=== PATIENT | female | born 1935 | race Caucasian/White ===

== ENCOUNTER → 2017-10-03 | Day surgery (SDC) | payer OTHER, MEDICARE ==
[~2017-10-03] MED LIST: ADVIN25/60 INH; ALBINS/ INH; ALBU1AER9 INH; ALLO100T PO; ATEN-173 PO; CITA20TA9 PO; CYAN10005 PO; ENOX40IN SQ; FLUT50SP22; LEVO200T PO; LORA-741 PO; MERO1INJ2 IV; NTRGSL/4 SL; OXYC1TAB3 PO; SIMV20TA2 PO; TYLER650 PO
== END | disposition home or self-care (01) ==
LOC: C.ACU 14:21
PROVIDERS: ATTEND Physician Assistant Medical
DX: K57.92 Diverticulitis of intestine, part unspecified, without perforation or abscess without bleeding (principal); Z53.8 Procedure and treatment not carried out for other reasons

== ENCOUNTER 2021-07-13 08:33 | Inpatient (IN) ==
[2021-07-13] MEDS ORDERED: HYDROmorphone INJ 0.5 MG/0.5 ML SYR IV STA (08:49)
--- NOTE | 2021-07-13 08:55 | Emergency Department Note ---
Impression & Plan Fracture dislocation of ankle, Dislocation of left ankle joint, Ankle fracture ED Provider Note NAME: TREVOR ANDRADE AGE: 85 SEX: F : 1935 ARRIVES VIA: Ambulance INFORMANT: Patient ED PROVIDER(S): Jack Hudson DO CHIEF COMPLAINT: Left left ankle pain HPI: Patient is an 85-year-old female who presents the ER for left ankle pain. She was walking with her walker around 630 this morning. Her legs came out from under her and she fell back onto her buttocks and did hit her head slightly. She has no head or neck pain. No chest pain, belly pain, or back pain. Pain is all focal in the left ankle. Is an 8 out of 10. Is constant. Is worse with movement. She is brought in by EMS. She fell yesterday due to weakness and hurt her right ankle. ROS: See above HPI for pertinent positives & negatives. A total of 10 systems reviewed and were otherwise negative. PAST MEDICAL HISTORY:See Below PAST SURGICAL HISTORY:See Below FAMILY HISTORY:See Below SOCIAL HISTORY:See Below HOME MEDICATIONS:See Below ALLERGIES:See Below VITALS:See Below PHYSICAL EXAMINATION: GENERAL: alert, well appearing, well nourished, mild distress, disheveled HEAD: normal cephalic, atraumatic EYE EXAM: normal conjunctiva, PERRL and EOM's grossly intact OROPHARYNX: no exudate, no erythema, lips, buccal mucosa, and tongue normal and mucous membranes are moist NECK: supple, no nuchal rigidity, no adenopathy, non-tender CHEST: stable to compression anteriorly and posteriorly LUNGS: clear to auscultation. Normal chest wall mechanics HEART: no murmurs, S1 normal and S2 normal ABDOMEN: abdomen soft, non-tender, normo-active bowel sounds, no masses, no rebound or guarding. PELVIS: stable to compression anteriorly and posteriorly BACK: Back is symmetrical on inspection and there is no deformity, no midline tenderness, no CVA tenderness. UPPER EXTREMITIES: full active and passive range of motion of all joints without tenderness to palpation LOWER EXTREMITIES: No tenderness throughout the entire right lower extremity including femur, knee, tib-fib with the exception of the right ankle where the patient has both medial and lateral tenderness. Erythema overlying the foot and tracking up to the mid nieves on the dorsal surface. No tenderness through left femur knee or tib-fib. Tenderness over the medial and lateral malleolus. Good cap refill. Able to wiggle toes. She has decreased sensation secondary to neuropathy. Just anterior to the left medial malleolus there is some superficial bruising where the bone was initially protruding. NEURO EXAM: Normal sensorium, cranial nerves II-XII grossly intact, normal speech, no gross weakness of arms, no gross weakness of legs. GCS: 15. MEDICAL DECISION MAKING: Patient is an 85-year-old female who presents the ER for bilateral ankle pain. She fell yesterday and hurt her right ankle and fell today and hurt her left ankle. She was splinted by EMS and brought in. IV was established blood work was obtained. She was given IV narcotics. Labs showed no significant leukoc ytosis. Mild anemia 10. BMP along with LFTs bilirubin lipase is unremarkable. Troponin was negative. UA was clean. Covid was negative. X-rays were obtained. Paged orthopedics and spoke with Dr. Dawn around 11:15 AM. He reviewed the images and called me back after discussion with Dr. Em. They feel this will need more specialized care. Discussed the splint with him as I did attempt to reduce the left fracture dislocation with minimal improvement. Dr. Dawn noted that it is extremely unstable and that is probably the best position that I will be able to obtain. Discussed with Dr. Tyrel Garvin from podiatry. He evaluated the images. He was agreeable to take the patient to the OR and he will do that later today as an add-on. Patient was splinted after I attempted to reduce and relocate the dislocation/fracture of the left ankle. Patient was admitted to the hospitalist for OR later today. Triage Nursing notes reviewed. Limited review of prior medical records performed Vital Signs: reviewed and remarkable for no significant abnormalities Differential diagnosis: Fracture, subluxation, dislocation, contusion, ligamentous injury, neurovascular, compartment syndrome, rhabdomyolysis, as well as other pathologies. ER treatment provided: See below Diagnostics interpreted by me: ECG: Sinus tachycardia rate of 107 Left axis No PVCs QTC 456 Cardiac Monitoring: An order was placed for continuous cardiac monitoring. The monitor shows a rate of 105 with sinus rhythm. Laboratory studies: As stated above and show below. Imaging studies: X-rays bilateral ankles show left fracture dislocation and right tibial fracture Consultation(s): As discussed above with Dr. Dawn and Dr. Tyrel Garvin Procedures: REDUCTION of Fracture and dislocation of the left ankle: Verbal consent was obtained. Patient was given 100 of IV fentanyl. Foot which was rotated laterally with some mild tenting just inferior to the medial malleolus. Gentle traction was placed by myself and foot was rotated medially. This was held in place while we splinted the foot. Patient tolerated procedure well. There was improvement of the angulation and pressure on the skin. Patient still had decreased sensation which consistent with her neuropathy. 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 Diverticulitis Failure of outpatient treatment Hypothyroidism Morbid obesity Rapidly progressive weakness UTI (urinary tract infection) Surgical History (Updated 07/13/21 @ 12:47 by KYLE Beck) H/O heart artery stent History of arthroplasty of left knee Status post lens implant Social History Smoking Status: Never smoker Preferred Language: Albanian Feels Safe at Home: Yes Assistive Devices: Denture - Upper and Denture - Lower Allergies Allergies Allergy/AdvReac Type Severity Reaction Status Date / Time oxytetracycline Allergy Intermediate Unknown Verified 07/13/21 10:57 polymyxin B Allergy Intermediate Unknown Verified 07/13/21 10:57 tetracycline Allergy Intermediate Unknown Verified 07/13/21 10:57 morphine AdvReac Unknown Unknown Verified 07/13/21 10:57 Home Meds Home Medications Medication Instructions Recorded Confirmed acetaminophen 500 mg tablet 1,000 mg PO BID 02/15/21 07/13/21 (Tylenol Extra Strength) allopurinol 100 mg tablet 100 mg PO QAM 02/15/21 07/13/21 (Zyloprim) aspirin 81 mg tablet,delayed 81 mg PO QAM 02/15/21 07/13/21 release (Aspirin Low Dose) atenolol 25 mg tablet (Tenormin) 12.5 mg PO QAM 02/15/21 07/13/21 atorvastatin 20 mg tablet (Lipitor) 20 mg PO QAM 02/15/21 07/13/21 cholecalciferol (vitamin D3) 25 25 mcg PO HS 02/15/21 07/13/21 mcg (1,000 unit) capsule (Vitamin D3) cyanocobalamin (vitamin B-12) 3,000 mcg PO HS 02/15/21 07/13/21 1,000 mcg tablet (Vitamin B-12) fluticasone 250 mcg-salmeterol 50 1 inh INHALATION QAM 02/15/21 07/13/21 mcg/dose blistr powdr for inhalation (Advair Diskus) fluticasone propionate 50 1 spray INTRANASAL BID 02/15/21 07/13/21 mcg/actuation nasal spray,suspension (Flonase Allergy Relief) furosemide 20 mg tablet (Lasix) 20 mg PO DAILY PRN 02/15/21 07/13/21 levothyroxine 200 mcg tablet 200 mcg PO QAM 02/15/21 07/13/21 (Synthroid) losartan 50 mg tablet (Cozaar) 50 mg PO BID 02/15/21 07/13/21 vitamin E 1,000 unit capsule 1,000 unit PO HS 02/15/21 07/13/21 ferrous sulfate 325 mg (65 mg 325 mg PO HS 07/13/21 07/13/21 iron) tablet (iron) hydrocodone 5 mg-acetaminophen 325 1 tab PO Q12 07/13/21 07/13/21 mg tablet trolamine salicylate 10 % topical 1 applic TOPICAL TID PRN 07/13/21 07/13/21 cream (Aspercreme) Results & Data (ED) Vital Signs Vital Signs - 24 hr 07/13/21 08:33 07/13/21 10:30 07/13/21 10:34 Temperature 37.1 C Temperature Source Oral Pulse Rate 96 H 99 H 99 H Pulse Rate from SpO2 Sensor Pulse Rhythm Regular Regular Respiratory Rate 18 14 15 Respiratory Effort / Characteristics Non-Labored Respiratory Depth Normal Respiratory Pattern Regular Blood Pressure 178/108 H 150/105 H Blood Pressure Mean 131 120 Pulse Oximetry 96 94 Oxygen Delivery Method Room Air Room Air Sepsis Recent Fever Within 48 Hours No Sepsis New/Unexplained Change in Mental Status No Sepsis Action Taken by Nursing No Action Required 07/13/21 11:00 07/13/21 11:30 07/13/21 12:00 Temperature Temperature Source Pulse Rate 99 H 97 H 100 H Pulse Rate from SpO2 Sensor 97 H 98 H Pulse Rhythm Respiratory Rate 14 24 21 Respiratory Effort / Characteristics Respiratory Depth Respiratory Pattern Blood Pressure 204/107 H 169/91 H 187/110 H Blood Pressure Mean 139 117 135 Pulse Oximetry 94 92 Oxygen Delivery Method Sepsis Recent Fever Within 48 Hours Sepsis New/Unexplained Change in Mental Status Sepsis Action Taken by Nursing Laboratory Data Result diagrams: 07/13/21 09:20 07/13/21 09:20 Lab Results 07/13/21 07/13/21 07/13/21 Range/Units 08:55 09:20 09:20 WBC (4.8-10.8) K/uL RBC (4.2-5.4) M/uL Hgb (12.0-16.0) g/dL Hct (37-47) % MCV (80-100) fL MCH (25-34) pg MCHC (32-36) g/dL RDW Std Deviation (36.4-46.3) fL RDW Coeff of Amaya (11.5-14.5) % Plt Count (130-400) K/uL MPV (7.4-10.4) fL Immature Gran % (Auto) % Neut % (Auto) % Lymph % (Auto) % Rincon % (Auto) % Eos % (Auto) % Baso % (Auto) % Neut # (Auto) (1.4-6.5) K/uL Lymph # (Auto) (1.2-3.4) K/uL Rincon # (Auto) (0.11-0.59) K/uL Eos # (Auto) (0-0.5) K/uL Baso # (Auto) (0-0.2) K/uL Immature Gran # (Auto) (0.00-0.02) K/uL PT 11.6 (9.0-12.0) Seconds INR 1.2 H (0.9-1.1) Sodium 134 L (136-145) mmol/L Potassium 4.7 (3.5-5.1) mmol/L Chloride 101 (98-107) mmol/L Carbon Dioxide 27 (21-32) mmol/L Anion Gap 6.0 (3-11) BUN 22 H (7-18) mg/dl Creatinine 1.15 (0.6-1.2) mg/dl Est Cr Clr Drug Dosing 42.5 ml/min Est GFR ( Amer) 51.0 ml/min Est GFR (Non-Af Amer) 44.0 ml/min BUN/Creatinine Ratio 18.8 (10-20) Glucose 148 H (70-99) mg/dl Calcium 9.1 (8.5-10.1) mg/dl Total Bilirubin 0.7 (0.2-1) mg/dl AST 27 (15-37) U/L ALT 17 (12-78) U/L Alkaline Phosphatase 79 (45-117) U/L Troponin I < 0.015 (0-0.045) ng/ml Total Protein 7.8 (6.4-8.2) gm/dl Albumin 3.6 (3.4-5.0) gm/dl Globulin 4.2 H (2.5-4.0) gm/dl Albumin/Globulin Ratio 0.9 (0.9-2) Lipase 157 (73-393) U/L Urine Color Yellow Urine Appearance Clear (Clear) Urine pH 5.0 (4.5-7.5) Ur Specific Franklin 1.019 (1.000-1.030) Urine Protein 3+ H (Negative) Urine Glucose (UA) Negative (Negative) Urine Ketones Negative (Negative) Urine Blood Trace H (Negative) Urine Nitrite Negative (Negative) Urine Bilirubin Negative (Negative) Urine Urobilinogen Negative (Negative) Ur Leukocyte Esterase Negative (Negative) Urine WBC (Auto) 1-5 (0-5) /hpf Urine RBC (Auto) 0-4 (0-4) /hpf U Hyaline Cast (Auto) 1-5 (0-5) /lpf U Epithel Cells (Auto) 20-30 H (0-5) /lpf Urine Bacteria (Auto) Negative (Negative) COVID-19 Eval Order SARS-CoV-2 (PCR) (Negative) 07/13/21 07/13/21 07/13/21 Range/Units 09:20 11:00 11:00 WBC 6.52 (4.8-10.8) K/uL RBC 3.38 L (4.2-5.4) M/uL Hgb 10.6 L (12.0-16.0) g/dL Hct 33.6 L (37-47) % MCV 99.4 (80-100) fL MCH 31.4 (25-34) pg MCHC 31.5 L (32-36) g/dL RDW Std Deviation 57.5 H (36.4-46.3) fL RDW Coeff of Amaya 16.0 H (11.5-14.5) % Plt Count 155 (130-400) K/uL MPV 12.3 H (7.4-10.4) fL Immature Gran % (Auto) 0.5 % Neut % (Auto) 77.4 % Lymph % (Auto) 10.4 % Rincon % (Auto) 11.5 % Eos % (Auto) 0.0 % Baso % (Auto) 0.2 % Neut # (Auto) 5.05 (1.4-6.5) K/uL Lymph # (Auto) 0.68 L (1.2-3.4) K/uL Rincon # (Auto) 0.75 H (0.11-0.59) K/uL Eos # (Auto) 0.00 (0-0.5) K/uL Baso # (Auto) 0.01 (0-0.2) K/uL Immature Gran # (Auto) 0.03 H (0.00-0.02) K/uL PT (9.0-12.0) Seconds INR (0.9-1.1) Sodium (136-145) mmol/L Potassium (3.5-5.1) mmol/L Chloride (98-107) mmol/L Carbon Dioxide (21-32) mmol/L Anion Gap (3-11) BUN (7-18) mg/dl Creatinine (0.6-1.2) mg/dl Est Cr Clr Drug Dosing ml/min Est GFR ( Amer) ml/min Est GFR (Non-Af Amer) ml/min BUN/Creatinine Ratio (10-20) Glucose (70-99) mg/dl Calcium (8.5-10.1) mg/dl Total Bilirubin (0.2-1) mg/dl AST (15-37) U/L ALT (12-78) U/L Alkaline Phosphatase (45-117) U/L Troponin I (0-0.045) ng/ml Total Protein (6.4-8.2) gm/dl Albumin (3.4-5.0) gm/dl Globulin (2.5-4.0) gm/dl Albumin/Globulin Ratio (0.9-2) Lipase (73-393) U/L Urine Color Urine Appearance (Clear) Urine pH (4.5-7.5) Ur Specific Franklin (1.000-1.030) Urine Protein (Negative) Urine Glucose (UA) (Negative) Urine Ketones (Negative) Urine Blood (Negative) Urine Nitrite (Negative) Urine Bilirubin (Negative) Urine Urobilinogen (Negative) Ur Leukocyte Esterase (Negative) Urine WBC (Auto) (0-5) /hpf Urine RBC (Auto) (0-4) /hpf U Hyaline Cast (Auto) (0-5) /lpf U Epithel Cells (Auto) (0-5) /lpf Urine Bacteria (Auto) (Negative) COVID-19 Eval Order Covid19 at [facility] SARS-CoV-2 (PCR) NEGATIVE (Negative) Administered Medications Hydromorphone HCl (Hydromorphone Inj 0.5 Mg/0.5 Ml Syr) 0.25 mg IV Q20M PRN PRN Reason: Moderate Pain (Rating 3,4,5,6) Stop: 07/27/21 10:37 Last Admin: 07/13/21 10:57 Dose: 0.25 mg Documented by: [id number] Hydromorphone HCl (Hydromorphone Inj 0.5 Mg/0.5 Ml Syr) 0.5 mg IV Q20M PRN PRN Reason: Severe Pain (Rating 7,8,9,10) Stop: 07/27/21 10:37 Last Admin: 07/13/21 13:25 Dose: 0.5 mg Documented by: [id number] Discontinued Medications Fentanyl Citrate (Fentanyl Citrate 100 Mcg/2 Ml Vial) Confirm Administered Dose 100 mcg .ROUTE .STK-MED ONE Stop: 07/13/21 10:19 Last Admin: 07/13/21 10:30 Dose: 100 mcg Documented by: [id number] Fentanyl Citrate (Fentanyl Citrate 100 Mcg/2 Ml Vial) 100 mcg IV NOW STA Stop: 07/13/21 10:39 Last Admin: 07/13/21 10:40 Dose: Not Given Documented by: [id number] Hydromorphone HCl (Hydromorphone Inj 0.5 Mg/0.5 Ml Syr) 0.25 mg IV NOW STA Stop: 07/13/21 08:50 Last Admin: 07/13/21 09:43 Dose: 0.25 mg Documented by: [id number] Imaging Data Radiologist's Impression: Ankle X-Ray 07/13/21 08:49 XR ankle LT 2V CLINICAL HISTORY: l ankle pain TECHNIQUE: 2 views of the left ankle were obtained. Comparison: None available at the time of this dictation. FINDINGS: There is a dislocation of the tibial calcaneal articulation, with one shaft width anterior displacement. There is a mildly comminuted oblique fracture of the fibula. The talar dome is smooth. Soft tissue swelling is seen. There is no ankle effusion. IMPRESSION: Fracture dislocation of the ankle. The tibia is dislocated approximately one shaft width anteriorly. ACT 112: Negative or not required by law. Electronically signed by: Jose David Berger M.D. 07/13/2021 9:50 AM Ankle X-Ray 07/13/21 08:49 XR ankle RT 2V CLINICAL HISTORY: Right ankle pain following fall. COMPARISON: None FINDINGS: Note is made of an acute oblique mildly displaced fracture through the posterior distal right tibia which extends to the tibiotalar articulation. No acute fracture of the distal right fibula is identified. Ankle soft tissue swelling is present. There is moderate vascular calcification. Midfoot osteoarthritis is noted. No ankle mortise widening is identified. Moderate tibiotalar joint osteoarthritis is present. IMPRESSION: Acute oblique mildly displaced fracture the posterior distal right tibial which extends to the tibiotalar articulation. ACT 112: Negative or not required by law. Electronically signed by: Jose Yeboah M.D. 07/13/2021 9:[address] 07/13/21 08:49 CT OF THE HEAD WITHOUT CONTRAST CLINICAL HISTORY: Fall. COMPARISON STUDY: Head CT July 10, 2016. CT DOSE: 537.48 mGy.cm TECHNIQUE: Helical axial images of the head were obtained without IV contrast. Automated exposure control was utilized for the study. A dose lowering technique was utilized adhering to the principles of ALARA. FINDINGS: No acute intracranial hemorrhage, midline shift or mass effect is present. White matter hypodensities favor small vessel disease. The ventricular system is unremarkable. The basal cisterns are patent. No extra-axial collections are present. There are no findings to suggest acute dural sinus thrombosis or acute territorial infarct. No significant calvarial abnormalities are present. Visualized portions of the sinuses and mastoid air cells are clear. IMPRESSION: 1. No acute intracranial findings. 2. No calvarial fracture.3 ACT 112: Negative or not required by law. Electronically signed by: Jose Yeboah M.D. 07/13/2021 9:59 AM Ankle X-Ray 07/13/21 10:38 XR ankle LT min 3V routine CLINICAL HISTORY: fx reduction TECHNIQUE: 3 views of the left ankle were obtained. Comparison: Comparison is made to left ankle 2 views 07/13/2021 FINDINGS: Interval placement of a cast which obscures fine bony detail. Again noted is anterior dislocation of the left tibia, which remains approximately one shaft width displaced from the talar dome. There is a comminuted fracture of the distal left fibula, the distal fragment is approximately one half shaft width laterally displaced. The cortex of the medial malleolus is not well seen, likely representing a medial malleolus fracture. The talar dome is smooth. Soft tissue swelling is seen. IMPRESSION: Redemonstration of left ankle fracture dislocation. The tibia remains anteriorly dislocated relative to the talus. ACT 112: Negative or not required by law. Electronically signed by: Jose David Berger M.D. 07/13/2021 11:[address] 07/13/21 11:57 CT ankle LT wo con CLINICAL HISTORY: Left ankle fracture. COMPARISON STUDY: Left ankle radiographs obtained at 11:06 AM today. TECHNIQUE: Axial images of the left ankle were obtained without IV contrast. Sagittal and coronal reconstructions were viewed. Automated exposure control was utilized for the study. A dose lowering technique was utilized adhering to the principles of ALARA. FINDINGS: Note is again made of a left trimalleolar fracture/dislocation deformity. Overlying cast is present. No soft tissue gas is present. Extensive soft tissue swelling is present. There is an acute comminuted displaced fracture of the left fibula. This fracture extends from the level of the distal shaft to the fibular head. This fracture is displaced 2.1 cm. An acute comminuted displaced distal left tibial fracture is noted with intra-articular extension. There are multiple intra-articular bone fragments. The tibia is displaced anteriorly with respect to the talus and impacted. Tibial fracture is displaced at least 2 cm. There is an impaction fracture of the anterolateral aspect of the talar dome with an associated 1.5 cm bone fragment. No acute left calcaneal fracture is present. A displaced medial malleolus fracture is noted. Alignment of the left midfoot is anatomic. No acute fractures are identified within visualized portions of the left metatarsals. Moderate mid foot osteophytosis present. IMPRESSION: 1. Left ankle trimalleolar fracture/dislocation deformity, as described above. Comminuted displaced and impacted distal left tibial fracture. Tibia displaced anteriorly and medially with respect to the talus. Multiple intra-articular bone fragments. 2. Impaction fracture of the anterolateral aspect of the talar dome. ACT 112: Negative or not required by law. Electronically signed by: Jose Yeboah M.D. 07/13/2021 2:46 PM Discharge Plan Visit Data Chief Complaint: Fall Stated Complaint: FALL, L ANKLE FX ED Provider: Jack Hudson Discharge Problem: Fracture dislocation of ankle, Dislocation of left ankle joint, Ankle fracture Patient Disposition: Admitted As Inpatient Discharge Instructions Interventions: ED Discharge Assessment Last Done: 07/13/21 14:25
[2021-07-13 09:24] LABS: Appearance Urine Clear (Clear); Bacteria Urine Automated Negative (Negative); Bilirubin Urine Negative (Negative); Blood Urine Trace (Negative); Color Urine Yellow; Epithelial Cell Urine Auto 20-30 /lpf (0-5); Glucose Urine UA Negative (Negative); Ketones Urine Negative (Negative); Leukocyte Esterase Urine Negative (Negative); Nitrite Urine Negative (Negative); Protein Urine 3+ (Negative); RBC Urine Automated 0-4 /hpf (0-4); Specific Gravity Urine 1.019 (1.000-1.030); Urobilinogen Urine Negative (Negative)
[2021-07-13 09:34] LABS: Basophils # (auto) 0.01 K/uL (0-0.2); Basophils % (auto) 0.2 %; Hematocrit (blood only) 33.6 % (37-47); Hemoglobin 10.6 g/dL (12.0-16.0); Immature Granulocytes # (auto) 0.03 K/uL (0.00-0.02); Immature Granulocytes % (auto) 0.5 %; Lymphocytes # (auto) 0.68 K/uL (1.2-3.4); Lymphocytes % (auto) 10.4 %; Mean Corpuscular Hemoglobin 31.4 pg (25-34); Mean Corpuscular Hgb Conc 31.5 g/dL (32-36); Mean Corpuscular Volume 99.4 fL (80-100); Mean Platelet Volume 12.3 fL (7.4-10.4); Monocytes # (auto) 0.75 K/uL (0.11-0.59); Monocytes % (auto) 11.5 %; Neutrophils # (auto) 5.05 K/uL (1.4-6.5); Neutrophils % (auto) 77.4 %; Platelet Count 155 K/uL (130-400); RDW Standard Deviation 57.5 fL (36.4-46.3); Red Blood Count 3.38 M/uL (4.2-5.4); White Blood Count 6.52 K/uL (4.8-10.8)
[2021-07-13 09:49] LABS: INR 1.2 (0.9-1.1); Prothrombin Time 11.6 Seconds (9.0-12.0)
--- NOTE | 2021-07-13 09:49 | XRay Report ---
XR ankle RT 2V CLINICAL HISTORY: Right ankle pain following fall. COMPARISON: None FINDINGS: Note is made of an acute oblique mildly displaced fracture through the posterior distal ri ght tibia which extends to the tibiotalar articulation. No acute fracture of the distal right fibula is identified. Ankle soft tissue swelling is present. There is moderate vascular calcification. Midfo ot osteoarthritis is noted. No ankle mortise widening is identified. Moderate tibiotalar joint osteoa rthritis is present. IMPRESSION: Acute oblique mildly displaced fracture the posterior distal right tibial which extends t o the tibiotalar articulation. ACT 112: Negative or not required by law. Electronically signed by: Jose Yeboah M.D. 07/13/2021 9:47 AM
--- NOTE | 2021-07-13 09:51 | XRay Report ---
XR ankle LT 2V CLINICAL HISTORY: l ankle pain TECHNIQUE: 2 views of the left ankle were obtained. Comparison: None available at the time of this dictation. FINDINGS: There is a dislocation of the tibial calcaneal articulation, with one shaft width anterior displaceme nt. There is a mildly comminuted oblique fracture of the fibula. The talar dome is smooth. Soft tissu e swelling is seen. There is no ankle effusion. IMPRESSION: Fracture dislocation of the ankle. The tibia is dislocated approximately one shaft width anteriorly. ACT 112: Negative or not required by law. Electronically signed by: Jose David Berger M.D. 07/13/2021 9:50 AM
[2021-07-13 09:54] LABS: Alanine Aminotransferase 17 U/L (12-78); Albumin Level 3.6 gm/dl (3.4-5.0); Aspartate Aminotransferase 27 U/L (15-37); BUN Creatinine Ratio 18.8 (10-20); Blood Urea Nitrogen 22 mg/dl (7-18); Calcium 9.1 mg/dl (8.5-10.1); Carbon Dioxide 27 mmol/L (21-32); Chloride 101 mmol/L (98-107); Creatinine Clr Calc Pharmacy 42.5 ml/min; Glucose 148 mg/dl (70-99); Lipase 157 U/L (73-393); Potassium 4.7 mmol/L (3.5-5.1); Sodium 134 mmol/L (136-145)
[2021-07-13 09:59] LABS: Albumin Globulin Ratio 0.9 (0.9-2); Alkaline Phosphatase 79 U/L (45-117); Bilirubin,Total 0.7 mg/dl (0.2-1); Globulin 4.2 gm/dl (2.5-4.0); Total Protein 7.8 gm/dl (6.4-8.2); Troponin I < 0.015 ng/ml (0-0.045)
--- NOTE | 2021-07-13 10:00 | CT Scan Report ---
CT OF THE HEAD WITHOUT CONTRAST CLINICAL HISTORY: Fall. COMPARISON STUDY: Head CT July 10, 2016. CT DOSE: 537.48 mGy.cm TECHNIQUE: Helical axial images of the head were obtained without IV contrast. Automated exposure con trol was utilized for the study. A dose lowering technique was utilized adhering to the principles o f ALARA. FINDINGS: No acute intracranial hemorrhage, midline shift or mass effect is present. White matter hyp odensities favor small vessel disease. The ventricular system is unremarkable. The basal cisterns are patent. No extra-axial collections are present. There are no findings to suggest acute dural sinus t hrombosis or acute territorial infarct. No significant calvarial abnormalities are present. Visualize d portions of the sinuses and mastoid air cells are clear. IMPRESSION: 1. No acute intracranial findings. 2. No calvarial fracture.3 ACT 112: Negative or not required by law. Electronically signed by: Jose Yeboah M.D. 07/13/2021 9:59 AM
[2021-07-13] MEDS ORDERED: fentaNYL citrate 100 MCG/2 ML VIAL ONE ×2 (10:18→20:18)
[2021-07-13] MEDS ORDERED: HYDROmorphone INJ 0.5 MG/0.5 ML SYR IV PRN ×2 (10:38)
[2021-07-13] MEDS ORDERED: fentaNYL citrate 100 MCG/2 ML VIAL IV STA (10:38)
--- NOTE | 2021-07-13 11:38 | XRay Report ---
XR ankle LT min 3V routine CLINICAL HISTORY: fx reduction TECHNIQUE: 3 views of the left ankle were obtained. Comparison: Comparison is made to left ankle 2 views 07/13/2021 FINDINGS: Interval placement of a cast which obscures fine bony detail. Again noted is anterior dislocation of the left tibia, which remains approximately one shaft width displaced from the talar dome. There is a comminuted fracture of the distal left fibula, the distal fragment is approximately one half shaft w idth laterally displaced. The cortex of the medial malleolus is not well seen, likely representing a medial malleolus fracture. The talar dome is smooth. Soft tissue swelling is seen. IMPRESSION: Redemonstration of left ankle fracture dislocation. The tibia remains anteriorly dislocated relative to the talus. ACT 112: Negative or not required by law. Electronically signed by: Jose David Berger M.D. 07/13/2021 11:36 AM
--- NOTE | 2021-07-13 13:02 | History & Physical Report ---
Date of Service July 13, 2021 Assessment & Plan (1) Bilateral ankle fractures: Plan: Bilateral ankle fractures- currently splinted - see results above - Defer to podiatry/orthopaedics - SCD for VTE prophylaxis - chemoprophy when hemostasis ensured - PT/OT consult - rehab placement likely needed afterwards- PT/OT consult placed - Pain control - IV Tylenol while NPO, Hydromorphone 05mg IV q4 PRN - add longer acting oral agents once back from OR- or consider [employer] postoperative (2) Dislocation of left ankle joint: Plan: As above- defer to podiatry (3) CAD (coronary artery disease): Plan: With 1 stent to circumflex 2003 - Asa- likey able to re-start in morning - Continue Atenolol - Hold ARB- follow renal function postoperative (4) Morbid obesity: Plan: Will need weight reduction to decrease CV morbidity and assist with rehabilitation - HCO3 is 27 - follow; 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 Patient brought to the [facility] today for fall. The patient fell yesterday and hurt her right ankle, she refused transfer to the [facility] yesterday but did call EMS to get her up off the floor. She fell backward while trying to get to her chair. Today she was also trying to get around the house and fell again. In the EMD she was complaining of bilateral ankle pain. She was noted to have bilateral ankle fractures. The left ankle- Fracture dislocation of the ankle. The tibia is dislocated approximately one shaft width anteriorly and her right ankle - Acute oblique mildly displaced fracture the posterior distal right tibial which extends to the tibiotalar articulation. Podiatry was consulted and plans to evaluate the patient and plan for operating room this afternoon/evening. The patient will be made NPO, pain control, CT scan of the ankles already ordered, will place Pacheco catheter. She will be admitted for the above, PT/OT evaluation, patient will likely need rehab placement and assisted living care she is open to after hospitalization. Case management consult placed. The patient is able to get around her double wide to clean, grocery shopping, and ADLS without dysnpea. She denies any chest pain or cardiac symptoms with these. She had a stent placed in 2003. She reports asthma without the use of CPAP/BIPAP at night. Is on advair daily. She is morbidly obese with glucose intolerance not on glucose lowering medications as outpatient. 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 CKD III. Not on any blood thinners other than ASA daily, this has been held for perioperative and postoperative period. BP are elevated in the EMD likely secondary to pain as well as poor fitting BP cuff. Patent perioperative risk/probability for perioperative SC/Cardiac arrest is 0.22%, Her Revised Cardiac risk/probability for SC/pulmonary edema/cardiac arrest is: Low risk 0.9% Patient has had her COVID vaccine and her COVID test on admission is: NEGATIVE Allergies Allergy/AdvReac Type Severity Reaction Status Date / Time oxytetracycline Allergy Intermediate Unknown Verified 07/13/21 10:57 polymyxin B Allergy Intermediate Unknown Verified 07/13/21 10:57 tetracycline Allergy Intermediate Unknown Verified 07/13/21 10:57 morphine AdvReac Unknown Unknown Verified 07/13/21 10:57 Home Medications Medication Instructions Recorded Confirmed Type acetaminophen 500 mg tablet 1,000 mg PO BID 02/15/21 07/13/21 History (Tylenol Extra Strength) allopurinol 100 mg tablet 100 mg PO QAM 02/15/21 07/13/21 History (Zyloprim) aspirin 81 mg tablet,delayed 81 mg PO QAM 02/15/21 07/13/21 History release (Aspirin Low Dose) atenolol 25 mg tablet (Tenormin) 12.5 mg PO QAM 02/15/21 07/13/21 History atorvastatin 20 mg tablet (Lipitor) 20 mg PO QAM 02/15/21 07/13/21 History cholecalciferol (vitamin D3) 25 25 mcg PO HS 02/15/21 07/13/21 History mcg (1,000 unit) capsule (Vitamin D3) cyanocobalamin (vitamin B-12) 3,000 mcg PO HS 02/15/21 07/13/21 History 1,000 mcg tablet (Vitamin B-12) fluticasone 250 mcg-salmeterol 50 1 inh INHALATION QAM 02/15/21 07/13/21 History mcg/dose blistr powdr for inhalation (Advair Diskus) fluticasone propionate 50 1 spray INTRANASAL BID 02/15/21 07/13/21 History mcg/actuation nasal spray,suspension (Flonase Allergy Relief) furosemide 20 mg tablet (Lasix) 20 mg PO DAILY PRN 02/15/21 07/13/21 History levothyroxine 200 mcg tablet 200 mcg PO QAM 02/15/21 07/13/21 History (Synthroid) losartan 50 mg tablet (Cozaar) 50 mg PO BID 02/15/21 07/13/21 History vitamin E 1,000 unit capsule 1,000 unit PO HS 02/15/21 07/13/21 History ferrous sulfate 325 mg (65 mg 325 mg PO HS 07/13/21 07/13/21 History iron) tablet (iron) hydrocodone 5 mg-acetaminophen 325 1 tab PO Q12 07/13/21 07/13/21 History mg tablet trolamine salicylate 10 % topical 1 applic TOPICAL TID PRN 07/13/21 07/13/21 History cream (Aspercreme) Past Med/Surg History Medical History (Updated 07/13/21 @ 15:14 by Jack Hudson DO) Anemia Arthropathy of right knee Asthma 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 Diverticulitis Failure of outpatient treatment Hypothyroidism Morbid obesity Rapidly progressive weakness UTI (urinary tract infection) Surgical History (Updated 07/13/21 @ 12:47 by KYLE Beck) H/O heart artery stent History of arthroplasty of left knee Status post lens implant Social History Smoking Status: Never smoker Preferred Language: Japanese Feels Safe at Home: Yes Assistive Devices: Denture - Upper and Denture - Lower Review of Systems Review of Systems: REVIEW OF SYSTEMS: Constitutional: No fever, sweats or chills Eyes: No diplopia, no worsening or blurred vision ENT: (+) bilateral hearing aids, upper and lower dentures, no trouble swallowing Respiratory: No cough, sputum, dyspnea at rest or on exertion Cardiovascular: No chest pain, tightness or palpitations Abdomen: (+) ostomy No pain, nausea, vomiting, diarrhea or constipation Musculoskeletal: (+) chronic knee and hip joint pain, Acute ankle pain, NO calf pain, swelling Neurologic: No weakness, numbness/tingling, or balance problems Psychiatric: No anxiety or depression Skin: No rash or itch Physical Exam Physical Exam: PHYSICAL EXAM: General: awake, alert, anxious Head: Normocephalic, atraumatic ENT: PERRL, EOMI, no pharyngeal exudate, mucous membranes moist Neuro: AAO x 3, speech clear and appropriate, strength intact bilaterally 5/5, sensation intact and equal all extremities and dermatomes, no pronator drift Chest: equal rise and fall of the chest, no accessory muscle use, no heaves or thirlls, Clear to auscultation, on room air, Cardiac: Regular rate and rhythm, telemetry reviewed- NSR, skin warm dry, cap refill <3 seconds, peripheral pulses +2- pedal pulses unalbe to assess secondary to splinting wraps, no JVD, no murmur, GI: soft, tender to around stoma- this is no change per patient(parastomal hernia) not inflamed, no rebound, guarding or tenderness : Pacheco to gravity Extremities: left shoulder chronic pain and decreased ROM with pain, right and left ankles fractured- NWB for now- plan for operative care following eval by podiatry Psych: Normal mood and affect Skin: no rash or erythema Results & Data Results & Data ([facility]) Vital Signs (Past 12 Hours) Vital Signs Temp Pulse Resp BP Pulse Ox 07/13/21 11:00 99 H 14 204/107 H 94 07/13/21 10:34 99 H 15 150/105 H 07/13/21 10:30 99 H 14 94 07/13/21 08:33 37.1 C 96 H 18 178/108 H 96 Laboratory Results Abnormal lab results 07/13/21 07/13/21 07/13/21 Range/Units 08:55 09:20 09:20 RBC (4.2-5.4) M/uL Hgb (12.0-16.0) g/dL Hct (37-47) % MCHC (32-36) g/dL RDW Std Deviation (36.4-46.3) fL RDW Coeff of Amaya (11.5-14.5) % MPV (7.4-10.4) fL Lymph # (Auto) (1.2-3.4) K/uL Knott # (Auto) (0.11-0.59) K/uL Immature Gran # (Auto) (0.00-0.02) K/uL INR 1.2 H (0.9-1.1) Sodium 134 L (136-145) mmol/L BUN 22 H (7-18) mg/dl Glucose 148 H (70-99) mg/dl Globulin 4.2 H (2.5-4.0) gm/dl Urine Protein 3+ H (Negative) Urine Blood Trace H (Negative) U Epithel Cells (Auto) 20-30 H (0-5) /lpf 07/13/21 Range/Units 09:20 RBC 3.38 L (4.2-5.4) M/uL Hgb 10.6 L (12.0-16.0) g/dL Hct 33.6 L (37-47) % MCHC 31.5 L (32-36) g/dL RDW Std Deviation 57.5 H (36.4-46.3) fL RDW Coeff of Amaya 16.0 H (11.5-14.5) % MPV 12.3 H (7.4-10.4) fL Lymph # (Auto) 0.68 L (1.2-3.4) K/uL Knott # (Auto) 0.75 H (0.11-0.59) K/uL Immature Gran # (Auto) 0.03 H (0.00-0.02) K/uL INR (0.9-1.1) Sodium (136-145) mmol/L BUN (7-18) mg/dl Glucose (70-99) mg/dl Globulin (2.5-4.0) gm/dl Urine Protein (Negative) Urine Blood (Negative) U Epithel Cells (Auto) (0-5) /lpf Diagnostic Findings Ankle X-Ray 07/13/21 08:49 XR ankle LT 2V CLINICAL HISTORY: l ankle pain TECHNIQUE: 2 views of the left ankle were obtained. Comparison: None available at the time of this dictation. FINDINGS: There is a dislocation of the tibial calcaneal articulation, with one shaft width anterior displacement. There is a mildly comminuted oblique fracture of the fibula. The talar dome is smooth. Soft tissue swelling is seen. There is no ankle effusion. IMPRESSION: Fracture dislocation of the ankle. The tibia is dislocated approximately one shaft width anteriorly. ACT 112: Negative or not required by law. Electronically signed by: Jose David Berger M.D. 07/13/2021 9:50 AM Ankle X-Ray 07/13/21 08:49 XR ankle RT 2V CLINICAL HISTORY: Right ankle pain following fall. COMPARISON: None FINDINGS: Note is made of an acute oblique mildly displaced fracture through the posterior distal right tibia which extends to the tibiotalar articulation. No acute fracture of the distal right fibula is identified. Ankle soft tissue swelling is present. There is moderate vascular calcification. Midfoot osteoarthritis is noted. No ankle mortise widening is identified. Moderate tibiotalar joint osteoarthritis is present. IMPRESSION: Acute oblique mildly displaced fracture the posterior distal right tibial which extends to the tibiotalar articulation. ACT 112: Negative or not required by law. Electronically signed by: Jose Yeboah M.D. 07/13/2021 9:[address] 07/13/21 08:49 CT OF THE HEAD WITHOUT CONTRAST CLINICAL HISTORY: Fall. COMPARISON STUDY: Head CT July 10, 2016. CT DOSE: 537.48 mGy.cm TECHNIQUE: Helical axial images of the head were obtained without IV contrast. Automated exposure control was utilized for the study. A dose lowering technique was utilized adhering to the principles of ALARA. FINDINGS: No acute intracranial hemorrhage, midline shift or mass effect is present. White matter hypodensities favor small vessel disease. The ventricular system is unremarkable. The basal cisterns are patent. No extra-axial collections are present. There are no findings to suggest acute dural sinus thrombosis or acute territorial infarct. No significant calvarial abnormalities are present. Visualized portions of the sinuses and mastoid air cells are clear. IMPRESSION: 1. No acute intracranial findings. 2. No calvarial fracture.3 ACT 112: Negative or not required by law. Electronically signed by: Jose Yeboah M.D. 07/13/2021 9:59 AM Ankle X-Ray 07/13/21 10:38 XR ankle LT min 3V routine CLINICAL HISTORY: fx reduction TECHNIQUE: 3 views of the left ankle were obtained. Comparison: Comparison is made to left ankle 2 views 07/13/2021 FINDINGS: Interval placement of a cast which obscures fine bony detail. Again noted is anterior dislocation of the left tibia, which remains approximately one shaft width displaced from the talar dome. There is a comminuted fracture of the distal left fibula, the distal fragment is approximately one half shaft width laterally displaced. The cortex of the medial malleolus is not well seen, likely representing a medial malleolus fracture. The talar dome is smooth. Soft tissue swelling is seen. IMPRESSION: Redemonstration of left ankle fracture dislocation. The tibia remains anteriorly dislocated relative to the talus. ACT 112: Negative or not required by law. Electronically signed by: Jose David Berger M.D. 07/13/2021 11:36 AM Medications Administered Hydromorphone HCl (Hydromorphone Inj 0.5 Mg/0.5 Ml Syr) 0.25 mg IV Q20M PRN PRN Reason: Moderate Pain (Rating 3,4,5,6) Stop: 07/27/21 10:37 Last Admin: 07/13/21 10:57 Dose: 0.25 mg Documented by: [id number] Discontinued Medications Fentanyl Citrate (Fentanyl Citrate 100 Mcg/2 Ml Vial) Confirm Administered Dose 100 mcg .ROUTE .STK-MED ONE Stop: 07/13/21 10:19 Last Admin: 07/13/21 10:30 Dose: 100 mcg Documented by: [id number] Fentanyl Citrate (Fentanyl Citrate 100 Mcg/2 Ml Vial) 100 mcg IV NOW STA Stop: 07/13/21 10:39 Last Admin: 07/13/21 10:40 Dose: Not Given Documented by: [id number] Hydromorphone HCl (Hydromorphone Inj 0.5 Mg/0.5 Ml Syr) 0.25 mg IV NOW STA Stop: 07/13/21 08:50 Last Admin: 07/13/21 09:43 Dose: 0.25 mg Documented by: [id number] Home Medications acetaminophen 500 mg tablet (Tylenol Extra Strength) 1,000 mg PO BID 02/15/21 [History Confirmed 07/13/21] allopurinol 100 mg tablet (Zyloprim) 100 mg PO QAM 02/15/21 [History Confirmed 07/13/21] aspirin 81 mg tablet,delayed release (Aspirin Low Dose) 81 mg PO QAM 02/15/21 [History Confirmed 07/13/21] atenolol 25 mg tablet (Tenormin) 12.5 mg PO [facility] 02/15/21 [History Confirmed 07/13/21] atorvastatin 20 mg tablet (Lipitor) 20 mg PO M 02/15/21 [History Confirmed 07/13/21] cholecalciferol (vitamin D3) 25 mcg (1,000 unit) capsule (Vitamin D3) 25 mcg PO HS 02/15/21 [History Confirmed 07/13/21] cyanocobalamin (vitamin B-12) 1,000 mcg tablet (Vitamin B-12) 3,000 mcg PO 02/15/21 [History Confirmed 07/13/21] fluticasone 250 mcg-salmeterol 50 mcg/dose blistr powdr for inhalation (Advair Diskus) 1 inh INHALATION QA 02/15/21 [History Confirmed 07/13/21] fluticasone propionate 50 mcg/actuation nasal spray,suspension (Flonase Allergy Relief) 1 spray INTRANASAL BID 02/15/21 [History Confirmed 07/13/21] furosemide 20 mg tablet (Lasix) 20 mg PO DAILY PRN 02/15/21 [History Confirmed 07/13/21] levothyroxine 200 mcg tablet (Synthroid) 200 mcg PO [facility] 02/15/21 [History Confirmed 07/13/21] losartan 50 mg tablet (Cozaar) 50 mg PO BID 02/15/21 [History Confirmed 07/13/21] vitamin E 1,000 unit capsule 1,000 unit PO HS 02/15/21 [History Confirmed 07/13/21] ferrous sulfate 325 mg (65 mg iron) tablet (iron) 325 mg PO HS 07/13/21 [History Confirmed 07/13/21] hydrocodone 5 mg-acetaminophen 325 mg tablet 1 tab PO Q12 07/13/21 [History Confirmed 07/13/21] trolamine salicylate 10 % topical cream (Aspercreme) 1 applic TOPICAL TID PRN 07/13/21 [History Confirmed 07/13/21] Active Medications Hydromorphone HCl (Hydromorphone Inj 0.5 Mg/0.5 Ml Syr) 0.25 mg IV Q20M PRN PRN Reason: Moderate Pain (Rating 3,4,5,6) Stop: 07/27/21 10:37 Last Admin: 07/13/21 10:57 Dose: 0.25 mg Documented by: Hydromorphone HCl (Hydromorphone Inj 0.5 Mg/0.5 Ml Syr) 0.5 mg IV Q20M PRN PRN Reason: Severe Pain (Rating 7,8,9,10) Stop: 07/27/21 10:37 ECG Additional Comments: Poor data quality, interpretation may be adversely affected Sinus tachycardia Septal infarct , age undetermined Abnormal ECG When compared with ECG of 10-JUL-2016 13:31, Vent. rate has increased BY 50 BPM Code Status & VTE Plan Code Status CODE: FULL VTE: SCDs, chemoprophylaxis following operative procedure once hemostatis is achieved VTE Prophylaxis Plan VTE Prophylaxis will be ordered: Yes Supervising Physician Co-Signing Physician Notes 85 yo female is seen and examined at bedside. During face to face encounter with patient, obtained a history and physical examination. Discussed case with LATRICE Alva and answered all of the patient's questions. I reviewed above note and agree with it. Patient suffered 2 mechanical falls whcih resulted in bilateral ankle fractures. troponin is negative. Restarted her BP meds as she states she did not take them this AM. Ekg reviewed and pt does not require any additional evaluation or optimization prior to surgery. PG Care Time/CCT Total # of Minutes Spent Total Time Spent with Patient: Total time spent is greater than 50% in coordination of care (as documented) at patient's floor/unit and/or counseling patient: Coding Level of Care Code 39099 Initial Inpt Care Lvl 3 Diagnoses Bilateral ankle fractures S82.891A; S82.892A Dislocation of left ankle joint S93.05XA CAD (coronary artery disease) I25.10 Morbid obesity E66.01 H/O heart artery stent Z95.5 Hypothyroidism E03.9 Colovesical fistula N32.1
[2021-07-13] MEDS ORDERED: ACETAMINOPHEN 1000 MG/100 ML IV IV STA (14:00)
--- NOTE | 2021-07-13 14:47 | CT Scan Report ---
CT ankle LT wo con CLINICAL HISTORY: Left ankle fracture. COMPARISON STUDY: Left ankle radiographs obtained at 11:06 AM today. TECHNIQUE: Axial images of the left ankle were obtained without IV contrast. Sagittal and coronal rec onstructions were viewed. Automated exposure control was utilized for the study. A dose lowering juan ramon hnique was utilized adhering to the principles of ALARA. FINDINGS: Note is again made of a left trimalleolar fracture/dislocation deformity. Overlying cast is present. No soft tissue gas is present. Extensive soft tissue swelling is present. There is an acute comminuted displaced fracture of the left fibula. This fracture extends from the level of the distal shaft to the fibular head. This fracture is displaced 2.1 cm. An acute comminuted displaced distal l eft tibial fracture is noted with intra-articular extension. There are multiple intra-articular bone fragments. The tibia is displaced anteriorly with respect to the talus and impacted. Tibial fracture is displaced at least 2 cm. There is an impaction fracture of the anterolateral aspect of the talar d ome with an associated 1.5 cm bone fragment. No acute left calcaneal fracture is present. A displaced medial malleolus fracture is noted. Alignment of the left midfoot is anatomic. No acute fractures ar e identified within visualized portions of the left metatarsals. Moderate mid foot osteophytosis pres ent. IMPRESSION: 1. Left ankle trimalleolar fracture/dislocation deformity, as described above. Comminuted displaced and impacted distal left tibial fracture. Tibia displaced anteriorly and medially with respect to the talus. Multiple intra-articular bone fragments. 2. Impaction fracture of the anterolateral aspect of the talar dome. ACT 112: Negative or not required by law. Electronically signed by: Jose Yeboah M.D. 07/13/2021 2:46 PM
[2021-07-13] MEDS ORDERED: FUROSEMIDE 20 MG TAB PO PRN (15:09)
[2021-07-13] MEDS ORDERED: ACETAMINOPHEN 1000 MG/100 ML IV IV PRN (15:17)
[2021-07-13] MEDS ORDERED: LOSARTAN POTASSIUM 50 MG TAB PO ONE (15:30)
--- NOTE | 2021-07-13 15:30 | Electrocardiogram Report ---
Test Reason : Blood Pressure : / mmHG Vent. Rate : 107 BPM Atrial Rate : 107 BPM P-R Int : 194 ms QRS Dur : 074 ms QT Int : 342 ms P-R-T Axes : 052 -02 021 degrees QTc Int : 456 ms Poor data quality, interpretation may be adversely affected Sinus tachycardia Septal infarct , age undetermined Abnormal ECG When compared with ECG of 10-JUL-2016 13:31, Vent. rate has increased BY 50 BPM Septal infarct is now Present Confirmed by Elvin Wolff ([id number]) on 07/13/2021 3:30:28 PM Referred By: REFERRED SELF Confirmed By:Elvin Wolff
[2021-07-13] MEDS ORDERED: ATENOLOL 25 MG TABLET PO ONE (15:45)
[2021-07-13] MEDS: ACETAMINOPHEN 500 MG TAB PO SCH (16:17)
[2021-07-13] MEDS: HYDROmorphone INJ 0.5 MG/0.5 ML SYR IV PRN ×2 (16:23→21:42)
--- NOTE | 2021-07-13 19:35 | Anesthesiology Consultation ---
Date of Service July 13, 2021 Assessment & Plan (1) Encounter for pre-operative examination: Chart Review Chart Review: Acceptable Risk for Surgery and Patient NOT seen in Pre Admission Testing Consults Requested none Additional Notes Per hospitalist team "Patient suffered 2 mechanical falls whcih resulted in bilateral ankle fractures. troponin is negative. Restarted her BP meds as she states she did not take them this AM. Ekg reviewed and pt does not require any additional evaluation or optimization prior to surgery." Surgical team only available during evening/night time hours. Case is urgent but not emergent. Administration aware and given the ok to proceed with planned procedure tonight. History Surgery Operation Date: 07/13/21 11:30 Proposed Procedures p Open Reduction Internal Fixation Left and Right Ankle - Tyrel Garvin, CATARINOM, MS Height/Weight Height: 5 ft 1 in Weight: 101.8 kg Allergies Allergy/AdvReac Type Severity Reaction Status Date / Time oxytetracycline Allergy Intermediate Unknown Verified 07/13/21 10:57 polymyxin B Allergy Intermediate Unknown Verified 07/13/21 10:57 tetracycline Allergy Intermediate Unknown Verified 07/13/21 10:57 morphine AdvReac Unknown Unknown Verified 07/13/21 10:57 Medications Home Medications Medication Instructions Recorded Confirmed Last Taken acetaminophen 500 mg tablet 1,000 mg PO BID 02/15/21 07/13/21 07/12/21 (Tylenol Extra Strength) allopurinol 100 mg tablet 100 mg PO QAM 02/15/21 07/13/21 07/12/21 (Zyloprim) aspirin 81 mg tablet,delayed 81 mg PO QAM 02/15/21 07/13/21 07/12/21 release (Aspirin Low Dose) atenolol 25 mg tablet (Tenormin) 12.5 mg PO QAM 02/15/21 07/13/21 07/12/21 atorvastatin 20 mg tablet (Lipitor) 20 mg PO QAM 02/15/21 07/13/21 07/12/21 cholecalciferol (vitamin D3) 25 25 mcg PO HS 02/15/21 07/13/21 07/12/21 mcg (1,000 unit) capsule (Vitamin D3) cyanocobalamin (vitamin B-12) 3,000 mcg PO HS 02/15/21 07/13/21 07/12/21 1,000 mcg tablet (Vitamin B-12) fluticasone 250 mcg-salmeterol 50 1 inh INHALATION QAM 02/15/21 07/13/21 07/12/21 mcg/dose blistr powdr for inhalation (Advair Diskus) fluticasone propionate 50 1 spray INTRANASAL BID 02/15/21 07/13/21 07/12/21 mcg/actuation nasal spray,suspension (Flonase Allergy Relief) furosemide 20 mg tablet (Lasix) 20 mg PO DAILY PRN 02/15/21 07/13/21 Unknown levothyroxine 200 mcg tablet 200 mcg PO QAM 02/15/21 07/13/21 07/12/21 (Synthroid) losartan 50 mg tablet (Cozaar) 50 mg PO BID 02/15/21 07/13/21 07/12/21 vitamin E 1,000 unit capsule 1,000 unit PO HS 02/15/21 07/13/21 07/12/21 ferrous sulfate 325 mg (65 mg 325 mg PO HS 07/13/21 07/13/21 07/12/21 iron) tablet (iron) hydrocodone 5 mg-acetaminophen 325 1 tab PO Q12 07/13/21 07/13/21 07/11/21 mg tablet 1/2 tablet trolamine salicylate 10 % topical 1 applic TOPICAL TID PRN 07/13/21 07/13/21 07/13/21 cream (Aspercreme) Active Medications Generic Name Dose Route Start Last Admin Trade Name Freq PRN Reason Stop Dose Admin Acetaminophen 500 mg 07/13/21 16:00 07/13/21 16:17 Acetaminophen 500 Mg Tab PO 08/12/21 15:59 500 mg BID@0300,1500 REINALDO Administration Hydromorphone HCl 0.5 mg 07/13/21 15:09 07/13/21 16:23 Hydromorphone Inj 0.5 Mg/0.5 Ml Syr IV 07/27/21 15:08 0.5 mg Q4H PRN Administration Severe Pain Past Medical History Medical History Anemia Arthropathy of right knee Asthma 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 Diverticulitis Failure of outpatient treatment Hypothyroidism Morbid obesity Rapidly progressive weakness UTI (urinary tract infection) Past Surgical History Surgical History H/O heart artery stent History of arthroplasty of left knee Status post lens implant Social History Smoking Status: Former smoker Hx Alcohol Use: No Hx Substance Use: No Physical Exam Vital Signs Last Vital Signs Temp 36.7 C 07/13/21 17:19 Pulse 96 H 07/13/21 17:19 Resp 18 07/13/21 17:19 BP 135/81 07/13/21 17:19 Pulse Ox 100 07/13/21 17:19 Testing Laboratory Results 07/13/21 09:20 07/13/21 09:20 PT 11.6 Seconds (9.0-12.0) 07/13/21 09:20 INR 1.2 (0.9-1.1) H 07/13/21 09:20 Urine Color Yellow 07/13/21 08:55 Urine Appearance Clear (Clear) 07/13/21 08:55 Urine pH 5.0 (4.5-7.5) 07/13/21 08:55 Ur Specific Elsie 1.019 (1.000-1.030) 07/13/21 08:55 Urine Protein 3+ (Negative) H 07/13/21 08:55 Urine Glucose (UA) Negative (Negative) 07/13/21 08:55 Urine Ketones Negative (Negative) 07/13/21 08:55 Urine Nitrite Negative (Negative) 07/13/21 08:55 Ur Leukocyte Esterase Negative (Negative) 07/13/21 08:55 Urine WBC (Auto) 1-5 /hpf (0-5) 07/13/21 08:55 Urine RBC (Auto) 0-4 /hpf (0-4) 07/13/21 08:55 U Hyaline Cast (Auto) 1-5 /lpf (0-5) 07/13/21 08:55 U Epithel Cells (Auto) 20-30 /lpf (0-5) H 07/13/21 08:55 Urine Bacteria (Auto) Negative (Negative) 07/13/21 08:55 Electrocardiogram Date: 07/13/21 Findings: + ST @ (107) Septal infarct, age undetermined, when compared with ECG of 10-Jul-2016, ventricular rate has increased by 50 bpm and septal infarct is now present.
--- NOTE | 2021-07-13 20:07 | Surgery Consultation ---
Date of Consultation July 13, 2021 Assessment & Plan (1) Fracture dislocation of ankle: Patient seen, evaluated and treated. I reviewed bilateral ankle fractures and left ankle dislocation. I reviewed ORIF bilateral ankle in detail as well as post operative recovery. All questions answered. All potential risks, benefits, complications, alternatives, rehab, potential for incomplete relief of symptoms, need for further surgery, DVT, PE, , persistent pain, swelling, scarring, weakness, neurovascular, wound complications and potential for amputations were discussed with patient. Unwanted outcomes such as, but not limited to were reviewed including under correction, overcorrection, return of deformity, infection. All questions were answered. Patient has decided to proceed with procedure as indicated. (2) Ankle fracture: (3) Dislocation of left ankle joint: (4) Bilateral ankle fractures: (5) Morbid obesity: (6) Encounter for pre-operative examination: History of Present Illness Attending Physician: Clif Sheldon History of Present Illness Patient is a 85 y.o Female who is seen on floor for bilateral ankle fractures. 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 Patient was brought to the [place] ED today for fall. She notes she fell yesterday and hurt her right ankle. She fell backward while trying to get to her chair. Patient refused transfer to the [place] ED yesterday but did call EMS to get her up off the floor. Patient states today she was trying to get around in her house and fell. Patient then presented to [place] ED where she complained of bilateral ankle pain and was noted to have bilateral ankle fractures. The left ankle- Fracture dislocation of the ankle. The tibia is dislocated approximately one shaft width anteriorly and her right ankle - Acute oblique mildly displaced fracture the posterior distal right tibial which extends to the tibiotalar articulation. There was attempted reduction in [place] ED. Left ankle remains malreduced. The right ankle fracture shows displaced posterior malleolus. The patient is able to get around her double wide to clean, grocery shopping, and ADLS without dysnpea. She denies any chest pain or cardiac symptoms with these. She had a stent placed in 2003. She reports asthma without the use of CPAP/BIPAP at night. Is on advair daily. She is morbidly obese with glucose intolerance not on glucose lowering medications as outpatient. 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 CKD III. Not on any blood thinners other than ASA daily, this has been held for perioperative and postoperative period. Allergies Allergy/AdvReac Type Severity Reaction Status Date / Time oxytetracycline Allergy Intermediate Unknown Verified 07/13/21 10:57 polymyxin B Allergy Intermediate Unknown Verified 07/13/21 10:57 tetracycline Allergy Intermediate Unknown Verified 07/13/21 10:57 morphine AdvReac Unknown Unknown Verified 07/13/21 10:57 Home Medications Medication Instructions Recorded Confirmed Type acetaminophen 500 mg tablet 1,000 mg PO BID 02/15/21 07/13/21 History (Tylenol Extra Strength) allopurinol 100 mg tablet 100 mg PO QAM 02/15/21 07/13/21 History (Zyloprim) aspirin 81 mg tablet,delayed 81 mg PO QAM 02/15/21 07/13/21 History release (Aspirin Low Dose) atenolol 25 mg tablet (Tenormin) 12.5 mg PO QAM 02/15/21 07/13/21 History atorvastatin 20 mg tablet (Lipitor) 20 mg PO QAM 02/15/21 07/13/21 History cholecalciferol (vitamin D3) 25 25 mcg PO HS 02/15/21 07/13/21 History mcg (1,000 unit) capsule (Vitamin D3) cyanocobalamin (vitamin B-12) 3,000 mcg PO HS 02/15/21 07/13/21 History 1,000 mcg tablet (Vitamin B-12) fluticasone 250 mcg-salmeterol 50 1 inh INHALATION QAM 02/15/21 07/13/21 History mcg/dose blistr powdr for inhalation (Advair Diskus) fluticasone propionate 50 1 spray INTRANASAL BID 02/15/21 07/13/21 History mcg/actuation nasal spray,suspension (Flonase Allergy Relief) furosemide 20 mg tablet (Lasix) 20 mg PO DAILY PRN 02/15/21 07/13/21 History levothyroxine 200 mcg tablet 200 mcg PO QAM 02/15/21 07/13/21 History (Synthroid) losartan 50 mg tablet (Cozaar) 50 mg PO BID 02/15/21 07/13/21 History vitamin E 1,000 unit capsule 1,000 unit PO HS 02/15/21 07/13/21 History ferrous sulfate 325 mg (65 mg 325 mg PO HS 07/13/21 07/13/21 History iron) tablet (iron) hydrocodone 5 mg-acetaminophen 325 1 tab PO Q12 07/13/21 07/13/21 History mg tablet trolamine salicylate 10 % topical 1 applic TOPICAL TID PRN 07/13/21 07/13/21 History cream (Aspercreme) Patient History Medical History Anemia Arthropathy of right knee Asthma 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 Diverticulitis Failure of outpatient treatment Hypothyroidism Morbid obesity Rapidly progressive weakness UTI (urinary tract infection) Surgical History H/O heart artery stent History of arthroplasty of left knee Status post lens implant Social History Smoking Status: Former smoker Hx Alcohol Use: No Hx Substance Use: No Preferred Language: Setswana Communication Ability Comment: Very [employer] Required: No Beliefs That Will Affect Care: None Current Living Situation: Alone Current Living Situation Comment: Neighbor stops over to assist, comes by at least daily Feels Safe at Home: Yes Safety Concerns: Feels Safe At This Time Assistive Devices: Denture - Upper, Denture - Lower, Glasses, Hearing Aid - Left and Walker Review of Systems Constitutional: no fever, no chills and no sweats Eyes: as per Subjective / HPI; no diplopia and no eye pain Ear, Nose, Mouth, Throat: (+) Bilateral hearing aids, upper and lower dentures Respiratory: no cough, no change in sputum and no dyspnea on exertion Cardiovascular: no chest pain Musculoskeletal: as per Subjective / HPI Integumentary: no rash and no skin ulcer Neurologic: no generalized weakness and no confusion Psychiatric: no problem reported Physical Exam Gastrointestinal (Abdomen): (+) Pacheco to gravity Musculoskeletal: Ankle: + deformity Skin: no rashes, warm and dry Neurologic: Epicritic sensation intact Psychiatric: A+Ox3, euthymic affect Results & Data (MN) Vital Signs (Past 12 Hours) Vital Signs Temp Pulse Pulse Resp BP BP Pulse Ox 07/13/21 17:19 36.7 C 96 H 18 135/81 100 07/13/21 15:03 37.0 C 104 H 18 187/125 H 96 07/13/21 14:25 102 H 26 H 194/137 H 99 07/13/21 14:00 102 H 26 H 194/137 H 99 07/13/21 13:30 104 H 14 99 07/13/21 13:00 102 H 20 92 07/13/21 12:30 102 H 14 198/158 H 07/13/21 12:00 100 H 21 187/110 H 92 07/13/21 11:30 97 H 24 169/91 H 07/13/21 11:00 99 H 14 204/107 H 94 07/13/21 10:34 99 H 15 150/105 H 07/13/21 10:30 99 H 14 94 07/13/21 08:33 37.1 C 96 H 18 178/108 H 96 Diagnostic Findings FINDINGS: Note is again made of a left trimalleolar fracture/dislocation deformity. Overlying cast is present. No soft tissue gas is present. Extensive soft tissue swelling is present. There is an acute comminuted displaced fracture of the left fibula. This fracture extends from the level of the distal shaft to the fibular head. This fracture is displaced 2.1 cm. An acute comminuted displaced distal left tibial fracture is noted with intra-articular extension. There are multiple intra-articular bone fragments. The tibia is displaced anteriorly with respect to the talus and impacted. Tibial fracture is displaced at least 2 cm. There is an impaction fracture of the anterolateral aspect of the talar dome with an associated 1.5 cm bone fragment. No acute left calcaneal fracture is present. A displaced medial malleolus fracture is noted. Alignment of the left midfoot is anatomic. No acute fractures are identified within visualized portions of the left metatarsals. Moderate mid foot osteophytosis present. IMPRESSION: 1. Left ankle trimalleolar fracture/dislocation deformity, as described above. Comminuted displaced and impacted distal left tibial fracture. Tibia displaced anteriorly and medially with respect to the talus. Multiple intra-articular bone fragments. 2. Impaction fracture of the anterolateral aspect of the talar dome. (1) Dislocation of left ankle joint Encounter type: initial encounter Qualified Code(s): S93.05XA - Dislocation of left ankle joint, initial encounter (2) Fracture dislocation of ankle Encounter type: initial encounter Fracture type: closed Laterality: left Qualified Code(s): S82.892A - Other fracture of left lower leg, initial encounter for closed fracture (3) Ankle fracture Encounter type: initial encounter Fracture type: closed Laterality: right Qualified Code(s): S82.891A - Other fracture of right lower leg, initial encounter for closed fracture
[2021-07-13] MEDS ORDERED: MIDAZOLAM HCL 1 MG/ML 2ML VIAL ONE (20:17)
[2021-07-13] MEDS ORDERED: ONDANSETRON INJ 2 MG/ML 2 ML VIAL ONE (20:17)
[2021-07-13] MEDS ORDERED: ROCURONIUM BROMIDE 10 MG/ML 5 ML VIAL IV ONE (20:17)
[2021-07-13] MEDS ORDERED: PROPOFOL IV EMULSION 10 MG/ML 20 ML VIAL IV ONE (20:17)
[2021-07-13] MEDS ORDERED: LIDOCAINE 2% 2 ML VIAL/AMP(20MG/ML) INFIL ONE (20:17)
[2021-07-13] MEDS ORDERED: ROPIVACAINE 0.5% 5 MG/ML 30 ML VIAL ONE (20:22)
[2021-07-13] MEDS: CYANOCOBALAMIN 500 MCG TABLET (VITAMIN B-12) PO SCH (21:38)
[2021-07-13] MEDS: FERROUS SULFATE 325 MG TAB PO SCH (21:38)
[2021-07-13] MEDS: CHOLECALCIFEROL 1,000 UNITS 25 MCG TAB PO SCH (21:38)
[2021-07-13] MEDS: FLUTICASONE PROPIONATE NA SPR 16 GM BTL SCH (21:44)
[2021-07-14] MEDS ORDERED: BUPIVACAINE LIPOSOME 1.3% 266 MG/20 ML VIAL ONE (01:04)
[2021-07-14] MEDS ORDERED: BUPIVACAINE 0.5 % 5 MG/1 ML MPF 30ML VIAL ONE (01:04)
[2021-07-14] MEDS ORDERED: ePHEDrine sulfate 50 MG/ML SYR ONE (01:14)
[2021-07-14] MEDS ORDERED: PHENYLEPHRINE HCL 10 MG/ML VIAL ONE ×2 (01:14)
[2021-07-14] MEDS ORDERED: ceFAZolin 2000MG 2,000 MG/15 ML SYR IV ONE (02:27)
[2021-07-14] MEDS ORDERED: ePHEDrine sulfate 50 MG/ML AMP IV PRN (03:13)
[2021-07-14] MEDS ORDERED: ATROPINE SULFATE 0.1 MG/ML 10ML SYR IV PRN (03:13)
[2021-07-14] MEDS ORDERED: ONDANSETRON INJ 2 MG/ML 2 ML VIAL IV PRN (03:13)
[2021-07-14] MEDS ORDERED: fentaNYL citrate 100 MCG/2 ML VIAL IV PRN (03:13)
--- NOTE | 2021-07-14 03:27 | Post Operative Brief Note ---
Immediate Post Op Note v1 Date of Surgery July 14, 2021 Pre & Post Diagnosis Operation Date: 07/13/21 11:30 Pre-Op Diagnosis: Bilateral Ankle Fractures and Left Ankle Dislocation Post-Op Diagnosis: Bilateral Ankle Fractures and Left Ankle Dislocation I identified the patient and participated in the time-out.: Yes Procedure Operation Date: 07/13/21 11:30 Actual Procedures p Open Reduction Internal Fixation Left and Right Ankle - Tyrel Garvin DPM, MS Surgeon Tyrel Garvin DPM, MS Traveling Inventory Associate None Estimated Blood Loss 100 Findings Consistent with Post-Op Diagnosis Bilateral ankle fractures
[2021-07-14] MEDS ORDERED: NEOSTIGMINE METHYLSULFATE 1 MG/ML 10ML VIAL ONE (03:31)
[2021-07-14] MEDS ORDERED: GLYCOPYRROLATE 0.2 MG/ML VIAL ONE (03:31)
--- NOTE | 2021-07-14 03:33 | Operative Report ---
Post Operative Report Pre & Post Diagnosis Operation Date: 07/13/21 11:30 Pre-Op Diagnosis: Bilateral Ankle Fractures and Left Ankle Dislocation Post-Op Diagnosis: Bilateral Ankle Fractures and Left Ankle Dislocation I identified the patient and participated in the time-out.: Yes Procedure Operation Date: 07/13/21 11:30 Actual Procedures p Open Reduction Internal Fixation Left and Right Ankle - Tyrel Garvin DPM, MS Surgeon Tyrel Garvin DPM, MS Mint Machine Operator None Estimated Blood Loss 100 Findings Consistent with Post-Op Diagnosis Bilateral ankle fractures Specimens none Drains none Anesthesia Type General Complications none Description of Procedure History of Present illness: Patient is a 85 year old female who sustained a right ankle fracture on 07/12/21 and left ankle fracture on 07/13/2021. Patient presents for open reduction and internal fixation. Significant time was spent in [id number] discussion reviewing symptoms, diagnosis, and treatment. I have reviewed open reduction internal fixation of left and right ankle fracture in detail. I have discussed procedure with use of left TCC nail as well as postoperative recovery. All questions answered. All potential risks, benefits, complications, alternatives, rehab, potential for incomplete relief of symptoms, need for further surgery, DVT, PE, , persistent pain, swelling, scarring, weakness, neurovascular, wound complications and potential for amputations were discussed with patient. Unwanted outcomes such as, but not limited to were reviewed including under correction, overcorrection, return of deformity, infection. All questions were answered. Patient has decided to proceed with procedure as indicated. Preoperative diagnosis: left trimalleolar ankle fracture, Right posterior malleolar fracture Postoperative diagnosis: Same Name of operation: ORIF left with tibiotalocalcaneal fixation, and right ORIF posterior malleolar ankle fracture Surgeon: Dr. Garvin Mint Machine Operator: None Anesthesia: Local with general anesthesia care Estimated blood loss: Minimal Procedure in detail: Under mild sedation the patient was brought in the operating room placed on the operating table in supine position. A Pneumatic thigh tourniquet was then placed about the patient's right and left thigh. Following sedation, local anesthesia was obtained about the left and right ankle utilizing 20 cc of a 1:1 mixture of 1% lidocaine plain and 0.5% Marcaine plain. The bilateral lower extremities were then prepped, scrubbed, and draped, in the usual aseptic manner. An Esmarch bandage utilized examining the patient's left ankle and the pneumatic thigh tourniquet was inflated. At this time intraoperative C arm was utilized for fracture evaluation. Reduction was obtained. The tibiotalar joint was then temporary fixated with Brenda pin. The foot was then placed at 90 degrees to the tibia shaft. The medial wall of the talus aligns with the medial tibias diaphysis. Proper hindfoot position was obtained. . With use of the C-arm a guide wire was then placed across the tibio talar calcaneal joints. The position was viewed with C- arm in Lateral, AP, and Axial views. Sequential reaming was undertaken. The nail was assembled and placed across the TTC under flouro. The talar screw was placed lateral to medial. The two tibial screws were placed medial to lateral. Finally, the calcaneal screw was placed in the nail. Again position was confirmed and final images were taken. Copious amounts of sterile normal saline was utilized to flush the wounds. The deep structures were co apted utilizing 3-0 PDS and the skin was reapproximated coapted utilizing horizontal suture technique with 4-0 nylon. Upon completion of the procedure a post operative block consisting of 20mL of a 1:1 mixture of 0.5% Marcaine plain and Exparel was used to deliver post operative ankle block as well as infiltrated around the surgical sites. The incision was dressed with Betadine soaked adaptic followed by sterile compressive dressing consisting of 4 x 4's and July. The pneumatic ankle tourniquet was deflated and a prompt hyperemic response was noted to all digits of the left foot. Attention was then directed to the right ankle fracture. An Esmarch bandage utilized examining the patient's right ankle and the pneumatic thigh tourniquet was inflated. Next, utilizing a sharp, sterile, 15 blade, a linear longitudinal incision was placed over the posterior aspect of the right ankle adjacent to the achilles tendon. Utilizing both sharp and blunt dissection the incision was deepened through subcutaneous tissue with care being taken to identify and retract all neurovascular structures. Bleeders were cauterized as necessary. At this time the dissection was carried down to the posterior malleo lar fracture. The posterior malleolar fracture was reduced. Following standard AO principles, two K wires were driven perpendicular to the fracture from posterior to anterior to serve as temporary fixation. Two 4.0mm 40mm cannulated lag screws were placed across the fracture site with excellent compression noted. Copious amounts of sterile normal saline was utilized to flush the wounds. The deep structures were coapted utilizing 3-0 PDS and the skin was reapproximated coapted utilizing horizontal suture technique with 4-0 nylon. Upon completion of the procedure a post operative block consisting of 20mL of a 1:1 mixture of 0.5% Marcaine plain and Exparel was used to deliver post operative ankle block as well as infiltrated around the surgical sites. The incision was dressed with Betadine soaked Adaptic followed by sterile compressive dressing consisting of 4 x 4's and July. The pneumatic thigh tourniquet was deflated and a prompt hyperemic response was noted to all digits of the right foot. A posterior splint, George wrap, were then applied to the right and left lower extremity. The Patient tolerated procedure and anesthesia well. The Patient was transferred to recovery room with vital signs stable and vascular status intact all toes of the right and left foot. Following a period of Postoperative monitoring the patient will be re-admitted to the floor on the following written and postoperative oral instructions. Keep dressing clean dry and intact, avoid ambulation, ice and elevate left and right legs and contact Dr. Garvin for all postoperative care if any problems arise. I attest to the content of the Intraoperative Record and any orders documented therein. Any exceptions are noted below.
--- NOTE | 2021-07-14 04:01 | Anesthesiology Progress Note ---
Date of Service July 14, 2021 Anesthesia Post Procedure Vital Signs Vital Signs: Temp Pulse Pulse Pulse Resp BP BP 07/14/21 03:55 90 18 100/60 07/14/21 03:45 92 H 18 119/65 07/14/21 03:39 36.4 C L 94 H 18 110/70 07/13/21 23:19 37.3 C 88 18 118/80 07/13/21 22:29 36.9 C 93 H 18 167/66 H 07/13/21 17:19 36.7 C 96 H 18 135/81 07/13/21 15:03 37.0 C 104 H 18 187/125 H 07/13/21 14:25 102 H 26 H 194/137 H 07/13/21 14:00 102 H 26 H 194/137 H 07/13/21 13:30 104 H 14 07/13/21 13:00 102 H 20 07/13/21 12:30 102 H 14 198/158 H 07/13/21 12:00 100 H 21 187/110 H 07/13/21 11:30 97 H 24 169/91 H 07/13/21 11:00 99 H 14 204/107 H 07/13/21 10:34 99 H 15 150/105 H 07/13/21 10:30 99 H 14 07/13/21 08:33 37.1 C 96 H 18 178/108 H Pulse Ox 07/14/21 03:55 97 07/14/21 03:45 98 07/14/21 03:39 98 07/13/21 23:19 98 07/13/21 22:29 99 07/13/21 17:19 100 07/13/21 15:03 96 07/13/21 14:25 99 07/13/21 14:00 99 07/13/21 13:30 99 07/13/21 13:00 92 07/13/21 12:30 07/13/21 12:00 92 07/13/21 11:30 07/13/21 11:00 94 07/13/21 10:34 07/13/21 10:30 94 07/13/21 08:33 96 Pain Intensity Bilateral Ankle: Pain Intensity: 2 Transfer of Care Handoff Completed per policy Notes Mental Status: alert / awake / arousable and participated in evaluation Patient Amnestic to Procedure: Yes Nausea / Vomiting: adequately controlled Pain: adequately controlled Airway Patency, RR, SpO2: stable & adequate BP & HR: stable & adequate Hydration State: stable & adequate Anesthetic Complications: no major complications apparent and Pt Satisfied with anesthetic care Notes: block is functioning well
[2021-07-14] MEDS: ACETAMINOPHEN 500 MG TAB PO SCH ×2 (04:20→15:10)
[2021-07-14] MEDS: LEVOTHYROXINE SODIUM 200 MCG TABLET PO SCH (06:32)
[2021-07-14 07:10] LABS: Basophils # (auto) 0.02 K/uL (0-0.2); Basophils % (auto) 0.2 %; Eosinophils # (auto) 0.01 K/uL (0-0.5); Eosinophils % (auto) 0.1 %; Immature Granulocytes # (auto) 0.18 K/uL (0.00-0.02); Immature Granulocytes % (auto) 1.7 %; Lymphocytes # (auto) 0.78 K/uL (1.2-3.4); Lymphocytes % (auto) 7.5 %; Mean Corpuscular Hemoglobin 31.5 pg (25-34); Mean Corpuscular Hgb Conc 31.4 g/dL (32-36); Mean Corpuscular Volume 100.3 fL (80-100); Mean Platelet Volume 11.8 fL (7.4-10.4); Monocytes # (auto) 1.16 K/uL (0.11-0.59); Monocytes % (auto) 11.2 %; Neutrophils # (auto) 8.23 K/uL (1.4-6.5); Neutrophils % (auto) 79.3 %; Platelet Count 115 K/uL (130-400); RDW Coefficient of Variation 16.4 % (11.5-14.5); RDW Standard Deviation 59.7 fL (36.4-46.3); Red Blood Count 3.49 M/uL (4.2-5.4); White Blood Count 10.38 K/uL (4.8-10.8)
[2021-07-14 07:29] LABS: BUN Creatinine Ratio 15.5 (10-20); Creatinine Clr Calc Pharmacy 29.7 ml/min; Est GFR (Non-African American) 30.2 ml/min; Magnesium 1.5 mg/dl (1.8-2.4); Potassium 4.5 mmol/L (3.5-5.1)
--- NOTE | 2021-07-14 08:29 | Fluoroscopy Report ---
FL ankle LT 2V CLINICAL HISTORY: Ankle fracture. Intraoperative fixation COMPARISON STUDY: None. FLUOROSCOPY TIME: 3 minutes and 55 seconds. FINDINGS: 4 fluoroscopic spot images of the left ankle demonstrate an intramedullary andrzej through the tibiotalar and subtalar joints with an interlocking calcaneal screw. Mildly displaced distal fibular fracture and medial malleolus fracture demonstrates near-anatomic alignment. IMPRESSION: Status post internal fixation of the left ankle fracture. The hardware appears intact. ACT 112: Negative or not required by law. Electronically signed by: Paco Romo M.D. 07/14/2021 8:28 AM
--- NOTE | 2021-07-14 08:30 | Fluoroscopy Report ---
FL ankle RT 2V CLINICAL HISTORY: Right ankle fracture. Intraoperative fixation. COMPARISON STUDY: None. FLUOROSCOPY TIME: 30 seconds. FINDINGS: 2 fluoroscopic spot image of the right ankle demonstrate internal fixation of the posterior malleolus fracture with 2 cannulated screws. The hardware appears intact. Alignment is near-anatomic . IMPRESSION: Fluoroscopy provided for internal fixation of a right posterior malleolus fracture. ACT 112: Negative or not required by law. Electronically signed by: Paco Romo M.D. 07/14/2021 8:29 AM
[2021-07-14] MEDS: ATENOLOL 25 MG TABLET PO SCH (09:00)
[2021-07-14] MEDS: FLUTICASONE PROPIONATE NA SPR 16 GM BTL SCH ×2 (09:00→21:42)
[2021-07-14] MEDS: ATORVASTATIN 20 MG TAB PO SCH (09:00)
[2021-07-14] MEDS: FLUTICASONE/VILANTEROL 200/25MCG 14 PUFFS/INHALER INH SCH (09:00)
[2021-07-14] MEDS: allopurinoL 100 MG TAB PO SCH (09:00)
[2021-07-14] MEDS: HYDROmorphone INJ 0.5 MG/0.5 ML SYR IV PRN (10:21)
--- NOTE | 2021-07-14 18:27 | Orthopedic Progress Note ---
Date of Service July 14, 2021 Assessment & Plan (1) Ankle fracture: Plan: Patient seen, evaluated, and treated. I discussed ability to weight bear per Patient tolerance with PT assistance. Isauro bunch compression to remain intact. (2) Dislocation of left ankle joint: (3) Bilateral ankle fractures: (4) Morbid obesity: Admission and Anticipated Discharge Date Admission Date: July 13, 2021 Subjective Patient is status post Day 0 Right and Left Ankle ORIF. She is resting comfortably. She notes she was seen by PT and was able to participate in some activity. She has no compliants. Review of Systems Constitutional: no fever, no chills and no sweats Eyes: no blind spots and no eye pain Ear, Nose, Mouth, Throat: + hearing loss Respiratory: no cough and no wheezing Cardiovascular: no chest pain Gastrointestinal: no abdominal pain Musculoskeletal: + joint pain and + body aches Integumentary: no rash and no lesions Neurologic: Epicritic sensation intact Psychiatric: no behavioral changes and no depression Physical Exam Constitutional: WD/WN, vitals as above Eyes: PERRL, conjunctivae normal, anicteric sclerae ENMT: external ear and nose normal, oropharynx normal Respiratory: normal respiratory effort, lungs clear to auscultation Cardiovascular: Rate/Rhythm: regular rate Skin: no rashes, warm and dry Neurologic: Epicritic sensation intact Psychiatric: A+Ox3, euthymic affect Results & Data ([facility]) Vital Signs (Past 12 Hours) Vital Signs Temp Pulse Pulse Pulse Resp BP Pulse Ox 07/14/21 16:00 37.7 C H 97 H 20 165/85 H 100 07/14/21 07:57 36.7 C 95 H 20 142/67 H 99 07/14/21 06:20 36.7 C 75 18 129/83 100 (1) Ankle fracture Encounter type: initial encounter Fracture type: closed Laterality: right Qualified Code(s): S82.891A - Other fracture of right lower leg, initial encounter for closed fracture (2) Dislocation of left ankle joint Encounter type: initial encounter Qualified Code(s): S93.05XA - Dislocation of left ankle joint, initial encounter
--- NOTE | 2021-07-14 18:28 | Hospitalist Progress Note ---
Date of Service July 14, 2021 Assessment & Plan (1) Bilateral ankle fractures: Plan: Bilateral ankle fractures- operative repair splinted - - SCD for VTE prophylaxis - - PT/OT consult - rehab placement likely needed afterwards- PT/OT consult placed - Pain control - IV Tylenol while NPO, Hydromorphone 05mg IV q4 PRN concern fall maybe from uti, will check ua (2) Dislocation of left ankle joint: Plan: As above- OR repair 07/13 DR chun (3) CAD (coronary artery disease): Plan: With 1 stent to circumflex 2004 - Asa- likey able to re-start in morning - Continue Atenolol - Hold ARB- follow renal function postoperative (4) Morbid obesity: Plan: Will need weight reduction to decrease CV morbidity and assist with rehabilitation - HCO3 is 27 - follow; likely indicative of obesity hypoventilation syndrome- not on any CPAP/BiPAP at home - - (5) H/O heart artery stent: Plan: As above (6) Hypothyroidism: Plan: Continue synthroid 200mcg PO daily (7) Colovesical fistula: Plan: Routine ostomy care and change - follow Admission and Anticipated Discharge Date Admission Date: July 13, 2021 Subjective this pt is pleasantly confused, she has surgical correction of bilateral fractures, has low grade temperature Review of Systems Review of Systems: moderate distress and fatigue no headache, no visual changes no speech or swallowing issues no chest pain, pressure or palpitations no shortness of breath, cough or wheezes no abdominal pain, nausea or vomiting, diarrhea or constipation no dysuria, hematuria or frequency bilateral ankle pain no back pain, CVA tenderness or radicular pain no bruising, bleeding or rashes no focal signs of weakness or numbness or altered sensation no complaints of anxiety or depression.. Physical Exam Physical Exam: The patient appeared well nourished and normally developed. she appears to have mild memory impairment Vital signs as documented. Head exam is normocephalic atraumatic Neck is without JVD, thyromegaly, or carotid bruits. Lungs are clear to auscultation, no focal loss of breath sounds Cardiac exam, Rhythm is regular.. No murmurs, rubs or gallops. Abdominal exam reveals normal bowel sounds, soft non tender, no masses Extremities are with bilateral splints and dressing in place Neurologic exam is alert and oriented 2, no focal loss of strength or sensation Skin is without bruises or rashes Psychologically is with concern for memory loss Results & Data Results & Data ([facility]) Vital Signs (Past 12 Hours) Vital Signs Temp Pulse Pulse Resp BP Pulse Ox 07/14/21 16:00 99.9 F H 97 H 20 165/85 H 100 07/14/21 07:57 98.1 F 95 H 20 142/67 H 99 PG Care Time/CCT Total # of Minutes Spent Total Time Spent with Patient: Total time spent is greater than 50% in coordination of care (as documented) at patient's floor/unit and/or counseling patient: Coding Level of Care Code 34994 Subseq Hosp Care Lvl 2 Diagnoses Bilateral ankle fractures S82.891A; S82.892A Dislocation of left ankle joint S93.05XA Encounter type: initial encounter CAD (coronary artery disease) I25.10 Morbid obesity E66.01 H/O heart artery stent Z95.5 Hypothyroidism E03.9 Colovesical fistula N32.1 (1) Dislocation of left ankle joint Encounter type: initial encounter Qualified Code(s): S93.05XA - Dislocation of left ankle joint, initial encounter
[2021-07-14] MEDS ORDERED: hydrALAZINE HCL 20 MG/ML VIAL IV PRN (18:37)
[2021-07-14] MEDS: MAGNESIUM SULFATE / D5W 1 GM/100 ML BAG IV SCH ×2 (19:53→21:50)
[2021-07-14] MEDS: oxyCODONE HCL IR 5 MG TAB (IMMEDIATE RELEASE) PO PRN (21:42)
[2021-07-14] MEDS: CHOLECALCIFEROL 1,000 UNITS 25 MCG TAB PO SCH (21:42)
[2021-07-14] MEDS: FERROUS SULFATE 325 MG TAB PO SCH (21:43)
[2021-07-14] MEDS: CYANOCOBALAMIN 500 MCG TABLET (VITAMIN B-12) PO SCH (21:43)
[2021-07-14] MEDS: HEPARIN SOD 5,000 UNIT/0.5 ML VIAL SQ SCH (21:44)
[2021-07-15] MEDS: ACETAMINOPHEN 500 MG TAB PO SCH ×2 (03:01→15:53)
[2021-07-15] MEDS: LEVOTHYROXINE SODIUM 200 MCG TABLET PO SCH (05:59)
[2021-07-15] MEDS ORDERED: COUGH DROP (SUGAR FREE) LOZ 24 LOZ/1 BOX BUCCAL ONE (06:07)
[2021-07-15] MEDS: HYDROmorphone INJ 0.5 MG/0.5 ML SYR IV PRN (06:08)
[2021-07-15] MEDS: ATENOLOL 25 MG TABLET PO SCH (08:42)
[2021-07-15] MEDS: ATORVASTATIN 20 MG TAB PO SCH (08:42)
[2021-07-15] MEDS: allopurinoL 100 MG TAB PO SCH (08:42)
[2021-07-15] MEDS: FLUTICASONE PROPIONATE NA SPR 16 GM BTL SCH ×2 (08:43→21:24)
[2021-07-15] MEDS: FLUTICASONE/VILANTEROL 200/25MCG 14 PUFFS/INHALER INH SCH (08:43)
[2021-07-15] MEDS: HEPARIN SOD 5,000 UNIT/0.5 ML VIAL SQ SCH ×2 (08:43→21:25)
--- NOTE | 2021-07-15 09:48 | Hospitalist Progress Note ---
Date of Service July 15, 2021 Assessment & Plan (1) Bilateral ankle fractures: Plan: Bilateral ankle fractures- operative repair splinted - - SCD for VTE prophylaxis - - PT/OT consult - rehab placement likely needed afterwards- PT/OT consult placed - Pain control -Hydromorphone 05mg IV q4 PRN concern fall maybe from uti, will check ua, currently pending (2) Dislocation of left ankle joint: Plan: As above- OR repair 07/13 DR chun (3) TIM (acute kidney injury): Plan: pt has tim that is not resolving,maybe atn from illness and or, will give low volume ivf and recheck (4) CAD (coronary artery disease): Plan: With 1 stent to circumflex 2004 - Asa- likey able to re-start in morning - Continue Atenolol - Hold ARB- follow renal function postoperative (5) Morbid obesity: Plan: Will need weight reduction to decrease CV morbidity and assist with rehabilitation - HCO3 is 27 - follow; likely indicative of obesity hypoventilation syndrome- not on any CPAP/BiPAP at home - - (6) H/O heart artery stent: Plan: As above (7) Hypothyroidism: Plan: Continue synthroid 200mcg PO daily (8) Colovesical fistula: Plan: Routine ostomy care and change - follow Admission and Anticipated Discharge Date Admission Date: July 13, 2021 Subjective this pt is pleasant no real complaints, she has surgical correction of bilateral fractures, both ankles are fixed will need rehab Review of Systems Review of Systems: moderate distress and fatigue no headache, no visual changes no speech or swallowing issues no chest pain, pressure or palpitations no shortness of breath, cough or wheezes no abdominal pain, nausea or vomiting, diarrhea or constipation no dysuria, hematuria or frequency bilateral ankle pain no back pain, CVA tenderness or radicular pain no bruising, bleeding or rashes no focal signs of weakness or numbness or altered sensation no complaints of anxiety or depression.. Physical Exam Physical Exam: The patient appeared well nourished and normally developed. she appears to have mild memory impairment Vital signs as documented. Head exam is normocephalic atraumatic Neck is without JVD, thyromegaly, or carotid bruits. Lungs are clear to auscultation, no focal loss of breath sounds Cardiac exam, Rhythm is regular.. No murmurs, rubs or gallops. Abdominal exam reveals normal bowel sounds, soft non tender, no masses Extremities are with bilateral splints and dressing in place Neurologic exam is alert and oriented 2,has baseline neuropathy Skin is without bruises or rashes Psychologically is with concern for memory loss Results & Data Results & Data ([facility]) Vital Signs (Past 12 Hours) Vital Signs Temp Pulse Resp BP Pulse Ox 07/15/21 06:00 98.8 F 88 14 136/84 98 07/14/21 22:55 98.4 F 87 16 152/79 H 100 PG Care Time/CCT Total # of Minutes Spent Total Time Spent with Patient: Total time spent is greater than 50% in coordination of care (as documented) at patient's floor/unit and/or counseling patient: Coding Level of Care Code 13192 Subseq Hosp Care Lvl 2 Diagnoses Bilateral ankle fractures S82.891A; S82.892A Dislocation of left ankle joint S93.05XA Encounter type: initial encounter CAD (coronary artery disease) I25.10 Morbid obesity E66.01 H/O heart artery stent Z95.5 Hypothyroidism E03.9 Colovesical fistula N32.1 TIM (acute kidney injury) N17.9 (1) Dislocation of left ankle joint Encounter type: initial encounter Qualified Code(s): S93.05XA - Dislocation of left ankle joint, initial encounter
[2021-07-15 09:50] LABS: Hematocrit (blood only) 27.1 % (37-47); Hemoglobin 8.5 g/dL (12.0-16.0); Mean Corpuscular Hemoglobin 31.6 pg (25-34); Mean Corpuscular Hgb Conc 31.4 g/dL (32-36); Mean Corpuscular Volume 100.7 fL (80-100); Mean Platelet Volume 12.8 fL (7.4-10.4); Nucleated RBC # (auto) 0.02 K/uL (0-0); Nucleated RBC % (auto) 0.1 %; Platelet Count 125 K/uL (130-400); RDW Coefficient of Variation 16.6 % (11.5-14.5); RDW Standard Deviation 60.3 fL (36.4-46.3); Red Blood Count 2.69 M/uL (4.2-5.4); White Blood Count 12.74 K/uL (4.8-10.8)
[2021-07-15 09:51] LABS: Basophils # (auto) 0.02 K/uL (0-0.2); Basophils % (auto) 0.2 %; Eosinophils # (auto) 0.03 K/uL (0-0.5); Eosinophils % (auto) 0.2 %; Immature Granulocytes # (auto) 0.08 K/uL (0.00-0.02); Immature Granulocytes % (auto) 0.6 %; Lymphocytes # (auto) 1.13 K/uL (1.2-3.4); Lymphocytes % (auto) 8.9 %; Monocytes # (auto) 2.86 K/uL (0.11-0.59); Monocytes % (auto) 22.4 %; Neutrophils # (auto) 8.62 K/uL (1.4-6.5); Neutrophils % (auto) 67.7 %; Platelet Estimate Normal (Normal)
[2021-07-15 09:58] LABS: BUN Creatinine Ratio 16.1 (10-20); Calcium 8.7 mg/dl (8.5-10.1); Creatinine Clr Calc Pharmacy 23.5 ml/min; Est GFR (African American) 26.3 ml/min; Est GFR (Non-African American) 22.7 ml/min; Magnesium 2.1 mg/dl (1.8-2.4); Potassium 4.8 mmol/L (3.5-5.1)
[2021-07-15] MEDS: oxyCODONE HCL IR 5 MG TAB (IMMEDIATE RELEASE) PO PRN (09:59)
[2021-07-15] MEDS ORDERED: SODIUM CHLORIDE 0.9% 1000ML 1,000 ML IV SCH (18:45)
[2021-07-15] MEDS: CHOLECALCIFEROL 1,000 UNITS 25 MCG TAB PO SCH (21:24)
[2021-07-15] MEDS: CYANOCOBALAMIN 500 MCG TABLET (VITAMIN B-12) PO SCH (21:25)
[2021-07-15] MEDS: FERROUS SULFATE 325 MG TAB PO SCH (21:26)
[2021-07-16] MEDS: ACETAMINOPHEN 500 MG TAB PO SCH (02:53)
[2021-07-16] MEDS: ONDANSETRON INJ 2 MG/ML 2 ML VIAL IV PRN (05:32)
--- NOTE | 2021-07-16 05:54 | Communication Note ---
Date of Service: July 16, 2021 Night team made aware of new onset vomiting. Nursing also reported minimal ostomy output. I am suspicious of a possible post-operative ileus. I did place order for KUB. I made patient NPO and held all am oral medications. Kierra ordered prn.
[2021-07-16 06:12] LABS: Basophils # (auto) 0.01 K/uL (0-0.2); Basophils % (auto) 0.1 %; Eosinophils # (auto) 0.02 K/uL (0-0.5); Eosinophils % (auto) 0.2 %; Hematocrit (blood only) 28.9 % (37-47); Immature Granulocytes # (auto) 0.12 K/uL (0.00-0.02); Lymphocytes # (auto) 0.48 K/uL (1.2-3.4); Mean Corpuscular Hemoglobin 30.4 pg (25-34); Mean Corpuscular Hgb Conc 31.1 g/dL (32-36); Mean Corpuscular Volume 97.6 fL (80-100); Mean Platelet Volume 11.7 fL (7.4-10.4); Monocytes % (auto) 12.3 %; Neutrophils # (auto) 10.02 K/uL (1.4-6.5); Neutrophils % (auto) 82.4 %; Platelet Count 143 K/uL (130-400); RDW Coefficient of Variation 16.4 % (11.5-14.5); RDW Standard Deviation 58.4 fL (36.4-46.3); Red Blood Count 2.96 M/uL (4.2-5.4); White Blood Count 12.15 K/uL (4.8-10.8)
[2021-07-16 06:33] LABS: BUN Creatinine Ratio 20.9 (10-20); Calcium 9.4 mg/dl (8.5-10.1); Creatinine Clr Calc Pharmacy 25.7 ml/min; Est GFR (African American) 29.3 ml/min; Est GFR (Non-African American) 25.2 ml/min; Magnesium 2.3 mg/dl (1.8-2.4); Potassium 4.6 mmol/L (3.5-5.1)
--- NOTE | 2021-07-16 09:51 | XRay Report ---
XR KUB/Abdomen 1 view CLINICAL HISTORY: concern for post operative ileus TECHNIQUE: 1 view of the abdomen was obtained. Comparison: None available at the time of this dictation. FINDINGS: Lung bases are unremarkable. The osseous structures are grossly unremarkable. There are scattered dis tended loops of small bowel measuring up to 55 mm in diameter. A moderate amount of stool is noted wi thin the large bowel. IMPRESSION: Scattered distended loops of small bowel compatible with postsurgical ileus. ACT 112: Negative or not required by law. Electronically signed by: Jose David Berger M.D. 07/16/2021 9:50 AM
[2021-07-16] MEDS: FLUTICASONE/VILANTEROL 200/25MCG 14 PUFFS/INHALER INH SCH (10:38)
[2021-07-16] MEDS: FLUTICASONE PROPIONATE NA SPR 16 GM BTL SCH ×2 (10:38→20:35)
[2021-07-16] MEDS: ATENOLOL 25 MG TABLET PO SCH (10:39)
[2021-07-16] MEDS: HEPARIN SOD 5,000 UNIT/0.5 ML VIAL SQ SCH ×2 (10:39→20:35)
--- NOTE | 2021-07-16 18:23 | Hospitalist Progress Note ---
Date of Service July 16, 2021 Assessment & Plan (1) Bilateral ankle fractures: Plan: Bilateral ankle fractures- operative repair splinted, reported ankles pinned and will have decreased mobility, will need to be careful with neuropathy to watch for wear areas as we rehab - - SCD for VTE prophylaxis - - PT/OT consult - rehab placement likely needed - Pain control tylenol and oxycodone (2) Dislocation of left ankle joint: Plan: As above- OR repair 07/13 DR chun (3) TIM (acute kidney injury): Plan: pt has tim that is slow to resolve,maybe atn from illness and or, will give low volume ivf and follow (4) Nausea and vomiting: Plan: pt taking little po compounding tim, kub suggests ileus, little output in ostomy if not self resolving may consider surgical curbside to have enema in ostomy to assure not obstipated near outlet (5) CAD (coronary artery disease): Plan: With 1 stent to circumflex 2004 - Asa- likey able to re-start in morning - Continue Atenolol - Hold ARB- due to TIM follow renal function postoperative for hypertension will add scheduled hydralazine (6) Morbid obesity: Plan: Will need weight reduction to decrease CV morbidity and assist with rehabilitation - HCO3 is 27 - follow; likely indicative of obesity hypoventilation syndrome- not on any CPAP/BiPAP at home - - (7) H/O heart artery stent: Plan: As above (8) Hypothyroidism: Plan: Continue synthroid 200mcg PO daily (9) Colovesical fistula: Plan: Routine ostomy care and change - follow Admission and Anticipated Discharge Date Admission Date: July 13, 2021 Subjective this pt is pleasant, vomiting overnight and low output of ostomy, kub suggests ileus she has surgical correction of bilateral fractures, both ankles are fixed will need rehab has some post op issues with TIM and Hypertension Review of Systems Review of Systems: mild distress and fatigue no headache, no visual changes no speech or swallowing issues no chest pain, pressure or palpitations no shortness of breath, cough or wheezes no abdominal pain, nausea or vomiting, diarrhea or constipation no dysuria, hematuria or frequency bilateral ankle pain, controlled with splinting and medication no back pain, CVA tenderness or radicular pain no bruising, bleeding or rashes no focal signs of weakness or numbness does have neuropathy to feet no complaints of anxiety or depression.. Physical Exam Physical Exam: The patient appeared well nourished and normally developed. she appears to have mild memory impairment Vital signs as documented. Head exam is normocephalic atraumatic Neck is without JVD, thyromegaly, or carotid bruits. Lungs are clear to auscultation, no focal loss of breath sounds Cardiac exam, Rhythm is regular.. No murmurs, rubs or gallops. Abdominal exam reveals normal bowel sounds, soft non tender, no masses Extremities are with bilateral splints and dressing in place Neurologic exam is alert and oriented 2,has baseline neuropathy Psychologically is with concern for memory loss Results & Data Results & Data ([facility]) Vital Signs (Past 12 Hours) Vital Signs Temp Pulse Resp BP Pulse Ox 07/16/21 16:11 98.1 F 86 20 181/94 H 97 PG Care Time/CCT Total # of Minutes Spent Total Time Spent with Patient: Total time spent is greater than 50% in coordination of care (as documented) at patient's floor/unit and/or counseling patient: Coding Level of Care Code 46460 Subseq Hosp Care Lvl 3 Diagnoses Bilateral ankle fractures S82.891A; S82.892A Dislocation of left ankle joint S93.05XA Encounter type: initial encounter TIM (acute kidney injury) N17.9 CAD (coronary artery disease) I25.10 Morbid obesity E66.01 H/O heart artery stent Z95.5 Hypothyroidism E03.9 Colovesical fistula N32.1 Nausea and vomiting R11.2 (1) Dislocation of left ankle joint Encounter type: initial encounter Qualified Code(s): S93.05XA - Dislocation of left ankle joint, initial encounter
[2021-07-16] MEDS ORDERED: LACTATED RINGER'S 1,000 ML IV SCH (18:30)
[2021-07-16] MEDS: hydrALAZINE HCL 25 MG TAB PO SCH (20:33)
--- NOTE | 2021-07-16 22:20 | Orthopedic Progress Note ---
Date of Service July 16, 2021 Assessment & Plan (1) Ankle fracture: Plan: Patient seen, evaluated, and treated. I discussed ability to weight bear per Patient tolerance with PT assistance. Isauro alivia compression to remain intact. Will consider removal of compression dressing post op day 3. (2) Dislocation of left ankle joint: (3) Bilateral ankle fractures: (4) Morbid obesity: Admission and Anticipated Discharge Date Admission Date: July 13, 2021 Subjective Patient is status post 2 days bilateral ankle ORIF. She is resting comfortably. She does not immediately recognize me as she did one day earlier. Patient is in no discomfort and nursing states she did not require any medication for pain today. PT was able to see Patient but she was hesitant to exit her bed. She is weight bearing as tolerated. Results & Data ([facility]) Vital Signs (Past 12 Hours) Vital Signs Temp Pulse Resp BP Pulse Ox 07/16/21 20:27 100 H 16 133/67 96 07/16/21 16:11 36.7 C 86 20 181/94 H 97 (1) Ankle fracture Encounter type: initial encounter Fracture type: closed Laterality: right Qualified Code(s): S82.891A - Other fracture of right lower leg, initial encounter for closed fracture (2) Dislocation of left ankle joint Encounter type: initial encounter Qualified Code(s): S93.05XA - Dislocation of left ankle joint, initial encounter
[2021-07-17] MEDS: ONDANSETRON INJ 2 MG/ML 2 ML VIAL IV PRN (02:32)
[2021-07-17] MEDS ORDERED: PROMETHAZINE HCL 6.25 MG in SODIUM CHLORIDE 0.9% 50 ML IV PRN (04:15)
[2021-07-17] MEDS: ATENOLOL 25 MG TABLET PO SCH (09:48)
[2021-07-17] MEDS: FLUTICASONE PROPIONATE NA SPR 16 GM BTL SCH ×2 (09:49→21:08)
[2021-07-17] MEDS: hydrALAZINE HCL 25 MG TAB PO SCH ×3 (09:49→21:08)
[2021-07-17] MEDS: FLUTICASONE/VILANTEROL 200/25MCG 14 PUFFS/INHALER INH SCH (09:49)
[2021-07-17] MEDS: HEPARIN SOD 5,000 UNIT/0.5 ML VIAL SQ SCH ×2 (09:49→21:08)
--- NOTE | 2021-07-17 13:56 | Hospitalist Progress Note ---
Date of Service July 17, 2021 Assessment & Plan (1) Bilateral ankle fractures: Plan: - S/P ORIF on 07/13 -- Pinning and will have decreased mobility; mindful of neuropathy to watch for wear areas - Continue pain control - DVT prophylaxis - Heparin - PT/OT - planning on [place] - beds possible Saturday/ (2) Dislocation of left ankle joint: Plan: - As above - OR repair 07/[address] Garvin (3) TIM (acute kidney injury): Plan: - TIM - maybe ATN from illness/OR - Cr 1.82 and trending down - will check labs in AM (4) Nausea and vomiting: Plan: - IMPROVING - Likely related some to TIM and ileus - Good bowel sounds and reporting some increase output - if not improving consider sugical input for enema in ostomy (5) CAD (coronary artery disease): Plan: - S/P Stent x 1 in circumflex (2003) - Can likely resume ASA in AM - Continue atenolol 12.5 mg daily and hold Losartan given renal function - Continue Hydralazine as replacement (6) Morbid obesity: Plan: - Will need weight reduction to decrease CV morbidity and assist with rehabilitation - HCO3 is 27 - follow; likely indicative of obesity hypoventilation syndrome- not on any CPAP/BiPAP at home (7) Hypothyroidism: Plan: - Continue Synthroid 200 mcg daily (8) Colovesical fistula: Plan: - Routine ostomy care and change Plan: - Plan for SNF for rehab - [facility] may have bed Saturday/ Admission and Anticipated Discharge Date Admission Date: July 13, 2021 Subjective Reports her ankle pain is better today but still having intermittent nausea. She reports some increase in her ostomy output. Review of Systems Review of Systems: REVIEW OF SYSTEMS General/Constitutional: Denies fever/chills Cardiovascular: Denies chest pain, palpitations, edema Respiratory: Denies cough, sputum, SOB, wheezing, orthopnea GI: + nausea ; Denies vomiting, abdominal pain : Denies dysuria Musculoskeletal: + bilateral ankle pain - pain regimen adequate Neurologic: Denies dizziness/lightheadedness Physical Exam Physical Exam: PHYSICAL EXAM General Appearance: WDWN in NAD who is A&O x 3 but sleepy HEENT: Head is normocephalic/atraumatic; Hearing grossly intact; Mucous membranes moist Neck: Supple; Trachea midline; Neg JVD Heart: RRR with no M/G/R Lungs: CTA in all lung lundberg bilaterally; Respirations unlabored; Neg accessory muscle use Abdomen: Soft, non-tender, non-distended; Positive BS x 4 quadrants + ostomy Extremities: Bilateral ankles with dressings/wraps in place Neurological: Speech clear; Gross motor/sensory function intact; Neg focal neurologic deficits Psychiatric: Appropriate mood/affect Skin: Normal Color; Warm/Dry Results & Data Results & Data ([facility]) Vital Signs (Past 12 Hours) Vital Signs Temp Pulse Resp BP BP Pulse Ox 07/17/21 10:49 168/98 H 07/17/21 07:47 36.9 C 94 H 18 168/102 H 94 PG Care Time/CCT Total # of Minutes Spent Total Time Spent with Patient: Total time spent is greater than 50% in coordination of care (as documented) at patient's floor/unit and/or counseling patient: Coding Level of Care Code 86285 Subseq Hosp Care Lvl 2 Diagnoses Bilateral ankle fractures S82.891A; S82.892A Dislocation of left ankle joint S93.05XA Encounter type: initial encounter TIM (acute kidney injury) N17.9 Nausea and vomiting R11.2 CAD (coronary artery disease) I25.10 Morbid obesity E66.01 Hypothyroidism E03.9 Colovesical fistula N32.1 (1) Dislocation of left ankle joint Encounter type: initial encounter Qualified Code(s): S93.05XA - Dislocation of left ankle joint, initial encounter
[2021-07-18 06:35] LABS: Hematocrit (blood only) 26.2 % (37-47); Hemoglobin 8.1 g/dL (12.0-16.0); Mean Corpuscular Hemoglobin 30.5 pg (25-34); Mean Corpuscular Hgb Conc 30.9 g/dL (32-36); Mean Corpuscular Volume 98.5 fL (80-100); Mean Platelet Volume 11.2 fL (7.4-10.4); Platelet Count 210 K/uL (130-400); RDW Coefficient of Variation 16.4 % (11.5-14.5); RDW Standard Deviation 59.1 fL (36.4-46.3); Red Blood Count 2.66 M/uL (4.2-5.4); White Blood Count 9.84 K/uL (4.8-10.8)
[2021-07-18 07:14] LABS: BUN Creatinine Ratio 34.6 (10-20); Calcium 9.6 mg/dl (8.5-10.1); Creatinine Clr Calc Pharmacy 26.1 ml/min; Est GFR (African American) 29.8 ml/min; Est GFR (Non-African American) 25.8 ml/min
[2021-07-18] MEDS: FLUTICASONE PROPIONATE NA SPR 16 GM BTL SCH ×2 (07:31→20:03)
[2021-07-18] MEDS: hydrALAZINE HCL 25 MG TAB PO SCH ×3 (07:33→20:02)
[2021-07-18] MEDS: FLUTICASONE/VILANTEROL 200/25MCG 14 PUFFS/INHALER INH SCH (07:33)
[2021-07-18] MEDS: LIDOCAINE 5% 1 PATCH TD SCH (07:34)
[2021-07-18] MEDS: HEPARIN SOD 5,000 UNIT/0.5 ML VIAL SQ SCH ×2 (07:34→20:03)
[2021-07-18] MEDS: ATENOLOL 25 MG TABLET PO SCH (07:35)
--- NOTE | 2021-07-18 14:50 | Hospitalist Progress Note ---
Date of Service July 18, 2021 Assessment & Plan (1) Bilateral ankle fractures: Plan: - S/P ORIF on 07/13 -- Pinning and will have decreased mobility; mindful of neuropathy to watch for wear areas - Continue pain control - DVT prophylaxis - Heparin - PT/OT - planning on [place] - beds possible (2) Dislocation of left ankle joint: Plan: - As above - OR repair 07/[address] Garvin (3) TIM (acute kidney injury): Plan: - TIM - maybe ATN from illness/OR - Cr 1.79 and trending down - will recheck AM labs -- Hold Losartan (4) Nausea and vomiting: Plan: - IMPROVING - Likely related some to TIM and ileus - Good bowel sounds and increased output (5) CAD (coronary artery disease): Plan: - S/P Stent x 1 in circumflex (2003) - Can likely resume ASA in AM - Continue atenolol 12.5 mg daily and hold Losartan given renal function - Continue Hydralazine as replacement while inpatient (6) Morbid obesity: Plan: - Will need weight reduction to decrease CV morbidity and assist with rehabilitation - HCO3 is 27 - follow; likely indicative of obesity hypoventilation syndrome- not on any CPAP/BiPAP at home (7) Hypothyroidism: Plan: - Continue Synthroid 200 mcg daily (8) Colovesical fistula: Plan: - Routine ostomy care and change Plan: - Plan for SNF for rehab - [facility] may have bed - Will discuss with Dr. Garvin for any further recommendations/outpatient follow-up Admission and Anticipated Discharge Date Admission Date: July 13, 2021 Subjective Reports mild nausea this morning but nothing through the day. Denies vomiting. Did participate with therapy but just complains she feels very tired. Pain is tolerable. She is having more output from her ostomy and will advance diet. Cr is slowly returning to her baseline. Review of Systems Review of Systems: REVIEW OF SYSTEMS General/Constitutional: Denies fever/chills Cardiovascular: Denies chest pain, palpitations, edema Respiratory: Denies cough, wheezing, orthopnea GI: + nausea (one episode this morning - spontaneously resolved without meds) ; Denies vomiting, abdominal pain : Denies dysuria Musculoskeletal: + bilateral ankle pain - pain regimen adequate Neurologic: Denies dizziness/lightheadedness Physical Exam Physical Exam: PHYSICAL EXAM General Appearance: WDWN in NAD who is A&O x 3 HEENT: Head is normocephalic/atraumatic; Hearing grossly intact; Mucous membranes moist with some white patches on tongue Neck: Supple; Trachea midline; Neg JVD Heart: RRR with no M/G/R Lungs: CTA in all lung lundberg bilaterally; Respirations unlabored; Neg accessory muscle use Abdomen: Soft, non-tender, non-distended; Positive BS x 4 quadrants + ostomy Extremities: Bilateral ankles with dressings/wraps in place Neurological: Speech clear; Gross motor/sensory function intact; Neg focal neurologic deficits Psychiatric: Appropriate mood/affect Skin: Normal Color; Warm/Dry Results & Data Results & Data ([facility]) Vital Signs (Past 12 Hours) Vital Signs Temp Pulse Resp BP Pulse Ox 07/18/21 07:47 36.8 C 65 18 143/78 H 99 PG Care Time/CCT Total # of Minutes Spent Total Time Spent with Patient: Total time spent is greater than 50% in coordination of care (as documented) at patient's floor/unit and/or counseling patient: Coding Level of Care Code 59375 Subseq Hosp Care Lvl 3 Diagnoses Bilateral ankle fractures S82.891A; S82.892A Dislocation of left ankle joint S93.05XA Encounter type: initial encounter TIM (acute kidney injury) N17.9 Nausea and vomiting R11.2 CAD (coronary artery disease) I25.10 Morbid obesity E66.01 Hypothyroidism E03.9 Colovesical fistula N32.1 (1) Dislocation of left ankle joint Encounter type: initial encounter Qualified Code(s): S93.05XA - Dislocation of left ankle joint, initial encounter
[2021-07-18] MEDS: NYSTATIN SUSP 500,000 U/5 ML UDC PO SCH ×2 (16:31→20:03)
[2021-07-18] MEDS: ACETAMINOPHEN 500 MG TAB PO SCH (20:02)
[2021-07-18] MEDS ORDERED: ACETAMINOPHEN 500 MG TAB PO SCH (21:00)
--- NOTE | 2021-07-18 21:27 | Orthopedic Progress Note ---
Date of Service July 18, 2021 Assessment & Plan (1) Ankle fracture: Plan: Patient seen, evaluated, and treated. Status post Day 5 datys ORIF (DOS 07/13) Right posterior malleolar fracture fixated with 2 screws, Left trimalleolar fracture fixated with TTC retrograde IM nail Isauro Ramon compression removed at today's visit. Patient is weight bearing as tolerated with PT assistance She will follow up in office 08/04 I will continue to follow Patient while in house. (2) Dislocation of left ankle joint: (3) Bilateral ankle fractures: (4) Morbid obesity: Admission and Anticipated Discharge Date Admission Date: July 13, 2021 Subjective Patient seen resting comfortably at bedside. She relates no complaints and states was able to be seen by PT today. Review of Systems Constitutional: no fever, no chills and no sweats Eyes: no blind spots and no eye pain Ear, Nose, Mouth, Throat: + hearing loss Respiratory: no cough and no wheezing Cardiovascular: no chest pain Gastrointestinal: no abdominal pain Musculoskeletal: + joint pain and + body aches Integumentary: no rash and no lesions Neurologic: Epicritic sensation intact Psychiatric: no behavioral changes and no depression Physical Exam Constitutional: WD/WN, vitals as above Eyes: PERRL, conjunctivae normal, anicteric sclerae ENMT: external ear and nose normal, oropharynx normal Respiratory: normal respiratory effort, lungs clear to auscultation Cardiovascular: Rate/Rhythm: regular rate Musculoskeletal: Ankle: + deformity Skin: no rashes, warm and dry Psychiatric: A+Ox3, euthymic affect Results & Data ([facility]) Vital Signs (Past 12 Hours) Vital Signs Temp Pulse Resp BP BP Pulse Ox 07/18/21 20:36 36.5 C 62 18 116/71 97 07/18/21 20:00 77 14 161/97 H 99 07/18/21 17:50 85 L 07/18/21 15:10 36.7 C 76 18 140/77 100 (1) Dislocation of left ankle joint Encounter type: initial encounter Qualified Code(s): S93.05XA - Dislocation of left ankle joint, initial encounter (2) Ankle fracture Encounter type: initial encounter Fracture type: closed Laterality: right Qualified Code(s): S82.891A - Other fracture of right lower leg, initial encounter for closed fracture
[2021-07-19] MEDS: HYDROmorphone INJ 0.5 MG/0.5 ML SYR IV PRN ×3 (03:19→21:37)
[2021-07-19 06:51] LABS: Hematocrit (blood only) 26.2 % (37-47); Hemoglobin 8.1 g/dL (12.0-16.0); Mean Corpuscular Hemoglobin 30.7 pg (25-34); Mean Corpuscular Hgb Conc 30.9 g/dL (32-36); Mean Corpuscular Volume 99.2 fL (80-100); Mean Platelet Volume 11.7 fL (7.4-10.4); Platelet Count 234 K/uL (130-400); RDW Coefficient of Variation 16.6 % (11.5-14.5); RDW Standard Deviation 59.8 fL (36.4-46.3); Red Blood Count 2.64 M/uL (4.2-5.4); White Blood Count 6.91 K/uL (4.8-10.8)
[2021-07-19] MEDS: FLUTICASONE PROPIONATE NA SPR 16 GM BTL SCH ×2 (07:24→21:41)
[2021-07-19] MEDS: NYSTATIN SUSP 500,000 U/5 ML UDC PO SCH ×4 (07:25→21:43)
[2021-07-19] MEDS: hydrALAZINE HCL 25 MG TAB PO SCH ×3 (07:25→21:41)
[2021-07-19] MEDS: ATENOLOL 25 MG TABLET PO SCH (07:25)
[2021-07-19] MEDS: ACETAMINOPHEN 500 MG TAB PO SCH ×2 (07:25→21:40)
[2021-07-19] MEDS: LIDOCAINE 5% 1 PATCH TD SCH (07:25)
[2021-07-19] MEDS: HEPARIN SOD 5,000 UNIT/0.5 ML VIAL SQ SCH ×2 (07:26→21:43)
[2021-07-19] MEDS: FLUTICASONE/VILANTEROL 200/25MCG 14 PUFFS/INHALER INH SCH (07:26)
[2021-07-19 07:28] LABS: BUN Creatinine Ratio 39.4 (10-20); Calcium 9.6 mg/dl (8.5-10.1); Creatinine Clr Calc Pharmacy 26.5 ml/min; Est GFR (African American) 30.5 ml/min; Est GFR (Non-African American) 26.3 ml/min
--- NOTE | 2021-07-19 12:13 | Hospitalist Progress Note ---
Date of Service July 19, 2021 Assessment & Plan (1) Bilateral ankle fractures: Plan: - S/P ORIF on 07/13 -- Pinning and will have decreased mobility; mindful of neuropathy to watch for wear areas - Continue pain control - DVT prophylaxis - Heparin - PT/OT - planning on [facility] - bed may not be available until Saturday (2) Dislocation of left ankle joint: Plan: - As above - OR repair 07/[address] Garvin - WBAT with assistance and plans to F/U as outpatient on 08/04 (3) TIM (acute kidney injury): Plan: - TIM - maybe ATN from ileus/OR -- * post-op ileus, not a complication of care - Cr 1.76 and trending down slowly - will continue to avoid nephrotoxins and will monitor as appropriate urine output is maintained -- Hold Losartan (4) Nausea and vomiting: Plan: - IMPROVING - Likely related some to TIM and ileus - Good bowel sounds and increased output from ostomy since ileus discovery (5) CAD (coronary artery disease): Plan: - S/P Stent x 1 in circumflex (2003) - Continue ASA daily - Continue atenolol 12.5 mg daily and hold Losartan given renal function - Continue Hydralazine as replacement while inpatient (6) Morbid obesity: Plan: - Will need weight reduction to decrease CV morbidity and assist with rehabilitation - HCO3 is 27 - follow; likely indicative of obesity hypoventilation syndrome- not on any CPAP/BiPAP at home (7) Hypothyroidism: Plan: - Continue Synthroid 200 mcg daily (8) Colovesical fistula: Plan: - Routine ostomy care and change Plan: - Plan for SNF for rehab - [facility] may now not have a bed until Saturday - Will update son later today Admission and Anticipated Discharge Date Admission Date: July 13, 2021 Subjective Reports feeling generally weak today and unable to move her legs. However, nursing reports she was up standing multiple times this morning and she is doing her exercises in her bed. She reports mild nausea this morning but no vomiting and is tolerating an advanced diet. Her dressings were removed from her legs yesterday. Incisions look well approximated and no signs of infection Review of Systems Review of Systems: REVIEW OF SYSTEMS General/Constitutional: Denies fever/chills Cardiovascular: Denies chest pain, palpitations, edema Respiratory: Denies cough, wheezing, orthopnea GI: + nausea (mild in AM - spontaneously resolved without meds) ; Denies vomiting, abdominal pain : Denies dysuria Musculoskeletal: + bilateral ankle pain Neurologic: Denies dizziness/lightheadedness Physical Exam Physical Exam: PHYSICAL EXAM General Appearance: WDWN in NAD who is A&O x 3 HEENT: Head is normocephalic/atraumatic; Hearing grossly intact; Mucous membranes moist with some white patches on tongue Neck: Supple; Trachea midline; Neg JVD Heart: RRR with no M/G/R Lungs: CTA in all lung lundberg bilaterally; Respirations unlabored; Neg accessory muscle use Abdomen: Soft, non-tender, non-distended; Positive BS x 4 quadrants + ostomy Extremities: Bilateral ankles with dressings removed; mild bruising of ankles/feet. Multiple incisions that are well approximated with suture in place, no erythema or drainage Neurological: Speech clear; Gross motor/sensory function intact; Neg focal neurologic deficits Psychiatric: Appropriate mood/affect Skin: Normal Color; Warm/Dry - other than discussed above Results & Data Results & Data ([facility]) Vital Signs (Past 12 Hours) Vital Signs Temp Pulse Resp BP Pulse Ox 07/19/21 07:29 36.9 C 63 18 138/83 99 PG Care Time/CCT Total # of Minutes Spent Total Time Spent with Patient: Total time spent is greater than 50% in coordination of care (as documented) at patient's floor/unit and/or counseling patient: Coding Level of Care Code 01404 Subseq Hosp Care Lvl 3 Diagnoses Bilateral ankle fractures S82.891A; S82.892A Dislocation of left ankle joint S93.05XA Encounter type: initial encounter TIM (acute kidney injury) N17.9 Nausea and vomiting R11.2 CAD (coronary artery disease) I25.10 Morbid obesity E66.01 Hypothyroidism E03.9 Colovesical fistula N32.1 (1) Dislocation of left ankle joint Encounter type: initial encounter Qualified Code(s): S93.05XA - Dislocation of left ankle joint, initial encounter
[2021-07-19] MEDS: oxyCODONE HCL IR 5 MG TAB (IMMEDIATE RELEASE) PO PRN ×2 (12:17→19:38)
[2021-07-19] MEDS: ONDANSETRON INJ 2 MG/ML 2 ML VIAL IV PRN (12:23)
[2021-07-20] MEDS: LEVOTHYROXINE SODIUM 200 MCG TABLET PO SCH (05:31)
[2021-07-20] MEDS: oxyCODONE HCL IR 5 MG TAB (IMMEDIATE RELEASE) PO PRN (05:39)
[2021-07-20] MEDS: ASPIRIN 81 MG ECTAB PO SCH (07:22)
[2021-07-20] MEDS: LIDOCAINE 5% 1 PATCH TD SCH (07:22)
[2021-07-20] MEDS: hydrALAZINE HCL 25 MG TAB PO SCH ×3 (07:23→21:14)
[2021-07-20] MEDS: NYSTATIN SUSP 500,000 U/5 ML UDC PO SCH ×4 (07:23→21:14)
[2021-07-20] MEDS: ACETAMINOPHEN 500 MG TAB PO SCH ×3 (07:23→21:14)
[2021-07-20] MEDS: HEPARIN SOD 5,000 UNIT/0.5 ML VIAL SQ SCH ×2 (07:23→21:14)
[2021-07-20] MEDS: FLUTICASONE PROPIONATE NA SPR 16 GM BTL SCH ×2 (07:24→21:14)
[2021-07-20] MEDS: FLUTICASONE/VILANTEROL 200/25MCG 14 PUFFS/INHALER INH SCH (07:24)
[2021-07-20] MEDS: ATENOLOL 25 MG TABLET PO SCH (07:25)
--- NOTE | 2021-07-20 10:45 | Hospitalist Progress Note ---
Date of Service July 20, 2021 Assessment & Plan (1) Bilateral ankle fractures: Plan: - S/P ORIF on 07/13 -- Pinning and will have decreased mobility; mindful of neuropathy to watch for wear areas - Continue pain control - Will allow Oxy Q4H and REINALDO Tylenol 1000 mg TID - DVT prophylaxis - Heparin - PT/OT - planning on [facility] - bed may not be available until Saturday/next week (2) Dislocation of left ankle joint: Plan: - As above - OR repair 07/[address] Garvin - WBAT with assistance and plans to F/U as outpatient on 08/04 (3) TIM (acute kidney injury): Plan: - TIM - maybe ATN from ileus/OR -- * post-op ileus, not a complication of care - Cr 1.76 and trending down slowly - will continue to avoid nephrotoxins and will monitor as appropriate urine output is maintained -- Hold Losartan (4) Nausea and vomiting: Plan: - RESOLVED - Likely related some to TIM and ileus - Good bowel sounds and continues with output from ostomy (5) CAD (coronary artery disease): Plan: - S/P Stent x 1 in circumflex (2003) - Continue ASA daily - Continue atenolol 12.5 mg daily and hold Losartan given renal function - Continue Hydralazine as replacement while inpatient (6) Morbid obesity: Plan: - Will need weight reduction to decrease CV morbidity and assist with rehabilitation - HCO3 is 27 - follow; likely indicative of obesity hypoventilation syndrome- not on any CPAP/BiPAP at home (7) Hypothyroidism: Plan: - Continue Synthroid 200 mcg daily (8) Colovesical fistula: Plan: - Routine ostomy care and change Plan: - Plan for SNF for rehab - [facility] may now not have a bed until Saturday - Will update son later today Admission and Anticipated Discharge Date Admission Date: July 13, 2021 Subjective Reports having some pain in the bilateral feet today and continues to feel generally weak. However is participating in therapy. She was eating a late breakfast when I arrived and tolerating it without nausea or vomiting. Review of Systems Review of Systems: REVIEW OF SYSTEMS General/Constitutional: Denies fever/chills Cardiovascular: Denies chest pain, palpitations, edema Respiratory: Denies cough, wheezing, orthopnea GI: Denies nausea, vomiting, abdominal pain : Denies dysuria Musculoskeletal: + bilateral ankle pain Neurologic: Denies dizziness/lightheadedness Physical Exam Physical Exam: PHYSICAL EXAM General Appearance: WDWN in NAD who is A&O x 3 HEENT: Head is normocephalic/atraumatic; Hard of hearing Neck: Supple; Trachea midline; Neg JVD Heart: RRR with no M/G/R Lungs: CTA in all lung lundberg bilaterally; Respirations unlabored; Neg accessory muscle use Abdomen: Soft, non-tender, non-distended; Positive BS x 4 quadrants + ostomy Extremities: Bilateral ankles with dressings removed; mild bruising of ankles/feet. Multiple incisions that are well approximated with suture in place, no erythema or drainage Neurological: Speech clear; Gross motor/sensory function intact; Neg focal neurologic deficits Psychiatric: Appropriate mood/affect Skin: Normal Color; Warm/Dry - other than discussed above Results & Data Results & Data ([facility]) Vital Signs (Past 12 Hours) Vital Signs Temp Pulse Resp BP Pulse Ox 07/20/21 07:20 36.8 C 59 L 16 130/70 99 PG Care Time/CCT Total # of Minutes Spent Total Time Spent with Patient: Total time spent is greater than 50% in coordination of care (as documented) at patient's floor/unit and/or counseling patient: Coding Level of Care Code 24228 Subseq Hosp Care Lvl 3 Diagnoses Bilateral ankle fractures S82.891A; S82.892A Dislocation of left ankle joint S93.05XA Encounter type: initial encounter TIM (acute kidney injury) N17.9 Nausea and vomiting R11.2 CAD (coronary artery disease) I25.10 Morbid obesity E66.01 Hypothyroidism E03.9 Colovesical fistula N32.1 (1) Dislocation of left ankle joint Encounter type: initial encounter Qualified Code(s): S93.05XA - Dislocation of left ankle joint, initial encounter
[2021-07-20] MEDS: HYDROmorphone INJ 0.5 MG/0.5 ML SYR IV PRN ×2 (10:46→19:25)
[2021-07-21] MEDS: HYDROmorphone INJ 0.5 MG/0.5 ML SYR IV PRN ×2 (02:00→13:55)
[2021-07-21] MEDS: LEVOTHYROXINE SODIUM 200 MCG TABLET PO SCH (04:47)
[2021-07-21 06:08] LABS: Mean Corpuscular Hemoglobin 30.4 pg (25-34); Mean Corpuscular Hgb Conc 30.8 g/dL (32-36); Mean Corpuscular Volume 98.9 fL (80-100); Mean Platelet Volume 11.8 fL (7.4-10.4); Platelet Count 236 K/uL (130-400); RDW Coefficient of Variation 16.5 % (11.5-14.5); RDW Standard Deviation 59.6 fL (36.4-46.3); Red Blood Count 2.63 M/uL (4.2-5.4); White Blood Count 8.11 K/uL (4.8-10.8)
[2021-07-21 06:37] LABS: BUN Creatinine Ratio 44.7 (10-20); Calcium 8.8 mg/dl (8.5-10.1); Creatinine Clr Calc Pharmacy 26.5 ml/min; Est GFR (African American) 30.5 ml/min; Est GFR (Non-African American) 26.3 ml/min
[2021-07-21] MEDS ORDERED: FUROSEMIDE 20 MG TAB PO ONE (09:30)
--- NOTE | 2021-07-21 10:11 | Hospitalist Progress Note ---
Date of Service July 21, 2021 Assessment & Plan (1) Bilateral ankle fractures: Plan: - S/P ORIF on 07/13 -- Pinning and will have decreased mobility; mindful of neuropathy to watch for wear areas - Continue pain control - Will allow Oxy Q4H and REINALDO Tylenol 1000 mg TID - DVT prophylaxis - Heparin - PT/OT - planning on [facility] - bed may not be available until Saturday or sometime next week (2) Dislocation of left ankle joint: Plan: - As above - OR repair 07/[address] Garvin - WBAT with assistance and plans to F/U as outpatient on 08/04 (3) TIM (acute kidney injury): Plan: - TIM - maybe ATN from ileus/OR vs may be a new baseline as we don't have a lot of labs for comparison -- * post-op ileus, not a complication of care - Cr 1.76 and holding steady but continues with good urine output - will continue to avoid nephrotoxins and will monitor -- Give Lasix x 1 as may have some slight volume overload and check AM labs -- Hold Losartan (4) Nausea and vomiting: Plan: - RESOLVED - Likely related to ileus - Good bowel sounds and continues with output from ostomy (5) CAD (coronary artery disease): Plan: - S/P Stent x 1 in circumflex (2003) - Continue ASA daily - Continue atenolol 12.5 mg daily and hold Losartan given renal function - Continue Hydralazine as replacement while inpatient (6) Morbid obesity: Plan: - Will need weight reduction to decrease CV morbidity and assist with rehabilitation - HCO3 is 27 - follow; likely indicative of obesity hypoventilation syndrome- not on any CPAP/BiPAP at home (7) Hypothyroidism: Plan: - Continue Synthroid 200 mcg daily (8) Colovesical fistula: Plan: - Routine ostomy care and change Plan: - Plan for SNF for rehab - [facility] may not have a bed until Saturday or next week - Will update son later today - Andrez (# [phone]) Admission and Anticipated Discharge Date Admission Date: July 13, 2021 Subjective Pt reports her nose feels dry and clogged. She has been using q-tips dipped in water to help keep moisture, may be drying out from supplemental O2 as well. States the clogged nose is making it hard for her to breath. She still has some pain in her ankles but feels it may be a bit better today. Tolerating a diet without nausea/vomiting just doesnt like that the food is cold. Review of Systems Review of Systems: REVIEW OF SYSTEMS General/Constitutional: Denies fever/chills ENT: + dry/stuffy nose Cardiovascular: Denies chest pain, palpitations, edema Respiratory: +SOB (relates mostly to her nose feeling stuffy and sitting "crunched up" in bed); Denies cough, wheezing, orthopnea GI: Denies nausea, vomiting, abdominal pain : Denies dysuria Musculoskeletal: + bilateral ankle pain (improving compared to yesterday) Neurologic: Denies dizziness/lightheadedness Physical Exam Physical Exam: PHYSICAL EXAM General Appearance: WDWN in NAD who is A&O x 3 HEENT: Head is normocephalic/atraumatic; Hard of hearing; nares are dry L worse than R Neck: Supple; Trachea midline; Neg JVD Heart: RRR with no M/G/R Lungs: Predominantly CTA but some fine crackles at the bases; Respirations unlabored; Neg accessory muscle use Abdomen: Soft, non-tender, non-distended; Positive BS x 4 quadrants + ostomy Extremities: Bilateral ankles with dressings removed; mild bruising of ankles/feet. Multiple incisions that are well approximated with suture in place, no erythema or drainage Neurological: Speech clear; Gross motor/sensory function intact; Neg focal neurologic deficits Psychiatric: Appropriate mood/affect Skin: Normal Color; Warm/Dry - other than discussed above Results & Data Results & Data ([facility]) Vital Signs (Past 12 Hours) Vital Signs Temp Pulse Resp BP Pulse Ox 07/21/21 07:07 36.7 C 81 18 139/81 91 07/20/21 22:12 36.7 C 58 L 16 116/54 L 100 PG Care Time/CCT Total # of Minutes Spent Total Time Spent with Patient: Total time spent is greater than 50% in coordination of care (as documented) at patient's floor/unit and/or counseling patient: Coding Level of Care Code 47045 Subseq Hosp Care Lvl 3 Diagnoses Bilateral ankle fractures S82.891A; S82.892A Dislocation of left ankle joint S93.05XA Encounter type: initial encounter TIM (acute kidney injury) N17.9 Nausea and vomiting R11.2 CAD (coronary artery disease) I25.10 Morbid obesity E66.01 Hypothyroidism E03.9 Colovesical fistula N32.1 (1) Dislocation of left ankle joint Encounter type: initial encounter Qualified Code(s): S93.05XA - Dislocation of left ankle joint, initial encounter
[2021-07-21] MEDS: ACETAMINOPHEN 500 MG TAB PO SCH ×3 (10:38→20:24)
[2021-07-21] MEDS: ASPIRIN 81 MG ECTAB PO SCH (10:40)
[2021-07-21] MEDS: FLUTICASONE/VILANTEROL 200/25MCG 14 PUFFS/INHALER INH SCH (10:41)
[2021-07-21] MEDS: FLUTICASONE PROPIONATE NA SPR 16 GM BTL SCH ×2 (10:42→20:25)
[2021-07-21] MEDS: hydrALAZINE HCL 25 MG TAB PO SCH ×3 (10:49→20:24)
[2021-07-21] MEDS: HEPARIN SOD 5,000 UNIT/0.5 ML VIAL SQ SCH ×2 (10:50→20:25)
[2021-07-21] MEDS: LIDOCAINE 5% 1 PATCH TD SCH (10:50)
[2021-07-21] MEDS: NYSTATIN SUSP 500,000 U/5 ML UDC PO SCH ×4 (10:51→20:25)
[2021-07-21] MEDS: ATENOLOL 25 MG TABLET PO SCH (11:51)
[2021-07-21] MEDS: oxyCODONE HCL IR 5 MG TAB (IMMEDIATE RELEASE) PO PRN (23:08)
[2021-07-22] MEDS ORDERED: SODIUM CHLORIDE 0.65% NA SOLN 45 ML (OCEAN) ONE (04:31)
[2021-07-22] MEDS: HYDROmorphone INJ 0.5 MG/0.5 ML SYR IV PRN ×3 (05:06→23:43)
[2021-07-22] MEDS: LEVOTHYROXINE SODIUM 200 MCG TABLET PO SCH (05:06)
[2021-07-22] MEDS: ACETAMINOPHEN 500 MG TAB PO SCH ×3 (09:00→21:18)
[2021-07-22] MEDS: HEPARIN SOD 5,000 UNIT/0.5 ML VIAL SQ SCH ×2 (09:01→21:19)
[2021-07-22] MEDS: hydrALAZINE HCL 25 MG TAB PO SCH ×4 (09:01→21:20)
[2021-07-22] MEDS: FLUTICASONE PROPIONATE NA SPR 16 GM BTL SCH ×2 (09:02→21:19)
[2021-07-22] MEDS: LIDOCAINE 5% 1 PATCH TD SCH (09:02)
[2021-07-22] MEDS: ASPIRIN 81 MG ECTAB PO SCH (09:02)
[2021-07-22] MEDS: FLUTICASONE/VILANTEROL 200/25MCG 14 PUFFS/INHALER INH SCH (09:02)
[2021-07-22] MEDS: NYSTATIN SUSP 500,000 U/5 ML UDC PO SCH ×4 (09:03→21:20)
[2021-07-22] MEDS: ATENOLOL 25 MG TABLET PO SCH (09:04)
[2021-07-22 09:11] LABS: Hematocrit (blood only) 27.4 % (37-47); Hemoglobin 8.2 g/dL (12.0-16.0); Mean Corpuscular Hemoglobin 29.8 pg (25-34); Mean Corpuscular Hgb Conc 29.9 g/dL (32-36); Mean Corpuscular Volume 99.6 fL (80-100); Mean Platelet Volume 11.9 fL (7.4-10.4); Platelet Count 241 K/uL (130-400); RDW Coefficient of Variation 16.7 % (11.5-14.5); RDW Standard Deviation 60.9 fL (36.4-46.3); Red Blood Count 2.75 M/uL (4.2-5.4); White Blood Count 9.41 K/uL (4.8-10.8)
[2021-07-22 09:39] LABS: BUN Creatinine Ratio 43.2 (10-20); Calcium 8.9 mg/dl (8.5-10.1); Creatinine Clr Calc Pharmacy 25.8 ml/min; Est GFR (African American) 29.4 ml/min; Est GFR (Non-African American) 25.4 ml/min; Potassium 3.9 mmol/L (3.5-5.1)
[2021-07-22] MEDS ORDERED: SODIUM CHLORIDE 0.9% 1000ML 1,000 ML IV SCH (10:45)
[2021-07-22] MEDS: oxyCODONE HCL IR 5 MG TAB (IMMEDIATE RELEASE) PO PRN (13:38)
--- NOTE | 2021-07-22 16:24 | Hospitalist Progress Note ---
Date of Service July 22, 2021 Assessment & Plan (1) Bilateral ankle fractures: Plan: - S/P ORIF on 07/13 -- Pinning and will have decreased mobility; mindful of neuropathy to watch for wear areas - Continue pain control - Will allow Oxy Q4H and REINALDO Tylenol 1000 mg TID - DVT prophylaxis - Heparin - PT/OT - planning on [facility] - bed may not be available until Saturday or sometime next week (2) Dislocation of left ankle joint: Plan: - As above - OR repair 07/[address] Garvin - WBAT with assistance and plans to F/U as outpatient on 08/04 (3) TIM (acute kidney injury): Plan: - TIM - maybe ATN from ileus/OR vs may be a new baseline as we don't have a lot of labs for comparison -- * post-op ileus, not a complication of care -- Most labs in system was from 2016 with some Cr at 1.5 - maybe some chronic elevations? Will give 1 L NSS as she did have less urine output overnight and reassess labs in AM. Electrolytes are acceptable and no indication for further intervention. Will need routine monitoring at rehab. Suspect maybe she does have some chronic renal insufficiency - Cr 1.8 will continue to avoid nephrotoxins and will monitor -- Hold Losartan (4) Nausea and vomiting: Plan: - RESOLVED - Likely related to ileus - Good bowel sounds and continues with output from ostomy (5) CAD (coronary artery disease): Plan: - S/P Stent x 1 in circumflex (2003) - Continue ASA daily - Continue atenolol 12.5 mg daily and hold Losartan given renal function - Continue Hydralazine as replacement while inpatient (6) Morbid obesity: Plan: - Will need weight reduction to decrease CV morbidity and assist with rehabilitation - HCO3 is 27 - follow; likely indicative of obesity hypoventilation syndrome- not on any CPAP/BiPAP at home (7) Hypothyroidism: Plan: - Continue Synthroid 200 mcg daily (8) Colovesical fistula: Plan: - Routine ostomy care and change Plan: - Plan for SNF for rehab - [facility] may not have a bed until Saturday or next week - Updated son Elvira Maguire (# [phone]) Admission and Anticipated Discharge Date Admission Date: July 13, 2021 Subjective Reports doing better today compared to yesterday. Can breath a lot better through her nose as it was very dry and stuffed yesterday. Reports her ankle pain is slightly better just hurts with bearing weight. She feels her weakness my be getting a bit better and says she is trying to push herself as much as she can. Review of Systems Review of Systems: REVIEW OF SYSTEMS General/Constitutional: Denies fever/chills ENT: + dry/stuffy nose (much improved today) Cardiovascular: Denies chest pain, palpitations, edema Respiratory: Denies cough, SOB, wheezing, orthopnea GI: Denies nausea, vomiting, abdominal pain : Denies dysuria Musculoskeletal: + bilateral ankle pain (improving compared to yesterday) Neurologic: Denies dizziness/lightheadedness Physical Exam Physical Exam: PHYSICAL EXAM General Appearance: WDWN in NAD who is A&O x 3 HEENT: Head is normocephalic/atraumatic; Hard of hearing Neck: Supple; Trachea midline; Neg JVD Heart: RRR with no M/G/R Lungs: Predominantly CTA but some fine crackles at the bases; Respirations unlabored; Neg accessory muscle use Abdomen: Soft, non-tender, non-distended; Positive BS x 4 quadrants + ostomy Extremities: Bilateral ankles with dressings removed; mild bruising of ankles/feet. Multiple incisions that are well approximated with suture in place, no erythema or drainage Neurological: Speech clear; Gross motor/sensory function intact; Neg focal neurologic deficits Psychiatric: Appropriate mood/affect Skin: Normal Color; Warm/Dry - other than discussed above Results & Data Results & Data ([facility]) Vital Signs (Past 12 Hours) Vital Signs Temp Pulse Pulse Resp BP BP Pulse Ox 07/22/21 14:59 36.7 C 63 16 141/76 H 99 07/22/21 13:14 62 125/67 07/22/21 07:37 36.6 C 75 18 112/65 99 PG Care Time/CCT Total # of Minutes Spent Total Time Spent with Patient: Total time spent is greater than 50% in coordination of care (as documented) at patient's floor/unit and/or counseling patient: Coding Level of Care Code 09862 Subseq Hosp Care Lvl 2 Diagnoses Bilateral ankle fractures S82.891A; S82.892A Dislocation of left ankle joint S93.05XA Encounter type: initial encounter TIM (acute kidney injury) N17.9 Nausea and vomiting R11.2 CAD (coronary artery disease) I25.10 Morbid obesity E66.01 Hypothyroidism E03.9 Colovesical fistula N32.1 (1) Dislocation of left ankle joint Encounter type: initial encounter Qualified Code(s): S93.05XA - Dislocation of left ankle joint, initial encounter
[2021-07-23] MEDS: oxyCODONE HCL IR 5 MG TAB (IMMEDIATE RELEASE) PO PRN ×2 (01:32→09:31)
[2021-07-23] MEDS: LEVOTHYROXINE SODIUM 200 MCG TABLET PO SCH (05:51)
[2021-07-23] MEDS: ACETAMINOPHEN 500 MG TAB PO SCH ×3 (09:43→20:25)
[2021-07-23] MEDS: ASPIRIN 81 MG ECTAB PO SCH (09:43)
[2021-07-23] MEDS: FLUTICASONE PROPIONATE NA SPR 16 GM BTL SCH (09:44)
[2021-07-23] MEDS: HEPARIN SOD 5,000 UNIT/0.5 ML VIAL SQ SCH ×2 (09:45→20:24)
[2021-07-23] MEDS: NYSTATIN SUSP 500,000 U/5 ML UDC PO SCH ×4 (09:46→20:24)
[2021-07-23 09:48] LABS: Hematocrit (blood only) 26.3 % (37-47); Mean Corpuscular Hemoglobin 30.8 pg (25-34); Mean Corpuscular Hgb Conc 30.4 g/dL (32-36); Mean Corpuscular Volume 101.2 fL (80-100); Nucleated RBC # (auto) 0.02 K/uL (0-0); Nucleated RBC % (auto) 0.3 %; Platelet Count 257 K/uL (130-400); RDW Coefficient of Variation 16.9 % (11.5-14.5); White Blood Count 7.87 K/uL (4.8-10.8)
[2021-07-23 10:13] LABS: BUN Creatinine Ratio 40.8 (10-20); Calcium 8.7 mg/dl (8.5-10.1); Creatinine Clr Calc Pharmacy 25.4 ml/min; Est GFR (African American) 28.9 ml/min; Est GFR (Non-African American) 24.9 ml/min; Potassium 3.9 mmol/L (3.5-5.1)
[2021-07-23] MEDS: FLUTICASONE/VILANTEROL 200/25MCG 14 PUFFS/INHALER INH SCH (11:05)
[2021-07-23] MEDS: ATENOLOL 25 MG TABLET PO SCH (11:06)
[2021-07-23] MEDS: hydrALAZINE HCL 25 MG TAB PO SCH ×3 (11:06→20:29)
[2021-07-23] MEDS: LIDOCAINE 5% 1 PATCH TD SCH (11:06)
[2021-07-23] MEDS ORDERED: hydrOXYzine HCl 10 MG TAB PO ONE (14:00)
--- NOTE | 2021-07-23 14:11 | Hospitalist Progress Note ---
Date of Service July 23, 2021 Assessment & Plan (1) Bilateral ankle fractures: Plan: - S/P ORIF on 07/13 -- Pinning and will have decreased mobility; mindful of neuropathy to watch for wear areas - Continue pain control - Will allow Oxy Q4H and REINALDO Tylenol 1000 mg TID - DVT prophylaxis - Heparin - PT/OT - planning on [facility] - bed may not be available until Saturday or sometime next week (2) Dislocation of left ankle joint: Plan: - As above - OR repair 07/[address] Garvin -- Some sutures were removed on 07/22 - WBAT with assistance and plans to F/U as outpatient on 08/04 (3) TIM (acute kidney injury): Plan: - TIM - maybe ATN from ileus/OR vs may be a new baseline as we don't have a lot of labs for comparison -- * post-op ileus, not a complication of care -- Most labs in system was from 2016 with some Cr at 1.5 - maybe some chronic elevations? Will give 1 L NSS as she did have less urine output overnight but remaining relatively unchanged. Electrolytes are acceptable and no indication for further intervention. Her body habitus makes assessing volume status difficult. She is on PRN Lasix at home. I&Os not fully accurate as she gets a lot of leaking with the purewick. Will need routine monitoring at rehab. Suspect maybe she does have some chronic renal insufficiency. Hgb staying around 8 which comparison to previous labs she has been in 8-9 range. Vitals are stable so can monitor. - Cr 1.8 will continue to avoid nephrotoxins and will monitor -- Hold Losartan (4) Nausea and vomiting: Plan: - RESOLVED - Likely related to ileus - Good bowel sounds and continues with output from ostomy (5) CAD (coronary artery disease): Plan: - S/P Stent x 1 in circumflex (2003) - Continue ASA daily - Continue atenolol 12.5 mg daily and hold Losartan given renal function - Continue Hydralazine as replacement while inpatient (6) Morbid obesity: Plan: - Will need weight reduction to decrease CV morbidity and assist with rehabilitation - HCO3 is 27 - follow; likely indicative of obesity hypoventilation syndrome- not on any CPAP/BiPAP at home (7) Hypothyroidism: Plan: - Continue Synthroid 200 mcg daily (8) Colovesical fistula: Plan: - Routine ostomy care and change Plan: - Plan for SNF for rehab - [facility] a bed until Saturday or next week - Updated son Elvira Maguire (# [phone]) Admission and Anticipated Discharge Date Admission Date: July 13, 2021 Subjective Reports her ankle pain seems to be improving slowly but worsens when trying to stand/walk. Reports Dr. Garvin was by yesterday to remove some of the suture on the L ankle. Discussed her drinking fluids and she very particular about her drinks being cold or she doesn't like them and states her arms to too weak to lift the drink. Review of Systems Review of Systems: REVIEW OF SYSTEMS General/Constitutional: Denies fever/chills ENT: + dry/stuffy nose (much improved today) Cardiovascular: Denies chest pain, palpitations, edema Respiratory: Denies cough, SOB, wheezing, orthopnea GI: Denies nausea, vomiting, abdominal pain : Denies dysuria Musculoskeletal: + bilateral ankle pain (improving compared to yesterday); reports her buttocks hurts from sitting so much Neurologic: Denies dizziness/lightheadedness Physical Exam Physical Exam: PHYSICAL EXAM General Appearance: WDWN in NAD who is A&O x 3 with periods of confusion (baseline) HEENT: Head is normocephalic/atraumatic; Hard of hearing Neck: Supple; Trachea midline; Neg JVD Heart: RRR with no M/G/R Lungs: Predominantly CTA but some fine crackles at the bases; Respirations unlabored; Neg accessory muscle use Abdomen: Soft, non-tender, non-distended; Positive BS x 4 quadrants + ostomy with liquid stool present Extremities: Bilateral ankles with dressings removed; mild bruising of ankles/feet. Multiple incisions that are well approximated with suture in place to lateral L ankle but removed on other incisions, no erythema or drainage Neurological: Speech clear; Gross motor/sensory function intact; Neg focal neurologic deficits Psychiatric: Appropriate mood/affect Skin: Normal Color; Warm/Dry - other than discussed above Results & Data Results & Data ([facility]) Vital Signs (Past 12 Hours) Vital Signs Temp Pulse Pulse Resp BP Pulse Ox 07/23/21 11:05 59 L 105/70 07/23/21 07:16 36.7 C 70 16 105/66 94 PG Care Time/CCT Total # of Minutes Spent Total Time Spent with Patient: Total time spent is greater than 50% in coordination of care (as documented) at patient's floor/unit and/or counseling patient: Coding Level of Care Code 07262 Subseq Hosp Care Lvl 2 Diagnoses Bilateral ankle fractures S82.891A; S82.892A Dislocation of left ankle joint S93.05XA Encounter type: initial encounter TIM (acute kidney injury) N17.9 Nausea and vomiting R11.2 CAD (coronary artery disease) I25.10 Morbid obesity E66.01 Hypothyroidism E03.9 Colovesical fistula N32.1 (1) Dislocation of left ankle joint Encounter type: initial encounter Qualified Code(s): S93.05XA - Dislocation of left ankle joint, initial encounter
[2021-07-23] MEDS: HYDROmorphone INJ 0.5 MG/0.5 ML SYR IV PRN (20:24)
[2021-07-23] MEDS ORDERED: hydrOXYzine HCl 25 MG TAB PO STA (23:32)
[2021-07-24] MEDS: oxyCODONE HCL IR 5 MG TAB (IMMEDIATE RELEASE) PO PRN ×3 (02:35→20:10)
[2021-07-24] MEDS: HYDROmorphone INJ 0.5 MG/0.5 ML SYR IV PRN ×3 (05:24→23:18)
[2021-07-24] MEDS: LEVOTHYROXINE SODIUM 200 MCG TABLET PO SCH (06:32)
[2021-07-24 07:31] LABS: Hematocrit (blood only) 25.7 % (37-47); Hemoglobin 7.8 g/dL (12.0-16.0); Mean Corpuscular Hemoglobin 30.5 pg (25-34); Mean Corpuscular Hgb Conc 30.4 g/dL (32-36); Mean Corpuscular Volume 100.4 fL (80-100); Mean Platelet Volume 12.2 fL (7.4-10.4); Platelet Count 258 K/uL (130-400); RDW Coefficient of Variation 17.1 % (11.5-14.5); RDW Standard Deviation 62.2 fL (36.4-46.3); Red Blood Count 2.56 M/uL (4.2-5.4); White Blood Count 7.62 K/uL (4.8-10.8)
[2021-07-24 08:02] LABS: BUN Creatinine Ratio 39.5 (10-20); Calcium 8.7 mg/dl (8.5-10.1); Creatinine Clr Calc Pharmacy 25.4 ml/min; Est GFR (African American) 28.9 ml/min; Est GFR (Non-African American) 24.9 ml/min; Potassium 3.9 mmol/L (3.5-5.1)
[2021-07-24] MEDS: hydrALAZINE HCL 25 MG TAB PO SCH ×3 (08:31→20:10)
[2021-07-24] MEDS: ACETAMINOPHEN 500 MG TAB PO SCH ×3 (08:34→20:10)
[2021-07-24] MEDS: ATENOLOL 25 MG TABLET PO SCH (08:35)
[2021-07-24] MEDS: ASPIRIN 81 MG ECTAB PO SCH (08:38)
[2021-07-24] MEDS: HEPARIN SOD 5,000 UNIT/0.5 ML VIAL SQ SCH ×2 (08:39→20:10)
[2021-07-24] MEDS: NYSTATIN SUSP 500,000 U/5 ML UDC PO SCH ×4 (08:39→20:10)
[2021-07-24] MEDS: FLUTICASONE/VILANTEROL 200/25MCG 14 PUFFS/INHALER INH SCH (08:41)
[2021-07-24] MEDS: LIDOCAINE 5% 1 PATCH TD SCH (08:43)
--- NOTE | 2021-07-24 09:52 | Hospitalist Progress Note ---
Date of Service July 24, 2021 Assessment & Plan (1) Bilateral ankle fractures: Plan: S/P ORIF on 07/[address] Garvin -- Pinning and will have decreased mobility; mindful of neuropathy to watch for wear areas Pain control --> Will allow Oxy Q4H and REINALDO Tylenol 1000 mg TID. --> Decreased IV dilaudid to 0.25mg and discussed abstaining from this when possible and utilize PO for longer lasting control DVT Prophylaxis with Heparin SQ PT/OT - planning on [facility] - bed may not be available until later this week Volume Overload Of note, patient admitted with fatigue, weakness, and poor appetite. Also endorsed shortness of breath with exertion. 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 BNP 26863 Suspect volume overload from undertreated thyroid as well as dietary indiscretion (likes salt and will place on low Na diet) ECHO with LV systolic function normal, mild-mod dilated RV with elevated RVSP at 40-50mmHg. No significant valvular heart disease (2) Hypothyroidism: Plan: Checked TSH given poor energy, constipation, low sodium --> elevated to 20.6 --> increased Synthroid to 225mcg daily (states she takes appropriately) and rec repeat TFT as outpatient for further adjustments Suspect also contributing to confusion as stated previously this was her baseline ??if also contributing to anemia (3) Anemia: Plan: Hgb 7.8 today (was 10-11 before surgery) -- acute blood loss from surgery as well as dilutional as had gotten IVF for low UO/dehydration as above No active bleeding appreciated/melena/hematochezia/hematemesis She is on B 12, ferrous sulfate supplementations [employer]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 macrocytic --> B12 >2000, Folate wnl 14.4 --> Iron studies with iron 65, trans % sat 26, TIBC 202L, transferrin 175L Will check fecal occult blood Given dose of lasix as above CBC in AM (4) Dislocation of left ankle joint: Plan: As above - OR repair 07/[address] Garvin -- Some sutures were removed on 07/22 WBAT with assistance and plans to F/U as outpatient on 08/04 (5) TIM (acute kidney injury): Plan: TIM - maybe ATN from ileus/OR vs may be a new baseline as we don't have a lot of labs for comparison -- * post-op ileus, not a complication of care -- Most labs in system was from 2016 with some Cr at 1.5 - maybe some chronic elevations? Will give 1 L NSS as she did have less urine output overnight but remaining relatively unchanged. Electrolytes are acceptable and no indication for further intervention. Her body habitus makes assessing volume status difficult. She is on PRN Lasix at home. I&Os not fully accurate as she gets a lot of leaking with the purewick. Will need routine monitoring at rehab. Suspect maybe she does have some chronic renal insufficiency. Hgb staying around 8 which comparison to previous labs she has been in 8-9 range. Vitals are stable so can monitor. 07/24 Suspect elevated BUN/Cr from volume overload -- Cr still elevated to 1.84 Lasix 20mg IV this morning (monitor given R sided elevated pressures on ECHO) Continue to hold losartan for now but if Cr improved, suspect could resume this medication in AM? (6) Nausea and vomiting: Plan: -RESOLVED -Likely related to ileus -Good bowel sounds and continues with output from ostomy Nausea/poor intake also could be from some volume overload. Lasix as above. Continue to monitor (7) CAD (coronary artery disease): Plan: - S/P Stent x 1 in circumflex (2003) - Continue ASA daily - Continue atenolol 12.5 mg daily and hold Losartan given renal function as above - Continue Hydralazine as replacement while inpatient EKG w CP --> Of note trop <0.015 on admission, repeat was 0.021 no repeat ordered. ECHO without evidence of wma noted No CP reported (8) Morbid obesity: Plan: Will need weight reduction to decrease CV morbidity and assist with rehabilitation HCO3 is 27 - follow; likely indicative of obesity hypoventilation syndrome- not on any CPAP/BiPAP at home Will check overnight pulse ox -- likely to need outpt sleep study pending results (9) Colovesical fistula: Plan: Routine ostomy care and change Plan: - [facility] this [facility] - son Elvira Maguire (# [phone]) Admission and Anticipated Discharge Date Admission Date: July 13, 2021 Supervising Physician Co-Signing Physician Notes PAOLA Supervision Note: I did not personally see or examine the patient today, but I verified all lay points of PAOLA Hernandez's assessment and plan with the following exceptions/additions: None Subjective Patient evaluated this afternoon. Sleeping in bed upon arrival but stated she has been having "9/10" pain for the past hour and has been waiting for something from nursing. Discussed low sodium and elevated TSH. She states she takes her thyroid medica tion in the morning at 6am like she is supposed to. Discussed will have to increase the dose and repeat labs/adjustment outpatient if continues to be elevated if compliance not an issue. She notes she does have shortness of breath -- takes Lasix at home when she has lower extremity edema. Discussed sometimes edema from under treated thyroid as well as heart failure. She does not have increased LE edema currently but endorsed abdominal fullness and decreased appetite. No chest pain. Occasional dry cough, non-productive sputum. Given dose of lasix this morning IV and states she has had to be changed 3 times so far. Discussed should ideally be taking daily for next couple of days given congestion. No fever, chills, chest pain reported. Has been refusing PT. Not wanting to get out of bed dispite discussion to prevent bed sores as bottom becoming erythematous and took a while to get comfortable this morning. Review of Systems Review of Systems: All systems reviewed & are unremarkable except as noted in HPI & below Physical Exam Physical Exam: General Appearance: WD/WN in NAD who is A&O x 3 with periods of confusion (baseline), falls back asleep quickly HEENT: Head is normocephalic/atraumatic; Hard of hearing Neck: Supple; Trachea midline; Neg JVD Heart: RRR, S1/S2, +S3 gallop, JVD difficult to assess due to body habitus, no LE edema appreciated, no calf tenderness Lungs: Predominantly CTA but some fine crackles at the bases; Respirations unlabored; Neg accessory muscle use, on room air Abdomen: Soft, non-tender, non-distended; Positive BS x 4 quadrants + ostomy with liquid stool present Extremities: Bilateral ankles with dressings removed; mild bruising of ankles/feet. Multiple incisions that are well approximated with suture in place to lateral L ankle but removed on other incisions, no erythema or drainage Neurological: Speech clear; Gross motor/sensory function intact; Neg focal neurologic deficits Psychiatric: Appropriate mood/affect Skin: Normal Color; Warm/Dry - other than discussed above Results & Data Results & Data ([facility]) Vital Signs (Past 12 Hours) Vital Signs Temp Pulse Resp BP BP Pulse Ox 07/24/21 08:25 36.6 C 83 18 159/80 H 90 07/23/21 22:22 37.1 C 76 16 158/81 H 92 Laboratory Results 07/24/21 07/24/21 07/24/21 Range/Units 08:21 06:47 06:47 WBC 7.62 (4.8-10.8) K/uL RBC 2.56 L (4.2-5.4) M/uL Hgb 7.8 L (12.0-16.0) g/dL Hct 25.7 L (37-47) % MCV 100.4 H (80-100) fL MCH 30.5 (25-34) pg MCHC 30.4 L (32-36) g/dL RDW Std Deviation 62.2 H (36.4-46.3) fL RDW Coeff of Amaya 17.1 H (11.5-14.5) % Plt Count 258 (130-400) K/uL MPV 12.2 H (7.4-10.4) fL Sodium 131 L (136-145) mmol/L Potassium 3.9 (3.5-5.1) mmol/L Chloride 97 L (98-107) mmol/L Carbon Dioxide 26 (21-32) mmol/L Anion Gap 8.0 (3-11) BUN 73 H (7-18) mg/dl Creatinine 1.84 H (0.6-1.2) mg/dl Est Cr Clr Drug Dosing 25.4 ml/min Est GFR ( Amer) 28.9 ml/min Est GFR (Non-Af Amer) 24.9 ml/min BUN/Creatinine Ratio 39.5 H (10-20) Glucose 120 H (70-99) mg/dl POC Glucose 126 H (70-99) mg/dl Calcium 8.7 (8.5-10.1) mg/dl 07/23/21 07/23/21 07/23/21 Range/Units 20:41 17:31 12:19 WBC (4.8-10.8) K/uL RBC (4.2-5.4) M/uL Hgb (12.0-16.0) g/dL Hct (37-47) % MCV (80-100) fL MCH (25-34) pg MCHC (32-36) g/dL RDW Std Deviation (36.4-46.3) fL RDW Coeff of Amaya (11.5-14.5) % Plt Count (130-400) K/uL MPV (7.4-10.4) fL Sodium (136-145) mmol/L Potassium (3.5-5.1) mmol/L Chloride (98-107) mmol/L Carbon Dioxide (21-32) mmol/L Anion Gap (3-11) BUN (7-18) mg/dl Creatinine (0.6-1.2) mg/dl Est Cr Clr Drug Dosing ml/min Est GFR ( Amer) ml/min Est GFR (Non-Af Amer) ml/min BUN/Creatinine Ratio (10-20) Glucose (70-99) mg/dl POC Glucose 122 H 135 H 126 H (70-99) mg/dl Calcium (8.5-10.1) mg/dl 07/23/21 Range/Units 09:22 WBC (4.8-10.8) K/uL RBC (4.2-5.4) M/uL Hgb (12.0-16.0) g/dL Hct (37-47) % MCV (80-100) fL MCH (25-34) pg MCHC (32-36) g/dL RDW Std Deviation (36.4-46.3) fL RDW Coeff of Amaya (11.5-14.5) % Plt Count (130-400) K/uL MPV (7.4-10.4) fL Sodium 133 L (136-145) mmol/L Potassium 3.9 (3.5-5.1) mmol/L Chloride 101 (98-107) mmol/L Carbon Dioxide 23 (21-32) mmol/L Anion Gap 9.0 (3-11) BUN 75 H (7-18) mg/dl Creatinine 1.84 H (0.6-1.2) mg/dl Est Cr Clr Drug Dosing 25.4 ml/min Est GFR ( Amer) 28.9 ml/min Est GFR (Non-Af Amer) 24.9 ml/min BUN/Creatinine Ratio 40.8 H (10-20) Glucose 119 H (70-99) mg/dl POC Glucose (70-99) mg/dl Calcium 8.7 (8.5-10.1) mg/dl PG Care Time/CCT Total # of Minutes Spent Total Time Spent with Patient: Total time spent is greater than 50% in coordination of care (as documented) at patient's floor/unit and/or counseling patient: Coding Level of Care Code 40436 Subseq Hosp Care Lvl 3 Diagnoses Bilateral ankle fractures S82.891A; S82.892A Dislocation of left ankle joint S93.05XA Encounter type: initial encounter TIM (acute kidney injury) N17.9 Nausea and vomiting R11.2 CAD (coronary artery disease) I25.10 Morbid obesity E66.01 Hypothyroidism E03.9 Colovesical fistula N32.1 Anemia D64.9 (1) Dislocation of left ankle joint Encounter type: initial encounter Qualified Code(s): S93.05XA - Dislocation of left ankle joint, initial encounter
[2021-07-24 11:17] LABS: Ferritin 523.5 ng/ml (8-388); Thyroid Stimulating Hormone 20.6 uIu/ml (0.300-4.500)
[2021-07-24 11:49] LABS: Vitamin B12 > 2000 pg/ml (193-986)
[2021-07-24] MEDS ORDERED: FUROSEMIDE INJ 20 MG/2 ML VIAL IV ONE (12:30)
--- NOTE | 2021-07-24 17:10 | XCELERA ---
[id number]
--- NOTE | 2021-07-24 17:49 | XRay Report ---
XR chest 1V portable CLINICAL HISTORY: sob, eval volume overload. COMPARISON STUDY: 07/10/2016 TECHNIQUE: 1 view of the chest FINDINGS: Single frontal view of the chest demonstrates the cardiomediastinal silhouette to be within normal li mits. The lungs are clear of alveolar opacities. There is no evidence for pleural effusion. There is no evidence for vascular congestion. There is no acute osseous pathology. The patient is again status post right shoulder replacement and marked degenerative change left shoulder. IMPRESSION: No acute chest disease or significant interval change. ACT 112: Negative or not required by law. Electronically signed by: Cristi Connell 07/24/2021 3:05 PM
[2021-07-24] MEDS: hydrOXYzine HCl 25 MG TAB PO SCH (20:10)
[2021-07-25] MEDS: HYDROmorphone INJ 0.5 MG/0.5 ML SYR IV PRN (03:35)
[2021-07-25] MEDS ORDERED: LEVOTHYROXINE SODIUM 75 MCG TABLET PO SCH (06:30)
[2021-07-25 07:33] LABS: Hematocrit (blood only) 27.5 % (37-47); Hemoglobin 8.5 g/dL (12.0-16.0); Mean Corpuscular Hemoglobin 30.6 pg (25-34); Mean Corpuscular Hgb Conc 30.9 g/dL (32-36); Mean Corpuscular Volume 98.9 fL (80-100); Mean Platelet Volume 12.3 fL (7.4-10.4); Nucleated RBC # (auto) 0.06 K/uL (0-0); Nucleated RBC % (auto) 0.3 %; Platelet Count 322 K/uL (130-400); RDW Coefficient of Variation 17.1 % (11.5-14.5); RDW Standard Deviation 61.3 fL (36.4-46.3); Red Blood Count 2.78 M/uL (4.2-5.4); White Blood Count 17.25 K/uL (4.8-10.8)
[2021-07-25 07:41] LABS: Prothrombin Time 10.6 Seconds (9.0-12.0)
--- NOTE | 2021-07-25 09:18 | Hospitalist Progress Note ---
Date of Service July 25, 2021 Assessment & Plan Admission and Anticipated Discharge Date Admission Date: July 13, 2021 Results & Data Results & Data ([facility]) Vital Signs (Past 12 Hours) Vital Signs Temp Pulse Pulse Resp BP BP Pulse Ox 07/25/21 07:16 37 C 84 16 119/55 L 97 07/25/21 05:35 78 07/25/21 03:03 80 07/25/21 01:03 70 07/24/21 23:00 36.7 C 92 H 16 167/67 H 94 07/24/21 21:44 78 Pulse Ox 07/25/21 07:16 07/25/21 05:35 88 L 07/25/21 03:03 89 L 07/25/21 01:03 90 07/24/21 23:00 07/24/21 21:44 96 Laboratory Results 07/25/21 07/25/21 07/25/21 Range/Units 08:08 06:50 06:50 WBC (4.8-10.8) K/uL RBC (4.2-5.4) M/uL Hgb (12.0-16.0) g/dL Hct (37-47) % MCV (80-100) fL MCH (25-34) pg MCHC (32-36) g/dL RDW Std Deviation (36.4-46.3) fL RDW Coeff of Amaya (11.5-14.5) % Plt Count (130-400) K/uL MPV (7.4-10.4) fL Absolute Nucleated RBC (0-0) K/uL Nucleated RBC % (auto) % PT 10.6 (9.0-12.0) Seconds INR 1.0 (0.9-1.1) Sodium Pending Potassium Pending Chloride Pending Carbon Dioxide Pending Anion Gap Pending BUN Pending Creatinine Pending Est Cr Clr Drug Dosing Pending Est GFR ( Amer) Pending Est GFR (Non-Af Amer) Pending BUN/Creatinine Ratio Pending Glucose Pending POC Glucose 150 H (70-99) mg/dl Calcium Pending Iron (35-150) mcg/dl TIBC (250-450) mcg/dl Transferrin (200-360) mg/dl Transferrin % Sat (15-50) % Ferritin (8-388) ng/ml NT-Pro-B Natriuret Pep (0-1800) pg/ml Vitamin B12 (193-986) pg/ml Folate (>5.38) ng/ml TSH (0.300-4.500) uIu/ml 07/25/21 07/24/21 07/24/21 Range/Units 06:50 20:45 17:21 WBC 17.25 H (4.8-10.8) K/uL RBC 2.78 L (4.2-5.4) M/uL Hgb 8.5 L (12.0-16.0) g/dL Hct 27.5 L (37-47) % MCV 98.9 (80-100) fL MCH 30.6 (25-34) pg MCHC 30.9 L (32-36) g/dL RDW Std Deviation 61.3 H (36.4-46.3) fL RDW Coeff of Amaya 17.1 H (11.5-14.5) % Plt Count 322 (130-400) K/uL MPV 12.3 H (7.4-10.4) fL Absolute Nucleated RBC 0.06 H (0-0) K/uL Nucleated RBC % (auto) 0.3 % PT (9.0-12.0) Seconds INR (0.9-1.1) Sodium Potassium Chloride Carbon Dioxide Anion Gap BUN Creatinine Est Cr Clr Drug Dosing Est GFR ( Amer) Est GFR (Non-Af Amer) BUN/Creatinine Ratio Glucose POC Glucose 142 H 125 H (70-99) mg/dl Calcium Iron (35-150) mcg/dl TIBC (250-450) mcg/dl Transferrin (200-360) mg/dl Transferrin % Sat (15-50) % Ferritin (8-388) ng/ml NT-Pro-B Natriuret Pep (0-1800) pg/ml Vitamin B12 (193-986) pg/ml Folate (>5.38) ng/ml TSH (0.300-4.500) uIu/ml 07/24/21 07/24/21 07/24/21 Range/Units 12:22 10:20 10:20 WBC (4.8-10.8) K/uL RBC (4.2-5.4) M/uL Hgb (12.0-16.0) g/dL Hct (37-47) % MCV (80-100) fL MCH (25-34) pg MCHC (32-36) g/dL RDW Std Deviation (36.4-46.3) fL RDW Coeff of Amaya (11.5-14.5) % Plt Count (130-400) K/uL MPV (7.4-10.4) fL Absolute Nucleated RBC (0-0) K/uL Nucleated RBC % (auto) % PT (9.0-12.0) Seconds INR (0.9-1.1) Sodium Potassium Chloride Carbon Dioxide Anion Gap BUN Creatinine Est Cr Clr Drug Dosing Est GFR ( Amer) Est GFR (Non-Af Amer) BUN/Creatinine Ratio Glucose POC Glucose 126 H (70-99) mg/dl Calcium Iron 65 (35-150) mcg/dl TIBC 202 L (250-450) mcg/dl Transferrin 175 L (200-360) mg/dl Transferrin % Sat 26 (15-50) % Ferritin 523.5 H (8-388) ng/ml NT-Pro-B Natriuret Pep 65930 H (0-1800) pg/ml Vitamin B12 > 2000 H (193-986) pg/ml Folate 14.40 (>5.38) ng/ml TSH 20.600 H (0.300-4.500) uIu/ml PG Care Time/CCT Total # of Minutes Spent Total Time Spent with Patient: Total time spent is greater than 50% in coordination of care (as documented) at patient's floor/unit and/or counseling patient: Coding
[2021-07-25] MEDS: ASPIRIN 81 MG ECTAB PO SCH (10:21)
[2021-07-25] MEDS: NYSTATIN SUSP 500,000 U/5 ML UDC PO SCH ×2 (10:21→13:38)
[2021-07-25] MEDS: hydrOXYzine HCl 25 MG TAB PO SCH (10:21)
[2021-07-25] MEDS: HEPARIN SOD 5,000 UNIT/0.5 ML VIAL SQ SCH (10:22)
[2021-07-25] MEDS: FLUTICASONE/VILANTEROL 200/25MCG 14 PUFFS/INHALER INH SCH (10:22)
[2021-07-25] MEDS: ATENOLOL 25 MG TABLET PO SCH (10:22)
[2021-07-25] MEDS: ACETAMINOPHEN 500 MG TAB PO SCH (10:23)
[2021-07-25] MEDS: LIDOCAINE 5% 1 PATCH TD SCH (10:23)
[2021-07-25] MEDS: hydrALAZINE HCL 25 MG TAB PO SCH ×2 (10:23→13:38)
[2021-07-25 10:50] LABS: BUN Creatinine Ratio 39.4 (10-20); Calcium 9.6 mg/dl (8.5-10.1); Creatinine Clr Calc Pharmacy 25.4 ml/min; Est GFR (African American) 28.9 ml/min; Est GFR (Non-African American) 24.9 ml/min
[2021-07-25] MEDS ORDERED: hydrOXYzine HCl 10 MG TAB PO STA (12:14)
[2021-07-25] MEDS: ONDANSETRON INJ 2 MG/ML 2 ML VIAL IV PRN (12:16)
--- NOTE | 2021-07-25 12:20 | Discharge Summary ---
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 Patient brought to the [facility] today for fall. The patient fell yesterday and hurt her right ankle, she refused transfer to the EMD yesterday but did call EMS to get her up off the floor. She fell backward while trying to get to her chair. Today she was also trying to get around the house and fell again. In the EMD she was complaining of bilateral ankle pain. She was noted to have bilateral ankle fractures. The left ankle- Fracture dislocation of the ankle. The tibia is dislocated approximately one shaft width anteriorly and her right ankle - Acute oblique mildly displaced fracture the posterior distal right tibial which extends to the tibiotalar articulation. Podiatry was consulted and plans to evaluate the patient and plan for operating room this afternoon/evening. The patient will be made NPO, pain control, CT scan of the ankles already ordered, will place Pacheco catheter. She will be admitted for the above, PT/OT evaluation, patient will likely need rehab placement and assisted living care she is open to after hospitalization. Case management consult placed. The patient is able to get around her double wide to clean, grocery shopping, and ADLS without dysnpea. She denies any chest pain or cardiac symptoms with these. She had a stent placed in 2003. She reports asthma without the use of CPAP/BIPAP at night. Is on advair daily. She is morbidly obese with glucose intolerance not on glucose lowering medications as outpatient. 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 CKD III. Not on any blood thinners other than ASA daily, this has been held for perioperative and postoperative period. BP are elevated in the EMD likely secondary to pain as well as poor fitting BP cuff. Patent perioperative risk/probability for perioperative UT/Cardiac arrest is 0.22%, Her Revised Cardiac risk/probability for UT/pulmonary edema/cardiac arrest is: Low risk 0.9% Patient has had her COVID vaccine and her COVID test on admission is: NEGATIVE Admission Exam Per Admitting Provider PHYSICAL EXAM: General: awake, alert, anxious Head: Normocephalic, atraumatic ENT: PERRL, EOMI, no pharyngeal exudate, mucous membranes moist Neuro: AAO x 3, speech clear and appropriate, strength intact bilaterally 5/5, sensation intact and equal all extremities and dermatomes, no pronator drift Chest: equal rise and fall of the chest, no accessory muscle use, no heaves or thirlls, Clear to auscultation, on room air, Cardiac: Regular rate and rhythm, telemetry reviewed- NSR, skin warm dry, cap refill <3 seconds, peripheral pulses +2- pedal pulses unalbe to assess secondary to splinting wraps, no JVD, no murmur, GI: soft, tender to around stoma- this is no change per patient(parastomal hernia) not inflamed, no rebound, guarding or tenderness : Pacheco to gravity Extremities: left shoulder chronic pain and decreased ROM with pain, right and left ankles fractured- NWB for now- plan for operative care following eval by podiatry Psych: Normal mood and affect Skin: no rash or erythema Principal Diagnosis Bilateral Ankle Fracture Discharge Exam General: WD/WN in NAD who is A&O x 3, demanding to be discharged today HEENT: Head is normocephalic/atraumatic; Hard of hearing Neck: Supple; Trachea midline; Neg JVD Heart: RRR, S1/S2, +S3 gallop, JVD difficult to assess due to body habitus, no LE edema appreciated, no calf tenderness Lungs: Predominantly CTA but some fine crackles at the bases; Respirations unlabored; Neg accessory muscle use, on room air Abdomen: Soft, non-tender, non-distended; Positive BS x 4 quadrants + ostomy with liquid stool present Extremities: Bilateral ankles with dressings removed; mild bruising of ankles/feet. Multiple incisions that are well approximated with suture in place to lateral L ankle but removed on other incisions b/l ankles, no erythema or drainage, chronic venous stasis changes Neurological: Speech clear; Gross motor/sensory function intact; Neg focal neurologic deficits Skin: Normal Color; Warm/Dry - other than discussed above Discharge Data Allergies Allergy/AdvReac Type Severity Reaction Status Date / Time oxytetracycline Allergy Intermediate Unknown Verified 07/28/21 17:58 polymyxin B Allergy Intermediate Unknown Verified 07/28/21 17:58 tetracycline Allergy Intermediate Unknown Verified 07/28/21 17:58 morphine AdvReac Unknown Unknown Verified 07/28/21 17:58 Consultations 07/13/21 10:59 ED Decision to Admit Stat 07/13/21 11:54 Consult Podiatry Routine 07/13/21 15:09 Consult Anesthesiology Routine Procedures Performed Operation Date: 07/13/21 11:30 Actual Procedures p Open Reduction Internal Fixation Left and Right Ankle - Tyrel Garvin DPM, MS Ordered Studies 07/13/21 08:49 CT head/brain wo con Stat 07/13/21 11:57 CT ankle LT wo con Stat 07/13/21 18:50 FL ankle LT 2V Stat FL ankle RT 2V Stat 07/13/21 20:14 US - OR guided needle placemen Routine Hospital Course (1) Bilateral ankle fractures: S/P ORIF on 07/[address] Garvin -- Pinning and will have decreased mobility; mindful of neuropathy to watch for wear areas. Fit with b/l CAM boots On Heparin SQ for DVT prophylaxis during admission, continued eliquis 2.5mg PO BID per recs by podiatry for 14 days DVT prophylaxis Pain control -- weaned oral dilaudid and utilized oxycodone as needed and scheduled tylenol PT/OT --> [facility] at discharge Pain control --> Will allow Oxy Q4H and REINALDO Tylenol 1000 mg TID. --> Decreased IV dilaudid to 0.25mg and discussed abstaining from this when possible and utilize PO for longer lasting control DVT Prophylaxis with Heparin SQ PT/OT - planning on [facility] - bed may not be available until later this week Follow up podiatry, PCP Of note, patient admitted with fatigue, weakness, and poor appetite and endorsed shortness of breath w exertion. Trop elevated but EKG appeared ok and patient denied CP upon further questioning. Hgb was 7.8 but was on 1L IVF for low UO and given lasix morning day before d/c with stable kidney funciton. 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 patient had been on fluids during admission for low UO and ileus during stay. Also suspect some contribution from undertreated thryoid and TSH 20.6 and synthroid increased to 225mcg daily and rec repeat TFT outpatient 4-6 weeks. She demanded she could not stay one more minute -- educated to continue to monitor volume status, adhere to low salt diet and continued montiring of kidney function No JVD able to be appreciated prior to d/c or respiratory distress. Had been stable on room air (2) Hypothyroidism: Checked TSH given poor energy, constipation, low sodium --> elevated to 20.6 --> increased Synthroid to 225mcg daily (states she takes appropriately) and rec repeat TFT as outpatient for further adjustments Suspect also contributing to confusion as stated previously this was her baseline ??if also contributing to anemia (3) Anemia: Hgb 7.8 today (was 10-11 before surgery) -- acute blood loss from surgery as well as dilutional as had gotten IVF for low UO/dehydration as above No active bleeding appreciated/melena/hematochezia/hematemesis She is on B 12, ferrous sulfate supplementations 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 ferritin elevated Will check fecal occult blood --> did not provide sample prior to d/c Stable on continued days without acute worsening and to continue usual supplementations. repeat blood counts in next 1-2 days to ensure improving (4) Dislocation of left ankle joint: As above - OR repair 07/[address] Garvin -- Some sutures were removed on 07/22 WBAT with assistance and plans to F/U as outpatient on 08/04 (5) TIM (acute kidney injury): TIM - maybe ATN from ileus/OR vs may be a new baseline as we don't have a lot of labs for comparison -- * post-op ileus, not a complication of care -- Most labs in system was from 2016 with some Cr at 1.5 - maybe some chronic elevations? Given IVF without improvement. Lasix and then Cr still unchanged. Will need continued monitoring Vitals remained stable and hgb remained about the same , possible some dilution. no bleeding reported (6) Nausea and vomiting: -RESOLVED -Likely related to ileus -Good bowel sounds/output and continues with output from ostomy prior to d/c without further n/v reported (7) CAD (coronary artery disease): - S/P Stent x 1 in circumflex (2003) - Continue ASA daily - Continue atenolol 12.5 mg daily and hold Losartan given renal function as above - Continue Hydralazine as replacement while inpatient EKG w CP --> Of note trop <0.015 on admission, repeat was 0.021 no repeat ordered. ECHO without evidence of wma noted Reported CP but then felt to be related to anxiety from neighbor. No futher CP and patient demanding to go to rehab. Discussed with supervising and felt ok for d/c Patient then denied any chest pain (8) Morbid obesity: Will need weight reduction to decrease CV morbidity and assist with rehabilitation HCO3 is 27 - follow; likely indicative of obesity hypoventilation syndrome- not on any CPAP/BiPAP at home Will check overnight pulse ox -- likely to need outpt sleep study pending results Overnight pulse ox with drop to 56 --> rec supplemental O2 at night and outpt sleep study (9) Colovesical fistula: Routine ostomy care and change - Plan for SNF for rehab - [facility] not have a bed until later this week - cosme Maguire (# [phone]) Total Time Total Time Spent Total Time Spent (In Minutes): 65 Discharge Plan Discharge Items Patient Disposition: Transfer Halfway Fac Reason For Visit: BILATERAL ANKLE FRACTURE Discharge Diagnosis: Bilateral Ankle Fracture Goals: You have been hospitalized for an urgent problem which required surgery. During your stay at [facility], we have made an effort to correct the problem that brought you to the hospital while keeping you as comfortable as possible. Surgery and medications were used to bring your condition under control and your discharge instructions will include directions for any medications you should take after leaving the hospital. Please make sure to follow the advice of your surgeon regarding follow up with the surgeon and with your primary care provider. Activity: As commented below Activity Comment: weight bearing as tolerated with PT assistance Non-emergency contact: Primary Care Provider and Surgeon Call non-emergency contact if: you have any medication questions, your symptoms worsen, your pain is not controlled and you have a fever Follow-up/Referrals: Richi Ferraro [Primary Care Provider] - Diet: Carb Consistent or DM2 and Heart Healthy Ambulatory Orders: Basic Metabolic Panel (Routine) Timeframe: 2 Days Location: Determined by Patient Ordered By: Shannan Hernandez Complete Blood Count no Diff (Timed) Timeframe: 2 Days Location: Determined by Patient Ordered By: Shannan Castillo Attending Provider Instructions: You have been hospitalized and found to have bilateral ankle fractures and consultation was undertaken with podiatry Dr Garvin. You underwent surgery (ORIF) for correction of both ankles, and are able to be weightbearing as tolerated with physical therapy assistance. You will need to have follow up with Dr. Garvin on 08/04. Per Dr. Garvin, he would like you to be on Eliquis 2.5mg by mouth TWICE DAILY for a total of 14 days of treatment since surgery. You have another 2 days of treatment. Please monitor for any signs of bleeding in stools/urine/gums and alert medical provider if this occurs. For pain control : * acetaminophen 1000mg by mouth three times daily. * oxycodone 5-10mg every four hours as needed for pain Please continue bowel regimen to ensure no issues with constipation while on pain medications. You were found to have low sodium levels and your thyroid function was checked which indicated that you have UNDER TREATED thyroid and your levothyroxine was increased to 225mcg by mouth daily. You should take this in the morning before other medications on an empty stomach to be effective. You should have repeat thyroid function tests as an outpatient in the next 4-6 weeks to see if further adjustments are needed. Your hemoglobin was found to be low but has been stable on repeat. This could have been from surgery and is recommended to have repeat labs in the next 3 days to ensure stability. Your white count was elevated but you did not have any fevers or evidence of pneumonia on imaging. This could be reactive from stress/surgery/as well as your anemia. If you develop any fevers, urinary symptoms, would recommend repeat testing of your urine. You should also have repeat BMP to ensure kidney function stable. Your creatinine was elevated and remained elevated during admission however you have been making good urine output. You will have your LOSARTAN HELD AT DISCHARGE -- PLEASE HAVE REPEAT BMP PRIOR TO RESTARTING THIS TO ENSURE KIDNEY FUNCTION STABLE AND NOT WORSENING. You have been evaluated by physical and occupational therapy and recommendations are for rehab at discharge, and this has been arrange through [facility]. You had daytime sleepiness and snoring (as well as elevated right sided pressures on the ultrasound of your heart...which did NOT show any valvular heart disease) and you had a study overnight to check your oxygen. You did have periods where you dropped, and likely have underlying sleep apnea. 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 You should continue follow up with Dr. Garvin as above as well as your primary care provider in the next week to monitor your progress. Please return to the emergency department with any fever, chills, chest pain, shortness of breath, uncontrolled pain, or for any other symptoms that are concerning for you. It has been a pleasure being a part of the medical team taking care of you while you have been in the hospital. Take care! Pending Studies at Discharge: No Stand-Alone Forms: My [facility] Skilled Items Patient informed of condition?: Yes DNR: No Discharge Level of Care: Skilled Communicable Disease: No Discharge Prognosis: Stable Lines: None Urinary Catheter: No Medications and DC Order Prescriptions: New (DME) Oxygen Home Liters Per Minute See Rx Instructions .ROUTE Qty: 1 RF: 0 Eliquis 2.5 mg tablet 2.5 mg PO BID Qty: 4 RF: 0 hydroxyzine HCl 10 mg tablet 10 mg PO HS PRN (Reason: anxiety) Qty: 10 RF: 0 Continued vitamin E 1,000 unit Capsule 1,000 unit PO HS RF: 0 fluticasone propion-salmeterol [Advair Diskus] 250-50 mcg/dose blister with device 1 inh INHALATION BID RF: 0 atenolol [Tenormin] 25 mg tablet 12.5 mg PO QAM RF: 0 cyanocobalamin (vitamin B-12) [Vitamin B-12] 1,000 mcg Tablet 3,000 mcg PO HS RF: 0 allopurinol [Zyloprim] 100 mg Tablet 100 mg PO QAM RF: 0 aspirin [Aspirin Low Dose] 81 mg Tablet,Delayed Release (Dr/Ec) 81 mg PO QAM RF: 0 furosemide [Lasix] 20 mg Tablet 20 mg PO DAILY PRN (Reason: Fluid Retention) RF: 0 fluticasone propionate [Flonase Allergy Relief] 50 mcg/actuation spray,suspension 1 spray INTRANASAL BID RF: 0 cholecalciferol (vitamin D3) [Vitamin D3] 25 mcg (1,000 unit) Capsule 25 mcg PO HS RF: 0 atorvastatin [Lipitor] 20 mg Tablet 20 mg PO QAM RF: 0 hydrocodone-acetaminophen 5-325 mg tablet 1 tab PO Q12 PRN (Reason: Pain) RF: 0 ferrous sulfate [iron] 325 mg (65 mg iron) Tablet 325 mg PO HS RF: 0 trolamine salicylate [Aspercreme] 10 % Cream 1 applic TOPICAL TID PRN (Reason: shoulder pain) RF: 0 Changed acetaminophen [Tylenol Extra Strength] 500 mg Tablet 1,000 mg PO TID Qty: 0 RF: 0 Discontinued losartan [Cozaar] 50 mg Tablet 50 mg PO BID RF: 0 levothyroxine [Synthroid] 200 mcg tablet 200 mcg PO QAM RF: 0 No Action losartan 50 mg tablet 50 mg PO BID RF: 0 levothyroxine 200 mcg tablet 200 mcg PO DAILYBB RF: 0 Discharge Orders: Discharge Order (Routine); Ordered 07/25/21 Ordered By: Shannan Hernandez Admission Data Admit Date/Time: 07/13/21 12:02 Attending Provider: Diane Blackman Admit Provider: Clif Sheldon Primary Care Provider: Richi Ferraro Other Providers: Clif Sheldon ; Tyrel Garvin ; Monisha Huang ; Margaret Del Rosario ; Megan Alas ; Melany Carlos ; Carmelina Torres ; Dung Foster ; Bentley Peña ; Robbin Spann ; Paco Galloway ; Rhona Galloway ; Yang Talamantes ; Geno Hart ; Pro Cade ; Donal Bradford ; Polo Crane ; Tomasz Ritchie ; Loren Keenan ; Chidi Parrish ; Valerie Fernando ; Shannan Parrish ; Nick Denise ; Elise Yan ; [place] ; Keli Freitas ; Jessica Schuler ; Elise Szymanski ; Joana Genao ; Livan Asencio ; Beryl Arce ; Crys Delgado ; Dorcas Farrar ; Kimberlee Reyes ; Riccardo Reyes V ; Wild Quinteros ; Margaret Min ; Kong Diaz ; Negin Aaron ; Emily Celis ; Riccardo Rubio ; Pancho Keenan ; Jose David Childs ; Jaimie Tena ; Ria Cintron ; Riccardo Fabian ; Dorcas Trammell ; Richi Shea ; Tyrel Ritchie ; Madelyn Martinez ; Mickey Reilly ; Andreia Leonard ; Danyel Agarwal ; Humble Villalpando ; Mickey Zacarias ; Dung Contreras ; Hetal Corey ; [facility] Other Interventions: Discharge Summary Assessment (RN) Last Done: 07/25/21 17:19 Supervising Physician Co-Signing Physician Notes PA Supervision Note: I personally saw and examined the patient. I verified all lay points and agree with PAOLA Hernandez with the following exceptions and/or additions: S-patient seen on the day of discharge. She was complaining of some chronic shoulder pain on the left which hurts with movement. Also pain in the bilateral ankles which was expected status post surgery. She was eating lunch when I saw her not having any nausea or vomiting. No abdo amisha pains. She denied any cough or shortness of breath. She is anxious for discharge. She has been very stressed out. O- Vitals reviewed Gen: AAOx3, NAD HEENT: Anicteric sclerae, EOMI CV: RRR no mgr nl S1S2 Pulm: CTAB no wcr Abd: [+BS soft NT ND no masses or hernias, ostomy in place Ext: Trace edema of the ankles, incision with sutures on the left lateral ankle, left shoulder with crepitus and pain with passive and active motion Skin: [no rashes, warm/dry, chronic venous stasis changes of the legs Neuro: Full strength throughout 85-year-old female with multiple medical issues, here with fall and bilateral ankle fractures now status post repair. Also dealing with acute kidney injury, anemia, and ileus. Overall improved. Her WBC count did become quite elevated on the day of discharge, but there was no evidence of infection anywhere on subsequent work- up. Possibly due to emotional stress versus reactive leukocytosis to anemia. Recommend following up CBC in 3 days or sooner if becomes febrile Stable for discharge to rehab Coding Level of Care Code D/C DAY MANAGEMENT >30 MINS Diagnoses Bilateral ankle fractures S82.891A; S82.892A Hypothyroidism E03.9 Anemia D64.9 Dislocation of left ankle joint S93.05XA Encounter type: initial encounter TIM (acute kidney injury) N17.9 Nausea and vomiting R11.2 CAD (coronary artery disease) I25.10 Morbid obesity E66.01 Colovesical fistula N32.1
--- NOTE | 2021-07-25 13:14 | XRay Report ---
XR chest 1V portable CLINICAL HISTORY: sob. COMPARISON STUDY: 07/24/2021 TECHNIQUE: 1 view of the chest FINDINGS: Single frontal view of the chest demonstrates the cardiomediastinal silhouette to be within normal li mits. There is a decreased inspiratory effort with elevation of the hemidiaphragms and crowding of th e bronchovascular markings at the lung bases and centrally. The lungs are clear of alveolar opacities . There is no evidence for pleural effusion. There is no evidence for vascular congestion. There is n o acute osseous pathology. IMPRESSION: There is a decreased inspiratory effort with otherwise no acute chest disease. ACT 112: Negative or not required by law. Electronically signed by: Cristi Connell M.D. 07/25/2021 1:13 PM
--- NOTE | 2021-07-26 10:52 | Electrocardiogram Report ---
Test Reason : Blood Pressure : / mmHG Vent. Rate : 099 BPM Atrial Rate : 099 BPM P-R Int : 180 ms QRS Dur : 084 ms QT Int : 376 ms P-R-T Axes : 012 000 095 degrees QTc Int : 482 ms Normal sinus rhythm Nonspecific T wave abnormality Prolonged QT Abnormal ECG When compared with ECG of 13-JUL-2021 13:59, Non-specific change in ST segment in Lateral leads Nonspecific T wave abnormality, worse in Anterolateral leads Confirmed by Blas Prakash ([id number]) on 07/26/2021 10:52:33 AM Referred By: REFERRED SELF Confirmed By:Martinez Prakash
== END 2021-07-25 17:22 | DRG 492 ==
LOC: ED 08:33 → SUATTDRO 12:02 → 3E 12:02 → 3N 07-22 21:59

== ENCOUNTER 2021-07-28 16:19 | Inpatient (IN) ==
[2021-07-28] MEDS ORDERED: ONDANSETRON INJ 2 MG/ML 2 ML VIAL IV STA ×2 (16:31→18:58)
--- NOTE | 2021-07-28 16:35 | Emergency Department Note ---
History of Present Illness General Chief complaint: Vomiting Stated complaint: VOMITING, ABNORMAL LABS Time Seen by Provider: 07/28/21 16:22 History of Present Illness 85-year-old female presents to the ED with a chief complaint of nausea and vomiting. She has had the symptoms today. She was reportedly confused but the patient states that the OxyContin makes her feel that way and causes her vomiting. She denies any pain or any specific complaints at this time. She was in the hospital on 07/25. Her hemoglobin at that time was 8.5 and a white blood cell count of 17.25. Her BUN is 73 and the creatinine was 1.84. She is Covid negative. Home Medications Medication Instructions Recorded Confirmed Type allopurinol 100 mg tablet 100 mg PO QAM 02/15/21 07/28/21 History (Zyloprim) aspirin 81 mg tablet,delayed 81 mg PO QAM 02/15/21 07/28/21 History release (Aspirin Low Dose) atenolol 25 mg tablet (Tenormin) 12.5 mg PO QAM 02/15/21 07/28/21 History atorvastatin 20 mg tablet (Lipitor) 20 mg PO QAM 02/15/21 07/28/21 History cholecalciferol (vitamin D3) 25 25 mcg PO HS 02/15/21 07/28/21 History mcg (1,000 unit) capsule (Vitamin D3) cyanocobalamin (vitamin B-12) 3,000 mcg PO HS 02/15/21 07/28/21 History 1,000 mcg tablet (Vitamin B-12) fluticasone 250 mcg-salmeterol 50 1 inh INHALATION BID 02/15/21 07/28/21 History mcg/dose blistr powdr for inhalation (Advair Diskus) fluticasone propionate 50 1 spray INTRANASAL BID 02/15/21 07/28/21 History mcg/actuation nasal spray,suspension (Flonase Allergy Relief) furosemide 20 mg tablet (Lasix) 20 mg PO DAILY PRN 02/15/21 07/28/21 History vitamin E 1,000 unit capsule 1,000 unit PO HS 02/15/21 07/28/21 History ferrous sulfate 325 mg (65 mg 325 mg PO HS 07/13/21 07/28/21 History iron) tablet (iron) hydrocodone 5 mg-acetaminophen 325 1 tab PO Q12 PRN 07/13/21 07/28/21 History mg tablet trolamine salicylate 10 % topical 1 applic TOPICAL TID PRN 07/13/21 07/28/21 History cream (Aspercreme) Oxygen Home #1 ea 07/25/21 07/28/21 Rx acetaminophen 500 mg tablet 1,000 mg PO TID #0 tab 07/25/21 07/28/21 Rx (Tylenol Extra Strength) apixaban 2.5 mg tablet (Eliquis) 2.5 mg PO BID #4 tab 07/25/21 07/28/21 Rx hydroxyzine HCl 10 mg tablet 10 mg PO HS PRN #10 tab 07/25/21 07/28/21 Rx levothyroxine 200 mcg tablet 200 mcg PO DAILYBB 07/28/21 07/28/21 History losartan 50 mg tablet 50 mg PO BID 07/28/21 07/28/21 History Allergies Allergy/AdvReac Type Severity Reaction Status Date / Time oxytetracycline Allergy Intermediate Unknown Verified 07/28/21 17:58 polymyxin B Allergy Intermediate Unknown Verified 07/28/21 17:58 tetracycline Allergy Intermediate Unknown Verified 07/28/21 17:58 morphine AdvReac Unknown Unknown Verified 07/28/21 17:58 Past Med/Surg History Medical History Anemia Arthropathy of right knee Asthma 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 Diverticulitis Failure of outpatient treatment Hypothyroidism Morbid obesity Rapidly progressive weakness UTI (urinary tract infection) Surgical History H/O heart artery stent History of arthroplasty of left knee Status post lens implant Social History Smoking Status: Never smoker Hx Alcohol Use: No Hx Substance Use: No Preferred Language: Jordanian Communication Ability: Effective [employer] Helper Required: No Beliefs That Will Affect Care: None marital status: / Current Living Situation: Alone Current Living Situation Comment: Neighbor stops over to assist, comes by at least daily Feels Safe at Home: Yes Assistive Devices: None Review of Systems A total of 10 systems reviewed and were otherwise negative Physical Exam Vital Signs Vital Signs - 24 hr 07/28/21 16:38 07/28/21 19:11 Temperature 36.6 C Temperature Source Oral Pulse Rate 65 Pulse Rate [Finger] 62 65 Respiratory Rate 26 H 21 Blood Pressure 137/58 L Blood Pressure [Left Arm] 137/58 L 124/63 Blood Pressure Mean 84 Blood Pressure Mean [Left Arm] 84 83 Blood Pressure Position Lying Pulse Oximetry 99 93 Oxygen Delivery Method Room Air Room Air Oxygen Flow Rate 2 Sepsis Recent Fever Within 48 Hours No Sepsis New/Unexplained Change in Mental Status N/A Sepsis Action Taken by Nursing No Action Required CONSTITUTIONAL/VITAL SIGNS: Reviewed / noted above. GENERAL: Non-toxic in appearance. INTEGUMENTARY: Warm, dry, and [place]. HEAD: Normocephalic. EYES: without scleral icterus or trauma. ENT/OROPHARYNX: clear and moist. LYMPHADENOPATHY/NECK: Is supple without lymphadenopathy or meningismus. RESPIRATORY: Clear to auscultation bilaterally. No increased work of breathing. CARDIOVASCULAR: Regular rate and rhythm. GI/ABDOMEN: Soft and nontender. Colostomy. Normal output. EXTREMITIES: Warm and well perfused. Bilateral immobilization boots. BACK: No CVA tenderness. NEUROLOGICAL: Intact without focal deficits. PSYCHIATRIC: normal affect. MUSCULOSKELETAL: Normally developed with good muscle tone. TRIAGE NURSING DOCUMENTATION REVIEWED. Course Administered Medications Discontinued Medications Sodium Chloride (Nss 1000ml) 1,000 mls @ 999 mls/hr IV .Q1H1M [facility] Stop: 07/28/21 17:45 Last Admin: 07/28/21 19:08 Dose: 999 mls/hr Documented by: [id number] Ondansetron HCl (Ondansetron Inj 2 Mg/Ml 2 Ml Vial) 4 mg IV NOW STA Stop: 07/28/21 18:59 Last Admin: 07/28/21 19:08 Dose: 4 mg Documented by: [id number] Medical Decision Making Differential Diagnosis Gastroenteritis, food borne illness, infections, appendicitis, diverticulitis, inflammatory bowel disease, obstruction, GI bleed, biliary pathology, volvulus, as well as other pathologies. Medical Records Attestation: I reviewed the patient's medical records. Home Medications Current Medication List: was personally reviewed by me Laboratory Data Attestation: I reviewed the patient's lab results. Result diagrams: 07/28/21 18:32 07/28/21 18:32 Lab Results 07/28/21 07/28/21 07/28/21 Range/Units 17:04 18:32 18:32 WBC 16.72 H (4.8-10.8) K/uL RBC 2.91 L (4.2-5.4) M/uL Hgb 8.8 L (12.0-16.0) g/dL Hct 28.3 L (37-47) % MCV 97.3 (80-100) fL MCH 30.2 (25-34) pg MCHC 31.1 L (32-36) g/dL RDW Std Deviation 62.9 H (36.4-46.3) fL RDW Coeff of Amaya 18.0 H (11.5-14.5) % Plt Count 423 H (130-400) K/uL MPV 11.8 H (7.4-10.4) fL Immature Gran % (Auto) 5.1 % Neut % (Auto) 77.3 % Lymph % (Auto) 6.7 % [place] % (Auto) 10.8 % Eos % (Auto) 0.0 % Baso % (Auto) 0.1 % Neut # (Auto) 12.92 H (1.4-6.5) K/uL Lymph # (Auto) 1.12 L (1.2-3.4) K/uL [place] # (Auto) 1.81 H (0.11-0.59) K/uL Eos # (Auto) 0.00 (0-0.5) K/uL Baso # (Auto) 0.02 (0-0.2) K/uL Immature Gran # (Auto) 0.85 H (0.00-0.02) K/uL Absolute Nucleated RBC 0.15 H (0-0) K/uL Nucleated RBC % (auto) 0.9 % Polychromasia 1+ Hypochromasia Present Anisocytosis Present Sodium 131 L (136-145) mmol/L Potassium 4.0 (3.5-5.1) mmol/L Chloride 96 L (98-107) mmol/L Carbon Dioxide 29 (21-32) mmol/L Anion Gap 6.0 (3-11) BUN 85 H (7-18) mg/dl Creatinine 2.49 H (0.6-1.2) mg/dl Est Cr Clr Drug Dosing 20.3 ml/min Est GFR ( Amer) 20.0 ml/min Est GFR (Non-Af Amer) 17.3 ml/min BUN/Creatinine Ratio 34.0 H (10-20) Glucose 104 H (70-99) mg/dl Calcium 9.3 (8.5-10.1) mg/dl Total Bilirubin 0.5 (0.2-1) mg/dl AST 26 (15-37) U/L ALT 25 (12-78) U/L Alkaline Phosphatase 146 H (45-117) U/L Total Protein 8.2 (6.4-8.2) gm/dl Albumin 2.9 L (3.4-5.0) gm/dl Globulin 5.3 H (2.5-4.0) gm/dl Albumin/Globulin Ratio 0.5 L (0.9-2) Lipase 317 (73-393) U/L Urine Color Yellow Urine Appearance Clear (Clear) Urine pH 5.0 (4.5-7.5) Ur Specific [place] 1.016 (1.000-1.030) Urine Protein 1+ H (Negative) Urine Glucose (UA) Negative (Negative) Urine Ketones Negative (Negative) Urine Blood Negative (Negative) Urine Nitrite Negative (Negative) Urine Bilirubin Negative (Negative) Urine Urobilinogen Negative (Negative) Ur Leukocyte Esterase Negative (Negative) Urine WBC (Auto) 1-5 (0-5) /hpf Urine RBC (Auto) 0-4 (0-4) /hpf U Hyaline Cast (Auto) 5-10 H (0-5) /lpf U Epithel Cells (Auto) 5-10 H (0-5) /lpf Urine Bacteria (Auto) Negative (Negative) Imaging Data Radiologist's Impression: Chest X-Ray 07/28/21 16:31 XR chest 1V portable CLINICAL HISTORY: weakness COMPARISON STUDY: Chest radiograph July 25, 2021. FINDINGS: Right shoulder arthroplasty is partially imaged. There is no pneumothorax or pleural effusion. There is no evidence for pulmonary edema. Cardiomegaly is unchanged. There are mild bibasilar opacities. IMPRESSION: 1. Bibasilar opacities which could reflect atelectasis or consolidation. 2. Cardiomegaly without evidence for pulmonary edema. ACT 112: Negative or not required by law. Electronically signed by: Jose Yeboah M.D. 07/28/2021 5:11 PM ECG Data Additional Comments: Twelve-lead EKG: Per my interpretation shows a normal sinus rhythm at a rate of 59. No ST elevation. No PVCs. Normal QTC. MDM Narrative Patient presents from a local alf with a chief complaint of nausea vomiting. The patient was reportedly confused as well. EMS did not find the patient confused. I did not find the patient confused. The patient states that her nausea and vomiting is from the oxycodone that she has been given for her an kles. She is hard of hearing but otherwise denies any specific complaints. Her vital signs are stable. The patient's chest x-ray shows mild left silicosis versus consolidation in the bases. This could be pneumonia as the patient white blood cell count was elevated. Urine did not show infection. EKG shows normal sinus rhythm. White blood cell count was 16.7. Hemoglobin is 8.8. BUN is 85 and creatinine is 2.49. The BUN and creatinine are up from 3 days ago. The patient was empirically treated with IV Rocephin and Zithromax. She was also given some IV fluids and IV Zofran. She will be seen by the hospitalist for further inpatient evaluation and care. Impression & Plan Pneumonia, TIM (acute kidney injury), Acute dehydration, Vomiting Discharge Plan Visit Data Chief Complaint: Vomiting Stated Complaint: VOMITING, ABNORMAL LABS ED Provider: Jimmy Hernández Discharge Problem: Pneumonia, TIM (acute kidney injury), Acute dehydration, Vomiting Patient Disposition: Being Evaluated by Hospitalist Forms Stand Alone Forms: My [facility] Prescriptions Prescriptions: No Action vitamin E 1,000 unit Capsule 1,000 unit PO HS RF: 0 fluticasone propion-salmeterol [Advair Diskus] 250-50 mcg/dose blister with device 1 inh INHALATION BID RF: 0 atenolol [Tenormin] 25 mg tablet 12.5 mg PO QAM RF: 0 cyanocobalamin (vitamin B-12) [Vitamin B-12] 1,000 mcg Tablet 3,000 mcg PO HS RF: 0 allopurinol [Zyloprim] 100 mg Tablet 100 mg PO QAM RF: 0 aspirin [Aspirin Low Dose] 81 mg Tablet,Delayed Release (Dr/Ec) 81 mg PO QAM RF: 0 furosemide [Lasix] 20 mg Tablet 20 mg PO DAILY PRN (Reason: Fluid Retention) RF: 0 fluticasone propionate [Flonase Allergy Relief] 50 mcg/actuation spray,suspension 1 spray INTRANASAL BID RF: 0 cholecalciferol (vitamin D3) [Vitamin D3] 25 mcg (1,000 unit) Capsule 25 mcg PO HS RF: 0 atorvastatin [Lipitor] 20 mg Tablet 20 mg PO QAM RF: 0 losartan 50 mg tablet 50 mg PO BID RF: 0 levothyroxine 200 mcg tablet 200 mcg PO DAILYBB RF: 0 hydrocodone-acetaminophen 5-325 mg tablet 1 tab PO Q12 PRN (Reason: Pain) RF: 0 ferrous sulfate [iron] 325 mg (65 mg iron) Tablet 325 mg PO HS RF: 0 trolamine salicylate [Aspercreme] 10 % Cream 1 applic TOPICAL TID PRN (Reason: shoulder pain) RF: 0 acetaminophen [Tylenol Extra Strength] 500 mg Tablet 1,000 mg PO TID Qty: 0 RF: 0 (DME) Oxygen Home Liters Per Minute See Rx Instructions .ROUTE Qty: 1 RF: 0 Eliquis 2.5 mg tablet 2.5 mg PO BID Qty: 4 RF: 0 hydroxyzine HCl 10 mg tablet 10 mg PO HS PRN (Reason: anxiety) Qty: 10 RF: 0 Referrals Referrals: Richi Ferraro [Primary Care Provider] -
[2021-07-28] MEDS ORDERED: SODIUM CHLORIDE 0.9% 1000ML 1,000 ML IV SCH (16:45)
--- NOTE | 2021-07-28 17:12 | XRay Report ---
XR chest 1V portable CLINICAL HISTORY: weakness COMPARISON STUDY: Chest radiograph July 25, 2021. FINDINGS: Right shoulder arthroplasty is partially imaged. There is no pneumothorax or pleural effusi on. There is no evidence for pulmonary edema. Cardiomegaly is unchanged. There are mild bibasilar opa cities. IMPRESSION: 1. Bibasilar opacities which could reflect atelectasis or consolidation. 2. Cardiomegaly without evidence for pulmonary edema. ACT 112: Negative or not required by law. Electronically signed by: Jose Yeboah M.D. 07/28/2021 5:11 PM
[2021-07-28 17:37] LABS: Appearance Urine Clear (Clear); Bacteria Urine Automated Negative (Negative); Bilirubin Urine Negative (Negative); Blood Urine Negative (Negative); Color Urine Yellow; Glucose Urine UA Negative (Negative); Ketones Urine Negative (Negative); Leukocyte Esterase Urine Negative (Negative); Nitrite Urine Negative (Negative); Protein Urine 1+ (Negative); RBC Urine Automated 0-4 /hpf (0-4); Specific Gravity Urine 1.016 (1.000-1.030); Urobilinogen Urine Negative (Negative)
[2021-07-28 19:03] LABS: Albumin Level 2.9 gm/dl (3.4-5.0); Calcium 9.3 mg/dl (8.5-10.1); Creatinine Clr Calc Pharmacy 20.3 ml/min; Est GFR (Non-African American) 17.3 ml/min
[2021-07-28 19:05] LABS: Albumin Globulin Ratio 0.5 (0.9-2); Bilirubin,Total 0.5 mg/dl (0.2-1); Globulin 5.3 gm/dl (2.5-4.0); Total Protein 8.2 gm/dl (6.4-8.2)
[2021-07-28 19:06] LABS: Hematocrit (blood only) 28.3 % (37-47); Hemoglobin 8.8 g/dL (12.0-16.0); Mean Corpuscular Hemoglobin 30.2 pg (25-34); Mean Corpuscular Hgb Conc 31.1 g/dL (32-36); Mean Corpuscular Volume 97.3 fL (80-100); Mean Platelet Volume 11.8 fL (7.4-10.4); Nucleated RBC # (auto) 0.15 K/uL (0-0); Nucleated RBC % (auto) 0.9 %; Platelet Count 423 K/uL (130-400); RDW Standard Deviation 62.9 fL (36.4-46.3); Red Blood Count 2.91 M/uL (4.2-5.4); White Blood Count 16.72 K/uL (4.8-10.8)
[2021-07-28 19:40] LABS: Anisocytosis Present; Basophils # (auto) 0.02 K/uL (0-0.2); Basophils % (auto) 0.1 %; Hypochromasia Present; Immature Granulocytes # (auto) 0.85 K/uL (0.00-0.02); Immature Granulocytes % (auto) 5.1 %; Lymphocytes # (auto) 1.12 K/uL (1.2-3.4); Lymphocytes % (auto) 6.7 %; Monocytes # (auto) 1.81 K/uL (0.11-0.59); Monocytes % (auto) 10.8 %; Neutrophils # (auto) 12.92 K/uL (1.4-6.5); Neutrophils % (auto) 77.3 %; Polychromasia 1+
[2021-07-28] MEDS ORDERED: AZITHROMYCIN 500 MG in DEXTROSE 5% 250 ML IV ONE (20:08)
[2021-07-28] MEDS ORDERED: cefTRIAXone SODIUM 1,000 MG/50 ML BAG IV STA (20:08)
--- NOTE | 2021-07-28 21:33 | History & Physical Report ---
Date of Service July 28, 2021 Assessment & Plan (1) Leukocytosis: Plan: WBC 16.7 with elevated NLR ~9:1, elevated CRP - no systemic evidence of sepsis - Will cover for HCAP as below - MRSA swab pending - Blood cultures pending - Urine culture pending - surgical site- intact- if no improvement of the above consider imaging of bilateral ankles - PCT 0.79 (2) Pneumonia: Plan: Bilateral opacities, elevated WBC, productive green sputum, no fever - Azithromycin 500mg IV in the EMD, continue 250mg IV daily- can change to PO if vomiting stops - Zosyn for HCAP- renally dosed - MRSA swab pending - Albuterol nebs q6 scheduled for 24 hours - Flutter valve QID (3) TIM (acute kidney injury): Plan: Acute on chronic CKD III - BUN increase to 85- steady increase since hospitalization - ARRT TECHNOLOGIST 2.49- Baseline 1.8 - LR overnight - Renally dose medications - HOLD ARB and LASIX (4) Vomiting: Plan: Patient feels its from her Ladd - Hold narcotics - KUB pending on admission - mild ileus previously - No abdominal pain or discomfort - ALKpo4 elevated- normal LFT and Bili - repeat CMP in morning - IVF overnight (5) Anemia: Plan: Follow HGB/HCT - Type and screen - Possibly transfuse (6) Fracture dislocation of ankle: Plan: ORIF completed - continue rehab, PT/OT (7) CAD (coronary artery disease): Plan: With 1 stent to circumflex 2003 - Asa- likey able to re-start in morning - Continue Atenolol (8) Hypothyroidism: Plan: Continue Synthroid 200mcg - TSH in morning History of Present Illness Primary Care Provider: Richi Ferraro 85 YOF with past medical history of: HTN, CAD (stent to circumflex 2003), HLD, Iron deficiency anemia, Asthma, Gout, CKD, chronic joint pain, bilateral knee replacements, 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 Patient is POD #14 from right ORIF of the left and right ankles following a fall at home on . Patient was discharged from the hospital on to [facility] for rehab. The patient returns today for complaints of cough, shortness of breath, weakness, and n/v. Patient states that she continues to feel weak and tired and delirious when taking her Ladd and she thinks this may be the cause of her vomiting. She has been having dyspnea for the past 2 days and coughing up what she reports as carson/green sputum. She denies any increase in pain at her surgical sites, or at her abdomen. She feels her ostomy output has been remaining consistent with no increase or change in color. There is liquid dark green output in the bag currently. In the EMD the patient had a CXR done, routine labs to include UA performed. Her labs returned a WBC elevation of 16.7 with elevated NLR, and stable anemia with HGB of 8.8 which is where she was at discharge. On admission for past admission her WBCs were normal and her HGB was 10.6. She also has an elevated BUN and ARRT TECHNOLOGIST at this time. Her CXR is interpreted as bibasilar opacities that may reflect atelectasis or consolidation. She was started on Azithromycin and Rocephin in the EMD, will transition to HCAP treatment with pseudomonal coverage with Zosyn, MRSA swab pending. Patient was turned and ulcerations of buttocks are covered with Optifoam and no evidence of surrounding erythema or infection,She does not demonstrate any febrility or hemodynamic instability. Will send urine for culture as UA negative, Blood cultures sent- however this was after EMD antibiotics. Will send inflammatory markers, type and screen for PRBCs, IVF overnight for TIM. Patient has received her COVID vaccines and her COVID test is: NEGATIVE Allergies Allergy/AdvReac Type Severity Reaction Status Date / Time oxytetracycline Allergy Intermediate Unknown Verified 07/28/21 17:58 polymyxin B Allergy Intermediate Unknown Verified 07/28/21 17:58 tetracycline Allergy Intermediate Unknown Verified 07/28/21 17:58 morphine AdvReac Unknown Unknown Verified 07/28/21 17:58 Home Medications Medication Instructions Recorded Confirmed Type allopurinol 100 mg tablet 100 mg PO QAM 02/15/21 07/28/21 History (Zyloprim) aspirin 81 mg tablet,delayed 81 mg PO QAM 02/15/21 07/28/21 History release (Aspirin Low Dose) atenolol 25 mg tablet (Tenormin) 12.5 mg PO QAM 02/15/21 07/28/21 History atorvastatin 20 mg tablet (Lipitor) 20 mg PO QAM 02/15/21 07/28/21 History cholecalciferol (vitamin D3) 25 25 mcg PO HS 02/15/21 07/28/21 History mcg (1,000 unit) capsule (Vitamin D3) cyanocobalamin (vitamin B-12) 3,000 mcg PO HS 02/15/21 07/28/21 History 1,000 mcg tablet (Vitamin B-12) fluticasone 250 mcg-salmeterol 50 1 inh INHALATION BID 02/15/21 07/28/21 History mcg/dose blistr powdr for inhalation (Advair Diskus) fluticasone propionate 50 1 spray INTRANASAL BID 02/15/21 07/28/21 History mcg/actuation nasal spray,suspension (Flonase Allergy Relief) furosemide 20 mg tablet (Lasix) 20 mg PO DAILY PRN 02/15/21 07/28/21 History vitamin E 1,000 unit capsule 1,000 unit PO HS 02/15/21 07/28/21 History ferrous sulfate 325 mg (65 mg 325 mg PO HS 07/13/21 07/28/21 History iron) tablet (iron) hydrocodone 5 mg-acetaminophen 325 1 tab PO Q12 PRN 07/13/21 07/28/21 History mg tablet trolamine salicylate 10 % topical 1 applic TOPICAL TID PRN 07/13/21 07/28/21 History cream (Aspercreme) Oxygen Home #1 ea 07/25/21 07/28/21 Rx acetaminophen 500 mg tablet 1,000 mg PO TID #0 tab 07/25/21 07/28/21 Rx (Tylenol Extra Strength) apixaban 2.5 mg tablet (Eliquis) 2.5 mg PO BID #4 tab 07/25/21 07/28/21 Rx hydroxyzine HCl 10 mg tablet 10 mg PO HS PRN #10 tab 07/25/21 07/28/21 Rx levothyroxine 200 mcg tablet 200 mcg PO DAILYBB 07/28/21 07/28/21 History losartan 50 mg tablet 50 mg PO BID 07/28/21 07/28/21 History Past Med/Surg History Medical History Anemia Arthropathy of right knee Asthma 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 Diverticulitis Failure of outpatient treatment Hypothyroidism Morbid obesity Rapidly progressive weakness UTI (urinary tract infection) Surgical History H/O heart artery stent History of arthroplasty of left knee Status post lens implant Social History Smoking Status: Never smoker Hx Alcohol Use: No Hx Substance Use: No Preferred Language: Maltese Communication Ability: Effective Electronics Technician Required: No Beliefs That Will Affect Care: None marital status: / Current Living Situation: Alone Current Living Situation Comment: Neighbor stops over to assist, comes by at least daily Feels Safe at Home: Yes Assistive Devices: None Review of Systems Review of Systems: REVIEW OF SYSTEMS: Constitutional: No fever, sweats or chills Eyes: No diplopia, no worsening or blurred vision ENT: (+) difficulty hearing, no trouble swallowing Respiratory:(+) cough, sputum, dyspnea at rest or on exertion Cardiovascular: No chest pain, tightness or palpitations Abdomen: No pain, nausea, vomiting, diarrhea or constipation Musculoskeletal: (+) generalized myalgias, No calf pain, swelling Neurologic: (+) feeling weak, numbness/tingling, or balance problems Psychiatric: (+) anxiety or depression Skin: No rash or itch Physical Exam Physical Exam: PHYSICAL EXAM: General: awake, alert, no apparent distress Head: Normocephalic, atraumatic ENT: PERRL, EOMI, no pharyngeal exudate, mucous membranes dry Neuro: AAO x 3, speech clear and appropriate, strength intact bilaterally 5/5, sensation intact and equal all extremities and dermatomes, no pronator drift Chest: equal rise and fall of the chest, no accessory muscle use, no heaves or thrills, decreased throughout with scattered rhonchi, on room 2LNC, Cardiac: Regular rate and rhythm, telemetry reviewed-NSR, skin warm dry, cap refill <3 seconds, peripheral pulses +2 no JVD, no murmur, no edema GI: NABS x 4 quadrants, soft, nontender to palpation, no rebound, guarding or tenderness- ostomy output : Spontaneously voiding, no pain, no CVA tenderness, Extremities: Normal inspection, no peripheral edema or erythema, calfs nontender to palpation Psych: Anxious Skin: surgical sites intact, venous discoloration to lower extremities, abdominal bruising from subq injections from previous admission, buttocks covered with Optifoam x2 areas on right buttocks. Groin folds with cream in them and no irritation. Results & Data Results & Data ([facility]) Vital Signs (Past 12 Hours) Vital Signs Temp Pulse Pulse Resp BP BP Pulse Ox 07/28/21 19:11 65 21 124/63 93 07/28/21 16:38 36.6 C 65 62 26 H 137/58 L 137/58 L 99 Laboratory Results Abnormal lab results 07/28/21 07/28/21 07/28/21 Range/Units 17:04 18:32 18:32 WBC 16.72 H (4.8-10.8) K/uL RBC 2.91 L (4.2-5.4) M/uL Hgb 8.8 L (12.0-16.0) g/dL Hct 28.3 L (37-47) % MCHC 31.1 L (32-36) g/dL RDW Std Deviation 62.9 H (36.4-46.3) fL RDW Coeff of Amaya 18.0 H (11.5-14.5) % Plt Count 423 H (130-400) K/uL MPV 11.8 H (7.4-10.4) fL Neut # (Auto) 12.92 H (1.4-6.5) K/uL Lymph # (Auto) 1.12 L (1.2-3.4) K/uL [place] # (Auto) 1.81 H (0.11-0.59) K/uL Immature Gran # (Auto) 0.85 H (0.00-0.02) K/uL Absolute Nucleated RBC 0.15 H (0-0) K/uL Sodium 131 L (136-145) mmol/L Chloride 96 L (98-107) mmol/L BUN 85 H (7-18) mg/dl Creatinine 2.49 H (0.6-1.2) mg/dl BUN/Creatinine Ratio 34.0 H (10-20) Glucose 104 H (70-99) mg/dl Alkaline Phosphatase 146 H (45-117) U/L C-Reactive Protein (0-0.29) mg/dl Albumin 2.9 L (3.4-5.0) gm/dl Globulin 5.3 H (2.5-4.0) gm/dl Albumin/Globulin Ratio 0.5 L (0.9-2) Urine Protein 1+ H (Negative) U Hyaline Cast (Auto) 5-10 H (0-5) /lpf U Epithel Cells (Auto) 5-10 H (0-5) /lpf 07/28/21 Range/Units 18:32 WBC (4.8-10.8) K/uL RBC (4.2-5.4) M/uL Hgb (12.0-16.0) g/dL Hct (37-47) % MCHC (32-36) g/dL RDW Std Deviation (36.4-46.3) fL RDW Coeff of Amaya (11.5-14.5) % Plt Count (130-400) K/uL MPV (7.4-10.4) fL Neut # (Auto) (1.4-6.5) K/uL Lymph # (Auto) (1.2-3.4) K/uL [place] # (Auto) (0.11-0.59) K/uL Immature Gran # (Auto) (0.00-0.02) K/uL Absolute Nucleated RBC (0-0) K/uL Sodium (136-145) mmol/L Chloride (98-107) mmol/L BUN (7-18) mg/dl Creatinine (0.6-1.2) mg/dl BUN/Creatinine Ratio (10-20) Glucose (70-99) mg/dl Alkaline Phosphatase (45-117) U/L C-Reactive Protein 16.80 H (0-0.29) mg/dl Albumin (3.4-5.0) gm/dl Globulin (2.5-4.0) gm/dl Albumin/Globulin Ratio (0.9-2) Urine Protein (Negative) U Hyaline Cast (Auto) (0-5) /lpf U Epithel Cells (Auto) (0-5) /lpf Diagnostic Findings Chest X-Ray 07/28/21 16:31 XR chest 1V portable CLINICAL HISTORY: weakness COMPARISON STUDY: Chest radiograph July 25, 2021. FINDINGS: Right shoulder arthroplasty is partially imaged. There is no pneumothorax or pleural effusion. There is no evidence for pulmonary edema. Cardiomegaly is unchanged. There are mild bibasilar opacities. IMPRESSION: 1. Bibasilar opacities which could reflect atelectasis or consolidation. 2. Cardiomegaly without evidence for pulmonary edema. ACT 112: Negative or not required by law. Electronically signed by: Jose Yeboah M.D. 07/28/2021 5:11 PM Medications Administered Home Medications allopurinol 100 mg tablet (Zyloprim) 100 mg PO QAM 02/15/21 [History Confirmed 07/28/21] aspirin 81 mg tablet,delayed release (Aspirin Low Dose) 81 mg PO QAM 02/15/21 [History Confirmed 07/28/21] atenolol 25 mg tablet (Tenormin) 12.5 mg PO QAM 02/15/21 [History Confirmed 07/28/21] atorvastatin 20 mg tablet (Lipitor) 20 mg PO QAM 02/15/21 [History Confirmed 07/28/21] cholecalciferol (vitamin D3) 25 mcg (1,000 unit) capsule (Vitamin D3) 25 mcg PO HS 02/15/21 [History Confirmed 07/28/21] cyanocobalamin (vitamin B-12) 1,000 mcg tablet (Vitamin B-12) 3,000 mcg PO HS 02/15/21 [History Confirmed 07/28/21] fluticasone 250 mcg-salmeterol 50 mcg/dose blistr powdr for inhalation (Advair Diskus) 1 inh INHALATION BID 02/15/21 [History Confirmed 07/28/21] fluticasone propionate 50 mcg/actuation nasal spray,suspension (Flonase Allergy Relief) 1 spray INTRANASAL BID 02/15/21 [History Confirmed 07/28/21] furosemide 20 mg tablet (Lasix) 20 mg PO DAILY PRN 02/15/21 [History Confirmed 07/28/21] vitamin E 1,000 unit capsule 1,000 unit PO HS 02/15/21 [History Confirmed 07/28/21] ferrous sulfate 325 mg (65 mg iron) tablet (iron) 325 mg PO HS 07/13/21 [History Confirmed 07/28/21] hydrocodone 5 mg-acetaminophen 325 mg tablet 1 tab PO Q12 PRN 07/13/21 [History Confirmed 07/28/21] trolamine salicylate 10 % topical cream (Aspercreme) 1 applic TOPICAL TID PRN 07/13/21 [History Confirmed 07/28/21] Oxygen Home #1 ea 07/25/21 [Rx Confirmed 07/28/21] acetaminophen 500 mg tablet (Tylenol Extra Strength) 1,000 mg PO TID #0 tab 07/25/21 [Rx Confirmed 07/28/21] apixaban 2.5 mg tablet (Eliquis) 2.5 mg PO BID #4 tab 07/25/21 [Rx Confirmed 07/28/21] hydroxyzine HCl 10 mg tablet 10 mg PO HS PRN #10 tab 07/25/21 [Rx Confirmed 07/28/21] levothyroxine 200 mcg tablet 200 mcg PO DAILYBB 07/28/21 [History Confirmed 07/28/21] losartan 50 mg tablet 50 mg PO BID 07/28/21 [History Confirmed 07/28/21] Active Medications Acetaminophen (Acetaminophen 325 Mg Tab) 650 mg PO Q8 PRN PRN Reason: pain/fever Stop: 08/27/21 21:58 Azithromycin 500 mg/ Dextrose 255 mls @ 125 mls/hr IV ONE ONE Stop: 07/28/21 22:10 Last Admin: 07/28/21 21:28 Dose: 125 mls/hr Documented by: Azithromycin 500 mg/ Dextrose 255 mls @ 125 mls/hr IV ONE ONE Stop: 07/28/21 22:10 Last Admin: 07/28/21 21:28 Dose: 125 mls/hr Documented by: [id number] Discontinued Medications Sodium Chloride (Nss 1000ml) 1,000 mls @ 999 mls/hr IV .Q1H1M REINALDO Stop: 07/28/21 17:45 Last Infusion: 07/28/21 20:50 Dose: 0 mls/hr Documented by: [id number] Admin: 07/28/21 19:08 Dose: 999 mls/hr Documented by: [id number] Ceftriaxone Sodium (Rocephin) 1,000 mg in 50 mls @ 100 mls/hr IV NOW STA Stop: 07/28/21 20:37 Last Infusion: 07/28/21 21:11 Dose: 0 mls/hr Documented by: [id number] Admin: 07/28/21 20:39 Dose: 100 mls/hr Documented by: [id number] Ondansetron HCl (Ondansetron Inj 2 Mg/Ml 2 Ml Vial) 4 mg IV NOW STA Stop: 07/28/21 18:59 Last Admin: 07/28/21 19:08 Dose: 4 mg Documented by: [id number] ECG Additional Comments: Normal sinus rhythm with sinus arrhythmia Normal ECG When compared with ECG of 25-JUL-2021 14:27, No significant change was found Code Status & VTE Plan Code Status CODE: FULL VTE: SCDs, Apixaban VTE Prophylaxis Plan VTE Prophylaxis will be ordered: Yes Supervising Physician Co-Signing Physician Notes Patient seen and examined, chart reviewed, case discussed with KYLE Alva and I agree with his assessment and plan as documented above. In brief, patient is an 85yo female with h/o CAD, HTN, HLP, CKD. She is s/p bilateral ankle ORIF POD #14. She returns today with complaint of cough productive for purulent sputum as well as SOB, weakness and n/v. Pain is well controlled Patient thinks that her nausea may be secondary to her Ladd On physical exam she is afebrile. HD stable. Saturating 88% on room air which improved with placement of nasal cannula Skin - small areas of breakdown on back side as well as under panus HEENT - NC/AT, PERRL, MMM, Neck supple Heart - +S1/S2, regular, no m/r/g Lungs - coarse breath sounds in bilateral bases, no wheezing, no respiratory distress Abd - +BS, soft, NT/ND, ostomy in place with dark liquid output Ext - Warm, well perfused, well healing surgical site, bruising in dependent region of feet, no fluctuance or collection, no drainage Labs and images reviewed. Significant for WBC=16.72 with neutrophil predominance, diminished lymphocytes. Normochromic/normocytic anemia with Hgb=8.8, Hct=28.3. BUN=85, Cr=2.49, IF=191 Assessment/Plan - ?PNA - recently hospitalized - patient returns with cough productive for purulent sputum as well as SOB, weakness, n/v. Bilateral opacities noted on CXR -Follow cultures -Zosyn -MRSA nasal swab - coverage if needed -Albuterol -Flutter -Remainder of plan as above PG Care Time/CCT Total # of Minutes Spent Total Time Spent with Patient: Total time spent is greater than 50% in coordination of care (as documented) at patient's floor/unit and/or counseling patient: Coding Level of Care Code 27942 Initial In Care Lvl 3 Diagnoses Leukocytosis D72.829 Pneumonia J18.9 Laterality: bilateral Lung location: lower lobe of lung Pneumonia type: due to unspecified organism TIM (acute kidney injury) N17.9 Vomiting R11.10 Fracture dislocation of ankle S82.892A Encounter type: initial encounter Fracture type: closed Laterality: left CAD (coronary artery disease) I25.10 Hypothyroidism E03.9 Anemia D64.9 (1) Fracture dislocation of ankle Encounter type: initial encounter Fracture type: closed Laterality: left Qualified Code(s): S82.892A - Other fracture of left lower leg, initial encounter for closed fracture (2) Pneumonia Laterality: bilateral Lung location: lower lobe of lung Pneumonia type: due to unspecified organism Qualified Code(s): J18.9 - Pneumonia, unspecified organism
[2021-07-28] MEDS ORDERED: hydrOXYzine HCl 10 MG TAB PO PRN (22:31)
[2021-07-28] MEDS ORDERED: SODIUM CHLORIDE 0.65% NA SOLN 45 ML (OCEAN) PRN (22:31)
[2021-07-28] MEDS ORDERED: PIPERACILL/TAZOBAC CONSULT ACTIVE PRN (22:31)
[2021-07-28] MEDS ORDERED: FERROUS SULFATE 325 MG TAB PO SCH (23:00)
[2021-07-28] MEDS ORDERED: CYANOCOBALAMIN 500 MCG TABLET (VITAMIN B-12) PO SCH (23:00)
[2021-07-28] MEDS ORDERED: LACTATED RINGER'S 1,000 ML IV ONE (23:00)
[2021-07-28] MEDS: ALBUTEROL 0.5% NEB SOLN 2.5 MG/0.5 ML VIAL NEB SCH (23:03)
[2021-07-28] MEDS: CYANOCOBALAMIN 500 MCG TABLET (VITAMIN B-12) PO SCH (23:48)
[2021-07-28] MEDS: APIXABAN 2.5 MG TAB PO SCH (23:48)
[2021-07-28] MEDS: FLUTICASONE PROPIONATE NA SPR 16 GM BTL SCH (23:49)
[2021-07-29] MEDS ORDERED: PIPERACILLIN/TAZOBACTAM 3.375 GM in DEXTROSE 5% 100 ML IV ONE (00:15)
[2021-07-29] MEDS: PIPERACILLIN/TAZOBACTAM 3.375 GM in DEXTROSE 5% 100 ML IV SCH ×3 (05:57→21:21)
[2021-07-29] MEDS: ALBUTEROL 0.5% NEB SOLN 2.5 MG/0.5 ML VIAL NEB SCH (06:02)
[2021-07-29] MEDS ORDERED: LEVOTHYROXINE SODIUM 200 MCG TABLET PO SCH (06:30)
[2021-07-29 07:07] LABS: Hematocrit (blood only) 23.4 % (37-47); Hemoglobin 7.5 g/dL (12.0-16.0); Mean Corpuscular Hemoglobin 31.3 pg (25-34); Mean Corpuscular Hgb Conc 32.1 g/dL (32-36); Mean Corpuscular Volume 97.5 fL (80-100); Mean Platelet Volume 11.5 fL (7.4-10.4); Nucleated RBC % (auto) 0.6 %; Platelet Count 382 K/uL (130-400); RDW Coefficient of Variation 18.2 % (11.5-14.5); RDW Standard Deviation 63.9 fL (36.4-46.3); White Blood Count 17.54 K/uL (4.8-10.8)
[2021-07-29 07:44] LABS: Albumin Level 2.4 gm/dl (3.4-5.0); BUN Creatinine Ratio 37.9 (10-20); Calcium 9.4 mg/dl (8.5-10.1); Creatinine Clr Calc Pharmacy 23.6 ml/min; Est GFR (Non-African American) 21.6 ml/min; Magnesium 1.7 mg/dl (1.8-2.4); Potassium 3.6 mmol/L (3.5-5.1)
[2021-07-29 07:55] LABS: Albumin Globulin Ratio 0.5 (0.9-2); Bilirubin,Total 0.4 mg/dl (0.2-1); Globulin 4.7 gm/dl (2.5-4.0); Thyroid Stimulating Hormone 6.17 uIu/ml (0.300-4.500); Total Protein 7.1 gm/dl (6.4-8.2)
[2021-07-29 08:10] LABS: T4 Free Thyroxine 1.35 ng/dl (0.8-1.6)
--- NOTE | 2021-07-29 08:35 | XRay Report ---
KUB HISTORY: Acute nausea with vomiting upright, vomiting COMPARISON: Chest radiograph of same day FINDINGS: The lower abdomen is excluded from the [id number]. Cardiomegaly. No pneumatosis or pneum operitoneum identified. Gaseous distention of the stomach. Cholecystectomy. Nonobstructive bowel gas pattern. No urolith identified. No acute fracture. Reverse right shoulder total joint arthroplasty wi th degenerative changes of the spine and left shoulder. IMPRESSION: Nonobstructive bowel gas pattern without pneumoperitoneum identified. ACT 112: Negative or not required by law. The above report was generated using voice recognition software. It may contain grammatical, syntax o r spelling errors. Electronically signed by: Chapin Grewal M.D. 07/29/2021 8:33 AM
--- NOTE | 2021-07-29 08:38 | Hospitalist Progress Note ---
Date of Service July 29, 2021 Assessment & Plan (1) Leukocytosis: Plan: WBC 16.7 with elevated NLR ~9:1, elevated CRP. PCT 0.79 WBC remains elevated 17.5k Remains on Azithromycin/Zosyn for CAP. MRSA nasal negative Blood cultures pending (abx given prior to) Urine cx pending however does not appear infected Surgical sites look good but will further investigate with CT of b/l ankles as well as CTA/P given black output from ostomy, +fecal occult blood, and reported n/v prior to admission No further IVF for now -- Cr improving Holding eliquis GI on consult Hgb 7.5 --> giving venofer as well as 1u PRBC and will continue to monitor PPI IV BID Made NPO x meds/sips while awaiting further imaging (2) Pneumonia: Plan: Bilateral opacities, elevated WBC, productive green sputum, no fever - Azithromycin 500mg IV in the EMD, continue 250mg IV daily- can change to PO if vomiting stops - Zosyn for HCAP- renally dosed - MRSA swab NEGATIVE - Albuterol nebs q6 scheduled for 24 hours - Flutter valve QID - (3) TIM (acute kidney injury): Plan: Acute on chronic CKD III - BUN increase to 85- steady increase since hospitalization - 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- Baseline 1.8 - LR overnight with repeat Cr improving 2 Continue to hold ARB/Lasix for now, avoid nephrotoxic drugs BMP in AM (4) Vomiting: Plan: Patient feels its from her [place] however could be from GI bleed given +fecal occult/as above No further vomiting +Abd pain but no need for medications per patient at this time KUB without obstruction Output from ostomy black CTAP as above Repeat trop <0.015 (5) Anemia: Plan: Follow HGB/HCT - Type and screen - Possibly transfuse hgb 7.5 this morning and giving 1u prbc, venofer as above (6) Fracture dislocation of ankle: Plan: ORIF completed - continue rehab, PT/OT contacted Dr Garvin and he will see patient while hospitalized CT ankles pending as above given leukocytosis (7) CAD (coronary artery disease): Plan: With 1 stent to circumflex 2003 Holding ASA as above (8) Hypothyroidism: Plan: Continue Synthroid 200mcg -TSH elevated to 6.17 however normal T4 and could be reactive from pneumonia as above ?consider repeating in 4 weeks and adjustment if needed, however with hoarseness and could be from that vs 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 Eliquis d/c'd as completed 14 days post-op at [facility] by podiatry GI on consult NPO for now Dr Garvin alerted of inpatient stay, imaging of ankles pending Continue to monitor Admission and Anticipated Discharge Date Admission Date: July 28, 2021 Supervising Physician Co-Signing Physician Notes PA Supervision Note: I did not personally see or examine the patient today, but I verified all lay points of PAOLA Hernandez's assessment and plan with the following exceptions/additions: None Subjective patient evaluated this morning states she still has cough, yellow/green sputum. asked RN to send next for sputum cx/gs. No further vomiting. Reported saab/brown vomiting and with black stool in ostomy. Discussed possible GI bleeding. She states she wants them to stop bringing her so much food. Discussed possible ulcer given dark stools and what appears to have possibly been coffee-ground emesis. Kidney function improving. She states the staff are doing everything they can but she is hopeful to be feeling better soon. Review of Systems Review of Systems: All systems reviewed & are unremarkable except as noted in HPI & below Physical Exam Physical Exam: General: awake, alert, no apparent distress resting in bed, easily arousable, hoarse voice ENT: slightly dry mm, LUCILLE, EOMI trachea midline without deviation Resp: scattered crackles, no wheezing, no accessory muscle use or work of breathing. on room air CV; RRR, systolic murmur, calves nontender, no edema ; +BS throughout, ostomy with BLACK drainage, tender to palpation diffusely however no guarding or rigidity MSK; bruising and chronic venous stasis, healing incisions to b/l ankles. no increased erythema or warmth, pulses palpable. NVI Psych: AO, anxious affect Skin: surgical incisions intake, venous stasis b/l LE, erythema to b/l buttocks without purulent drainage or signs of infection Results & Data Results & Data ([facility] [place]) Vital Signs (Past 12 Hours) Vital Signs Temp Pulse Resp BP BP Pulse Ox 07/29/21 07:42 36.5 C 67 20 157/75 H 94 07/29/21 06:02 78 18 92 07/28/21 23:09 76 18 92 07/28/21 22:31 36.6 C 78 14 101/56 L 92 07/28/21 21:00 65 20 118/63 96 Laboratory Results 07/29/21 07/29/21 07/28/21 Range/Units 06:58 06:58 23:30 WBC 17.54 H (4.8-10.8) K/uL RBC 2.40 L (4.2-5.4) M/uL Hgb 7.5 L (12.0-16.0) g/dL Hct 23.4 L (37-47) % MCV 97.5 (80-100) fL MCH 31.3 (25-34) pg MCHC 32.1 (32-36) g/dL RDW Std Deviation 63.9 H (36.4-46.3) fL RDW Coeff of Amaya 18.2 H (11.5-14.5) % Plt Count 382 (130-400) K/uL MPV 11.5 H (7.4-10.4) fL Immature Gran % (Auto) % Neut % (Auto) % Lymph % (Auto) % [place] % (Auto) % Eos % (Auto) % Baso % (Auto) % Neut # (Auto) (1.4-6.5) K/uL Lymph # (Auto) (1.2-3.4) K/uL [place] # (Auto) (0.11-0.59) K/uL Eos # (Auto) (0-0.5) K/uL Baso # (Auto) (0-0.2) K/uL Immature Gran # (Auto) (0.00-0.02) K/uL Absolute Nucleated RBC 0.10 H (0-0) K/uL Nucleated RBC % (auto) 0.6 % Polychromasia Hypochromasia Anisocytosis Sodium 133 L (136-145) mmol/L Potassium 3.6 (3.5-5.1) mmol/L Chloride 99 (98-107) mmol/L Carbon Dioxide 22 (21-32) mmol/L Anion Gap 12.0 H (3-11) BUN 79 H (7-18) mg/dl Creatinine 2.07 H D (0.6-1.2) mg/dl Est Cr Clr Drug Dosing 23.6 ml/min Est GFR ( Amer) 25.0 ml/min Est GFR (Non-Af Amer) 21.6 ml/min BUN/Creatinine Ratio 37.9 H (10-20) Glucose 106 H (70-99) mg/dl Calcium 9.4 (8.5-10.1) mg/dl Magnesium 1.7 L (1.8-2.4) mg/dl Total Bilirubin 0.4 (0.2-1) mg/dl AST 23 (15-37) U/L ALT 19 (12-78) U/L Alkaline Phosphatase 142 H (45-117) U/L C-Reactive Protein (0-0.29) mg/dl Total Protein 7.1 (6.4-8.2) gm/dl Albumin 2.4 L (3.4-5.0) gm/dl Globulin 4.7 H (2.5-4.0) gm/dl Albumin/Globulin Ratio 0.5 L (0.9-2) Lipase (73-393) U/L Procalcitonin (0-0.5) ng/ml TSH 6.170 H (0.300-4.500) uIu/ml Free T4 1.35 (0.8-1.6) ng/dl Urine Color Urine Appearance (Clear) Urine pH (4.5-7.5) Ur Specific Rossiter (1.000-1.030) Urine Protein (Negative) Urine Glucose (UA) (Negative) Urine Ketones (Negative) Urine Blood (Negative) Urine Nitrite (Negative) Urine Bilirubin (Negative) Urine Urobilinogen (Negative) Ur Leukocyte Esterase (Negative) Urine WBC (Auto) (0-5) /hpf Urine RBC (Auto) (0-4) /hpf U Hyaline Cast (Auto) (0-5) /lpf U Epithel Cells (Auto) (0-5) /lpf Urine Bacteria (Auto) (Negative) Nasal Screen MRSA (PCR) Negative (Negative) COVID-19 Eval Order SARS-CoV-2 (PCR) (Negative) Blood Type Antibody Screen Antibody Identification Antibody ID Comment Crossmatch 07/28/21 07/28/21 07/28/21 Range/Units 21:01 21:01 20:59 WBC (4.8-10.8) K/uL RBC (4.2-5.4) M/uL Hgb (12.0-16.0) g/dL Hct (37-47) % MCV (80-100) fL MCH (25-34) pg MCHC (32-36) g/dL RDW Std Deviation (36.4-46.3) fL RDW Coeff of Amaya (11.5-14.5) % Plt Count (130-400) K/uL MPV (7.4-10.4) fL Immature Gran % (Auto) % Neut % (Auto) % Lymph % (Auto) % [place] % (Auto) % Eos % (Auto) % Baso % (Auto) % Neut # (Auto) (1.4-6.5) K/uL Lymph # (Auto) (1.2-3.4) K/uL [place] # (Auto) (0.11-0.59) K/uL Eos # (Auto) (0-0.5) K/uL Baso # (Auto) (0-0.2) K/uL Immature Gran # (Auto) (0.00-0.02) K/uL Absolute Nucleated RBC (0-0) K/uL Nucleated RBC % (auto) % Polychromasia Hypochromasia Anisocytosis Sodium (136-145) mmol/L Potassium (3.5-5.1) mmol/L Chloride (98-107) mmol/L Carbon Dioxide (21-32) mmol/L Anion Gap (3-11) BUN (7-18) mg/dl Creatinine (0.6-1.2) mg/dl Est Cr Clr Drug Dosing ml/min Est GFR ( Amer) ml/min Est GFR (Non-Af Amer) ml/min BUN/Creatinine Ratio (10-20) Glucose (70-99) mg/dl Calcium (8.5-10.1) mg/dl Magnesium (1.8-2.4) mg/dl Total Bilirubin (0.2-1) mg/dl AST (15-37) U/L ALT (12-78) U/L Alkaline Phosphatase (45-117) U/L C-Reactive Protein (0-0.29) mg/dl Total Protein (6.4-8.2) gm/dl Albumin (3.4-5.0) gm/dl Globulin (2.5-4.0) gm/dl Albumin/Globulin Ratio (0.9-2) Lipase (73-393) U/L Procalcitonin 0.79 H (0-0.5) ng/ml TSH (0.300-4.500) uIu/ml Free T4 (0.8-1.6) ng/dl Urine Color Urine Appearance (Clear) Urine pH (4.5-7.5) Ur Specific Rossiter (1.000-1.030) Urine Protein (Negative) Urine Glucose (UA) (Negative) Urine Ketones (Negative) Urine Blood (Negative) Urine Nitrite (Negative) Urine Bilirubin (Negative) Urine Urobilinogen (Negative) Ur Leukocyte Esterase (Negative) Urine WBC (Auto) (0-5) /hpf Urine RBC (Auto) (0-4) /hpf U Hyaline Cast (Auto) (0-5) /lpf U Epithel Cells (Auto) (0-5) /lpf Urine Bacteria (Auto) (Negative) Nasal Screen MRSA (PCR) (Negative) COVID-19 Eval Order SARS-CoV-2 (PCR) (Negative) Blood Type Cancelled O Positive Antibody Screen Cancelled POSITIVE A Antibody Identification Anti-K Antibody ID Comment Pending Crossmatch See Detail 07/28/21 07/28/21 07/28/21 Range/Units 20:43 20:43 18:32 WBC (4.8-10.8) K/uL RBC (4.2-5.4) M/uL Hgb (12.0-16.0) g/dL Hct (37-47) % MCV (80-100) fL MCH (25-34) pg MCHC (32-36) g/dL RDW Std Deviation (36.4-46.3) fL RDW Coeff of Amaya (11.5-14.5) % Plt Count (130-400) K/uL MPV (7.4-10.4) fL Immature Gran % (Auto) % Neut % (Auto) % Lymph % (Auto) % [place] % (Auto) % Eos % (Auto) % Baso % (Auto) % Neut # (Auto) (1.4-6.5) K/uL Lymph # (Auto) (1.2-3.4) K/uL [place] # (Auto) (0.11-0.59) K/uL Eos # (Auto) (0-0.5) K/uL Baso # (Auto) (0-0.2) K/uL Immature Gran # (Auto) (0.00-0.02) K/uL Absolute Nucleated RBC (0-0) K/uL Nucleated RBC % (auto) % Polychromasia Hypochromasia Anisocytosis Sodium (136-145) mmol/L Potassium (3.5-5.1) mmol/L Chloride (98-107) mmol/L Carbon Dioxide (21-32) mmol/L Anion Gap (3-11) BUN (7-18) mg/dl Creatinine (0.6-1.2) mg/dl Est Cr Clr Drug Dosing ml/min Est GFR ( Amer) ml/min Est GFR (Non-Af Amer) ml/min BUN/Creatinine Ratio (10-20) Glucose (70-99) mg/dl Calcium (8.5-10.1) mg/dl Magnesium (1.8-2.4) mg/dl Total Bilirubin (0.2-1) mg/dl AST (15-37) U/L ALT (12-78) U/L Alkaline Phosphatase (45-117) U/L C-Reactive Protein 16.80 H (0-0.29) mg/dl Total Protein (6.4-8.2) gm/dl Albumin (3.4-5.0) gm/dl Globulin (2.5-4.0) gm/dl Albumin/Globulin Ratio (0.9-2) Lipase (73-393) U/L Procalcitonin (0-0.5) ng/ml TSH (0.300-4.500) uIu/ml Free T4 (0.8-1.6) ng/dl Urine Color Urine Appearance (Clear) Urine pH (4.5-7.5) Ur Specific Rossiter (1.000-1.030) Urine Protein (Negative) Urine Glucose (UA) (Negative) Urine Ketones (Negative) Urine Blood (Negative) Urine Nitrite (Negative) Urine Bilirubin (Negative) Urine Urobilinogen (Negative) Ur Leukocyte Esterase (Negative) Urine WBC (Auto) (0-5) /hpf Urine RBC (Auto) (0-4) /hpf U Hyaline Cast (Auto) (0-5) /lpf U Epithel Cells (Auto) (0-5) /lpf Urine Bacteria (Auto) (Negative) Nasal Screen MRSA (PCR) (Negative) COVID-19 Eval Order Covid19 at [facility] SARS-CoV-2 (PCR) NEGATIVE (Negative) Blood Type Antibody Screen Antibody Identification Antibody ID Comment Crossmatch 07/28/21 07/28/21 07/28/21 Range/Units 18:32 18:32 17:04 WBC 16.72 H (4.8-10.8) K/uL RBC 2.91 L (4.2-5.4) M/uL Hgb 8.8 L (12.0-16.0) g/dL Hct 28.3 L (37-47) % MCV 97.3 (80-100) fL MCH 30.2 (25-34) pg MCHC 31.1 L (32-36) g/dL RDW Std Deviation 62.9 H (36.4-46.3) fL RDW Coeff of Amaya 18.0 H (11.5-14.5) % Plt Count 423 H (130-400) K/uL MPV 11.8 H (7.4-10.4) fL Immature Gran % (Auto) 5.1 % Neut % (Auto) 77.3 % Lymph % (Auto) 6.7 % [place] % (Auto) 10.8 % Eos % (Auto) 0.0 % Baso % (Auto) 0.1 % Neut # (Auto) 12.92 H (1.4-6.5) K/uL Lymph # (Auto) 1.12 L (1.2-3.4) K/uL [place] # (Auto) 1.81 H (0.11-0.59) K/uL Eos # (Auto) 0.00 (0-0.5) K/uL Baso # (Auto) 0.02 (0-0.2) K/uL Immature Gran # (Auto) 0.85 H (0.00-0.02) K/uL Absolute Nucleated RBC 0.15 H (0-0) K/uL Nucleated RBC % (auto) 0.9 % Polychromasia 1+ Hypochromasia Present Anisocytosis Present Sodium 131 L (136-145) mmol/L Potassium 4.0 (3.5-5.1) mmol/L Chloride 96 L (98-107) mmol/L Carbon Dioxide 29 (21-32) mmol/L Anion Gap 6.0 (3-11) BUN 85 H (7-18) mg/dl Creatinine 2.49 H (0.6-1.2) mg/dl Est Cr Clr Drug Dosing 20.3 ml/min Est GFR ( Amer) 20.0 ml/min Est GFR (Non-Af Amer) 17.3 ml/min BUN/Creatinine Ratio 34.0 H (10-20) Glucose 104 H (70-99) mg/dl Calcium 9.3 (8.5-10.1) mg/dl Magnesium (1.8-2.4) mg/dl Total Bilirubin 0.5 (0.2-1) mg/dl AST 26 (15-37) U/L ALT 25 (12-78) U/L Alkaline Phosphatase 146 H (45-117) U/L C-Reactive Protein (0-0.29) mg/dl Total Protein 8.2 (6.4-8.2) gm/dl Albumin 2.9 L (3.4-5.0) gm/dl Globulin 5.3 H (2.5-4.0) gm/dl Albumin/Globulin Ratio 0.5 L (0.9-2) Lipase 317 (73-393) U/L Procalcitonin (0-0.5) ng/ml TSH (0.300-4.500) uIu/ml Free T4 (0.8-1.6) ng/dl Urine Color Yellow Urine Appearance Clear (Clear) Urine pH 5.0 (4.5-7.5) Ur Specific Rossiter 1.016 (1.000-1.030) Urine Protein 1+ H (Negative) Urine Glucose (UA) Negative (Negative) Urine Ketones Negative (Negative) Urine Blood Negative (Negative) Urine Nitrite Negative (Negative) Urine Bilirubin Negative (Negative) Urine Urobilinogen Negative (Negative) Ur Leukocyte Esterase Negative (Negative) Urine WBC (Auto) 1-5 (0-5) /hpf Urine RBC (Auto) 0-4 (0-4) /hpf U Hyaline Cast (Auto) 5-10 H (0-5) /lpf U Epithel Cells (Auto) 5-10 H (0-5) /lpf Urine Bacteria (Auto) Negative (Negative) Nasal Screen MRSA (PCR) (Negative) COVID-19 Eval Order SARS-CoV-2 (PCR) (Negative) Blood Type Antibody Screen Antibody Identification Antibody ID Comment Crossmatch Diagnostic Findings Chest X-Ray 07/28/21 16:31 XR chest 1V portable CLINICAL HISTORY: weakness COMPARISON STUDY: Chest radiograph July 25, 2021. FINDINGS: Right shoulder arthroplasty is partially imaged. There is no pneumothorax or pleural effusion. There is no evidence for pulmonary edema. Cardiomegaly is unchanged. There are mild bibasilar opacities. IMPRESSION: 1. Bibasilar opacities which could reflect atelectasis or consolidation. 2. Cardiomegaly without evidence for pulmonary edema. ACT 112: Negative or not required by law. Electronically signed by: Jose Yeboah M.D. 07/28/2021 5:11 PM KUB X-Ray 07/28/21 20:27 KUB HISTORY: Acute nausea with vomiting upright, vomiting COMPARISON: Chest radiograph of same day FINDINGS: The lower abdomen is excluded from the [id number]. Cardiomegaly. No pneumatosis or pneumoperitoneum identified. Gaseous distention of the stomach. Cholecystectomy. Nonobstructive bowel gas pattern. No urolith identified. No acute fracture. 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 IMPRESSION: Nonobstructive bowel gas pattern without pneumoperitoneum identified. ACT 112: Negative or not required by law. The above report was generated using voice recognition software. It may contain grammatical, syntax or spelling errors. Electronically signed by: Chapin Grewal M.D. 07/29/2021 8:33 AM Shoulder X-Ray 07/29/21 09:38 XR shoulder LT min 2V routine HISTORY: 85 years-old Female shoulder pain, recent fall acute left shoulder pain status post fall COMPARISON: Chest radiograph 07/28/2021, shoulder radiographs 02/15/2021 TECHNIQUE: 3 views of the left shoulder FINDINGS: Severe osteoarthritis of the glenohumeral joint with generated humeral head flattening and chronic remodeling redemonstrated. No acute fracture or dislocation. Mild osteoarthritis of the AC joint. Surgical clips of the left neck. IMPRESSION: 1. No acute fracture or dislocation. 2. Severe glenohumeral osteoarthritis redemonstrated. ACT 112: Negative or not required by law. The above report was generated using voice recognition software. It may contain grammatical, syntax or spelling errors. Electronically signed by: Chapin Grewal M.D. 07/29/2021 10:01 AM PG Care Time/CCT Total # of Minutes Spent Total Time Spent with Patient: Total time spent is greater than 50% in coordination of care (as documented) at patient's floor/unit and/or counseling patient: Coding Level of Care Code 53682 Subseq Hosp Care Lvl 3 Diagnoses Leukocytosis D72.829 Pneumonia J18.9 Laterality: bilateral Lung location: lower lobe of lung Pneumonia type: due to unspecified organism TIM (acute kidney injury) N17.9 Vomiting R11.10 Anemia D64.9 Fracture dislocation of ankle S82.892A Encounter type: initial encounter Fracture type: closed Laterality: left CAD (coronary artery disease) I25.10 Hypothyroidism E03.9 (1) Fracture dislocation of ankle Encounter type: initial encounter Fracture type: closed Laterality: left Qualified Code(s): S82.892A - Other fracture of left lower leg, initial encounter for closed fracture (2) Pneumonia Laterality: bilateral Lung location: lower lobe of lung Pneumonia type: due to unspecified organism Qualified Code(s): J18.9 - Pneumonia, unspecified organism
[2021-07-29] MEDS ORDERED: SODIUM CHLORIDE 0.9% 250 ML IV PRN ×2 (08:40→09:26)
[2021-07-29 08:41] LABS: Basophils # (auto) 0.01 K/uL (0-0.2); Basophils % (auto) 0.1 %; Immature Granulocytes # (auto) 0.95 K/uL (0.00-0.02); Immature Granulocytes % (auto) 5.4 %; Lymphocytes # (auto) 1.34 K/uL (1.2-3.4); Lymphocytes % (auto) 7.6 %; Monocytes # (auto) 2.18 K/uL (0.11-0.59); Monocytes % (auto) 12.4 %; Neutrophils # (auto) 13.06 K/uL (1.4-6.5); Neutrophils % (auto) 74.5 %
[2021-07-29] MEDS ORDERED: MAGNESIUM SULFATE / D5W 1 GM/100 ML BAG IV ONE (09:00)
[2021-07-29] MEDS: FLUTICASONE/VILANTEROL 200/25MCG 14 PUFFS/INHALER INH SCH (09:15)
[2021-07-29] MEDS: FLUTICASONE PROPIONATE NA SPR 16 GM BTL SCH ×2 (09:15→21:21)
[2021-07-29] MEDS: APIXABAN 2.5 MG TAB PO SCH (09:15)
[2021-07-29] MEDS: ASPIRIN 81 MG ECTAB PO SCH (09:16)
[2021-07-29] MEDS: ATORVASTATIN 20 MG TAB PO SCH (09:16)
[2021-07-29] MEDS: ATENOLOL 25 MG TABLET PO SCH (09:16)
--- NOTE | 2021-07-29 10:03 | XRay Report ---
XR shoulder LT min 2V routine HISTORY: 85 years-old Female shoulder pain, recent fall acute left shoulder pain status post fall COMPARISON: Chest radiograph 07/28/2021, shoulder radiographs 02/15/2021 TECHNIQUE: 3 views of the left shoulder FINDINGS: Severe osteoarthritis of the glenohumeral joint with generated humeral head flattening and chronic re modeling redemonstrated. No acute fracture or dislocation. Mild osteoarthritis of the AC joint. Surgi chace clips of the left neck. IMPRESSION: 1. No acute fracture or dislocation. 2. Severe glenohumeral osteoarthritis redemonstrated. ACT 112: Negative or not required by law. The above report was generated using voice recognition software. It may contain grammatical, syntax o r spelling errors. Electronically signed by: Chapin Grewal M.D. 07/29/2021 10:01 AM
[2021-07-29] MEDS ORDERED: IRON SUCROSE 300 MG in SODIUM CHLORIDE 0.9% 250 ML IV ONE (11:00)
[2021-07-29] MEDS ORDERED: NURSING DECISION MEDICATION ONE (11:04)
[2021-07-29] MEDS ORDERED: COUGH DROP (SUGAR FREE) LOZ 24 LOZ/1 BOX BUCCAL ONE (11:14)
[2021-07-29] MEDS ORDERED: COUGH DROP (SUGAR FREE) LOZ 24 LOZ/1 BOX BUCCAL PRN (11:14)
[2021-07-29] MEDS: PANTOprazole 40 MG in SYRINGE 0 ML IV SCH ×2 (12:33→21:20)
[2021-07-29] MEDS: hydrOXYzine HCl 10 MG TAB PO PRN ×2 (12:33→22:15)
--- NOTE | 2021-07-29 12:45 | Gastrointestinal Consultation ---
Date of Consultation July 29, 2021 Assessment & Plan (1) Anemia: Multifactorial in view of CKD, recent surgery and use of anticoagulation. No significant drop from baseline. No overt ongoing GI bleeding. Currently being treated for HCAP with sepsis. No indication for urgent endoscopy at this time. Recommend: PO PPI BID. EGD/colonoscopy electively as OP. Recall GI if needed. (2) Positive occult stool blood test: History of Present Illness Attending Physician: Diane Blackman MD History of Present Illness 85 years old female patient presented with vomiting, cough, SOB, found to have HCAP, anemia and TIM/CKD. She had Orthopedic surgery for ankle fracture 2 weeks ago, given Narcotics for pain, thinks the pills inducted her vomiting. Denies any hematemesis. She has a colostomy for long time, at least 15 years, after having acute diverticulitis causing fistula. Denies any change in the color of her stoma which was dark from Iron supplements. No abdominal pain. Her H/H is not significantly changed from her baseline. She has hoarse voice since she had her ankle surgery. Allergies Allergy/AdvReac Type Severity Reaction Status Date / Time oxytetracycline Allergy Intermediate Unknown Verified 07/28/21 17:58 polymyxin B Allergy Intermediate Unknown Verified 07/28/21 17:58 tetracycline Allergy Intermediate Unknown Verified 07/28/21 17:58 morphine AdvReac Unknown Unknown Verified 07/28/21 17:58 Home Medications Medication Instructions Recorded Confirmed Type allopurinol 100 mg tablet 100 mg PO [facility] 02/15/21 07/28/21 History (Zyloprim) aspirin 81 mg tablet,delayed 81 mg PO [facility] 02/15/21 07/28/21 History release (Aspirin Low Dose) atenolol 25 mg tablet (Tenormin) 12.5 mg PO [facility] 02/15/21 07/28/21 History atorvastatin 20 mg tablet (Lipitor) 20 mg PO [facility] 02/15/21 07/28/21 History cholecalciferol (vitamin D3) 25 25 mcg PO 02/15/21 07/28/21 History mcg (1,000 unit) capsule (Vitamin D3) cyanocobalamin (vitamin B-12) 3,000 mcg PO 02/15/21 07/28/21 History 1,000 mcg tablet (Vitamin B-12) fluticasone 250 mcg-salmeterol 50 1 inh INHALATION BID 02/15/21 07/28/21 History mcg/dose blistr powdr for inhalation (Advair Diskus) fluticasone propionate 50 1 spray INTRANASAL BID 02/15/21 07/28/21 History mcg/actuation nasal spray,suspension (Flonase Allergy Relief) furosemide 20 mg tablet (Lasix) 20 mg PO DAILY PRN 02/15/21 07/28/21 History vitamin E 1,000 unit capsule 1,000 unit PO HS 02/15/21 07/28/21 History ferrous sulfate 325 mg (65 mg 325 mg PO HS 07/13/21 07/28/21 History iron) tablet (iron) hydrocodone 5 mg-acetaminophen 325 1 tab PO Q12 PRN 07/13/21 07/28/21 History mg tablet trolamine salicylate 10 % topical 1 applic TOPICAL TID PRN 07/13/21 07/28/21 History cream (Aspercreme) Oxygen Home #1 ea 07/25/21 07/28/21 Rx acetaminophen 500 mg tablet 1,000 mg PO TID #0 tab 07/25/21 07/28/21 Rx (Tylenol Extra Strength) apixaban 2.5 mg tablet (Eliquis) 2.5 mg PO BID #4 tab 07/25/21 07/28/21 Rx hydroxyzine HCl 10 mg tablet 10 mg PO HS PRN #10 tab 07/25/21 07/28/21 Rx levothyroxine 200 mcg tablet 200 mcg PO DAILYBB 07/28/21 07/28/21 History losartan 50 mg tablet 50 mg PO BID 07/28/21 07/28/21 History Patient History Medical History Anemia Arthropathy of right knee Asthma 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 Diverticulitis Failure of outpatient treatment Hypothyroidism Morbid obesity Rapidly progressive weakness UTI (urinary tract infection) Surgical History H/O heart artery stent History of arthroplasty of left knee Status post lens implant Social History Smoking Status: Never smoker Hx Alcohol Use: No Hx Substance Use: No Preferred Language: [place] Communication Ability: Effective Customer Resource Specialist Required: No Beliefs That Will Affect Care: None marital status: / Current Living Situation: Residential Current Living Situation Comment: Neighbor stops over to assist, comes by at least daily Other Information That Helps Us Care for You: No Feels Safe at Home: Yes Assistive Devices: None Review of Systems Review of Systems: All systems reviewed & are unremarkable except as noted in HPI & below Physical Exam Constitutional: + well hydrated, cooperative and comfortable Eyes: PERRL, conjunctivae normal, anicteric sclerae ENMT: external ear and nose normal, oropharynx normal Neck: normal visual inspection and trachea midline Respiratory: normal respiratory effort, lungs clear to auscultation Auscultation: no wheezes Cardiovascular: RRR, no murmur, no edema Gastrointestinal (Abdomen): normal bowel sounds, soft, nontender, no hepatosplenomegaly Intact colostomy, no melena or blood seen Musculoskeletal: no cyanosis or clubbing, extremities motor strength 5/5 Skin: no rashes, warm and dry Neurologic: awake; no focal motor deficits Motor/Sensory: no tremor Results & Data ([facility]) Vital Signs (Past 12 Hours) Vital Signs Temp Pulse Pulse Resp BP BP Pulse Ox 07/29/21 12:15 61 20 133/48 L 99 07/29/21 11:45 36.5 C 61 20 133/48 L 99 07/29/21 11:15 36.5 C 67 20 134/74 96 07/29/21 10:58 36.4 C L 62 18 105/51 L 92 07/29/21 10:42 36.5 C 77 20 143/85 H 07/29/21 07:42 36.5 C 67 20 157/75 H 94 07/29/21 06:02 78 18 92 Laboratory Results Laboratory Results - last 24 hr 07/28/21 07/28/21 07/28/21 17:04 18:32 18:32 WBC 16.72 H RBC 2.91 L Hgb 8.8 L Hct 28.3 L MCV 97.3 MCH 30.2 MCHC 31.1 L RDW Std Deviation 62.9 H RDW Coeff of Amaya 18.0 H Plt Count 423 H MPV 11.8 H Immature Gran % (Auto) 5.1 Neut % (Auto) 77.3 Lymph % (Auto) 6.7 [place] % (Auto) 10.8 Eos % (Auto) 0.0 Baso % (Auto) 0.1 Neut # (Auto) 12.92 H Lymph # (Auto) 1.12 L [place] # (Auto) 1.81 H Eos # (Auto) 0.00 Baso # (Auto) 0.02 Immature Gran # (Auto) 0.85 H Absolute Nucleated RBC 0.15 H Nucleated RBC % (auto) 0.9 Polychromasia 1+ Hypochromasia Present Anisocytosis Present Sodium 131 L Potassium 4.0 Chloride 96 L Carbon Dioxide 29 Anion Gap 6.0 BUN 85 H Creatinine 2.49 H Est Cr Clr Drug Dosing 20.3 Est GFR ( Amer) 20.0 Est GFR (Non-Af Amer) 17.3 BUN/Creatinine Ratio 34.0 H Glucose 104 H Calcium 9.3 Magnesium Total Bilirubin 0.5 AST 26 ALT 25 Alkaline Phosphatase 146 H Troponin I C-Reactive Protein Total Protein 8.2 Albumin 2.9 L Globulin 5.3 H Albumin/Globulin Ratio 0.5 L Lipase 317 Procalcitonin TSH Free T4 Urine Color Yellow Urine Appearance Clear Urine pH 5.0 Ur Specific [place] 1.016 Urine Protein 1+ H Urine Glucose (UA) Negative Urine Ketones Negative Urine Blood Negative Urine Nitrite Negative Urine Bilirubin Negative Urine Urobilinogen Negative Ur Leukocyte Esterase Negative Urine WBC (Auto) 1-5 Urine RBC (Auto) 0-4 U Hyaline Cast (Auto) 5-10 H U Epithel Cells (Auto) 5-10 H Urine Bacteria (Auto) Negative Nasal Screen MRSA (PCR) Stool Occult Bld Scrn Stl C. diff Tox B Gene COVID-19 Eval Order SARS-CoV-2 (PCR) Blood Type Antibody Screen Antibody Identification Antibody ID Comment Crossmatch 07/28/21 07/28/21 07/28/21 18:32 20:43 20:43 WBC RBC Hgb Hct MCV MCH MCHC RDW Std Deviation RDW Coeff of Amaya Plt Count MPV Immature Gran % (Auto) Neut % (Auto) Lymph % (Auto) [place] % (Auto) Eos % (Auto) Baso % (Auto) Neut # (Auto) Lymph # (Auto) [place] # (Auto) Eos # (Auto) Baso # (Auto) Immature Gran # (Auto) Absolute Nucleated RBC Nucleated RBC % (auto) Polychromasia Hypochromasia Anisocytosis Sodium Potassium Chloride Carbon Dioxide Anion Gap BUN Creatinine Est Cr Clr Drug Dosing Est GFR ( Amer) Est GFR (Non-Af Amer) BUN/Creatinine Ratio Glucose Calcium Magnesium Total Bilirubin AST ALT Alkaline Phosphatase Troponin I C-Reactive Protein 16.80 H Total Protein Albumin Globulin Albumin/Globulin Ratio Lipase Procalcitonin TSH Free T4 Urine Color Urine Appearance Urine pH Ur Specific [place] Urine Protein Urine Glucose (UA) Urine Ketones Urine Blood Urine Nitrite Urine Bilirubin Urine Urobilinogen Ur Leukocyte Esterase Urine WBC (Auto) Urine RBC (Auto) U Hyaline Cast (Auto) U Epithel Cells (Auto) Urine Bacteria (Auto) Nasal Screen MRSA (PCR) Stool Occult Bld Scrn Stl C. diff Tox B Gene COVID-19 Eval Order Covid19 at [facility] SARS-CoV-2 (PCR) NEGATIVE Blood Type Antibody Screen Antibody Identification Antibody ID Comment Crossmatch 07/28/21 07/28/21 07/28/21 20:59 21:01 21:01 WBC RBC Hgb Hct MCV MCH MCHC RDW Std Deviation RDW Coeff of Amaya Plt Count MPV Immature Gran % (Auto) Neut % (Auto) Lymph % (Auto) [place] % (Auto) Eos % (Auto) Baso % (Auto) Neut # (Auto) Lymph # (Auto) [place] # (Auto) Eos # (Auto) Baso # (Auto) Immature Gran # (Auto) Absolute Nucleated RBC Nucleated RBC % (auto) Polychromasia Hypochromasia Anisocytosis Sodium Potassium Chloride Carbon Dioxide Anion Gap BUN Creatinine Est Cr Clr Drug Dosing Est GFR ( Amer) Est GFR (Non-Af Amer) BUN/Creatinine Ratio Glucose Calcium Magnesium Total Bilirubin AST ALT Alkaline Phosphatase Troponin I C-Reactive Protein Total Protein Albumin Globulin Albumin/Globulin Ratio Lipase Procalcitonin 0.79 H TSH Free T4 Urine Color Urine Appearance Urine pH Ur Specific [place] Urine Protein Urine Glucose (UA) Urine Ketones Urine Blood Urine Nitrite Urine Bilirubin Urine Urobilinogen Ur Leukocyte Esterase Urine WBC (Auto) Urine RBC (Auto) U Hyaline Cast (Auto) U Epithel Cells (Auto) Urine Bacteria (Auto) Nasal Screen MRSA (PCR) Stool Occult Bld Scrn Stl C. diff Tox B Gene COVID-19 Eval Order SARS-CoV-2 (PCR) Blood Type O Positive Cancelled Antibody Screen POSITIVE A Cancelled Antibody Identification Anti-K Antibody ID Comment Pending Crossmatch See Detail 07/28/21 07/29/21 07/29/21 23:30 06:58 06:58 WBC 17.54 H RBC 2.40 L Hgb 7.5 L Hct 23.4 L MCV 97.5 MCH 31.3 MCHC 32.1 RDW Std Deviation 63.9 H RDW Coeff of Amaya 18.2 H Plt Count 382 MPV 11.5 H Immature Gran % (Auto) 5.4 Neut % (Auto) 74.5 Lymph % (Auto) 7.6 [place] % (Auto) 12.4 Eos % (Auto) 0.0 Baso % (Auto) 0.1 Neut # (Auto) 13.06 H Lymph # (Auto) 1.34 [place] # (Auto) 2.18 H Eos # (Auto) 0.00 Baso # (Auto) 0.01 Immature Gran # (Auto) 0.95 H Absolute Nucleated RBC 0.10 H Nucleated RBC % (auto) 0.6 Polychromasia Hypochromasia Anisocytosis Sodium 133 L Potassium 3.6 Chloride 99 Carbon Dioxide 22 Anion Gap 12.0 H BUN 79 H Creatinine 2.07 H D Est Cr Clr Drug Dosing 23.6 Est GFR ( Amer) 25.0 Est GFR (Non-Af Amer) 21.6 BUN/Creatinine Ratio 37.9 H Glucose 106 H Calcium 9.4 Magnesium 1.7 L Total Bilirubin 0.4 AST 23 ALT 19 Alkaline Phosphatase 142 H Troponin I C-Reactive Protein Total Protein 7.1 Albumin 2.4 L Globulin 4.7 H Albumin/Globulin Ratio 0.5 L Lipase Procalcitonin TSH 6.170 H Free T4 1.35 Urine Color Urine Appearance Urine pH Ur Specific [place] Urine Protein Urine Glucose (UA) Urine Ketones Urine Blood Urine Nitrite Urine Bilirubin Urine Urobilinogen Ur Leukocyte Esterase Urine WBC (Auto) Urine RBC (Auto) U Hyaline Cast (Auto) U Epithel Cells (Auto) Urine Bacteria (Auto) Nasal Screen MRSA (PCR) Negative Stool Occult Bld Scrn Stl C. diff Tox B Gene COVID-19 Eval Order SARS-CoV-2 (PCR) Blood Type Antibody Screen Antibody Identification Antibody ID Comment Crossmatch 07/29/21 07/29/21 07/29/21 09:37 Unknown Unknown WBC RBC Hgb Hct MCV MCH MCHC RDW Std Deviation RDW Coeff of Amaya Plt Count MPV Immature Gran % (Auto) Neut % (Auto) Lymph % (Auto) [place] % (Auto) Eos % (Auto) Baso % (Auto) Neut # (Auto) Lymph # (Auto) [place] # (Auto) Eos # (Auto) Baso # (Auto) Immature Gran # (Auto) Absolute Nucleated RBC Nucleated RBC % (auto) Polychromasia Hypochromasia Anisocytosis Sodium Potassium Chloride Carbon Dioxide Anion Gap BUN Creatinine Est Cr Clr Drug Dosing Est GFR ( Amer) Est GFR (Non-Af Amer) BUN/Creatinine Ratio Glucose Calcium Magnesium Total Bilirubin AST ALT Alkaline Phosphatase Troponin I < 0.015 C-Reactive Protein Total Protein Albumin Globulin Albumin/Globulin Ratio Lipase Procalcitonin TSH Free T4 Urine Color Urine Appearance Urine pH Ur Specific [place] Urine Protein Urine Glucose (UA) Urine Ketones Urine Blood Urine Nitrite Urine Bilirubin Urine Urobilinogen Ur Leukocyte Esterase Urine WBC (Auto) Urine RBC (Auto) U Hyaline Cast (Auto) U Epithel Cells (Auto) Urine Bacteria (Auto) Nasal Screen MRSA (PCR) Stool Occult Bld Scrn Positive A Stl C. diff Tox B Gene Negative Cdiff Gene COVID-19 Eval Order SARS-CoV-2 (PCR) Blood Type Antibody Screen Antibody Identification Antibody ID Comment Crossmatch
--- NOTE | 2021-07-29 16:47 | CT Scan Report ---
ABDOMEN AND PELVIS CT WITHOUT CONTRAST CT DOSE: 1739.79 mGy.cm HISTORY: Acute weakness with nausea and vomiting n/v, weakness, ?source infection TECHNIQUE: Multiaxial CT images of the abdomen and pelvis were performed without contrast. A dose lo wering technique was utilized adhering to the principles of ALARA. COMPARISON STUDY: CT abdomen and pelvis 06/15/2016 FINDINGS: Cardiac megaly with coronary artery calcifications. Dense airspace consolidation with air bronchogram s of the basal right lower lobe. Bibasilar mucous plugging with patchy groundglass and consolidative left basilar opacities. Limited study secondary to upper extremity positioning and lack of contrast. No pneumatosis or pneumoperitoneum. The unenhanced spleen, moderately atrophic pancreas and adrenal glands are unremarkable. Cholecystect tahmina. Hepatic steatosis. Mild cortical thinning of the kidneys. Contour nodularity of the right kidney with indeterminate intermediate attenuating lesion redemonstrated measuring up to 2.4 cm, previously 1.9 cm. Areas of mild marginal calcification. No renal or ureteral calculi or hydronephrosis. Streak artifact from right hip total joint arthroplasty limits evaluation of the pelvic structures. Nodular ity of the uterus suggests probable fibroid uterus. Fusiform dilation of the descending thoracic aort a measures up to 3.8 cm transversely. Atherosclerosis of aorta without aneurysm. No adenopathy. Distended air and fluid-filled stomach with numerous air and fluid-filled distended loops of small sarahi wel. Transitioning to decompressed loops of small bowel are noted with transitioning in the midline l ower pelvis on image 313 series 3. Colonic diverticulosis. Partial colectomy with transverse colostom y. Large parastomal hernia with diastases of 9 x 10 cm contains mesenteric fat and several loops of s mall bowel, increased in size from comparison. A portion of the stomach partially extends into this h ernia as well. Atrophy of the left thigh musculature. Degenerative changes of the spine, pelvis and l eft hip. IMPRESSION: 1. Right greater than left bibasilar opacities are suggestive of pneumonia. Associated bibasilar muco us plugging should be correlated clinically to exclude aspiration. 2. Distended air and fluid-filled stomach with numerous distended loops of small bowel with transitio francisco decompressed small bowel within the lower pelvis. Findings are concerning for a small bowel obst ruction. 3. No pneumatosis or pneumoperitoneum. 4. 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 5. Intermediate attenuating lesions of the right kidney, the largest of which measures 2.4 cm. These could be correlated with ultrasound to exclude solid renal lesions. 6. Hepatic steatosis. 7. Additional findings as above. ACT 112: Negative or not required by law. The above report was generated using voice recognition software. It may contain grammatical, syntax o r spelling errors. Electronically signed by: Chapin Grewal M.D. 07/29/2021 4:46 PM
--- NOTE | 2021-07-29 17:05 | CT Scan Report ---
CT ankle LT wo con, CT ankle RT wo con HISTORY: 85 years-old Female eval infection, recent surgery acute bilateral ankle pain with reported recent surgery COMPARISON: Fluoroscopic images of the ankles 07/14/2021, left ankle CT 07/13/2021. TECHNIQUE: Multiple axial CT images of the bilateral ankles were obtained without the use of IV contr ast. Additional 3-D images were generated from a separate workstation. A dose lowering technique was used consistent with the principals of CHONG. FINDINGS: LEFT: Acute trimalleolar fracture of the left ankle status post ORIF. Intramedullary andrzej extends from the c alcaneus into the talus and tibia with associated large cannulated screw of the calcaneus and additio nal screws within the tibia and talus which appear intact. Bone fragments are noted along the plantar aspect of the calcaneus near the screw tract. There is improved alignment status post ORIF. There re meir mild persistent displacement of the comminuted fracture fragments. Impaction fracture of the an terolateral talar dome redemonstrated. Numerous intra-articular fracture fragments measure up to appr oximately 7 mm. Moderate multifocal osteoarthritis with demineralized appearance of the bones. Modera te subcutaneous and deep tissue edema with lower extremity varices. Tendons and ligaments are not wel l evaluated by CT technique. No discrete postoperative fluid collections. RIGHT: Status post placement of 2 cannulated screws traversing the acute intra-articular oblique fracture in volving the posterior malleolus. Fracture lines extend into the lateral aspect of the distal tibia wi th intra-articular extension is placed laterally 3 mm. Acute comminuted fracture component also exten ds into the medial malleolus without significant displacement. There is moderate tibiotalar osteoarth ritis. No additional acute fracture or dislocation identified. Spurring of the calcaneus. The distal fibula appears intact. Arterial calcifications. Mild to moderate diffuse subcutaneous edema. No postoperative fluid collecti ons. Ligaments and tendons are not well evaluated by CT technique. Suggested peroneal tendinosis. IMPRESSION: 1. Fixated acute trimalleolar fracture of the left ankle with improved alignment status post ORIF. Th ere are numerous subcentimeter intra-articular fracture fragments. 2. Acute impaction fracture of the anterolateral left talar dome redemonstrated. 3. Satisfactory alignment of the acute fixated right distal tibial fracture with additional nondispla isamar fracture components involving the medial and lateral aspects of the distal tibia with mild commin ution. No definite intra-articular loose body of the right ankle. 4. No postoperative fluid collections. ACT 112: Negative or not required by law. The above report was generated using voice recognition software. It may contain grammatical, syntax o r spelling errors. Electronically signed by: Chapin Grewal M.D. 07/29/2021 5:03 PM
[2021-07-29] MEDS: ACETAMINOPHEN 325 MG TAB PO PRN (17:07)
[2021-07-29] MEDS: ONDANSETRON INJ 2 MG/ML 2 ML VIAL IV PRN (21:20)
[2021-07-29] MEDS: AZITHROMYCIN 250 MG in DEXTROSE 5% 250 ML IV SCH (21:21)
[2021-07-29] MEDS: CYANOCOBALAMIN 500 MCG TABLET (VITAMIN B-12) PO SCH (21:21)
[2021-07-29] MEDS ORDERED: BENZONATATE 100 MG CAPSULE PO ONE (21:51)
--- NOTE | 2021-07-29 21:58 | Surgery Consultation ---
Date of Consultation July 29, 2021 Assessment & Plan (1) Small bowel obstruction: I suspect patient small bowel obstruction is likely on the basis of adhesions that she has had prior surgery. We recommend proceeding as follows: Continue n.p.o. status as ordered by primary service Recommend implementing hydration measures with IV fluids. I discussed with the primary service and they're planning on ordering this Continue to follow serial laboratories and correct any electrolyte abno rmalities that are noted, particular hypokalemia Continue to follow serial KUB x-rays Patient does have continued nausea vomiting I recommended an NG tube placement for decompression. Despite my recommendation the patient is adamantly refused this modality. Provide antiemetics In addition to refusing NG tube placement the patient also adamantly noted that she does not want surgical intervention of any kind. We'll continue to follow along while patient is hospitalized Supervising Physician Co-Signing Physician Notes I personally saw and evaluated the patient with Nick Jamison PA-C and agree with the assessment and plan 85 yo female with ileus versus SBO -CT images and results reviewed -Keep NPO -IVF -Monitor her symptoms for now History of Present Illness Attending Physician: Diane Blackman MD History of Present Illness This is an 85-year-old female who was admitted to the hospital on 07/28/2021 secondary to cough and shortness of breath. Patient was noted to have si gnificant leukocytosis and was found on imaging to have pneumonia. Admission she has been started on antibiotics including azithromycin as well as Zosyn. She does complain of some intermittent shortness of breath particularly with activity. Since admission the patient is also exhibited nausea vomiting. Patient says that she has had previous abdominal surgeries including a partial colectomy and colostomy placement. In addition the patient has some minor abdominal pain that she feels is improved when she vomits. She notes that her colostomy has not been putting out as much output as usual. Patient's labs and imaging were reviewed. She had a CT scan of the abdomen and pelvis today without any contrast. This showed the patient had right and left bibasilar opacities concerning for pneumonia. She is also noted to have a distended air and fluid-filled stomach with distended loops of small bowel proximally and decompressed small bowel distally. This was concerning for small bowel obstruction. There is no evidence of pneumoperitoneum. Labs from today included a white blood cell count of 17.5. Her hemoglobin and hematocrit were noted to be 7.5 and 23.4. Platelet count was noted to be within normal range. Chemistry profile revealed sodium and potassium are 133 and 3.6 respectively. Her BUN and creatinine were 79 and 2.07. The white blood cell count on today's labs was elevated and was consistent with lab values over the past several days. Her low hemoglobin and hematocrit is near her baseline and did not constitute a precipitous drop. Review the patient's labs reveal that her creatinine usually runs around 1.7-1.8 at baseline. Patient was noted to also have a stool occult blood screen that was positive. A Covid test performed this admission on 07/28/2021 was noted to be negative. Patient has been seen by GI for her anemia and did not feel the patient had a significant drop in her hemoglobin and hematocrit. They did not feel any endoscopy was required at this time and an EGD and colonoscopy can be pursued electively as an outpatient when she is recovered from her current illness. At the time of my interview the patient was resting in bed. She did not appear to be in any distress. Allergies Allergy/AdvReac Type Severity Reaction Status Date / Time oxytetracycline Allergy Intermediate Unknown Verified 07/28/21 17:58 polymyxin B Allergy Intermediate Unknown Verified 07/28/21 17:58 tetracycline Allergy Intermediate Unknown Verified 07/28/21 17:58 morphine AdvReac Unknown Unknown Verified 07/28/21 17:58 Home Medications Medication Instructions Recorded Confirmed Type allopurinol 100 mg tablet 100 mg PO [facility] 02/15/21 07/28/21 History (Zyloprim) aspirin 81 mg tablet,delayed 81 mg PO [facility] 02/15/21 07/28/21 History release (Aspirin Low Dose) atenolol 25 mg tablet (Tenormin) 12.5 mg PO [facility] 02/15/21 07/28/21 History atorvastatin 20 mg tablet (Lipitor) 20 mg PO [facility] 02/15/21 07/28/21 History cholecalciferol (vitamin D3) 25 25 mcg PO 02/15/21 07/28/21 History mcg (1,000 unit) capsule (Vitamin D3) cyanocobalamin (vitamin B-12) 3,000 mcg PO 02/15/21 07/28/21 History 1,000 mcg tablet (Vitamin B-12) fluticasone 250 mcg-salmeterol 50 1 inh INHALATION BID 02/15/21 07/28/21 History mcg/dose blistr powdr for inhalation (Advair Diskus) fluticasone propionate 50 1 spray INTRANASAL BID 02/15/21 07/28/21 History mcg/actuation nasal spray,suspension (Flonase Allergy Relief) furosemide 20 mg tablet (Lasix) 20 mg PO DAILY PRN 02/15/21 07/28/21 History vitamin E 1,000 unit capsule 1,000 unit PO HS 02/15/21 07/28/21 History ferrous sulfate 325 mg (65 mg 325 mg PO HS 07/13/21 07/28/21 History iron) tablet (iron) hydrocodone 5 mg-acetaminophen 325 1 tab PO Q12 PRN 07/13/21 07/28/21 History mg tablet trolamine salicylate 10 % topical 1 applic TOPICAL TID PRN 07/13/21 07/28/21 History cream (Aspercreme) Oxygen Home #1 ea 07/25/21 07/28/21 Rx acetaminophen 500 mg tablet 1,000 mg PO TID #0 tab 07/25/21 07/28/21 Rx (Tylenol Extra Strength) apixaban 2.5 mg tablet (Eliquis) 2.5 mg PO BID #4 tab 07/25/21 07/28/21 Rx hydroxyzine HCl 10 mg tablet 10 mg PO HS PRN #10 tab 07/25/21 07/28/21 Rx levothyroxine 200 mcg tablet 200 mcg PO DAILYBB 07/28/21 07/28/21 History losartan 50 mg tablet 50 mg PO BID 07/28/21 07/28/21 History Patient History Medical History Anemia Arthropathy of right knee Asthma 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 Diverticulitis Failure of outpatient treatment Hypothyroidism Morbid obesity Rapidly progressive weakness UTI (urinary tract infection) Surgical History H/O heart artery stent History of arthroplasty of left knee Status post lens implant Social History Smoking Status: Never smoker Hx Alcohol Use: No Hx Substance Use: No Preferred Language: [place] Communication Ability: Effective Card Painter Required: No Beliefs That Will Affect Care: None marital status: / Current Living Situation: [facility] Current Living Situation Comment: Neighbor stops over to assist, comes by at least daily Other Information That Helps Us Care for You: No Feels Safe at Home: Yes Assistive Devices: Glasses and Hearing Aid - Bilateral Review of Systems Constitutional: + fatigue; no fever and no chills Eyes: + corrective lenses Ear, Nose, Mouth, Throat: + hearing loss; no ear pain Respiratory: + cough and + dyspnea Cardiovascular: no chest pain Gastrointestinal: + abdominal pain and + nausea Genitourinary: no dysuria Musculoskeletal: no back pain Integumentary: no rash Neurologic: no localized weakness Physical Exam Constitutional: well developed and well nourished; no acute distress Eyes: no corneal abnormality ENMT: Ears: + hearing impairment Mouth: no oropharynx abnormality Neck: trachea midline Respiratory: normal respiratory effort; no respiratory distress and no labored breathing Cardiovascular: Rate/Rhythm: regular rate and regular rhythm Gastrointestinal (Abdomen): Patient's abdomen is mildly distended. There is minimal pain with palpation in a generalized fashion. There is no rebound tenderness or guarding. Patient has a colostomy noted that appears viable. There is minimal output in the collection bag. Musculoskeletal: No calf tenderness Skin: no rashes Neurologic: moves all extremities Psychiatric: A+Ox3, euthymic affect Results & Data ([facility]) Vital Signs (Past 12 Hours) Vital Signs Temp Pulse Resp BP Pulse Ox 07/29/21 14:37 36.6 C 62 18 176/88 H 91 07/29/21 12:30 36.5 C 75 18 157/64 H 95 07/29/21 12:15 61 20 133/48 L 99 07/29/21 11:45 36.5 C 61 20 133/48 L 99 07/29/21 11:15 36.5 C 67 20 134/74 96 07/29/21 10:58 36.4 C L 62 18 105/51 L 92 07/29/21 10:42 36.5 C 77 20 143/85 H PG Care Time/CCT Total # of Minutes Spent Total Time Spent with Patient: Total time spent is greater than 50% in coordination of care (as documented) at patient's floor/unit and/or counseling patient: Coding Level of Care Code 12836 Inpt Consult Level 5 Diagnoses Small bowel obstruction K56.609
--- NOTE | 2021-07-29 23:11 | Electrocardiogram Report ---
Test Reason : Blood Pressure : / mmHG Vent. Rate : 069 BPM Atrial Rate : 069 BPM P-R Int : 194 ms QRS Dur : 090 ms QT Int : 434 ms P-R-T Axes : -04 011 050 degrees QTc Int : 465 ms Normal sinus rhythm with sinus arrhythmia Normal ECG When compared with ECG of 25-Jul-2021 14:27, Nonspecific T wave abnormality is no longer Present Confirmed by Obinna Sullivan ([id number]) on 07/29/2021 11:10:36 PM Referred By: Winnie Bergman Confirmed By:Obinna Sullivan
[2021-07-29] MEDS: SODIUM CHLORIDE 0.9% 1000ML 1,000 ML IV SCH (23:21)
[2021-07-30] MEDS: ONDANSETRON INJ 2 MG/ML 2 ML VIAL IV PRN ×2 (03:52→15:51)
[2021-07-30] MEDS: PIPERACILLIN/TAZOBACTAM 3.375 GM in DEXTROSE 5% 100 ML IV SCH ×3 (05:09→21:00)
[2021-07-30] MEDS: SODIUM CHLORIDE 0.9% 1000ML 1,000 ML IV SCH (05:09)
[2021-07-30] MEDS: LEVOTHYROXINE SODIUM 75 MCG TABLET PO SCH (05:10)
--- NOTE | 2021-07-30 05:47 | Surgery Progress Note ---
Date of Service July 30, 2021 Assessment & Plan (1) Small bowel obstruction: Plan: Small bowel obstruction is likely due to adhesions from previous surgery: Continue n.p.o. status until bowel function improved Continue hydration measures with IV fluids until able to take oral intake adequately Follow serial labs Check KUB this morning If any further nausea vomiting ensue I recommend placing an NG tube although the patient has refused this modality Continue antiemetics as needed Admission and Anticipated Discharge Date Admission Date: July 28, 2021 Supervising Physician Co-Signing Physician Notes I personally saw and evaluated the patient with Nick Jamison PA-C and agree with the assessment and plan 85 yo female with ileus versus SBO -Denies any abdominal pain at this point and some gas in colostomy bag -Keep NPO for today until more meaningful output from ostomy -IVF Subjective Patient resting in bed. She denies any worsening abdominal pain and has not had any further nausea vomiting since my most recent visit last evening. Physical Exam Gastrointestinal (Abdomen): Sounds are hypoactive. Abdomen is mildly distended. There is minimal pain with palpation. Results & Data ([facility]) Vital Signs (Past 12 Hours) Vital Signs Temp Pulse Resp BP Pulse Ox 07/29/21 22:46 36.3 C L 65 24 132/59 L 94 PG Care Time/CCT Total # of Minutes Spent Total Time Spent with Patient: Total time spent is greater than 50% in coordination of care (as documented) at patient's floor/unit and/or counseling patient: Coding Level of Care Code 24353 Subseq Hosp Care Lvl 1 Diagnoses Small bowel obstruction K56.609
[2021-07-30 07:06] LABS: Hematocrit (blood only) 27.5 % (37-47); Hemoglobin 8.5 g/dL (12.0-16.0); Mean Corpuscular Hgb Conc 30.9 g/dL (32-36); Mean Corpuscular Volume 97.2 fL (80-100); Mean Platelet Volume 11.4 fL (7.4-10.4); Nucleated RBC # (auto) 0.15 K/uL (0-0); Nucleated RBC % (auto) 1.1 %; Platelet Count 361 K/uL (130-400); RDW Standard Deviation 65.4 fL (36.4-46.3); Red Blood Count 2.83 M/uL (4.2-5.4); White Blood Count 13.64 K/uL (4.8-10.8)
[2021-07-30 07:29] LABS: ALC (manual) 1.77 K/uL (1.2-3.4); ANC (manual) 9.96 K/uL (1.4-6.5); Giant Platelets 1+; Lymphocytes # (manual) 1.77 K/uL (1.2-3.4); Metamyelocytes # (manual) 0.27 K/uL (0-0); Monocytes # (manual) 0.82 K/uL (0.11-0.59); Myelocytes # (manual) 0.82 K/uL (0-0); Neutrophils # (manual) 9.96 K/uL (1.4-6.5); Ovalocytes 1+; Polychromasia 1+; Potassium 3.7 mmol/L (3.5-5.1)
--- NOTE | 2021-07-30 07:32 | Hospitalist Progress Note ---
Date of Service July 30, 2021 Assessment & Plan (1) Small bowel obstruction: Plan: Admitted with n/v, TIM and Leukocytosis/Pneumonia and subsequent decrease in ostomy output (black in ostomy but on iron +occult blood and GI felt no need for inpatient intervention) GI on consult -- felt black stool from iron supplementation and outpatient scope CTAP 1. Right greater than left bibasilar opacities are suggestive of pneumonia. Associated bibasilar mucous plugging should be correlated clinically to exclude aspiration. 2. Distended air and fluid-filled stomach with numerous distended loops of small bowel with transitioning decompressed small bowel within the lower pelvis. Findings are concerning for a small bowel obstruction. 3. No pneumatosis or pneumoperitoneum. 4. 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 General surgery on consult given vomiting 07/29 and obstruction on imaging Patient continues to refuse NGT Continue NPO IVF initiated at 150cc/hr overnight but decreased to 75cc/hr to prevent overload (BNP elevated last admit and ARB held for elevated CR, resumed at d/c) Mag 1.9 and given 1gm IV to keep ~2. Add K to IVF Ostomy with lots of gas/small liquid ostomy outpt but continuing NPO for now, supportive care/electrolyte replacement KUB with continued obstruction WBC improving on azithro/zosyn for CAP as below. Afebrile. (2) Pneumonia: Plan: Bilateral opacities, elevated WBC, productive green sputum/saab/lundberg sputum, no fever ?If possible related to aspiration from increased lethargy from pain medications used/multiple surgeries/adhesions and obstruction resulting in n/v/aspiration and resulting aspiration pneumonia. Tx for CAP given recent hospitalization but could suspect 2nd to aspiration --> Azithro/Zosyn for HCAP -- on day 2 of therapy. MRSA Nasal negative Albuterol, flutter valve Also, 1u prbc and venofer administered 07/29 for hgb 7.5 with reported shortness of breath but hgb around baseline and did get 1L IVF for TIM on admit Sputum cx if able to produce Stable on ROOM AIR Continue to monitor (3) Anemia: Plan: hgb 7.5 and received 1u PRBC and Venofer on 07/29 Did get 1L on admit and now on IVF for SBO so suspect dilution on labs as hgb was stable at 8 for a week prior No further blood for now, hgb stable at 8.[address] imaging, ,however did have +fecal occult but is on iron supplementation and GI felt this was cause and no need for inpatient scope Placed on PPI BID IV while NPO as above ostomy output COMPLETELY BLACK GI does not feel inpatient EGD necessary (4) TIM (acute kidney injury): Plan: Acute on chronic CKD III Holding ARB/lasix for now avoid nephrotoxic drugs on IVF for SBO as above, Cr currently 1.92 from 2.49 on admit (baseline recently closer to 1.8) Of note, would rec renal US given incidental findings on CT to rule out solid masses BMP in AM (5) Vomiting: Plan: Patient feels its from her [place] however could be from GI bleed given +fecal occult/as above and NOW OBSTRUCTION Repeat trop <0.015 Now with obstruction as above +ABD pain but improved but no need for medications per patient at this time 1 episode of emesis overnight 11/ Antiemetics prn (6) Leukocytosis: Plan: Improving with zithro/cefepime 2nd to SBO/pneumonia as above Urine cx without evidence of infection Recent b/l ankle fx. Imaging without evidence of infection but Dr Garvin by today to remove remaining sutures (7) Fracture dislocation of ankle: Plan: POD 14 s/p b/l ORIF completed by Dr Garvin. Completed course of dvt proph per podiatry with eliquis to total of 14 days post-op which was for 2 more days, since d/c continue rehab, PT/OT contacted Dr Garvin and he will see patient while hospitalized -- plans for suture removal this afternoon CT ankles with better alignment but still noting fractures. No increased pain/erythema or warmth above prior eval (8) CAD (coronary artery disease): Plan: With 1 stent to circumflex 2003 Holding ASA as above (9) Hypothyroidism: Plan: Continue Synthroid 225mcg TSH elevated to 6.17 during this admission however was 20.6 last admission when checked and Synthroid was increased to 225mcg daily Rec repeat TFT in 4 weeks for eval on further adjustments if needed (10) Positive occult stool blood test: Plan: on iron outpatient outpatient scope per GI Plan: NPO, IVF, supportive care General surgery on consult continued inpatient stay If hgb stable on repeat hgb over next 24-48 hours, would start Lovenox 40SQ daily but will utilize SCDs for now Was at [facility] for rehab and hopefully they will be able to take back when medically stable. CM following Admission and Anticipated Discharge Date Admission Date: July 28, 2021 Supervising Physician Co-Signing Physician Notes PAOLA Supervision Note: I did not personally see or examine the patient today, but I verified all lay points of PAOLA Hernandez's assessment and plan with the following exceptions/additions: None Subjective episode of emesis last night, still reports brown/lundberg in color. some output from ostomy but still with poor oral output. Refusing NGT but discussed if persists and worsening pain would recommend. KUB with persistent obstruction. Minimal output this morning , black in color. Continues on IVF, supportive care, NPO. No pain reported or nausea at this time. She states she feels tired and hoping to feel better with all the testing. No fever, chills, chest pain. Coughing but not able to bring up any sputum. Review of Systems Review of Systems: All systems reviewed & are unremarkable except as noted in HPI & below Physical Exam Physical Exam: General: awake, alert, no apparent distress resting in bed, easily arousable, hoarse voice (slightly improved) ENT: slightly dry mm, LUCILLE, EOMI trachea midline without deviation Resp: scattered crackles, no wheezing, no accessory muscle use or work of breathing. on room air CV; RRR, systolic murmur, calves nontender, no edema ; hypoactive BS throughout, ostomy with lots of gas/minimal BLACK drainage, minimally tender, no guarding or rigidity MSK; bruising and chronic venous stasis, healing incisions to b/l ankles. no increased erythema or warmth, pulses palpable. NVI Psych: AO, anxious affect Skin: surgical incisions intact, venous stasis b/l LE, erythema to b/l buttocks without purulent drainage or signs of infection Results & Data Results & Data ([facility]) Vital Signs (Past 12 Hours) Vital Signs Temp Pulse Resp BP Pulse Ox 07/29/21 22:46 36.3 C L 65 24 132/59 L 94 Laboratory Results 07/30/21 07/30/21 07/28/21 Range/Units 06:46 06:46 21:01 WBC 13.64 H (4.8-10.8) K/uL RBC 2.83 L (4.2-5.4) M/uL Hgb 8.5 L (12.0-16.0) g/dL Hct 27.5 L (37-47) % MCV 97.2 (80-100) fL MCH 30.0 (25-34) pg MCHC 30.9 L (32-36) g/dL RDW Std Deviation 65.4 H (36.4-46.3) fL RDW Coeff of Amaya 19.0 H (11.5-14.5) % Plt Count 361 (130-400) K/uL MPV 11.4 H (7.4-10.4) fL Absolute Nucleated RBC 0.15 H (0-0) K/uL Nucleated RBC % (auto) 1.1 % Neutrophils % (Manual) 73.0 % Lymphocytes % (Manual) 13.0 % Monocytes % (Manual) 6.0 % Metamyelocytes % (Man) 2.0 % Myelocytes % (Man) 6.0 % Neutrophils # (Manual) 9.96 H (1.4-6.5) K/uL Total Absolute Neuts 9.96 H (1.4-6.5) K/uL Lymphocytes # (Manual) 1.77 (1.2-3.4) K/uL Total Abs Lymphocytes 1.77 (1.2-3.4) K/uL Monocytes # (Manual) 0.82 H (0.11-0.59) K/uL Metamyelocytes # (Man) 0.27 H (0-0) K/uL Myelocytes # (Manual) 0.82 H (0-0) K/uL Giant Platelets 1+ Polychromasia 1+ Ovalocytes 1+ Sodium 135 L (136-145) mmol/L Potassium 3.7 (3.5-5.1) mmol/L Chloride 104 (98-107) mmol/L Carbon Dioxide 21 (21-32) mmol/L Anion Gap 10.0 (3-11) BUN 65 H (7-18) mg/dl Creatinine 1.92 H (0.6-1.2) mg/dl Est Cr Clr Drug Dosing 25.5 ml/min Est GFR ( Amer) 27.4 ml/min Est GFR (Non-Af Amer) 23.7 ml/min BUN/Creatinine Ratio 34.0 H (10-20) Glucose 99 (70-99) mg/dl Calcium 8.6 (8.5-10.1) mg/dl Magnesium 1.9 (1.8-2.4) mg/dl Crossmatch See Detail Diagnostic Findings Abdomen/Pelvis CT 07/29/21 09:[address] WITHOUT CONTRAST CT DOSE: 1739.79 mGy.cm HISTORY: Acute weakness with nausea and vomiting n/v, weakness, ?source infection TECHNIQUE: Multiaxial CT images of the abdomen and pelvis were performed without contrast. A dose lowering technique was utilized adhering to the principles of ALARA. COMPARISON STUDY: CT abdomen and pelvis 06/15/2016 FINDINGS: Cardiac megaly with coronary artery calcifications. Dense airspace consolidation with air bronchograms of the basal right lower lobe. Bibasilar mucous plugging with patchy groundglass and consolidative left basilar opacities. Limited study secondary to upper extremity positioning and lack of contrast. No pneumatosis or pneumoperitoneum. The unenhanced spleen, moderately atrophic pancreas and adrenal glands are unremarkable. Cholecystectomy. Hepatic steatosis. Mild cortical thinning of the kidneys. Contour nodularity of the right kidney with indeterminate intermediate attenuating lesion redemonstrated measuring up to 2.4 cm, previously 1.9 cm. Areas of mild marginal calcification. No renal or ureteral calculi or hydronephrosis. Streak artifact from right hip total joint arthroplasty limits evaluation of the pelvic structures. Nodularity of the uterus suggests probable fibroid uterus. Fusiform dilation of the descending thoracic aorta measures up to 3.8 cm transversely. Atherosclerosis of aorta without aneurysm. No adenopathy. Distended air and fluid-filled stomach with numerous air and fluid-filled distended loops of small bowel. Transitioning to decompressed loops of small bowel are noted with transitioning in the midline lower pelvis on image 313 series 3. Colonic diverticulosis. Partial colectomy with transverse colostomy. Large parastomal hernia with diastases of 9 x 10 cm contains mesenteric fat and several loops of small bowel, increased in size from comparison. A portion of the stomach partially extends into this hernia as well. Atrophy of the left thigh musculature. Degenerative changes of the spine, pelvis and left hip. IMPRESSION: 1. Right greater than left bibasilar opacities are suggestive of pneumonia. Associated bibasilar mucous plugging should be correlated clinically to exclude aspiration. 2. Distended air and fluid-filled stomach with numerous distended loops of small bowel with transitioning decompressed small bowel within the lower pelvis. Findings are concerning for a small bowel obstruction. 3. No pneumatosis or pneumoperitoneum. 4. 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 5. Intermediate attenuating lesions of the right kidney, the largest of which measures 2.4 cm. These could be correlated with ultrasound to exclude solid miller l lesions. 6. Hepatic steatosis. 7. Additional findings as above. ACT 112: Negative or not required by law. The above report was generated using voice recognition software. It may contain grammatical, syntax or spelling errors. Electronically signed by: Chapin Grewal M.D. 07/29/2021 4:[address] 07/29/21 09:27 CT ankle LT wo con, CT ankle RT wo con HISTORY: 85 years-old Female eval infection, recent surgery acute bilateral ankle pain with reported recent surgery COMPARISON: Fluoroscopic images of the ankles 07/14/2021, left ankle CT 07/13/2021. TECHNIQUE: Multiple axial CT images of the bilateral ankles were obtained without the use of IV contrast. Additional 3-D images were generated from a separate workstation. A dose lowering technique was used consistent with the principals of CHONG. FINDINGS: LEFT: Acute trimalleolar fracture of the left ankle status post ORIF. Intramedullary andrzej extends from the calcaneus into the talus and tibia with associated large cannulated screw of the calcaneus and additional screws within the tibia and talus which appear intact. Bone fragments are noted along the plantar aspect of the calcaneus near the screw tract. There is improved alignment status post ORIF. There remains mild persistent displacement of the comminuted fracture fragments. Impaction fracture of the anterolateral talar dome redemonstrated. Numerous intra-articular fracture fragments measure up to approximately 7 mm. Moderate multifocal osteoarthritis with demineralized appearance of the bones. Moderate subcutaneous and deep tissue edema with lower extremity varices. Tendons and ligaments are not well evaluated by CT technique. No discrete postoperative fluid collections. RIGHT: Status post placement of 2 cannulated screws traversing the acute intra- articular oblique fracture involving the posterior malleolus. Fracture lines extend into the lateral aspect of the distal tibia with intra-articular extension is placed laterally 3 mm. Acute comminuted fracture component also extends into the medial malleolus without significant displacement. There is moderate tibiotalar osteoarthritis. No additional acute fracture or dislocation identified. Spurring of the calcaneus. The distal fibula appears intact. Arterial calcifications. Mild to moderate diffuse subcutaneous edema. No postoperative fluid collections. Ligaments and tendons are not well evaluated by CT technique. Suggested peroneal tendinosis. IMPRESSION: 1. Fixated acute trimalleolar fracture of the left ankle with improved alignment status post ORIF. There are numerous subcentimeter intra-articular fracture fragments. 2. Acute impaction fracture of the anterolateral left talar dome redemonstrated. 3. Satisfactory alignment of the acute fixated right distal tibial fracture with additional nondisplaced fracture components involving the medial and lateral aspects of the distal tibia with mild comminution. No definite intra-articular loose body of the right ankle. 4. No postoperative fluid collections. ACT 112: Negative or not required by law. The above report was generated using voice recognition software. It may contain grammatical, syntax or spelling errors. Electronically signed by: Chapin Grewal M.D. 07/29/2021 5:[address] 07/29/21 09:27 CT ankle LT wo con, CT ankle RT wo con HISTORY: 85 years-old Female eval infection, recent surgery acute bilateral ankle pain with reported recent surgery COMPARISON: Fluoroscopic images of the ankles 07/14/2021, left ankle CT 07/13/2021. TECHNIQUE: Multiple axial CT images of the bilateral ankles were obtained without the use of IV contrast. Additional 3-D images were generated from a separate workstation. A dose lowering technique was used consistent with the principals of ALARA. FINDINGS: LEFT: Acute trimalleolar fracture of the left ankle status post ORIF. Intramedullary andrzej extends from the calcaneus into the talus and tibia with associated large cannulated screw of the calcaneus and additional screws within the tibia and talus which appear intact. Bone fragments are noted along the plantar aspect of the calcaneus near the screw tract. There is improved alignment status post ORIF. There remains mild persistent displacement of the comminuted fracture fragments. Impaction fracture of the anterolateral talar dome redemonstrated. Numerous intra-articular fracture fragments measure up to approximately 7 mm. Moderate multifocal osteoarthritis with demineralized appearance of the bones. Moderate subcutaneous and deep tissue edema with lower extremity varices. Tendons and ligaments are not well evaluated by CT technique. No discrete postoperative fluid collections. RIGHT: Status post placement of 2 cannulated screws traversing the acute intra- articular oblique fracture involving the posterior malleolus. Fracture lines extend into the lateral aspect of the distal tibia with intra-articular extension is placed laterally 3 mm. Acute comminuted fracture component also extends into the medial malleolus without significant displacement. There is moderate tibiotalar osteoarthritis. No additional acute fracture or dislocation identified. Spurring of the calcaneus. The distal fibula appears intact. Arterial calcifications. Mild to moderate diffuse subcutaneous edema. No postoperative fluid collections. Ligaments and tendons are not well evaluated by CT technique. Suggested peroneal tendinosis. IMPRESSION: 1. Fixated acute trimalleolar fracture of the left ankle with improved alignment status post ORIF. There are numerous subcentimeter intra-articular fracture fragments. 2. Acute impaction fracture of the anterolateral left talar dome redemonstrated. 3. Satisfactory alignment of the acute fixated right distal tibial fracture with additional nondisplaced fracture components involving the medial and lateral aspects of the distal tibia with mild comminution. No definite intra-articular loose body of the right ankle. 4. No postoperative fluid collections. ACT 112: Negative or not required by law. The above report was generated using voice recognition software. It may contain grammatical, syntax or spelling errors. Electronically signed by: Chapin Grewal M.D. 07/29/2021 5:03 PM KUB X-Ray 07/30/21 07:00 KUB CLINICAL HISTORY: f/u obstruction COMPARISON STUDY: CT of the abdomen and pelvis July 29, 2021. FINDINGS: Incidental note is made of a right hip arthroplasty and cholecystectomy clips. The stomach is distended. Multiple loops of moderately dilated small bowel are similar to prior CT. Although sensitivity is diminished on this supine exam, there is no evidence for free air. IMPRESSION: 1. Findings suggestive of a persistent small bowel obstruction. 2. Distended stomach. ACT 112: Negative or not required by law. Electronically signed by: Jose Yeboah M.D. 07/30/2021 9:34 AM PG Care Time/CCT Total # of Minutes Spent Total Time Spent with Patient: Total time spent is greater than 50% in coordination of care (as documented) at patient's floor/unit and/or counseling patient: Coding Level of Care Code 04674 Subseq Hosp Care Lvl 3 Diagnoses Leukocytosis D72.829 Pneumonia J18.9 Laterality: bilateral Lung location: lower lobe of lung Pneumonia type: due to unspecified organism TIM (acute kidney injury) N17.9 Vomiting R11.10 Anemia D64.9 Fracture dislocation of ankle S82.892A Encounter type: initial encounter Fracture type: closed Laterality: left CAD (coronary artery disease) I25.10 Hypothyroidism E03.9 Small bowel obstruction K56.609 Positive occult stool blood test R19.5 (1) Fracture dislocation of ankle Encounter type: initial encounter Fracture type: closed Laterality: left Qualified Code(s): S82.892A - Other fracture of left lower leg, initial encounter for closed fracture (2) Pneumonia Laterality: bilateral Lung location: lower lobe of lung Pneumonia type: due to unspecified organism Qualified Code(s): J18.9 - Pneumonia, unspecified organism
[2021-07-30 07:43] LABS: Calcium 8.6 mg/dl (8.5-10.1); Creatinine Clr Calc Pharmacy 25.5 ml/min; Est GFR (African American) 27.4 ml/min; Est GFR (Non-African American) 23.7 ml/min; Magnesium 1.9 mg/dl (1.8-2.4)
[2021-07-30] MEDS ORDERED: SODIUM CHLORIDE 0.9% 1000ML 1,000 ML IV SCH (08:24)
[2021-07-30] MEDS: FLUTICASONE PROPIONATE NA SPR 16 GM BTL SCH ×2 (08:56→20:59)
[2021-07-30] MEDS: FLUTICASONE/VILANTEROL 200/25MCG 14 PUFFS/INHALER INH SCH (08:56)
[2021-07-30] MEDS: ATENOLOL 25 MG TABLET PO SCH (08:56)
[2021-07-30] MEDS: ATORVASTATIN 20 MG TAB PO SCH (08:56)
[2021-07-30] MEDS: PANTOprazole 40 MG in SYRINGE 0 ML IV SCH ×2 (08:57→20:59)
[2021-07-30] MEDS ORDERED: MAGNESIUM SULFATE / D5W 1 GM/100 ML BAG IV ONE (09:00)
--- NOTE | 2021-07-30 09:35 | XRay Report ---
KUB CLINICAL HISTORY: f/u obstruction COMPARISON STUDY: CT of the abdomen and pelvis July 29, 2021. FINDINGS: Incidental note is made of a right hip arthroplasty and cholecystectomy clips. The stomach is distended. Multiple loops of moderately dilated small bowel are similar to prior CT. Although sens itivity is diminished on this supine exam, there is no evidence for free air. IMPRESSION: 1. Findings suggestive of a persistent small bowel obstruction. 2. Distended stomach. ACT 112: Negative or not required by law. Electronically signed by: Jose Yeboah M.D. 07/30/2021 9:34 AM
[2021-07-30] MEDS: hydrOXYzine HCl 10 MG TAB PO PRN (10:07)
[2021-07-30] MEDS: ACETAMINOPHEN 325 MG TAB PO PRN ×2 (10:08→21:02)
--- NOTE | 2021-07-30 12:41 | Orthopedic Consultation ---
Date of Consultation July 30, 2021 Assessment & Plan (1) Fracture dislocation of ankle: Reviewed CT scan. Fixation remains intact and in good alignment. No signs of post operative infection. (2) Ankle fracture: (3) Bilateral ankle fractures: History of Present Illness Attending Physician: Diane Blackman MD History of Present Illness Patient is an 85 y.o. 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 Patient is status post bilateral ankle ORIF post operative day #14. Patient was discharged from the [facility] hospital on 07/25/21 to [place] for rehab. Patient was seen back in [place] ED for leukocytosis on 07/28/21. She is currently on Azithroymycin/Zosyn. Patient seen at bedside resting comfortably with complaint of chest congestion. Patient most recently diagnosed with Small bowel obstruction while in house. Allergies Allergy/AdvReac Type Severity Reaction Status Date / Time oxytetracycline Allergy Intermediate Unknown Verified 07/28/21 17:58 polymyxin B Allergy Intermediate Unknown Verified 07/28/21 17:58 tetracycline Allergy Intermediate Unknown Verified 07/28/21 17:58 morphine AdvReac Unknown Unknown Verified 07/28/21 17:58 Home Medications Medication Instructions Recorded Confirmed Type allopurinol 100 mg tablet 100 mg PO QAM 02/15/21 07/28/21 History (Zyloprim) aspirin 81 mg tablet,delayed 81 mg PO QA 02/15/21 07/28/21 History release (Aspirin Low Dose) atenolol 25 mg tablet (Tenormin) 12.5 mg PO QAM 02/15/21 07/28/21 History atorvastatin 20 mg tablet (Lipitor) 20 mg PO QAM 02/15/21 07/28/21 History cholecalciferol (vitamin D3) 25 25 mcg PO HS 02/15/21 07/28/21 History mcg (1,000 unit) capsule (Vitamin D3) cyanocobalamin (vitamin B-12) 3,000 mcg PO 02/15/21 07/28/21 History 1,000 mcg tablet (Vitamin B-12) fluticasone 250 mcg-salmeterol 50 1 inh INHALATION BID 02/15/21 07/28/21 History mcg/dose blistr powdr for inhalation (Advair Diskus) fluticasone propionate 50 1 spray INTRANASAL BID 02/15/21 07/28/21 History mcg/actuation nasal spray,suspension (Flonase Allergy Relief) furosemide 20 mg tablet (Lasix) 20 mg PO DAILY PRN 02/15/21 07/28/21 History vitamin E 1,000 unit capsule 1,000 unit PO HS 02/15/21 07/28/21 History ferrous sulfate 325 mg (65 mg 325 mg PO HS 07/13/21 07/28/21 History iron) tablet (iron) hydrocodone 5 mg-acetaminophen 325 1 tab PO Q12 PRN 07/13/21 07/28/21 History mg tablet trolamine salicylate 10 % topical 1 applic TOPICAL TID PRN 07/13/21 07/28/21 History cream (Aspercreme) Oxygen Home #1 ea 07/25/21 07/28/21 Rx acetaminophen 500 mg tablet 1,000 mg PO TID #0 tab 07/25/21 07/28/21 Rx (Tylenol Extra Strength) apixaban 2.5 mg tablet (Eliquis) 2.5 mg PO BID #4 tab 07/25/21 07/28/21 Rx hydroxyzine HCl 10 mg tablet 10 mg PO HS PRN #10 tab 07/25/21 07/28/21 Rx levothyroxine 200 mcg tablet 200 mcg PO DAILYBB 07/28/21 07/28/21 History losartan 50 mg tablet 50 mg PO BID 07/28/21 07/28/21 History Patient History Medical History Anemia Arthropathy of right knee Asthma 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 Diverticulitis Failure of outpatient treatment Hypothyroidism Morbid obesity Rapidly progressive weakness UTI (urinary tract infection) Surgical History H/O heart artery stent History of arthroplasty of left knee Status post lens implant Social History Smoking Status: Never smoker Hx Alcohol Use: No Hx Substance Use: No Preferred Language: [place] Communication Ability: Effective Breast Surgeon Required: No Beliefs That Will Affect Care: None marital status: / Current Living Situation: Senior Care Current Living Situation Comment: Neighbor stops over to assist, comes by at least daily Other Information That Helps Us Care for You: No Feels Safe at Home: Yes Assistive Devices: Glasses and Hearing Aid - Left Review of Systems Review of Systems: Systems reviewed per HPI Physical Exam ENMT: slightly dry mm, LUCILLE, EOMI trachea midline without deviation Respiratory: scattered crackles, no wheezing, no accessory muscle use or work of breathing. on room air Cardiovascular: RRR, systolic murmur, calves nontender, no edema Musculoskeletal: bruising and chronic venous stasis, healing incisions to b/l ankles. no increased erythema or warmth, pulses palpable. NVI Skin: surgical incisions intake, venous stasis b/l LE Psychiatric: AO, anxious affect Results & Data ([place]) Vital Signs (Past 12 Hours) Vital Signs Temp Pulse Resp BP Pulse Ox 07/30/21 08:00 36.6 C 73 20 147/56 H 94 Diagnostic Findings FINDINGS: LEFT: Acute trimalleolar fracture of the left ankle status post ORIF. Intramedullary andrzej extends from the calcaneus into the talus and tibia with associated large cannulated screw of the calcaneus and additional screws within the tibia and talus which appear intact. Bone fragments are noted along the plantar aspect of the calcaneus near the screw tract. There is improved alignment status post ORIF. There remains mild persistent displacement of the comminuted fracture fragments. Impaction fracture of the anterolateral talar dome redemonstrated. Numerous intra-articular fracture fragments measure up to approximately 7 mm. Moderate multifocal osteoarthritis with demineralized appearance of the bones. Moderate subcutaneous and deep tissue edema with lower extremity varices. Tendons and ligaments are not well evaluated by CT technique. No discrete postoperative fluid collections. RIGHT: Status post placement of 2 cannulated screws traversing the acute intra- articular oblique fracture involving the posterior malleolus. Fracture lines extend into the lateral aspect of the distal tibia with intra-articular extension is placed laterally 3 mm. Acute comminuted fracture component also extends into the medial malleolus without significant displacement. There is moderate tibiotalar osteoarthritis. No additional acute fracture or dislocation identified. Spurring of the calcaneus. The distal fibula appears intact. Arterial calcifications. Mild to moderate diffuse subcutaneous edema. No postoperative fluid collections. Ligaments and tendons are not well evaluated by CT technique. Suggested peroneal tendinosis. IMPRESSION: 1. Fixated acute trimalleolar fracture of the left ankle with improved alignment status post ORIF. There are numerous subcentimeter intra-articular fracture fragments. 2. Acute impaction fracture of the anterolateral left talar dome redemonstrated. 3. Satisfactory alignment of the acute fixated right distal tibial fracture with additional nondisplaced fracture components involving the medial and lateral aspects of the distal tibia with mild comminution. No definite intra-articular loose body of the right ankle. 4. No postoperative fluid collections. Spec: [id number] Collected: 07/28/21 Received: 07/28/[address]: Pascual Alva Source: Blood OV Order: Ordered: Blood Culture Comments: Comment Default is separate sites, same time Blood culture drawn venously from Left Arm. Procedure Result Verified Site Blood Culture Aerobic Preliminary 07/29/21 No growth in Aerobic bottle after 24 hours. Blood Culture Anaerobic Preliminary 07/29/21 No growth in Anaerobic bottle after 24 hours. (1) Fracture dislocation of ankle Encounter type: initial encounter Fracture type: closed Laterality: left Qualified Code(s): S82.892A - Other fracture of left lower leg, initial encounter for closed fracture (2) Ankle fracture Encounter type: initial encounter Fracture type: closed Laterality: right Qualified Code(s): S82.891A - Other fracture of right lower leg, initial encounter for closed fracture
[2021-07-30] MEDS: POTASSIUM CHLORIDE 10 MEQ in SODIUM CHLORIDE 0.9% 1000ML 1,000 ML IV SCH (15:23)
[2021-07-30] MEDS: ALBUTEROL 0.5% NEB SOLN 2.5 MG/0.5 ML VIAL NEB PRN (19:10)
[2021-07-30] MEDS: AZITHROMYCIN 250 MG in DEXTROSE 5% 250 ML IV SCH (20:59)
[2021-07-31] MEDS: POTASSIUM CHLORIDE 10 MEQ in SODIUM CHLORIDE 0.9% 1000ML 1,000 ML IV SCH ×2 (04:16→16:07)
[2021-07-31] MEDS: PIPERACILLIN/TAZOBACTAM 3.375 GM in DEXTROSE 5% 100 ML IV SCH ×3 (05:33→23:11)
[2021-07-31] MEDS: LEVOTHYROXINE SODIUM 75 MCG TABLET PO SCH (05:36)
[2021-07-31 06:54] LABS: Hematocrit (blood only) 26.1 % (37-47); Hemoglobin 8.2 g/dL (12.0-16.0); Mean Corpuscular Hemoglobin 30.5 pg (25-34); Mean Corpuscular Hgb Conc 31.4 g/dL (32-36); Mean Platelet Volume 11.4 fL (7.4-10.4); Nucleated RBC # (auto) 0.09 K/uL (0-0); Nucleated RBC % (auto) 1.1 %; Platelet Count 359 K/uL (130-400); RDW Coefficient of Variation 19.3 % (11.5-14.5); RDW Standard Deviation 66.3 fL (36.4-46.3); Red Blood Count 2.69 M/uL (4.2-5.4); White Blood Count 7.98 K/uL (4.8-10.8)
[2021-07-31 07:11] LABS: Basophils # (auto) 0.01 K/uL (0-0.2); Basophils % (auto) 0.1 %; Immature Granulocytes # (auto) 0.76 K/uL (0.00-0.02); Immature Granulocytes % (auto) 9.5 %; Lymphocytes # (auto) 1.03 K/uL (1.2-3.4); Lymphocytes % (auto) 12.9 %; Monocytes # (auto) 1.19 K/uL (0.11-0.59); Monocytes % (auto) 14.9 %; Neutrophils # (auto) 4.99 K/uL (1.4-6.5); Neutrophils % (auto) 62.6 %; Polychromasia 1+
[2021-07-31 07:31] LABS: Potassium 3.8 mmol/L (3.5-5.1)
[2021-07-31 07:32] LABS: Calcium 8.7 mg/dl (8.5-10.1); Creatinine Clr Calc Pharmacy 27.8 ml/min; Est GFR (African American) 30.5 ml/min; Est GFR (Non-African American) 26.3 ml/min; Magnesium 2.2 mg/dl (1.8-2.4)
[2021-07-31] MEDS: ALBUTEROL 0.5% NEB SOLN 2.5 MG/0.5 ML VIAL NEB PRN (08:10)
[2021-07-31] MEDS: ATENOLOL 25 MG TABLET PO SCH (09:49)
[2021-07-31] MEDS: FLUTICASONE/VILANTEROL 200/25MCG 14 PUFFS/INHALER INH SCH (09:52)
[2021-07-31] MEDS: FLUTICASONE PROPIONATE NA SPR 16 GM BTL SCH ×2 (09:53→20:01)
[2021-07-31] MEDS: PANTOprazole 40 MG in SYRINGE 0 ML IV SCH ×2 (09:54→20:00)
--- NOTE | 2021-07-31 10:12 | Surgery Progress Note ---
Date of Service July 31, 2021 Assessment & Plan (1) Small bowel obstruction: Plan: Patient w + ostomy output Okay to trial on clear liquids today and see how she fairs Pt seen/examined with Dr. Kate Admission and Anticipated Discharge Date Admission Date: July 28, 2021 Supervising Physician Co-Signing Physician Notes I personally saw and evaluated the patient with Kiara Dumas PA-C and agree with the assessment and plan 85 yo female with ileus versus SBO -Has some ostomy output -Trial clears today Subjective Patient states she still has some belly ache. She has not vomited, but is coughing up some sputum. Her ostomy is putting out + stool. Physical Exam Physical Exam: awake, hard of hearing Gastrointestinal (Abdomen): + parastomal hernia, ostomy w/ + liquid stool, some mild abdominal discomfort to palpation Results & Data ([facility]) Vital Signs (Past 12 Hours) Vital Signs Temp Pulse Resp BP Pulse Ox 07/31/21 08:10 83 18 95 07/31/21 07:53 141/76 H 07/31/21 07:45 36.7 C 64 12 174/99 H 94 07/31/21 00:17 36.9 C 71 16 125/78 94 PG Care Time/CCT Total # of Minutes Spent Total Time Spent with Patient: Total time spent is greater than 50% in coordination of care (as documented) at patient's floor/unit and/or counseling patient: Coding Level of Care Code 06808 Subseq Hosp Care Lvl 1 Diagnoses Small bowel obstruction K56.609
--- NOTE | 2021-07-31 12:20 | XRay Report ---
XR KUB/Abdomen 1 view CLINICAL HISTORY: f/u SBO. COMPARISON STUDY: 07/30/2021 TECHNIQUE: Single view of the abdomen. FINDINGS: Compared to previous examination, there is again gaseous distention of the stomach and moderately dil ated air-filled loops of small bowel within the left side of the abdomen. Findings are unchanged and are again most characteristic of at least a partial small bowel obstruction There is no evidence for organomegaly or gross intra-abdominal mass. No abnormal calcifications are seen along the course of t he urinary tracts bilaterally. No acute osseous pathology. IMPRESSION: 1.No significant interval change with radiographic findings again characteristic of a partial small b owel obstruction. ACT 112: Negative or not required by law. Electronically signed by: Cristi Connell M.D. 07/31/2021 12:19 PM
[2021-07-31] MEDS: hydrOXYzine HCl 10 MG TAB PO PRN (15:06)
[2021-07-31] MEDS: ONDANSETRON INJ 2 MG/ML 2 ML VIAL IV PRN ×2 (16:49→20:00)
--- NOTE | 2021-07-31 18:30 | Hospitalist Progress Note ---
Date of Service July 31, 2021 Assessment & Plan (1) Small bowel obstruction: Plan: Admitted with n/v, TIM and Leukocytosis/Pneumonia and subsequent decrease in ostomy output (black in ostomy but on iron +occult blood and GI felt no need for inpatient intervention) GI on consult -- felt black stool from iron supplementation and outpatient scope CTAP 1. Right greater than left bibasilar opacities are suggestive of pneumonia. Associated bibasilar mucous plugging should be correlated clinically to exclude aspiration. 2. Distended air and fluid-filled stomach with numerous distended loops of small bowel with transitioning decompressed small bowel within the lower pelvis. Findings are concerning for a small bowel obstruction. 3. No pneumatosis or pneumoperitoneum. 4. 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 General surgery on consult given vomiting 07/29 and obstruction on imaging -- Patient continues to refuse NGT however is clinically starting to improve; trial clear liquids Continue IVF at 75 mL/hr - likely can D/C tomorrow pending diet tolerance/advancement Ostomy with liquid stool (2) Pneumonia: Plan: Bilateral opacities, elevated WBC, productive green sputum/saab/lundberg sputum, no fever ?If possible related to aspiration from increased lethargy from pain medications used/multiple surgeries/adhesions and obstruction resulting in n/v/aspiration and resulting aspiration pneumonia. Tx for CAP given recent hospitalization but could suspect 2nd to aspiration --> Azithro/Zosyn for HCAP -- on day 2 of therapy. MRSA Nasal negative Albuterol, flutter valve Also, 1u prbc and venofer administered 07/29 for hgb 7.5 with reported shortness of breath but hgb around baseline and did get 1L IVF for TIM on admit Sputum cx if able to produce Stable on ROOM AIR Continue to monitor (3) Anemia: Plan: hgb 7.5 and received 1u PRBC and Venofer on 07/29 - Hgb at 8.2 (baseline appears around 8-10) No further blood for now, hgb stable and will monitor No bleeding on CT imaging, ,however did have +fecal occult but is on iron supplementation and GI felt this was cause and no need for inpatient scope Placed on PPI BID IV likely can change to orals tomorrow GI does not feel inpatient EGD necessary (4) TIM (acute kidney injury): Plan: Acute on chronic CKD III Holding ARB/lasix for now avoid nephrotoxic drugs on IVF for SBO as above, Cr currently 1.76 from 2.49 on admit (baseline recently closer to 1.8) Of note, would rec renal US given incidental findings on CT to rule out solid masses BMP in AM (5) Vomiting: Plan: Patient feels its from her [place] however could be from GI bleed given +fecal occult/as above and NOW OBSTRUCTION Repeat trop <0.015 Now with obstruction as above +ABD pain but improved but no need for medications per patient at this time 1 episode of emesis overnight 11/ Antiemetics prn (6) Fracture dislocation of ankle: Plan: POD 14 s/p b/l ORIF completed by Dr Garvin. Completed course of dvt proph per podiatry with eliquis to total of 14 days post-op which was for 2 more days, since d/c continue rehab, PT/OT Dr. Garvin evaluated patient this admission CT ankles with better alignment but still noting fractures. No increased pain/erythema or warmth above prior eval (7) CAD (coronary artery disease): Plan: With 1 stent to circumflex 2003 Holding ASA as above (8) Hypothyroidism: Plan: Continue Synthroid 225mcg TSH elevated to 6.17 during this admission however was 20.6 last admission when checked and Synthroid was increased to 225mcg daily - Free T4 WNL Rec repeat TFT in 4 weeks for eval on further adjustments if needed (9) Positive occult stool blood test: Plan: on iron outpatient outpatient scope per GI Plan: Continued inpatient stay If hgb stable on repeat hgb over next 24-48 hours, would start Lovenox 40SQ daily but will utilize SCDs for now Was at [facility] for rehab and hopefully they will be able to take back when medically stable. CM following Admission and Anticipated Discharge Date Admission Date: July 28, 2021 Subjective Mostly complaining of her hoarse voice today but denies sore throat. States it is hard for her to cough up her sputum. She continues to be concerned with her dry nose. Saturations appropriate on RA. She is putting out stool in ostomy Review of Systems Review of Systems: REVIEW OF SYSTEMS General/Constitutional: +; Denies fever/chills ENT: + hoarse voice; Denies sore throat, trouble swallowing Cardiovascular: Denies chest pain, palpitations, edema Respiratory: + cough +sputum; Denies SOB, wheezing, orthopnea GI: Denies nausea, vomiting, abdominal pain, constipation, diarrhea : Denies dysuria Psychiatric: + anxiety Physical Exam Physical Exam: PHYSICAL EXAM General Appearance: WDWN in NAD who is A&O x 3 HEENT: Head is normocephalic/atraumatic; Hearing grossly intact with hearing aid in place; Mucous membranes moist; Pharynx negative for exudate/lesions; nares with minimal dried blood Neck: Supple; Trachea midline; Neg JVD Heart: RRR with + murmur Lungs: + crackles at bases; Respirations unlabored; Neg accessory muscle use Abdomen: Soft, non-tender, non-distended; Positive BS x 4 quadrants; + ostomy Extremities: Neg cyanosis Neurological: Speech clear; Gross motor/sensory function intact; Neg focal neurologic deficits Psychiatric: Appropriate mood/affect Skin: surgical incisions intact; erythema to buttocks Results & Data Results & Data ([facility]) Vital Signs (Past 12 Hours) Vital Signs Temp Pulse Resp BP Pulse Ox 07/31/21 15:28 37.0 C 70 16 153/85 H 91 07/31/21 11:50 36.7 C 74 12 114/59 L 91 07/31/21 08:10 83 18 95 07/31/21 07:53 141/76 H 07/31/21 07:45 36.7 C 64 12 174/99 H 94 PG Care Time/CCT Total # of Minutes Spent Total Time Spent with Patient: Total time spent is greater than 50% in coordination of care (as documented) at patient's floor/unit and/or counseling patient: Coding Level of Care Code 96553 Subseq Hosp Care Lvl 3 Diagnoses Small bowel obstruction K56.609 Pneumonia J18.9 Laterality: bilateral Lung location: lower lobe of lung Pneumonia type: due to unspecified organism Anemia D64.9 TIM (acute kidney injury) N17.9 Vomiting R11.10 Fracture dislocation of ankle S82.892A Encounter type: initial encounter Fracture type: closed Laterality: left CAD (coronary artery disease) I25.10 Hypothyroidism E03.9 Positive occult stool blood test R19.5 (1) Pneumonia Laterality: bilateral Lung location: lower lobe of lung Pneumonia type: due to unspecified organism Qualified Code(s): J18.9 - Pneumonia, unspecified organism (2) Fracture dislocation of ankle Encounter type: initial encounter Fracture type: closed Laterality: left Qualified Code(s): S82.892A - Other fracture of left lower leg, initial encounter for closed fracture
[2021-07-31] MEDS: AZITHROMYCIN 250 MG in DEXTROSE 5% 250 ML IV SCH (20:51)
[2021-07-31] MEDS ORDERED: LORazepam 0.25 MG/0.5 ML VIAL IV STA ×2 (21:09→23:37)
[2021-07-31] MEDS: guaiFENesin 600 MG TABCR PO SCH (21:11)
[2021-07-31] MEDS ORDERED: PANTOprazole 40 MG in SYRINGE 0 ML IV SCH (22:00)
[2021-07-31] MEDS ORDERED: OXYMETAZOLINE 0.05% 30 ML BTL ONE (22:34)
[2021-08-01] MEDS: MELATONIN 3 MG TAB PO PRN ×2 (02:27→21:34)
[2021-08-01] MEDS: ACETAMINOPHEN 325 MG TAB PO PRN (02:27)
[2021-08-01] MEDS: hydrOXYzine HCl 10 MG TAB PO PRN ×3 (02:27→22:48)
[2021-08-01] MEDS: POTASSIUM CHLORIDE 10 MEQ in SODIUM CHLORIDE 0.9% 1000ML 1,000 ML IV SCH ×2 (04:03→17:18)
[2021-08-01] MEDS: PIPERACILLIN/TAZOBACTAM 3.375 GM in DEXTROSE 5% 100 ML IV SCH ×3 (05:43→21:32)
[2021-08-01] MEDS: LEVOTHYROXINE SODIUM 75 MCG TABLET PO SCH (05:47)
--- NOTE | 2021-08-01 06:43 | XRay Report ---
XR chest 1V portable CLINICAL HISTORY: NG placement. COMPARISON STUDY: 07/28/2021 TECHNIQUE: 1 view of the chest FINDINGS: Single frontal view of the chest demonstrates the heart size to again be enlarged. There has been int erval placement of an NG tube with its tip extending into the body of the stomach. There is interval increase in bibasilar opacities and the presence of a viral type pneumonitis cannot be excluded. No a ir bronchograms are seen. There is no evidence for pleural effusion. There is no evidence for vascula r congestion. There is no acute osseous pathology. IMPRESSION: Interval increase in bibasilar opacities. Mild type pneumonitis cannot be excluded. Follo w-up PA and lateral radiographs would be helpful for further evaluation. NG tube in the body the stom ach. ACT 112: Negative or not required by law. Electronically signed by: Cristi Connell M.D. 08/01/2021 6:41 AM
--- NOTE | 2021-08-01 07:02 | XRay Report ---
XR KUB/Abdomen 1 view at 10:51 PM CLINICAL HISTORY: NG tube placement. COMPARISON STUDY: 07/31/2021 at 10:29 AM TECHNIQUE: Single view of the abdomen. FINDINGS: The bowel gas pattern is within normal limits without evidence for dilatation or obstruction. NG tube has been placed with its tip in the upper body of the stomach. There is no evidence for organomegaly or gross intra-abdominal mass. No abnormal calcifications are seen along the course of the urinary t racts bilaterally. No acute osseous pathology. IMPRESSION: 1.No acute intra-abdominal abnormality. Tip of NG tube in the upper body of the stomach. ACT 112: Negative or not required by law. Electronically signed by: Cristi Connell M.D. 08/01/2021 7:01 AM
--- NOTE | 2021-08-01 10:17 | Surgery Progress Note ---
Date of Service August 01, 2021 Assessment & Plan (1) Small bowel obstruction: Plan: some stool in pouch, no air continue NG for today Admission and Anticipated Discharge Date Admission Date: July 28, 2021 Supervising Physician Co-Signing Physician Notes I personally saw and evaluated the patient with Pato Hicks PA-C and agree with the assessment and plan 85 yo female with ileus versus SBO -Has some ostomy output -Keep NGT in today Subjective c/o dry mouth, NG placed last night? Physical Exam Gastrointestinal (Abdomen): Inspection/Auscultation: + visible herniation; abdomen not distended Percussion/Palpation: abdomen soft; abdomen nontender NG output 1000 initially, <100 cc in canister this AM PG Care Time/CCT Total # of Minutes Spent Total Time Spent with Patient: Total time spent is greater than 50% in coordination of care (as documented) at patient's floor/unit and/or counseling patient: Coding Level of Care Code 84119 Subseq Hosp Care Lvl 1 Diagnoses Small bowel obstruction K56.609
[2021-08-01] MEDS: FLUTICASONE/VILANTEROL 200/25MCG 14 PUFFS/INHALER INH SCH (11:21)
[2021-08-01] MEDS: guaiFENesin 600 MG TABCR PO SCH ×2 (11:21→21:33)
[2021-08-01] MEDS: FLUTICASONE PROPIONATE NA SPR 16 GM BTL SCH ×2 (11:22→21:33)
[2021-08-01] MEDS: PANTOprazole 40 MG in SYRINGE 0 ML IV SCH ×2 (11:22→21:34)
[2021-08-01] MEDS: ATENOLOL 25 MG TABLET PO SCH (11:22)
[2021-08-01] MEDS ORDERED: CHLORASEPTIC 1.4% SOLN 180 ML BTL MT PRN (13:01)
--- NOTE | 2021-08-01 13:46 | Hospitalist Progress Note ---
Date of Service August 01, 2021 Assessment & Plan (1) Small bowel obstruction: Plan: Admitted with n/v, TIM and Leukocytosis/Pneumonia and subsequent decrease in ostomy output (black in ostomy but on iron +occult blood and GI felt no need for inpatient intervention) GI on consult -- felt black stool from iron supplementation and outpatient scope CTAP 1. Right greater than left bibasilar opacities are suggestive of pneumonia. Associated bibasilar mucous plugging should be correlated clinically to exclude aspiration. 2. Distended air and fluid-filled stomach with numerous distended loops of small bowel with transitioning decompressed small bowel within the lower pelvis. Findings are concerning for a small bowel obstruction. 3. No pneumatosis or pneumoperitoneum. 4. 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 - Continue IVF at 75 mL/hr - monitor for fluid overload - Had emesis last night with NGT placed with significant output - planning to keep NGT today - General surgery on consult Continue IVF at 75 mL/hr - monitor for fluid overload but likely can D/C pending diet advancement Ostomy with liquid stool (2) Pneumonia: Plan: Bilateral opacities, elevated WBC, productive green sputum/saab/lundberg sputum, no fever ?If possible related to aspiration from increased lethargy from pain medications used/multiple surgeries/adhesions and obstruction resulting in n/v/aspiration and resulting aspiration pneumonia. Tx for CAP given recent hospitalization but could suspect 2nd to aspiration --> Azithro/Zosyn for HCAP--MRSA Nasal negative Albuterol, flutter valve Also, 1u prbc and venofer administered 07/29 for hgb 7.5 with reported shortness of breath but hgb around baseline and did get 1L IVF for TIM on admit Sputum cx if able to produce Stable on ROOM AIR Continue to monitor (3) Anemia: Plan: hgb 7.5 and received 1u PRBC and Venofer on 07/29 - Hgb at 8.2 (baseline appears around 8-10) No further blood for now, hgb stable and will monitor No bleeding on CT imaging, ,however did have +fecal occult but is on iron supplementation and GI felt this was cause and no need for inpatient scope Placed on PPI BID IV likely can change to orals when no longer NPO GI does not feel inpatient EGD necessary (4) TIM (acute kidney injury): Plan: Acute on chronic CKD III Holding ARB/lasix for now avoid nephrotoxic drugs on IVF for SBO as above, Cr currently 1.76 from 2.49 on admit (baseline recently closer to 1.8) Of note, would rec renal US given incidental findings on CT to rule out solid masses Monitor labs (5) Vomiting: Plan: Patient feels its from her [place] however could be from GI bleed given +fecal occult/as above and NOW OBSTRUCTION Repeat trop <0.015 Now with obstruction as above Additional emesis last night, no S/P NGT Antiemetics prn (6) Fracture dislocation of ankle: Plan: POD 14 s/p b/l ORIF completed by Dr Garvin. Completed course of dvt proph per podiatry with eliquis to total of 14 days post-op which was for 2 more days, since d/c continue rehab, PT/OT Dr. Garvin evaluated patient this admission CT ankles with better alignment but still noting fractures. No increased pain/erythema or warmth above prior eval (7) CAD (coronary artery disease): Plan: With 1 stent to circumflex 2004 Holding ASA as above (8) Hypothyroidism: Plan: Continue Synthroid 225mcg TSH elevated to 6.17 during this admission however was 20.6 last admission when checked and Synthroid was increased to 225mcg daily - Free T4 WNL Rec repeat TFT in 4 weeks for eval on further adjustments if needed (9) Positive occult stool blood test: Plan: on iron outpatient outpatient scope per GI Plan: Continued inpatient stay If hgb stable on AM labs, would start Lovenox 40SQ daily but will utilize SCDs for now Was at [facility] for rehab and hopefully they will be able to take back when medically stable. CM following Admission and Anticipated Discharge Date Admission Date: July 28, 2021 Subjective Reports some irritated throat from NGT placement last night. No further nausea and reports her abdomen feels better. Reports her breathing feels fine just coughing intermittently and the NGT can make her cough a bit. Review of Systems Review of Systems: REVIEW OF SYSTEMS General/Constitutional: Denies fever/chills ENT: + hoarse voice, + throat irritation due to NGT and some difficulty swallowing water with tube i Cardiovascular: Denies chest pain, palpitations, edema Respiratory: + cough +sputum; Denies SOB, wheezing, orthopnea GI: Denies nausea, vomiting, abdominal pain, constipation, diarrhea : Denies dysuria Psychiatric: + anxiety (improved) Physical Exam Physical Exam: PHYSICAL EXAM General Appearance: WDWN in NAD who is A&O x 3 HEENT: Head is normocephalic/atraumatic; Hearing grossly intact with hearing aid in place; Mucous membranes moist; nares with minimal dried blood with NGT placed to R nare and green output Neck: Supple; Trachea midline; Neg JVD Heart: RRR with + murmur Lungs: + crackles at bases; Respirations unlabored; Neg accessory muscle use Abdomen: Soft, non-tender, non-distended; Positive BS x 4 quadrants; + ostomy with dark green/brown output Extremities: Neg cyanosis Neurological: Speech clear but hoarse; Gross motor/sensory function intact; Neg focal neurologic deficits Psychiatric: Appropriate mood/affect PG Care Time/CCT Total # of Minutes Spent Total Time Spent with Patient: Total time spent is greater than 50% in coordination of care (as documented) at patient's floor/unit and/or counseling patient: Coding Level of Care Code 52060 Subseq Hosp Care Lvl 3 Diagnoses Small bowel obstruction K56.609 Pneumonia J18.9 Laterality: bilateral Lung location: lower lobe of lung Pneumonia type: due to unspecified organism Anemia D64.9 TIM (acute kidney injury) N17.9 Vomiting R11.10 Fracture dislocation of ankle S82.892A Encounter type: initial encounter Fracture type: closed Laterality: left CAD (coronary artery disease) I25.10 Hypothyroidism E03.9 Positive occult stool blood test R19.5 (1) Fracture dislocation of ankle Encounter type: initial encounter Fracture type: closed Laterality: left Qualified Code(s): S82.892A - Other fracture of left lower leg, initial encounter for closed fracture (2) Pneumonia Laterality: bilateral Lung location: lower lobe of lung Pneumonia type: due to unspecified organism Qualified Code(s): J18.9 - Pneumonia, unspecified organism
[2021-08-01] MEDS: AZITHROMYCIN 250 MG in DEXTROSE 5% 250 ML IV SCH (21:32)
[2021-08-01] MEDS: MICONAZOLE NITRATE POWDER 43 GM EXT SCH (21:32)
[2021-08-02] MEDS: PIPERACILLIN/TAZOBACTAM 3.375 GM in DEXTROSE 5% 100 ML IV SCH (05:51)
[2021-08-02] MEDS: LEVOTHYROXINE SODIUM 75 MCG TABLET PO SCH (05:52)
[2021-08-02 06:36] LABS: Hematocrit (blood only) 25.5 % (37-47); Hemoglobin 8.1 g/dL (12.0-16.0); Mean Corpuscular Hemoglobin 31.8 pg (25-34); Mean Corpuscular Hgb Conc 31.8 g/dL (32-36); Mean Platelet Volume 10.5 fL (7.4-10.4); Nucleated RBC # (auto) 0.03 K/uL (0-0); Nucleated RBC % (auto) 0.4 %; Platelet Count 306 K/uL (130-400); RDW Coefficient of Variation 19.9 % (11.5-14.5); RDW Standard Deviation 71.3 fL (36.4-46.3); Red Blood Count 2.55 M/uL (4.2-5.4); White Blood Count 7.01 K/uL (4.8-10.8)
[2021-08-02 07:26] LABS: BUN Creatinine Ratio 23.6 (10-20); Calcium 9.3 mg/dl (8.5-10.1); Creatinine Clr Calc Pharmacy 33.3 ml/min; Est GFR (African American) 37.9 ml/min; Est GFR (Non-African American) 32.7 ml/min; Potassium 4.1 mmol/L (3.5-5.1)
[2021-08-02] MEDS: ATENOLOL 25 MG TABLET PO SCH (07:50)
[2021-08-02] MEDS: MICONAZOLE NITRATE POWDER 43 GM EXT SCH ×2 (07:51→20:57)
[2021-08-02] MEDS: FLUTICASONE/VILANTEROL 200/25MCG 14 PUFFS/INHALER INH SCH (07:51)
[2021-08-02] MEDS: FLUTICASONE PROPIONATE NA SPR 16 GM BTL SCH ×2 (07:51→20:56)
[2021-08-02] MEDS: guaiFENesin 600 MG TABCR PO SCH ×2 (07:51→20:56)
[2021-08-02] MEDS: PANTOprazole 40 MG in SYRINGE 0 ML IV SCH ×2 (07:52→20:56)
[2021-08-02] MEDS: hydrOXYzine HCl 10 MG TAB PO PRN ×2 (07:52→20:56)
[2021-08-02] MEDS: POTASSIUM CHLORIDE 10 MEQ in SODIUM CHLORIDE 0.9% 1000ML 1,000 ML IV SCH ×2 (07:52→21:04)
--- NOTE | 2021-08-02 09:24 | Surgery Progress Note ---
Date of Service August 02, 2021 Assessment & Plan (1) Small bowel obstruction: Plan: clamp NG, can remove this afternoon if doing ok and start clears Admission and Anticipated Discharge Date Admission Date: July 28, 2021 Supervising Physician Co-Signing Physician Notes I personally saw and evaluated the patient with Pato Hicks PA-C and agree with the assessment and plan 85 yo female with ileus versus SBO -Clamp trial for NGT -Keep NPO -Abdominal pain has resolved and has some increased ostomy output Subjective no abdominal pain, c/o NG Physical Exam Gastrointestinal (Abdomen): Inspection/Auscultation: abdomen not distended Percussion/Palpation: abdomen soft; abdomen nontender has ostomy output Results & Data ([facility]) Vital Signs (Past 12 Hours) Vital Signs Temp Pulse Resp BP Pulse Ox 08/02/21 07:43 36.7 C 144/68 H 96 08/01/21 22:19 36.4 C L 68 20 131/76 91 PG Care Time/CCT Total # of Minutes Spent Total Time Spent with Patient: Total time spent is greater than 50% in coordination of care (as documented) at patient's floor/unit and/or counseling patient: Coding Level of Care Code 85221 Subseq Hosp Care Lvl 1 Diagnoses Small bowel obstruction K56.609
--- NOTE | 2021-08-02 11:58 | Hospitalist Progress Note ---
Date of Service August 02, 2021 Assessment & Plan (1) Small bowel obstruction: Plan: Admitted with n/v, TIM and Leukocytosis/Pneumonia and subsequent decrease in ostomy output (black in ostomy but on iron +occult blood and GI felt no need for inpatient intervention) CTAP 1. Right greater than left bibasilar opacities are suggestive of pneumonia. Associated bibasilar mucous plugging should be correlated clinically to exclude aspiration. 2. Distended air and fluid-filled stomach with numerous distended loops of small bowel with transitioning decompressed small bowel within the lower pelvis. Findings are concerning for a small bowel obstruction. 3. No pneumatosis or pneumoperitoneum. 4. 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 - Continue IVF at 75 mL/hr - monitor for fluid overload - likely if NGT removed we can D/C them - NGT has been clamped with possible removal this afternoon - Still NPO but pending NGT removal can likely start clears - GI on consult -- felt black stool from iron supplementation and outpatient scope - General surgery on consult Ostomy with liquid stool (2) Pneumonia: Plan: Bilateral opacities, elevated WBC, productive green sputum/saab/lundberg sputum, no fever ?If possible related to aspiration from increased lethargy from pain medications used/multiple surgeries/adhesions and obstruction resulting in n/v/aspiration and resulting aspiration pneumonia. Tx for CAP given recent hospitalization but could suspect 2nd to aspiration --> Azithro/Zosyn for HCAP--MRSA Nasal negative Albuterol, flutter valve Also, 1u prbc and venofer administered 07/29 for hgb 7.5 with reported shortness of breath but hgb around baseline and did get 1L IVF for TIM on admit Sputum cx - with MSSA Stable on ROOM AIR Continue to monitor (3) Anemia: Plan: hgb 7.5 on admission and received 1u PRBC and Venofer on 07/29 - Hgb at baseline (baseline appears around 8-10) No further blood for now, hgb stable and will monitor No bleeding on CT imaging, however did have +fecal occult but is on iron supplementation and GI felt this was cause and no need for inpatient scope Placed on PPI BID IV likely can change to orals when no longer NPO GI does not feel inpatient EGD necessary (4) TIM (acute kidney injury): Plan: Acute on chronic CKD III Holding ARB/lasix for now avoid nephrotoxic drugs on IVF for SBO as above, Cr currently 1.47 from 2.49 on admit (baseline recently closer to 1.8) Of note, would rec renal US given incidental findings on CT to rule out solid masses Monitor labs (5) Vomiting: Plan: - NGT placed - clamped and will monitor symptoms to see if can be removed Antiemetics prn (6) Fracture dislocation of ankle: Plan: - S/P b/l ORIF completed by Dr Garvin. Completed course of dvt proph per podiatry with eliquis to total of 14 days post-op which was for 2 more days, since d/c continue rehab, PT/OT Dr. Garvin evaluated patient this admission CT ankles with better alignment but still noting fractures. No increased pain/erythema or warmth above prior eval (7) CAD (coronary artery disease): Plan: With 1 stent to circumflex 2004 Holding ASA as above (8) Hypothyroidism: Plan: Continue Synthroid 225mcg TSH elevated to 6.17 during this admission however was 20.6 last admission when checked and Synthroid was increased to 225mcg daily - Free T4 WNL Rec repeat TFT in 4 weeks for eval on further adjustments if needed (9) Positive occult stool blood test: Plan: on iron outpatient outpatient scope per GI Plan: - Continued inpatient stay - suspect a slow progression of diet so likely hospital stay into next week - Hgb remaining stable - will start Lovenox 40SQ daily starting tomorrow for DVT prophylaxis - Was at [facility] for rehab and hopefully they will be able to take back when medically stable. CM following Admission and Anticipated Discharge Date Admission Date: July 28, 2021 Subjective Only complaints is irritation from the NGT. She does have dried blood in the roof of her mouth and discussed oral care. She reports her abdomen feels a lot better and continues to make stool in her ostomy bag. She remains on RA. No leukocytosis and remains afebrile. Review of Systems Review of Systems: REVIEW OF SYSTEMS General/Constitutional: Denies fever/chills ENT: + hoarse voice, + throat irritation due to NGT and some difficulty swallowing water with tube in Cardiovascular: Denies chest pain, palpitations, edema Respiratory: + cough; Denies SOB, wheezing, orthopnea GI: Denies nausea, vomiting, abdominal pain : Denies dysuria Physical Exam Physical Exam: PHYSICAL EXAM General Appearance: WDWN in NAD who is A&O x 3 HEENT: Head is normocephalic/atraumatic; Hearing grossly intact with hearing aid in place; Dried blood in roof of mouth; nares with minimal dried blood with NGT placed to R nare currently clamped Neck: Supple; Trachea midline; Neg JVD Heart: RRR with + murmur Lungs: + crackles at bases; Respirations unlabored; Neg accessory muscle use Abdomen: Soft, non-tender, non-distended; Positive BS x 4 quadrants; + ostomy with dark green/brown output Extremities: Neg cyanosis Neurological: Speech clear but hoarse; Gross motor/sensory function intact; Neg focal neurologic deficits Psychiatric: Appropriate mood/affect Results & Data Results & Data ([facility]) Vital Signs (Past 12 Hours) Vital Signs Temp BP Pulse Ox 08/02/21 07:43 36.7 C 144/68 H 96 PG Care Time/CCT Total # of Minutes Spent Total Time Spent with Patient: Total time spent is greater than 50% in coordination of care (as documented) at patient's floor/unit and/or counseling patient: Coding Level of Care Code 35970 Subseq Hosp Care Lvl 3 Diagnoses Small bowel obstruction K56.609 Pneumonia J18.9 Laterality: bilateral Lung location: lower lobe of lung Pneumonia type: due to unspecified organism Anemia D64.9 TIM (acute kidney injury) N17.9 Vomiting R11.10 Fracture dislocation of ankle S82.892A Encounter type: initial encounter Fracture type: closed Laterality: left CAD (coronary artery disease) I25.10 Hypothyroidism E03.9 Positive occult stool blood test R19.5 (1) Fracture dislocation of ankle Encounter type: initial encounter Fracture type: closed Laterality: left Qualified Code(s): S82.892A - Other fracture of left lower leg, initial encounter for closed fracture (2) Pneumonia Laterality: bilateral Lung location: lower lobe of lung Pneumonia type: due to unspecified organism Qualified Code(s): J18.9 - Pneumonia, unspecified organism
[2021-08-02] MEDS: PIPERACILLIN/TAZOBACTAM 4.5 GM in DEXTROSE 5% 100 ML IV SCH ×2 (14:17→22:22)
[2021-08-02] MEDS: AZITHROMYCIN 250 MG in DEXTROSE 5% 250 ML IV SCH (20:10)
[2021-08-03] MEDS: LEVOTHYROXINE SODIUM 75 MCG TABLET PO SCH (06:02)
[2021-08-03] MEDS: PIPERACILLIN/TAZOBACTAM 4.5 GM in DEXTROSE 5% 100 ML IV SCH ×3 (06:05→21:38)
[2021-08-03] MEDS: FLUTICASONE/VILANTEROL 200/25MCG 14 PUFFS/INHALER INH SCH (07:43)
[2021-08-03] MEDS: hydrOXYzine HCl 10 MG TAB PO PRN ×2 (07:43→20:42)
[2021-08-03] MEDS: ATENOLOL 25 MG TABLET PO SCH (07:44)
[2021-08-03] MEDS: guaiFENesin 600 MG TABCR PO SCH ×2 (07:44→20:42)
[2021-08-03] MEDS: ENOXAPARIN INJ 40 MG/0.4 ML SYR SQ SCH (07:45)
[2021-08-03] MEDS: FLUTICASONE PROPIONATE NA SPR 16 GM BTL SCH ×2 (07:45→20:43)
[2021-08-03] MEDS: MICONAZOLE NITRATE POWDER 43 GM EXT SCH ×2 (07:46→20:42)
[2021-08-03] MEDS: PANTOprazole 40 MG in SYRINGE 0 ML IV SCH (07:46)
--- NOTE | 2021-08-03 08:06 | Surgery Progress Note ---
Date of Service August 03, 2021 Assessment & Plan (1) Small bowel obstruction: Plan: improving begin advancing diet Admission and Anticipated Discharge Date Admission Date: July 28, 2021 Supervising Physician Co-Signing Physician Notes I personally saw and evaluated the patient with Pato Hicks PA-C and agree with the assessment and plan 85 yo female with ileus versus SBO -Advance diet as tolerated Subjective tolerating clears, no pain or nausea Physical Exam Gastrointestinal (Abdomen): Inspection/Auscultation: abdomen not distended Percussion/Palpation: abdomen soft; abdomen nontender Results & Data ([facility]) Vital Signs (Past 12 Hours) Vital Signs Temp Pulse Resp BP Pulse Ox 08/03/21 07:39 37.0 C 70 16 154/72 H 91 08/02/21 21:59 37.4 C 63 24 146/65 H 96 PG Care Time/CCT Total # of Minutes Spent Total Time Spent with Patient: Total time spent is greater than 50% in coordination of care (as documented) at patient's floor/unit and/or counseling patient: Coding Level of Care Code 98865 Subseq Hosp Care Lvl 1 Diagnoses Small bowel obstruction K56.609
--- NOTE | 2021-08-03 09:00 | Hospitalist Progress Note ---
Date of Service August 03, 2021 Assessment & Plan (1) Small bowel obstruction: Plan: Admitted with n/v, TIM and Leukocytosis/Pneumonia and subsequent decrease in ostomy output (black in ostomy but on iron +occult blood and GI felt no need for inpatient intervention) CTAP 1. Right greater than left bibasilar opacities are suggestive of pneumonia. Associated bibasilar mucous plugging should be correlated clinically to exclude aspiration. 2. Distended air and fluid-filled stomach with numerous distended loops of small bowel with transitioning decompressed small bowel within the lower pelvis. Findings are concerning for a small bowel obstruction. 3. No pneumatosis or pneumoperitoneum. 4. 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 - D/C IVF at this time and monitor now that diet is implemented - NGT removed on 08/02 - GI on consult -- felt black stool from iron supplementation and outpatient scope - General surgery on consult - appreciate input Ostomy with liquid stool (2) Pneumonia: Plan: Bilateral opacities, elevated WBC, productive green sputum/saab/lundberg sputum, no fever ?If possible related to aspiration from increased lethargy from pain medications used/multiple surgeries/adhesions and obstruction resulting in n/v/aspiration and resulting aspiration pneumonia. - Completed course of Zithromax - Continue Zosyn x 10 days (06 August) - MRSA Nasal negative Albuterol, flutter valve Sputum cx - with MSSA Stable on ROOM AIR Continue to monitor (3) Anemia: Plan: hgb 7.5 on admission and received 1u PRBC and Venofer on 07/29 - Hgb at baseline (baseline appears around 8-10) No further blood for now, hgb stable and will monitor No bleeding on CT imaging, however did have +fecal occult but is on iron supplementation and GI felt this was cause and no need for inpatient scope Placed on PPI BID GI does not feel inpatient EGD necessary (4) TIM (acute kidney injury): Plan: Acute on chronic CKD III Holding ARB/lasix for now avoid nephrotoxic drugs Cr currently 1.47 from 2.49 on admit (baseline recently closer to 1.8) Of note, would rec renal US given incidental findings on CT to rule out solid masses Monitor labs (5) Vomiting: Plan: - NGT placed and since removed; no nausea/vomiting since removal and tolerating diet Antiemetics prn (6) Fracture dislocation of ankle: Plan: - S/P b/l ORIF completed by Dr Garvin. Completed course of dvt proph per podiatry with eliquis to total of 14 days post-op which was for 2 more days, since d/c continue rehab, PT/OT Dr. Garvin evaluated patient this admission CT ankles with better alignment but still noting fractures. No increased pain/erythema or warmth above prior eval (7) CAD (coronary artery disease): Plan: With 1 stent to circumflex 2004 Holding ASA as above (8) Hypothyroidism: Plan: Continue Synthroid 225mcg TSH elevated to 6.17 during this admission however was 20.6 last admission when checked and Synthroid was increased to 225mcg daily - Free T4 WNL Rec repeat TFT in 4 weeks for eval on further adjustments if needed (9) Positive occult stool blood test: Plan: on iron outpatient outpatient scope per GI Plan: - Continued inpatient stay - continue to advance diet as tolerated; respiratory status stable - Hgb remaining stable - started Lovenox 40SQ daily for DVT prophylaxis - Was at [facility] for rehab (did not hold bed) will need to await new bed. CM following Admission and Anticipated Discharge Date Admission Date: July 28, 2021 Subjective Reports feeling a bit better today. NGT was removed and tolerated clear liquids yesterday. Was advanced to fulls this AM. She denies any abdominal pain. Continues with output from her ostomy. Remains on RA but continues with a cough. Review of Systems Review of Systems: All systems reviewed & are unremarkable except as noted in Subjective Physical Exam Physical Exam: PHYSICAL EXAM General Appearance: WDWN in NAD who is A&O x 3 HEENT: Head is normocephalic/atraumatic; Hearing grossly intact with hearing aid in place Neck: Supple; Trachea midline; Neg JVD Heart: RRR with + murmur Lungs: + crackles at bases; Respirations unlabored; Neg accessory muscle use Abdomen: Soft, non-tender, non-distended; Positive BS x 4 quadrants; + ostomy with dark green/brown output Extremities: Neg cyanosis Neurological: Speech clear but hoarse (slightly better); Gross motor/sensory function intact; Neg focal neurologic deficits Psychiatric: Appropriate mood/affect Results & Data Results & Data ([facility]) Vital Signs (Past 12 Hours) Vital Signs Temp Pulse Resp BP Pulse Ox 08/03/21 07:39 37.0 C 70 16 154/72 H 91 08/02/21 21:59 37.4 C 63 24 146/65 H 96 PG Care Time/CCT Total # of Minutes Spent Total Time Spent with Patient: Total time spent is greater than 50% in coordination of care (as documented) at patient's floor/unit and/or counseling patient: Coding Level of Care Code 39330 Subseq Hosp Care Lvl 3 Diagnoses Small bowel obstruction K56.609 Pneumonia J18.9 Laterality: bilateral Lung location: lower lobe of lung Pneumonia type: due to unspecified organism Anemia D64.9 TIM (acute kidney injury) N17.9 Vomiting R11.10 Fracture dislocation of ankle S82.892A Encounter type: initial encounter Fracture type: closed Laterality: left CAD (coronary artery disease) I25.10 Hypothyroidism E03.9 Positive occult stool blood test R19.5 (1) Pneumonia Laterality: bilateral Lung location: lower lobe of lung Pneumonia type: due to unspecified organism Qualified Code(s): J18.9 - Pneumonia, unspecified organism (2) Fracture dislocation of ankle Encounter type: initial encounter Fracture type: closed Laterality: left Qualified Code(s): S82.892A - Other fracture of left lower leg, initial encounter for closed fracture
[2021-08-03] MEDS: PANTOprazole 40 MG TAB PO SCH (20:42)
[2021-08-04] MEDS: LEVOTHYROXINE SODIUM 75 MCG TABLET PO SCH (05:17)
[2021-08-04] MEDS: hydrOXYzine HCl 10 MG TAB PO PRN ×2 (05:18→20:12)
[2021-08-04] MEDS: PIPERACILLIN/TAZOBACTAM 4.5 GM in DEXTROSE 5% 100 ML IV SCH ×3 (05:46→21:10)
[2021-08-04 06:44] LABS: Hematocrit (blood only) 26.3 % (37-47); Mean Corpuscular Hemoglobin 30.5 pg (25-34); Mean Corpuscular Hgb Conc 30.4 g/dL (32-36); Mean Corpuscular Volume 100.4 fL (80-100); Mean Platelet Volume 11.7 fL (7.4-10.4); Nucleated RBC # (auto) 0.02 K/uL (0-0); Nucleated RBC % (auto) 0.2 %; Platelet Count 175 K/uL (130-400); RDW Coefficient of Variation 19.8 % (11.5-14.5); RDW Standard Deviation 72.1 fL (36.4-46.3); Red Blood Count 2.62 M/uL (4.2-5.4); White Blood Count 7.26 K/uL (4.8-10.8)
[2021-08-04 07:22] LABS: BUN Creatinine Ratio 17.9 (10-20); Creatinine Clr Calc Pharmacy 39.4 ml/min; Est GFR (African American) 46.5 ml/min; Est GFR (Non-African American) 40.1 ml/min
--- NOTE | 2021-08-04 08:48 | Surgery Progress Note ---
Date of Service August 04, 2021 Assessment & Plan (1) Small bowel obstruction: Plan: resolving low fiber diet [facility] surgery covering the weekend Admission and Anticipated Discharge Date Admission Date: July 28, 2021 Supervising Physician Co-Signing Physician Notes I personally saw and evaluated the patient with Pato Hicks PA-C and agree with the assessment and plan 85 yo female with resolving SBO versus ileus -Advance diet as tolerated, tolerated low fiber diet for breakfast -Ok to discharge from surgical standpoint, please call back with any questions or concerns Subjective denies pain, tolerating diet Physical Exam Gastrointestinal (Abdomen): Inspection/Auscultation: abdomen not distended Percussion/Palpation: abdomen soft; abdomen nontender air and stool in pouch Results & Data ([facility]) Vital Signs (Past 12 Hours) Vital Signs Temp Pulse Resp BP Pulse Ox 08/04/21 07:02 37.1 C 63 18 155/74 H 94 08/03/21 22:23 36.6 C 59 L 17 170/75 H 95 PG Care Time/CCT Total # of Minutes Spent Total Time Spent with Patient: Total time spent is greater than 50% in coordination of care (as documented) at patient's floor/unit and/or counseling patient: Coding Level of Care Code 14691 Subseq Hosp Care Lvl 1 Diagnoses Small bowel obstruction K56.609
[2021-08-04] MEDS: ATENOLOL 25 MG TABLET PO SCH (10:00)
[2021-08-04] MEDS: FLUTICASONE PROPIONATE NA SPR 16 GM BTL SCH ×2 (10:00→20:28)
[2021-08-04] MEDS: guaiFENesin 600 MG TABCR PO SCH ×2 (10:01→20:28)
[2021-08-04] MEDS: FLUTICASONE/VILANTEROL 200/25MCG 14 PUFFS/INHALER INH SCH (10:01)
[2021-08-04] MEDS: PANTOprazole 40 MG TAB PO SCH ×2 (10:02→20:28)
[2021-08-04] MEDS: MICONAZOLE NITRATE POWDER 43 GM EXT SCH ×2 (10:02→20:28)
[2021-08-04] MEDS: ENOXAPARIN INJ 40 MG/0.4 ML SYR SQ SCH (10:13)
--- NOTE | 2021-08-04 13:31 | Hospitalist Progress Note ---
Date of Service August 04, 2021 Assessment & Plan (1) Small bowel obstruction: Plan: Admitted with n/v, TIM and Leukocytosis/Pneumonia and subsequent decrease in ostomy output (black in ostomy but on iron +occult blood and GI felt no need for inpatient intervention) CTAP 1. Right greater than left bibasilar opacities are suggestive of pneumonia. Associated bibasilar mucous plugging should be correlated clinically to exclude aspiration. 2. Distended air and fluid-filled stomach with numerous distended loops of small bowel with transitioning decompressed small bowel within the lower pelvis. Findings are concerning for a small bowel obstruction. 3. No pneumatosis or pneumoperitoneum. 4. 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 - Diet advanced to low fiber - monitor for tolerance - NGT removed on 08/02 - GI on consult -- felt black stool from iron supplementation and outpatient scope - General surgery on consult - appreciate input Ostomy with liquid stool (2) Pneumonia: Plan: Bilateral opacities, elevated WBC, productive green sputum/saab/lundberg sputum, no fever ?If possible related to aspiration from increased lethargy from pain medications used/multiple surgeries/adhesions and obstruction resulting in n/v/aspiration and resulting aspiration pneumonia. - Completed course of Zithromax - Continue Zosyn x 10 days (06 August) - MRSA Nasal negative Albuterol, flutter valve Sputum cx - with MSSA Stable on ROOM AIR Continue to monitor (3) Anemia: Plan: hgb 7.5 on admission and received 1u PRBC and Venofer on 07/29 - Hgb at baseline (baseline appears around 8-10) No further blood for now, hgb stable and will monitor No bleeding on CT imaging, however did have +fecal occult but is on iron supplementation and GI felt this was cause and no need for inpatient scope Placed on PPI BID GI does not feel inpatient EGD necessary (4) TIM (acute kidney injury): Plan: Acute on chronic CKD III Holding ARB/lasix for now avoid nephrotoxic drugs Cr currently 1.24 from 2.49 on admit (baseline recently closer to 1.8) Of note, would rec renal US given incidental findings on CT to rule out solid masses Monitor labs (5) Vomiting: Plan: - NGT placed and since removed; no nausea/vomiting since removal and tolerating diet Antiemetics prn (6) Fracture dislocation of ankle: Plan: - S/P b/l ORIF completed by Dr Garvin. Completed course of dvt proph per podiatry with eliquis to total of 14 days post-op which was for 2 more days, since d/c continue rehab, PT/OT Dr. Garvin evaluated patient this admission CT ankles with better alignment but still noting fractures. No increased pain/erythema or warmth above prior eval (7) CAD (coronary artery disease): Plan: With 1 stent to circumflex 2004 Holding ASA as above (8) Hypothyroidism: Plan: Continue Synthroid 225mcg TSH elevated to 6.17 during this admission however was 20.6 last admission when checked and Synthroid was increased to 225mcg daily - Free T4 WNL Rec repeat TFT in 4 weeks for eval on further adjustments if needed (9) Positive occult stool blood test: Plan: on iron outpatient outpatient scope per GI Plan: - Continued inpatient stay - monitor diet tolerance; respiratory status stable - Hgb remaining stable - started Lovenox 40SQ daily for DVT prophylaxis - Was at [facility] for rehab (did not hold bed) will need to await new bed. CM following -- Pending diet tolerance would be medically suitable for D/C Admission and Anticipated Discharge Date Admission Date: July 28, 2021 Subjective Reports tolerance of her diet and has been advanced. Hesitant to eat solid foods because she feels that it is hard to lift her food due to weakness not because of abdominal discomfort. Her voice is less hoarse. She remains on RA. Review of Systems Review of Systems: REVIEW OF SYSTEMS General/Constitutional: Denies fever/chills ENT: + hoarse voice (improving), Denies difficulty swallowing Cardiovascular: Denies chest pain, palpitations, edema Respiratory: + cough; Denies SOB, wheezing, orthopnea GI: Denies nausea, vomiting, abdominal pain : Denies dysuria Physical Exam Physical Exam: PHYSICAL EXAM General Appearance: WDWN in NAD who is A&O x 3 HEENT: Head is normocephalic/atraumatic; Hearing grossly intact with hearing aid in place Neck: Supple; Trachea midline; Neg JVD Heart: RRR with + murmur Lungs: + crackles at bases; Respirations unlabored; Neg accessory muscle use Abdomen: Soft, non-tender, non-distended; Positive BS x 4 quadrants; + ostomy w ith output Extremities: Neg cyanosis Neurological: Speech clear but hoarse (nearly resolved); Gross motor/sensory function intact; Neg focal neurologic deficits Psychiatric: Appropriate mood/affect Results & Data Results & Data ([facility]) Vital Signs (Past 12 Hours) Vital Signs Temp Pulse Resp BP Pulse Ox 08/04/21 07:02 37.1 C 63 18 155/74 H 94 PG Care Time/CCT Total # of Minutes Spent Total Time Spent with Patient: Total time spent is greater than 50% in coordination of care (as documented) at patient's floor/unit and/or counseling patient: Coding Level of Care Code 81743 Subseq Hosp Care Lvl 2 Diagnoses Small bowel obstruction K56.609 Pneumonia J18.9 Laterality: bilateral Lung location: lower lobe of lung Pneumonia type: due to unspecified organism Anemia D64.9 TIM (acute kidney injury) N17.9 Vomiting R11.10 Fracture dislocation of ankle S82.892A Encounter type: initial encounter Fracture type: closed Laterality: left CAD (coronary artery disease) I25.10 Hypothyroidism E03.9 Positive occult stool blood test R19.5 (1) Pneumonia Laterality: bilateral Lung location: lower lobe of lung Pneumonia type: due to unspecified organism Qualified Code(s): J18.9 - Pneumonia, unspecified organism (2) Fracture dislocation of ankle Encounter type: initial encounter Fracture type: closed Laterality: left Qualified Code(s): S82.892A - Other fracture of left lower leg, initial encounter for closed fracture
[2021-08-04] MEDS: ACETAMINOPHEN 325 MG TAB PO PRN (21:10)
[2021-08-05] MEDS: MELATONIN 3 MG TAB PO PRN ×2 (01:40→21:20)
[2021-08-05] MEDS: BENZONATATE 100 MG CAPSULE PO PRN ×4 (01:40→21:20)
[2021-08-05] MEDS: PIPERACILLIN/TAZOBACTAM 4.5 GM in DEXTROSE 5% 100 ML IV SCH ×3 (06:32→21:28)
[2021-08-05] MEDS: LEVOTHYROXINE SODIUM 75 MCG TABLET PO SCH (06:32)
[2021-08-05] MEDS: FLUTICASONE/VILANTEROL 200/25MCG 14 PUFFS/INHALER INH SCH (08:57)
[2021-08-05] MEDS: FLUTICASONE PROPIONATE NA SPR 16 GM BTL SCH ×2 (08:57→21:19)
[2021-08-05] MEDS: ENOXAPARIN INJ 40 MG/0.4 ML SYR SQ SCH (08:57)
[2021-08-05] MEDS: guaiFENesin 600 MG TABCR PO SCH ×2 (08:57→21:20)
[2021-08-05] MEDS: ATENOLOL 25 MG TABLET PO SCH (08:58)
[2021-08-05] MEDS: PANTOprazole 40 MG TAB PO SCH ×2 (08:58→21:21)
[2021-08-05] MEDS: MICONAZOLE NITRATE POWDER 43 GM EXT SCH ×2 (08:58→21:21)
--- NOTE | 2021-08-05 12:10 | Hospitalist Progress Note ---
Date of Service August 05, 2021 Assessment & Plan (1) Small bowel obstruction: Plan: Admitted with n/v, TIM and Leukocytosis/Pneumonia and subsequent decrease in ostomy output (black in ostomy on admission but on iron +occult blood and GI felt no need for inpatient intervention) CTAP 1. Right greater than left bibasilar opacities are suggestive of pneumonia. Associated bibasilar mucous plugging should be correlated clinically to exclude aspiration. 2. Distended air and fluid-filled stomach with numerous distended loops of small bowel with transitioning decompressed small bowel within the lower pelvis. Findings are concerning for a small bowel obstruction. 3. No pneumatosis or pneumoperitoneum. 4. 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 - Diet advanced to low fiber - currently tolerating - NGT removed on 08/02 - GI on consult -- felt black stool from iron supplementation and outpatient scope - General surgery on consult - appreciate input Ostomy with liquid stool - dark green colored (2) Pneumonia: Plan: Bilateral opacities, elevated WBC, productive green sputum/saab/lundberg sputum, no fever ?If possible related to aspiration from increased lethargy from pain medications used/multiple surgeries/adhesions and obstruction resulting in n/v/aspiration and resulting aspiration pneumonia. - Completed course of Zithromax - Continue Zosyn x 10 days (06 August) - MRSA Nasal negative - Consider repeat CXR given need for intermittent Lasix at home - assessing fluid balance is difficult given body habitus Albuterol, flutter valve Sputum cx - with MSSA Stable on ROOM AIR Continue to monitor (3) Anemia: Plan: hgb 7.5 on admission and received 1u PRBC and Venofer on 07/29 - Hgb at baseline (baseline appears around 8-10) No further blood for now, hgb stable and will monitor No bleeding on CT imaging, however did have +fecal occult but is on iron supplementation and GI felt this was cause and no need for inpatient scope Placed on PPI BID GI does not feel inpatient EGD necessary (4) TIM (acute kidney injury): Plan: Acute on chronic CKD III Holding ARB/lasix for now avoid nephrotoxic drugs Cr currently 1.24 from 2.49 on admit (baseline recently closer to 1.8) Of note, would rec renal US given incidental findings on CT to rule out solid masses Monitor labs (5) Vomiting: Plan: - NGT placed and since removed; no nausea/vomiting since removal and tolerating diet Antiemetics prn (6) Fracture dislocation of ankle: Plan: - S/P b/l ORIF completed by Dr Garvin. Completed course of dvt proph per podiatry with eliquis to total of 14 days post-op which was for 2 more days, since d/c continue rehab, PT/OT Dr. Garvin evaluated patient this admission CT ankles with better alignment but still noting fractures. No increased pain/erythema or warmth above prior eval (7) CAD (coronary artery disease): Plan: With 1 stent to circumflex 2003 Holding ASA as above (8) Hypothyroidism: Plan: Continue Synthroid 225mcg TSH elevated to 6.17 during this admission however was 20.6 last admission when checked and Synthroid was increased to 225mcg daily - Free T4 WNL Rec repeat TFT in 4 weeks for eval on further adjustments if needed (9) Positive occult stool blood test: Plan: on iron outpatient outpatient scope per GI Plan: - Tolerating diet; respiratory status stable - Hgb remaining stable - started Lovenox 40SQ daily for DVT prophylaxis - Was at [facility] for rehab (did not hold bed) will need to await new bed. CM following -- Will check AM labs to assess renal function, clinically is stable and should be medically suitable for D/C pending bed attainment Admission and Anticipated Discharge Date Admission Date: July 28, 2021 Subjective Reports doing overall well just having coughing and able to spit out mucous. She states she is "vomiting" but upon further discussion she says its phlegm that she spits in a tissue. She states she is tolerating her current diet and continues with ostomy output. She reports she had an easier time feeding herself today. Remains on RA and denies SOB just bothered by the coughing. Review of Systems Review of Systems: All systems reviewed & are unremarkable except as noted in Subjective Physical Exam Physical Exam: PHYSICAL EXAM General Appearance: WDWN in NAD who is A&O x 3 HEENT: Head is normocephalic/atraumatic; Hearing grossly intact with hearing aid in place Neck: Supple; Trachea midline; Neg JVD Heart: RRR with + murmur Lungs: + productive cough; CTA bilaterally; Respirations unlabored; Neg accessory muscle use Abdomen: Soft, non-tender, non-distended; Positive BS x 4 quadrants; + ostomy with output Extremities: Neg cyanosis Neurological: Speech clear voice does not seem hoarse today Psychiatric: Appropriate mood/affect Results & Data Results & Data ([facility]) Vital Signs (Past 12 Hours) Vital Signs Temp Pulse Resp BP Pulse Ox 08/05/21 08:55 36.7 C 65 16 171/78 H 95 08/05/21 00:11 36.6 C 57 L 17 157/79 H 97 PG Care Time/CCT Total # of Minutes Spent Total Time Spent with Patient: Total time spent is greater than 50% in coordination of care (as documented) at patient's floor/unit and/or counseling patient: Coding Level of Care Code 84351 Subseq Hosp Care Lvl 3 Diagnoses Small bowel obstruction K56.609 Pneumonia J18.9 Laterality: bilateral Lung location: lower lobe of lung Pneumonia type: due to unspecified organism Anemia D64.9 TIM (acute kidney injury) N17.9 Vomiting R11.10 Fracture dislocation of ankle S82.892A Encounter type: initial encounter Fracture type: closed Laterality: left CAD (coronary artery disease) I25.10 Hypothyroidism E03.9 Positive occult stool blood test R19.5 (1) Pneumonia Laterality: bilateral Lung location: lower lobe of lung Pneumonia type: due to unspecified organism Qualified Code(s): J18.9 - Pneumonia, unspecified organism (2) Fracture dislocation of ankle Encounter type: initial encounter Fracture type: closed Laterality: left Qualified Code(s): S82.892A - Other fracture of left lower leg, initial encounter for closed fracture
[2021-08-05] MEDS: ACETAMINOPHEN 325 MG TAB PO PRN ×2 (15:16→21:29)
[2021-08-05] MEDS: hydrOXYzine HCl 10 MG TAB PO PRN (21:22)
[2021-08-06] MEDS ORDERED: KETOROLAC TROMETHAMINE 15 MG/ML VIAL IV ONE (01:54)
[2021-08-06] MEDS ORDERED: MELATONIN 3 MG TAB PO PRN (02:08)
[2021-08-06] MEDS: MELATONIN 3 MG TAB PO PRN ×2 (02:30→19:51)
[2021-08-06] MEDS: PIPERACILLIN/TAZOBACTAM 4.5 GM in DEXTROSE 5% 100 ML IV SCH (05:42)
[2021-08-06] MEDS: ACETAMINOPHEN 325 MG TAB PO PRN ×2 (05:43→19:52)
[2021-08-06] MEDS: LEVOTHYROXINE SODIUM 75 MCG TABLET PO SCH (05:43)
[2021-08-06] MEDS: hydrOXYzine HCl 10 MG TAB PO PRN ×2 (08:33→19:50)
[2021-08-06] MEDS: FLUTICASONE PROPIONATE NA SPR 16 GM BTL SCH ×2 (08:34→19:49)
[2021-08-06] MEDS: PANTOprazole 40 MG TAB PO SCH ×2 (08:34→19:50)
[2021-08-06] MEDS: guaiFENesin 600 MG TABCR PO SCH ×2 (08:34→19:49)
[2021-08-06] MEDS: ENOXAPARIN INJ 40 MG/0.4 ML SYR SQ SCH (08:34)
[2021-08-06] MEDS: FLUTICASONE/VILANTEROL 200/25MCG 14 PUFFS/INHALER INH SCH (08:35)
[2021-08-06] MEDS: ATENOLOL 25 MG TABLET PO SCH (08:35)
[2021-08-06] MEDS: MICONAZOLE NITRATE POWDER 43 GM EXT SCH ×2 (08:35→19:50)
[2021-08-06 09:44] LABS: Hematocrit (blood only) 27.5 % (37-47); Hemoglobin 8.4 g/dL (12.0-16.0); Mean Corpuscular Hemoglobin 30.2 pg (25-34); Mean Corpuscular Hgb Conc 30.5 g/dL (32-36); Mean Corpuscular Volume 98.9 fL (80-100); Mean Platelet Volume 11.2 fL (7.4-10.4); Platelet Count 122 K/uL (130-400); RDW Coefficient of Variation 19.2 % (11.5-14.5); RDW Standard Deviation 69.9 fL (36.4-46.3); Red Blood Count 2.78 M/uL (4.2-5.4); White Blood Count 4.05 K/uL (4.8-10.8)
[2021-08-06 10:00] LABS: BUN Creatinine Ratio 15.1 (10-20); Creatinine Clr Calc Pharmacy 40.8 ml/min; Est GFR (African American) 48.4 ml/min; Est GFR (Non-African American) 41.8 ml/min; Potassium 3.8 mmol/L (3.5-5.1)
[2021-08-06] MEDS: BENZONATATE 100 MG CAPSULE PO PRN (19:52)
--- NOTE | 2021-08-06 21:15 | Hospitalist Progress Note ---
Date of Service August 06, 2021 Assessment & Plan (1) Small bowel obstruction: Plan: Admitted with n/v, TIM and Leukocytosis/Pneumonia and subsequent decrease in ostomy output (black in ostomy on admission but on iron +occult blood and GI felt no need for inpatient intervention) CTAP 1. Right greater than left bibasilar opacities are suggestive of pneumonia. Associated bibasilar mucous plugging should be correlated clinically to exclude aspiration. 2. Distended air and fluid-filled stomach with numerous distended loops of small bowel with transitioning decompressed small bowel within the lower pelvis. Findings are concerning for a small bowel obstruction. 3. No pneumatosis or pneumoperitoneum. 4. 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 - Diet advanced to low fiber - tolerating x a few days - NGT removed on 08/02 - GI on consult -- felt black stool from iron supplementation and outpatient scope - General surgery on consult - appreciate input Ostomy with liquid stool - dark green colored (2) Pneumonia: Plan: Bilateral opacities, elevated WBC, productive green sputum/saab/lundberg sputum, no fever ?If possible related to aspiration from increased lethargy from pain medications used/multiple surgeries/adhesions and obstruction resulting in n/v/aspiration and resulting aspiration pneumonia. - Completed course of Zithromax - Zosyn to complete today - MRSA Nasal negative Albuterol, flutter valve Sputum cx - with MSSA Stable on ROOM AIR (3) Anemia: Plan: hgb 7.5 on admission and received 1u PRBC and Venofer on 07/29 - Hgb at baseline (baseline appears around 8-10) No further blood for now, hgb stable and will monitor No bleeding on CT imaging, however did have +fecal occult but is on iron supplementation and GI felt this was cause and no need for inpatient scope Placed on PPI BID GI does not feel inpatient EGD necessary (4) TIM (acute kidney injury): Plan: Acute on chronic CKD III Holding ARB/lasix for now avoid nephrotoxic drugs Cr currently 1.2 from 2.49 on admit (baseline recently closer to 1.8) Of note, would rec renal US given incidental findings on CT to rule out solid masses - can defer to outpatient or complete here pending length of stay given bed availability Monitor labs (5) Vomiting: Plan: - NGT placed and since removed; no nausea/vomiting since removal and tolerating diet Antiemetics prn (6) Fracture dislocation of ankle: Plan: - S/P b/l ORIF completed by Dr Garvin. Completed course of dvt proph per podiatry with eliquis to total of 14 days post-op which was for 2 more days, since d/c continue rehab, PT/OT Dr. Garvin evaluated patient this admission CT ankles with better alignment but still noting fractures. No increased pain/erythema or warmth above prior eval (7) CAD (coronary artery disease): Plan: With 1 stent to circumflex 2003 Holding ASA as above - given stability of Hgb could consider restarting (8) Hypothyroidism: Plan: Continue Synthroid 225mcg TSH elevated to 6.17 during this admission however was 20.6 last admission when checked and Synthroid was increased to 225mcg daily - Free T4 WNL Rec repeat TFT in 4 weeks for eval on further adjustments if needed (9) Positive occult stool blood test: Plan: on iron outpatient - placed on hold during obstruction - since no plans for inpatient scope could consider restarting outpatient scope per GI Plan: - Tolerating diet; respiratory status stable - Hgb remaining stable - started Lovenox 40SQ daily for DVT prophylaxis - Was at [facility] for rehab (did not hold bed) will need to await new bed. CM following -- Appears medically stable for transfer to rehab pending bed availability Admission and Anticipated Discharge Date Admission Date: July 28, 2021 Subjective She reports her cough is getting better today. Her voice is back to normal and no longer hoarse. She complains of pain on her buttom due to sores from minimal movement over past couple hospital stays. Tolerating her diet without issue. Good ostomy output. States she feels her arms are a bit stronger to feed herself but isn't the most motivated. She denies SOB, abdominal pain, N/V. Review of Systems Review of Systems: All systems reviewed & are unremarkable except as noted in Subjective Physical Exam Physical Exam: PHYSICAL EXAM General Appearance: WDWN in NAD who is A&O x 3 HEENT: Head is normocephalic/atraumatic; Hearing grossly intact with hearing aid in place Neck: Supple; Trachea midline; Neg JVD Heart: RRR with + murmur Lungs: No cough during my visit today; CTA bilaterally diminished at bases; Respirations unlabored; Neg accessory muscle use Abdomen: Soft, non-tender, non-distended; Positive BS x 4 quadrants; + ostomy with output Extremities: Neg cyanosis Neurological: Speech clear voice does not seem hoarse today Psychiatric: Appropriate mood/affect Results & Data Results & Data ([facility]) Vital Signs (Past 12 Hours) Vital Signs Temp Pulse Resp BP Pulse Ox 08/06/21 15:26 36.5 C 65 18 168/84 H 95 PG Care Time/CCT Total # of Minutes Spent Total Time Spent with Patient: Total time spent is greater than 50% in coordination of care (as documented) at patient's floor/unit and/or counseling patient: Coding Level of Care Code 01667 Subseq Hosp Care Lvl 2 Diagnoses Small bowel obstruction K56.609 Pneumonia J18.9 Laterality: bilateral Lung location: lower lobe of lung Pneumonia type: due to unspecified organism Anemia D64.9 TIM (acute kidney injury) N17.9 Vomiting R11.10 Fracture dislocation of ankle S82.892A Encounter type: initial encounter Fracture type: closed Laterality: left CAD (coronary artery disease) I25.10 Hypothyroidism E03.9 Positive occult stool blood test R19.5 (1) Pneumonia Laterality: bilateral Lung location: lower lobe of lung Pneumonia type: due to unspecified organism Qualified Code(s): J18.9 - Pneumonia, unspecified organism (2) Fracture dislocation of ankle Encounter type: initial encounter Fracture type: closed Laterality: left Qualified Code(s): S82.892A - Other fracture of left lower leg, initial encounter for closed fracture
[2021-08-07] MEDS: ACETAMINOPHEN 325 MG TAB PO PRN ×2 (05:39→14:18)
[2021-08-07] MEDS: LEVOTHYROXINE SODIUM 75 MCG TABLET PO SCH (05:39)
[2021-08-07] MEDS: BENZONATATE 100 MG CAPSULE PO PRN ×3 (06:29→20:15)
[2021-08-07] MEDS: PANTOprazole 40 MG TAB PO SCH ×2 (09:07→20:14)
[2021-08-07] MEDS: guaiFENesin 600 MG TABCR PO SCH ×2 (09:07→20:12)
[2021-08-07] MEDS: ATENOLOL 25 MG TABLET PO SCH (09:07)
[2021-08-07] MEDS: FLUTICASONE/VILANTEROL 200/25MCG 14 PUFFS/INHALER INH SCH (09:08)
[2021-08-07] MEDS: MICONAZOLE NITRATE POWDER 43 GM EXT SCH ×2 (09:08→20:13)
[2021-08-07] MEDS: FLUTICASONE PROPIONATE NA SPR 16 GM BTL SCH ×2 (09:08→20:12)
[2021-08-07] MEDS: ENOXAPARIN INJ 40 MG/0.4 ML SYR SQ SCH (09:08)
--- NOTE | 2021-08-07 12:20 | Hospitalist Progress Note ---
Date of Service August 07, 2021 Assessment & Plan (1) Small bowel obstruction: Plan: Admitted with n/v, TIM and Leukocytosis/Pneumonia and subsequent decrease in ostomy output (black in ostomy on admission but on iron +occult blood and GI felt no need for inpatient intervention) GI on consult -- felt black stool from iron supplementation and outpatient scope CTAP 1. Right greater than left bibasilar opacities are suggestive of pneumonia. Associated bibasilar mucous plugging should be correlated clinically to exclude aspiration. 2. Distended air and fluid-filled stomach with numerous distended loops of small bowel with transitioning decompressed small bowel within the lower pelvis. Findings are concerning for a small bowel obstruction. 3. No pneumatosis or pneumoperitoneum. 4. 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 General surgery consulted -- since, signed off. Recall if needed NGT placed, removed 08/02 Diet advanced to low fiber and has tolerated for past 3 days --> will continue low fiber diet for today then advance for AM Ostomy continues with output Awaiting placement -- Was at [facility] but did not pay for bed hold. No beds available this week per . BMP with stable kidney function, Mag low at 1.1. IV replacement ordered and will continue to monitor (2) Pneumonia: Plan: Bilateral opacities, elevated WBC, productive green sputum/saab/lundberg sputum, no fever ?If possible related to aspiration from increased lethargy from pain medications used/multiple surgeries/adhesions and obstruction resulting in n/v/aspiration and resulting aspiration pneumonia. Completed course of Zosyn/Azithromycin for CAP. Sputum cx - with MSSA (Mrsa Nasal was negative) Continue albuterol neb prn Cont flutter valve Remains on Room Air 96%. Breathing at baseline (3) Anemia: Plan: hgb 7.5 on admission and received 1u PRBC and Venofer on 07/29 - Hgb at baseline (baseline appears around 8-10) No further blood for now, hgb stable and will monitor No bleeding on CT imaging, however did have +fecal occult but is on iron supplementation and GI felt this was cause and no need for inpatient scope Placed on PPI BID GI does not feel inpatient EGD necessary --> ?Resuming home iron supplementation tomorrow vs holding off for now, possible change to QOD dosing. Did get dose of Venofer while inpatient and hgb remains stable in 8s Monitor CBC in AM (4) TIM (acute kidney injury): Plan: Acute on chronic CKD III Cr currently 1.2 from 2.49 on admit (baseline recently closer to 1.8 recently) Holding ARB/lasix for now -- will resume losartan given BP 177/89 but hold lasix for now to prevent dehydration given SBO as above. Possible resume in AM? avoid nephrotoxic drugs Of note, would rec renal US given incidental findings on CT to rule out solid masses - can defer to outpatient or complete here pending length of stay given bed availability BMP in AM (5) Vomiting: Plan: - NGT placed and since removed; no nausea/vomiting since removal and tolerating diet Antiemetics prn No vomiting reported (6) Fracture dislocation of ankle: Plan: - S/P b/l ORIF completed by Dr Garvin. Completed course of dvt proph per podiatry with eliquis to total of 14 days post-op which was for 2 more days, since d/c continue rehab, PT/OT Dr. Garvin evaluated patient, removed remaining sutures CT ankles with better alignment but still noting fractures. No increased pain/erythema or warmth above prior eval Rehab at d/c planned -- CM following (7) CAD (coronary artery disease): Plan: With 1 stent to circumflex 2003 Held ASA--> resumed 08/07 given hgb stable on repeats resume statin (8) Hypothyroidism: Plan: Continue Synthroid 225mcg TSH elevated to 6.17 during this admission however was 20.6 last admission when checked and Synthroid was increased to 225mcg daily - Free T4 WNL Rec repeat TFT in 4 weeks for eval on further adjustments if needed (9) Positive occult stool blood test: Plan: on iron outpatient - placed on hold during obstruction - since no plans for inpatient scope could consider restarting outpatient scope per GI (10) Hypomagnesemia: Plan: Low at 1.1 -- worsened likely due to PPI BID Replacement ordered, also will help with GI motility Mag level in AM Plan: Tolerating diet; respiratory status stable Hgb remaining stable --> started Lovenox 40SQ daily on 08/03 for DVT prophylaxis Was at [facility] for rehab (did not hold bed) will need to await new bed. CM following -- bed not available this week possible however patient stable when bed available Admission and Anticipated Discharge Date Admission Date: July 28, 2021 Supervising Physician Co-Signing Physician Notes PAOLA Supervision Note: I did not personally see or examine the patient today, but I verified all lay points of PAOLA Hernandez's assessment and plan with the following exceptions/additions: None Subjective patient evaluated around lunch. states she is hungry. wants tomato soup and cracker for lunch. ostomy with dark stool output. breathing stable. still with occasional cough and feels like her nose is plugged up. She notes she pulled a large booger out and felt better but has been picking her nose. Educated to avoid this to prevent nose bleeds. Has been using nasal ocean mist and states her usual nasal spray is locked in cabinet. No fever, chills, chest pain, abdominal pain, nausea or vomiting. Review of Systems Review of Systems: All systems reviewed & are unremarkable except as noted in HPI & below Physical Exam Physical Exam: General: awake, alert, no apparent distress resting in bed ENT: mmm, LUCILLE, EOMI trachea midline without deviation Resp: CTAB, bibasilar crackles, no wheezing or rhonchi, 95% on room air CV; RRR, systolic murmur, calves nontender, no edema ; +BS throughout, +ostomy with liquid/some formed brown/darkened stool output, non-tender MSK; bruising and chronic venous stasis, healing incisions to b/l ankles. no increased erythema or warmth, pulses palpable. NVI Psych: AOx3, anxious affect Skin: surgical incisions intact, venous stasis b/l LE, erythema to b/l buttocks without purulent drainage or signs of infection Results & Data Results & Data ([facility]) Vital Signs (Past 12 Hours) Vital Signs Temp Pulse Resp BP Pulse Ox 08/07/21 08:25 37.2 C 76 16 177/89 H 95 Laboratory Results 08/07/21 Range/Units 16:29 Sodium 140 (136-145) mmol/L Potassium 4.0 (3.5-5.1) mmol/L Chloride 111 H (98-107) mmol/L Carbon Dioxide 25 (21-32) mmol/L Anion Gap 4.0 (3-11) BUN 14 (7-18) mg/dl Creatinine 1.24 H (0.6-1.2) mg/dl Est Cr Clr Drug Dosing 39.4 ml/min Est GFR ( Amer) 46.5 ml/min Est GFR (Non-Af Amer) 40.1 ml/min BUN/Creatinine Ratio 11.0 (10-20) Glucose 126 H (70-99) mg/dl Calcium 8.8 (8.5-10.1) mg/dl Magnesium 1.1 L (1.8-2.4) mg/dl PG Care Time/CCT Total # of Minutes Spent Total Time Spent with Patient: Total time spent is greater than 50% in coordination of care (as documented) at patient's floor/unit and/or counseling patient: Coding Level of Care Code 96441 Subseq Hosp Care Lvl 3 Diagnoses Small bowel obstruction K56.609 Pneumonia J18.9 Laterality: bilateral Lung location: lower lobe of lung Pneumonia type: due to unspecified organism Anemia D64.9 TIM (acute kidney injury) N17.9 Vomiting R11.10 Fracture dislocation of ankle S82.892A Encounter type: initial encounter Fracture type: closed Laterality: left CAD (coronary artery disease) I25.10 Hypothyroidism E03.9 Positive occult stool blood test R19.5 Hypomagnesemia E83.42 (1) Fracture dislocation of ankle Encounter type: initial encounter Fracture type: closed Laterality: left Qualified Code(s): S82.892A - Other fracture of left lower leg, initial encounter for closed fracture (2) Pneumonia Laterality: bilateral Lung location: lower lobe of lung Pneumonia type: due to unspecified organism Qualified Code(s): J18.9 - Pneumonia, unspecified organism
[2021-08-07] MEDS: hydrOXYzine HCl 10 MG TAB PO PRN ×2 (16:46→20:14)
[2021-08-07 17:13] LABS: Calcium 8.8 mg/dl (8.5-10.1); Creatinine Clr Calc Pharmacy 39.4 ml/min; Est GFR (African American) 46.5 ml/min; Est GFR (Non-African American) 40.1 ml/min; Magnesium 1.1 mg/dl (1.8-2.4)
[2021-08-07] MEDS: MAGNESIUM SULFATE / D5W 1 GM/100 ML BAG IV SCH ×3 (19:39→23:50)
[2021-08-07] MEDS: LOSARTAN POTASSIUM 50 MG TAB PO SCH (20:13)
[2021-08-07] MEDS: MELATONIN 3 MG TAB PO PRN (20:15)
[2021-08-08] MEDS: BENZONATATE 100 MG CAPSULE PO PRN ×2 (05:08→13:47)
[2021-08-08] MEDS: LEVOTHYROXINE SODIUM 75 MCG TABLET PO SCH (05:09)
[2021-08-08 06:22] LABS: Hematocrit (blood only) 29.5 % (37-47); Mean Corpuscular Hemoglobin 30.3 pg (25-34); Mean Corpuscular Hgb Conc 30.5 g/dL (32-36); Mean Corpuscular Volume 99.3 fL (80-100); Mean Platelet Volume 11.2 fL (7.4-10.4); Platelet Count 130 K/uL (130-400); RDW Coefficient of Variation 19.2 % (11.5-14.5); RDW Standard Deviation 69.4 fL (36.4-46.3); Red Blood Count 2.97 M/uL (4.2-5.4); White Blood Count 4.63 K/uL (4.8-10.8)
[2021-08-08 07:02] LABS: Creatinine Clr Calc Pharmacy 43.7 ml/min; Est GFR (African American) 52.6 ml/min; Est GFR (Non-African American) 45.4 ml/min
--- NOTE | 2021-08-08 08:24 | Hospitalist Progress Note ---
Date of Service August 08, 2021 Assessment & Plan (1) Small bowel obstruction: Plan: Admitted with n/v, TIM and Leukocytosis/Pneumonia and subsequent decrease in ostomy output (black in ostomy on admission but on iron +occult blood and GI felt no need for inpatient intervention) GI on consult -- felt black stool from iron supplementation and outpatient scope CTAP 1. Right greater than left bibasilar opacities are suggestive of pneumonia. Associated bibasilar mucous plugging should be correlated clinically to exclude aspiration. 2. Distended air and fluid-filled stomach with numerous distended loops of small bowel with transitioning decompressed small bowel within the lower pelvis. Findings are concerning for a small bowel obstruction. 3. No pneumatosis or pneumoperitoneum. 4. 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 General surgery consulted -- since, signed off. Recall if needed NGT placed, removed 08/02 Diet advanced to low fiber and has tolerated for past 4 days --> will continue low fiber diet x 2 weeks then advance to usual diet Ostomy continues with output, increased today and tolerating diet. Mag low at 1.1 on 08/07 with replacement and resolved on repeat. Awaiting placement -- Was at [facility] but did not pay for bed hold. No beds available this week per . (2) Pneumonia: Plan: Bilateral opacities, elevated WBC, productive green sputum/saab/lundberg sputum on admission, no fever ?If possible related to aspiration from increased lethargy from pain medications used/multiple surgeries/adhesions and obstruction resulting in n/v/aspiration and resulting aspiration pneumonia. Completed course of Zosyn/Azithromycin for CAP. Sputum cx - with MSSA (Mrsa Nasal was negative) Continue albuterol neb prn Cont flutter valve Remains on Room Air 94%. Breathing at baseline (3) Anemia: Plan: hgb 7.5 on admission and received 1u PRBC and Venofer on 07/29 - Hgb at baseline (baseline appears around 8-10). GI does not feel inpatient EGD necessary as felt due to iron supplementation as cause for + fecal occult Given no active bleeding and was placed on protonix BID on admit due to possible bleed, will back down to protonix 40mg daily -- continue at d/c Would hold off on resuming PO iron supplementation given obstruction and given 1u PRBC/Venofer early in stay and would have outpatient monitoring/venofer transfusions if needed Hgb/hct stable and improved to 9/29.5 on 08/08 (4) TIM (acute kidney injury): Plan: Acute on chronic CKD III Cr currently 1.2 from 2.49 on admit (baseline recently closer to 1.8 recently) Holding ARB/lasix for now -- will resume losartan given BP 177/89 but hold lasix for now to prevent dehydration given SBO as above. Possible resume in AM? avoid nephrotoxic drugs Of note, would rec renal US given incidental findings on CT to rule out solid masses - can defer to outpatient or complete here pending length of stay given bed availability BMP in AM (5) Vomiting: Plan: Secondary to small bowel obstruction - NGT placed and since removed; no nausea/vomiting since removal and tolerating diet Antiemetics prn No further vomiting reported (6) Hypertension: Plan: BP elevated, but has pain to buttocks (worsening erythema as below, wound RN on consult). pain controlled with ordered meds and remained up. Tolerating oral, no dehydration, kidney function back to baseline and losartan resumed evening 08/07 (7) Fracture dislocation of ankle: Plan: - S/P b/l ORIF completed by Dr Garvin. Completed course of dvt proph per podiatry with eliquis to total of 14 days post-op which was for 2 more days, since d/c continue rehab, PT/OT Dr. Garvin evaluated patient, removed remaining sutures CT ankles with better alignment but still noting fractures. No increased pain/erythema or warmth above prior eval Rehab at d/c planned -- CM following (8) CAD (coronary artery disease): Plan: With 1 stent to circumflex 2003 Held ASA--> resumed 08/07 given hgb stable on repeats and remains stable at 9 Resumed statin 08/07 (9) Hypothyroidism: Plan: Continue Synthroid 225mcg TSH elevated to 6.17 during this admission however was 20.6 last admission when checked and Synthroid was increased to 225mcg daily - Free T4 WNL Rec repeat TFT in 4 weeks for eval on further adjustments if needed (10) Positive occult stool blood test: Plan: on iron outpatient - placed on hold during obstruction - consider outpatient venofer infusions but would hold off on oral supplementation to prevent constipation/obstruction as above outpatient scope per GI (11) Hypomagnesemia: Plan: Low at 1.1 -- worsened likely due to PPI BID Replacement ordered, also will help with GI motility and resolved on repeat PPI backed to once daily (12) Pressure ulcer: Plan: worsening erythema to b/l buttocks patient to be repositioned by staff however refusing at times. refusing to get up most days with therapy utilize Smita lift for transfers encouraged frequent repositioning barrier cream/keeping area clean and dry will consult wound RN for AM Plan: Tolerating diet; respiratory status stable Hgb remaining stable --> started Lovenox 40SQ daily on 08/03 for DVT prophylaxis Was at [facility] for rehab (did not hold bed) will need to await new bed. CM following -- bed not available this week possible however patient stable when bed available Admission and Anticipated Discharge Date Admission Date: July 28, 2021 Supervising Physician Co-Signing Physician Notes PA Supervision Note: I did not personally see or examine the patient today, but I verified all lay points of PAOLA Hernandez's assessment and plan with the following exceptions/additions: None Subjective Patient evaluated this afternoon around lunch time. Waiting for a tray and states she is hungry. Eating/drinking and ostomy with liquid stool output, no further pasty stool. Using nasal spray and getting some out but still feels like she has boogers in there. Educated to avoid picking her nose, as she has dried blood under fingernails -- she reports she did end up getting a nose bleed yesterday. No fever, chils, chest pain. Breathing stable on room air but insistent she has more to cough up but just not able. No nausea or vomiting. No abdominal pain. [place] with yellow urine draining. Still awaiting placement for rehab -- no beds this week. Review of Systems Review of Systems: All systems reviewed & are unremarkable except as noted in HPI & below Physical Exam Physical Exam: General: awake, alert, no apparent distress resting in bed ENT: mmm, LUCILLE, EOMI trachea midline without deviation Resp: CTAB, diminished in the bases, no wheezing or rhonchi, 95% on room air CV; RRR, systolic murmur, calves nontender, no edema ; +BS throughout, +ostomy with liquid/some formed brown/darkened stool output, non-tender MSK; bruising and chronic venous stasis, healing incisions to b/l ankles. no increased erythema or warmth, pulses palpable. NVI, decreased strength b/l LE 2- 3+/5 Psych: AOx3, anxious affect Skin: surgical incisions intact, venous stasis b/l LE, erythema to b/l buttocks without purulent drainage or signs of infection Results & Data Results & Data ([facility]) Vital Signs (Past 12 Hours) Vital Signs Temp Pulse Resp BP Pulse Ox 08/08/21 07:11 37 C 58 L 16 146/70 H 92 08/07/21 23:31 36.8 C 65 16 170/86 H 96 Laboratory Results 08/08/21 08/08/21 08/07/21 Range/Units 06:07 06:07 16:29 WBC 4.63 L (4.8-10.8) K/uL RBC 2.97 L (4.2-5.4) M/uL Hgb 9.0 L (12.0-16.0) g/dL Hct 29.5 L (37-47) % MCV 99.3 (80-100) fL MCH 30.3 (25-34) pg MCHC 30.5 L (32-36) g/dL RDW Std Deviation 69.4 H (36.4-46.3) fL RDW Coeff of Amaya 19.2 H (11.5-14.5) % Plt Count 130 (130-400) K/uL MPV 11.2 H (7.4-10.4) fL Sodium 138 140 (136-145) mmol/L Potassium 4.0 4.0 (3.5-5.1) mmol/L Chloride 108 H 111 H (98-107) mmol/L Carbon Dioxide 22 25 (21-32) mmol/L Anion Gap 8.0 4.0 (3-11) BUN 12 14 (7-18) mg/dl Creatinine 1.12 1.24 H (0.6-1.2) mg/dl Est Cr Clr Drug Dosing 43.7 39.4 ml/min Est GFR ( Amer) 52.6 46.5 ml/min Est GFR (Non-Af Amer) 45.4 40.1 ml/min BUN/Creatinine Ratio 11.0 11.0 (10-20) Glucose 129 H 126 H (70-99) mg/dl Calcium 9.0 8.8 (8.5-10.1) mg/dl Magnesium 2.0 1.1 L (1.8-2.4) mg/dl PG Care Time/CCT Total # of Minutes Spent Total Time Spent with Patient: Total time spent is greater than 50% in coordination of care (as documented) at patient's floor/unit and/or counseling patient: Coding Level of Care Code 01472 Subseq Hosp Care Lvl 3 Diagnoses Small bowel obstruction K56.609 Pneumonia J18.9 Laterality: bilateral Lung location: lower lobe of lung Pneumonia type: due to unspecified organism Anemia D64.9 TIM (acute kidney injury) N17.9 Vomiting R11.10 Fracture dislocation of ankle S82.892A Encounter type: initial encounter Fracture type: closed Laterality: left CAD (coronary artery disease) I25.10 Hypothyroidism E03.9 Positive occult stool blood test R19.5 Hypomagnesemia E83.42 Pressure ulcer L89.90 Hypertension I10 (1) Fracture dislocation of ankle Encounter type: initial encounter Fracture type: closed Laterality: left Qualified Code(s): S82.892A - Other fracture of left lower leg, initial encounter for closed fracture (2) Pneumonia Laterality: bilateral Lung location: lower lobe of lung Pneumonia type: due to unspecified organism Qualified Code(s): J18.9 - Pneumonia, unspecified organism
[2021-08-08] MEDS: ENOXAPARIN INJ 40 MG/0.4 ML SYR SQ SCH (09:00)
[2021-08-08] MEDS: LOSARTAN POTASSIUM 50 MG TAB PO SCH ×2 (09:01→19:59)
[2021-08-08] MEDS: ASPIRIN 81 MG ECTAB PO SCH (09:01)
[2021-08-08] MEDS: hydrOXYzine HCl 10 MG TAB PO PRN ×2 (09:01→18:00)
[2021-08-08] MEDS: guaiFENesin 600 MG TABCR PO SCH ×2 (09:02→19:58)
[2021-08-08] MEDS: FLUTICASONE PROPIONATE NA SPR 16 GM BTL SCH ×2 (09:02→19:58)
[2021-08-08] MEDS: FLUTICASONE/VILANTEROL 200/25MCG 14 PUFFS/INHALER INH SCH (09:02)
[2021-08-08] MEDS: ATENOLOL 25 MG TABLET PO SCH (09:02)
[2021-08-08] MEDS: PANTOprazole 40 MG TAB PO SCH (09:02)
[2021-08-08] MEDS: MICONAZOLE NITRATE POWDER 43 GM EXT SCH ×2 (09:05→19:59)
[2021-08-08] MEDS: ATORVASTATIN 20 MG TAB PO SCH (09:30)
[2021-08-08] MEDS: ACETAMINOPHEN 325 MG TAB PO PRN ×2 (10:09→20:29)
[2021-08-08] MEDS: ONDANSETRON INJ 2 MG/ML 2 ML VIAL IV PRN (20:29)
[2021-08-09] MEDS: ACETAMINOPHEN 325 MG TAB PO PRN (04:44)
[2021-08-09] MEDS: BENZONATATE 100 MG CAPSULE PO PRN ×2 (05:20→11:23)
[2021-08-09] MEDS: LEVOTHYROXINE SODIUM 75 MCG TABLET PO SCH (05:20)
[2021-08-09] MEDS: hydrOXYzine HCl 10 MG TAB PO PRN ×2 (05:20→09:29)
[2021-08-09 07:14] LABS: Hematocrit (blood only) 29.7 % (37-47); Mean Corpuscular Hemoglobin 30.3 pg (25-34); Mean Corpuscular Hgb Conc 30.3 g/dL (32-36); Mean Platelet Volume 11.3 fL (7.4-10.4); Platelet Count 131 K/uL (130-400); RDW Coefficient of Variation 19.2 % (11.5-14.5); RDW Standard Deviation 70.2 fL (36.4-46.3); Red Blood Count 2.97 M/uL (4.2-5.4); White Blood Count 4.16 K/uL (4.8-10.8)
[2021-08-09 07:35] LABS: BUN Creatinine Ratio 9.9 (10-20); Calcium 8.7 mg/dl (8.5-10.1); Creatinine Clr Calc Pharmacy 43.7 ml/min; Est GFR (African American) 52.6 ml/min; Est GFR (Non-African American) 45.4 ml/min; Potassium 4.1 mmol/L (3.5-5.1)
[2021-08-09] MEDS ORDERED: PANTOprazole 40 MG TAB PO SCH (09:00)
--- NOTE | 2021-08-09 09:04 | Hospitalist Progress Note ---
Date of Service August 09, 2021 Assessment & Plan Admission and Anticipated Discharge Date Admission Date: July 28, 2021 Results & Data Results & Data ([facility]) Vital Signs (Past 12 Hours) Vital Signs Temp Pulse Resp BP Pulse Ox 08/09/21 07:54 36.5 C 64 16 181/83 H 95 08/09/21 02:35 168/72 H 08/09/21 02:17 36.8 C 66 18 180/90 H 94 Laboratory Results 08/09/21 08/09/21 Range/Units 06:51 06:51 WBC 4.16 L (4.8-10.8) K/uL RBC 2.97 L (4.2-5.4) M/uL Hgb 9.0 L (12.0-16.0) g/dL Hct 29.7 L (37-47) % MCV 100.0 (80-100) fL MCH 30.3 (25-34) pg MCHC 30.3 L (32-36) g/dL RDW Std Deviation 70.2 H (36.4-46.3) fL RDW Coeff of Amaya 19.2 H (11.5-14.5) % Plt Count 131 (130-400) K/uL MPV 11.3 H (7.4-10.4) fL Sodium 138 (136-145) mmol/L Potassium 4.1 (3.5-5.1) mmol/L Chloride 107 (98-107) mmol/L Carbon Dioxide 26 (21-32) mmol/L Anion Gap 5.0 (3-11) BUN 11 (7-18) mg/dl Creatinine 1.12 (0.6-1.2) mg/dl Est Cr Clr Drug Dosing 43.7 ml/min Est GFR ( Amer) 52.6 ml/min Est GFR (Non-Af Amer) 45.4 ml/min BUN/Creatinine Ratio 9.9 L (10-20) Glucose 123 H (70-99) mg/dl Calcium 8.7 (8.5-10.1) mg/dl PG Care Time/CCT Total # of Minutes Spent Total Time Spent with Patient: Total time spent is greater than 50% in coordination of care (as documented) at patient's floor/unit and/or counseling patient: Coding
[2021-08-09] MEDS: ATENOLOL 25 MG TABLET PO SCH (09:13)
[2021-08-09] MEDS: ASPIRIN 81 MG ECTAB PO SCH (09:13)
[2021-08-09] MEDS: ATORVASTATIN 20 MG TAB PO SCH (09:15)
[2021-08-09] MEDS: guaiFENesin 600 MG TABCR PO SCH (09:15)
[2021-08-09] MEDS: LOSARTAN POTASSIUM 50 MG TAB PO SCH (09:15)
[2021-08-09] MEDS: ENOXAPARIN INJ 40 MG/0.4 ML SYR SQ SCH (09:16)
[2021-08-09] MEDS: FLUTICASONE PROPIONATE NA SPR 16 GM BTL SCH (09:17)
[2021-08-09] MEDS: MICONAZOLE NITRATE POWDER 43 GM EXT SCH (09:18)
[2021-08-09] MEDS: FLUTICASONE/VILANTEROL 200/25MCG 14 PUFFS/INHALER INH SCH (11:19)
--- NOTE | 2021-08-09 12:42 | Discharge Summary ---
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 Patient is POD #14 from right ORIF of the left and right ankles following a fall at home on . Patient was discharged from the hospital on to [facility] for rehab. The patient returns today for complaints of cough, shortness of breath, weakness, and n/v. Patient states that she continues to feel weak and tired and delirious when taking her [place] and she thinks this may be the cause of her vomiting. She has been having dyspnea for the past 2 days and coughing up what she reports as carson/green sputum. She denies any increase in pain at her surgical sites, or at her abdomen. She feels her ostomy output has been remaining consistent with no increase or change in color. There is liquid dark green output in the bag currently. In the EMD the patient had a CXR done, ro utine labs to include UA performed. Her labs returned a WBC elevation of 16.7 with elevated NLR, and stable anemia with HGB of 8.8 which is where she was at discharge. On admission for past admission her WBCs were normal and her HGB was 10.6. She also has an elevated BUN and [employer] at this time. Her CXR is interpreted as bibasilar opacities that may reflect atelectasis or consolidation. She was started on Azithromycin and Rocephin in the EMD, will transition to HCAP treatment with pseudomonal coverage with Zosyn, MRSA swab pending. Patient was turned and ulcerations of buttocks are covered with Optifoam and no evidence of surrounding erythema or infection,She does not demonstrate any febrility or hemodynamic instability. Will send urine for culture as UA negative, Blood cultures sent- however this was after EMD antibiotics. Will send inflammatory markers, type and screen for PRBCs, IVF overnight for TIM. Patient has received her COVID vaccines and her COVID test is: NEGATIVE Admission Exam Per Admitting Provider PHYSICAL EXAM: General: awake, alert, no apparent distress Head: Normocephalic, atraumatic ENT: PERRL, EOMI, no pharyngeal exudate, mucous membranes dry Neuro: AAO x 3, speech clear and appropriate, strength intact bilaterally 5/5, sensation intact and equal all extremities and dermatomes, no pronator drift Chest: equal rise and fall of the chest, no accessory muscle use, no heaves or thrills, decreased throughout with scattered rhonchi, on room 2LNC, Cardiac: Regular rate and rhythm, telemetry reviewed-NSR, skin warm dry, cap refill <3 seconds, peripheral pulses +2 no JVD, no murmur, no edema GI: NABS x 4 quadrants, soft, nontender to palpation, no rebound, guarding or tenderness- ostomy output : Spontaneously voiding, no pain, no CVA tenderness, Extremities: Normal inspection, no peripheral edema or erythema, calfs nontender to palpation Psych: Anxious Skin: surgical sites intact, venous discoloration to lower extremities, abdominal bruising from subq injections from previous admission, buttocks covered with Optifoam x2 areas on right buttocks. Groin folds with cream in them and no irritation. Principal Diagnosis SBO, TIM, Community Acquired Pneumonia Discharge Exam General: awake, alert, no apparent distress resting in bed ENT: mmm, LUCILLE, EOMI trachea midline without deviation Resp: CTAB, diminished in the bases, no wheezing or rhonchi, 95% on room air CV; RRR, systolic murmur, calves nontender, no edema ; +BS throughout, +ostomy with liquid/some formed brown/darkened stool output, non-tender MSK; bruising and chronic venous stasis, healing incisions to b/l ankles. no increased erythema or warmth, pulses palpable. NVI, decreased strength b/l LE 2- 3+/5 Psych: AOx3, anxious affect about getting up at rehab Skin: surgical incisions intact, venous stasis b/l LE, erythema to b/l buttocks without purulent drainage or signs of infection (improving) Discharge Data Allergies Allergy/AdvReac Type Severity Reaction Status Date / Time oxytetracycline Allergy Intermediate Unknown Verified 07/28/21 17:58 polymyxin B Allergy Intermediate Unknown Verified 07/28/21 17:58 tetracycline Allergy Intermediate Unknown Verified 07/28/21 17:58 morphine AdvReac Unknown Unknown Verified 07/28/21 17:58 Consultations 07/28/21 20:13 ED Decision to Admit Stat 07/29/21 11:32 Consult Gastroenterology Routine 07/29/21 17:09 Consult General Surgery Routine Ordered Studies 07/29/21 09:27 CT abd pelvis wo con Urgent CT ankle LT wo con Urgent CT ankle RT wo con Urgent Hospital Course (1) Small bowel obstruction: Admitted with n/v, TIM and Leukocytosis/Pneumonia and subsequent decrease in ostomy output (black in ostomy on admission but on iron +occult blood and GI felt no need for inpatient intervention) GI on consult -- felt black stool from iron supplementation and outpatient scope CTAP 1. Right greater than left bibasilar opacities are suggestive of pneumonia. Associated bibasilar mucous plugging should be correlated clinically to exclude aspiration. 2. Distended air and fluid-filled stomach with numerous distended loops of small bowel with transitioning decompressed small bowel within the lower pelvis. Findings are concerning for a small bowel obstruction. 3. No pneumatosis or pneumoperitoneum. 4. 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 General surgery consulted NGT placed, removed 08/02 Diet advanced to low fiber and has tolerated for past 4 days --> will continue low fiber diet x 2 weeks then advance to usual diet. F/u GI for outpatient scope. --> D/c PO iron supplementation and rec'd for monitoring by PCP to see about Venofer IV in the future Ostomy continues with output, no abd pain/n/v PT/OT -- rehab. [facility] not able to hold bed but arrangements made for [facility] (2) Pneumonia: Bilateral opacities, elevated WBC, productive green sputum/saab/lundberg sputum on admission, no fever ?If possible related to aspiration from increased lethargy from pain medications used/multiple surgeries/adhesions and obstruction resulting in n/v/aspiration and resulting aspiration pneumonia. Completed course of Zosyn/Azithromycin for CAP. Sputum cx - with MSSA (Mrsa Nasal was negative) Albuterol prn, flutter valve Remained on room air. No breathing difficulty above baseline with hr anxiety about getting up at rehab (3) Anemia: hgb 7.5 on admission and received 1u PRBC and Venofer on 07/29 - Hgb at baseline (baseline appears around 8-10). GI does not feel inpatient EGD necessary as felt due to iron supplementation as cause for + fecal occult Given no active bleeding and was placed on protonix BID on admit due to possible bleed, backed down protonix 40mg daily and continued at d/c. Hgb stable at 9 on repeat -- would have outpatient monitoring/venofer transfusions if needed as PO stopped at d/c (4) TIM (acute kidney injury): Acute on chronic CKD III. Cr had been elevated last admission but was steady. ~1.8 Cr up to 2.49 on admit and IVF provided and tx for above Cr returned to baseline, losartan resumed and Cr stayed stable, 1.12 on repeat Of note, would rec renal US given incidental findings on CT to rule out solid masses - non-emergent and can be done on outpatient basis (5) Vomiting: Secondary to small bowel obstruction. Antiemetics prn - NGT placed and since removed; no nausea/vomiting since removal and tolerating diet (6) Hypertension: BP elevated, but some from anxiety/pain Losartan just recently resumed as had been on hold. Cr remained stable. (7) Fracture dislocation of ankle: - S/P b/l ORIF completed by Dr Garvin. Completed course of dvt proph per podiatry with brandy to total of 14 days post-op which was for 2 more days on admit, since d/c Dr. Garvin evaluated patient, removed remaining sutures CT ankles with better alignment but still noting fractures. No increased pain/erythema or warmth above prior eval (8) CAD (coronary artery disease): With 1 stent to circumflex 2003 Held ASA--> resumed 08/07 given hgb stable on repeats and remains stable at 9 Resumed statin 08/07 (9) Hypothyroidism: Continue Synthroid 225mcg TSH elevated to 6.17 during this admission however was 20.6 last admission when checked and Synthroid was increased to 225mcg daily and this was sent at d/c - Free T4 WNL Rec repeat TFT in 4 weeks for eval on further adjustments if needed (10) Positive occult stool blood test: on iron outpatient - placed on hold during obstruction - consider outpatient venofer infusions but would hold off on oral supplementation to prevent constipation/obstruction as above outpatient scope per GI (11) Hypomagnesemia: Low at 1.1 -- worsened likely due to PPI BID/ Replacement ordered. Mag wnl on repeat PPI backed to once daily as above (12) Pressure ulcer: improvement compared to prior but still not motivated to get up out of bed. encouraged frequent repositioning to prevent further breakdown Per wound RN, looking better than in days past. Imaging in system Tolerating diet; respiratory status stable --> Lovenox 40SQ daily on 08/03 for DVT prophylaxis. previously held for concerns of GIB on admit. Hgb remaining stable on repeat PT/OT rec rehab. [facility] arranged by CM. Total Time Total Time Spent Total Time Spent (In Minutes): 55 Discharge Plan Discharge Items Patient Disposition: Transfer [facility] Living [facility] Reason For Visit: VOMITTING, WEAKNESS Discharge Diagnosis: SBO, TIM, Pneumonia Goals: You have been hospitalized for an acute medical problem. During your stay at [facility], we have made an effort to correct the problem that brought you to the hospital while keeping you as comfortable as possible. Medications were used to bring your condition under control and your discharge instructions will include directions for any medications you should take after leaving the hospital. Please make sure you see your Primary Care Provider as part of your follow up plan. Activity: As commented below Activity Comment: advance with therapy with boots Non-emergency contact: Primary Care Provider Call non-emergency contact if: you have any medication questions, your symptoms worsen, your pain is not controlled and you have a fever Follow-up/Referrals: Richi Ferraro [Primary Care Provider] - Candie Kevin MD [Hospitalist] - (4-6 weeks) Diet: Heart Healthy and Low Fiber Addtl Attending Provider Instructions: You have been hospitalized for nausea, vomiting and acute kidney injury along with shortness of breath and found to have a pneumonia as well as bowel obstruction. Your pneumonia was treated with antibiotics and you have completed treatment for this while in the hospital. For the bowel obstruction, general surgery was consults and this was managed conservatively. Your oral iron has been stopped at discharge and you should follow up with your primary care provider for repeat iron studies and consider IV iron transfusions in the future (you got a unit of blood and dose of iron while inpatient) to help with your blood counts. They have been stable, and actually improved. You should continue a low fiber diet for the next 10 days to ensure continued GI movement and then can advance as tolerated after that. You have been started on protonix for reflux symptoms and this will be continued at discharge and will help with any GI irritation. You should follow up outpatient with GI for a scope given positive fecal occult blood, however it was felt this was related to your iron supplementation. You should follow up with your PCP for non-emergent CT for your kidneys given incidental findings on imaging. Your levothyroxine was increased to 225mcg daily last admission and this was continued. You should have repeat thyroid function testing in 4-6 weeks outpatient to see if you need any further adjustments. Rehab has been arranged at discharge and you should increased ambulation as tolerated to improve strength. Please follow up with your PCP in the next 1-2 weeks to monitor your progress. Please return to the emergency department with any fever, chills, chest pain, worsening shortness of breath, decreased output from ostomy/abdominal pain, or for any other symptoms that are concerning for you. It has been a pleasure being a part of the medical team providing for you while you have been in the hospital. Take care! Pending Studies at Discharge: No Stand-Alone Forms: My [facility] Skilled Items Patient informed of condition?: Yes DNR: No Discharge Level of Care: Skilled Communicable Disease: No Discharge Prognosis: Stable Lines: None Urinary Catheter: No Medications and DC Order Prescriptions: New pantoprazole 40 mg Tablet,Delayed Release (Dr/Ec) 40 mg PO QAM Qty: 30 RF: 0 levothyroxine [Synthroid] 75 mcg Tablet 225 mcg PO DAILYBB Qty: 30 RF: 0 Desenex 2 % Powder 1 applic EXT BID Qty: 43 RF: 0 Continued vitamin E 1,000 unit Capsule 1,000 unit PO HS RF: 0 fluticasone propion-salmeterol [Advair Diskus] 250-50 mcg/dose blister with device 1 inh INHALATION BID RF: 0 atenolol [Tenormin] 25 mg tablet 12.5 mg PO QAM RF: 0 cyanocobalamin (vitamin B-12) [Vitamin B-12] 1,000 mcg Tablet 3,000 mcg PO HS RF: 0 aspirin [Aspirin Low Dose] 81 mg Tablet,Delayed Release (Dr/Ec) 81 mg PO QAM RF: 0 furosemide [Lasix] 20 mg Tablet 20 mg PO DAILY PRN (Reason: Fluid Retention) RF: 0 fluticasone propionate [Flonase Allergy Relief] 50 mcg/actuation spray,suspension 1 spray INTRANASAL BID RF: 0 cholecalciferol (vitamin D3) [Vitamin D3] 25 mcg (1,000 unit) Capsule 25 mcg PO HS RF: 0 atorvastatin [Lipitor] 20 mg Tablet 20 mg PO QAM RF: 0 losartan 50 mg tablet 50 mg PO BID RF: 0 hydrocodone-acetaminophen 5-325 mg tablet 1 tab PO Q12 PRN (Reason: Pain) RF: 0 trolamine salicylate [Aspercreme] 10 % Cream 1 applic TOPICAL TID PRN (Reason: shoulder pain) RF: 0 acetaminophen [Tylenol Extra Strength] 500 mg Tablet 1,000 mg PO TID Qty: 0 RF: 0 (DME) Oxygen Home Liters Per Minute See Rx Instructions .ROUTE Qty: 1 RF: 0 Eliquis 2.5 mg tablet 2.5 mg PO BID Qty: 4 RF: 0 hydroxyzine HCl 10 mg tablet 10 mg PO HS PRN (Reason: anxiety) Qty: 10 RF: 0 Discontinued allopurinol [Zyloprim] 100 mg Tablet 100 mg PO QAM RF: 0 levothyroxine 200 mcg tablet 200 mcg PO DAILYBB RF: 0 ferrous sulfate [iron] 325 mg (65 mg iron) Tablet 325 mg PO HS RF: 0 Discharge Orders: Discharge Order (Routine); Ordered 08/09/21 Ordered By: Shannan Hernandez Admission Data Admit Date/Time: 07/28/21 21:15 Attending Provider: Diane Blackman Admit Provider: Beryl Em Primary Care Provider: Richi Ferraro Other Providers: Beryl Em ; Candie Kevin ; John Kate ; [facility] ; [place] Other Interventions: Discharge Summary Assessment (RN) Last Done: 08/09/21 13:31 Supervising Physician Co-Signing Physician Notes PA Supervision Note: I personally saw and examined the patient. I verified all lay points and agree with PAOLA Hernandez with the following exceptions and/or additions: S-patient feeling improved, no shortness of breath, pain in ankles and is improved. Has good output from her ostomy and is eating well. Has anxiety about going to rehab O- Vitals reviewed Gen: AAOx3, NAD HEENT: Anicteric sclerae, EOMI CV: RRR no mgr nl S1S2 Pulm: CTAB no wcr Abd: +BS soft NT ND no masses or hernias, with ostomy bag with gas and stool Ext: No edema Skin: No rashes, warm/dry Neuro: Full strength throughout A/C-8-[id number]-old female here with aspiration pneumonia and bowel obstruction, now much improved Stable for discharge to rehab Coding Level of Care Code D/C DAY MANAGEMENT >30 MINS Diagnoses Small bowel obstruction K56.609 Pneumonia J18.9 Laterality: bilateral Lung location: lower lobe of lung Pneumonia type: due to unspecified organism Anemia D64.9 TIM (acute kidney injury) N17.9 Vomiting R11.10 Hypertension I10 Fracture dislocation of ankle S82.892A Encounter type: initial encounter Fracture type: closed Laterality: left CAD (coronary artery disease) I25.10 Hypothyroidism E03.9 Positive occult stool blood test R19.5 Hypomagnesemia E83.42 Pressure ulcer L89.90
--- NOTE | 2021-08-15 10:11 | Coding Query ---
CODING QUERY To promote full compliance with coding requirements relating to patient care, provider participation is requested in all cases of outreach professional uncertainty. Please assist us with the question(s) below: Coding Question(s): Discharge Summary under "Hospital Course" states Community Acquired Pneumoni". Further on under Pneumonia documentation states possible aspiration pneumonia due to medications, etc. . Seeking to clarify the type of Pneumonia that was treated . Please check below the phrase that indicates the type of Pneumonia that was treated during this IP stay. Thanks for your help! CARINA Harden [facility] Physician's Response(s): x Aspiration Pneumonia Community Acquired Pneumonia Cannot Clinically Correlate the type of Pneumonia that was treated Other: please document: Principal Diagnosis: "that condition established after study, to be chiefly responsible for occasioning the admission of the patient to the hospital for care." Co-Existing Principal Diagnosis: "when two or more diagnoses equally meet the criteria for principal diagnosis as determined by the circumstances of admission, diagnostic work up, and/or therapy provided, and the Alphabetic Index, Tabular List, or another coding guideline does not provide sequencing direction, any one of the diagnoses may be sequenced first." "When the physician has documented what appears to be a current diagnosis in the body of the record, but has not included the diagnosis in the final diagnostic statement, the physician should be asked whether the diagnosis should be added." (Source Coding Clinic 2 QTR90. p3-4) [id number]
== END 2021-08-09 14:43 | DRG 388 ==
LOC: ED 16:19 → 3N 21:15 → SUATTDRO 21:15 → 3N 22:21